=== PATIENT | male | born 1950 | race Caucasian/White ===

== ENCOUNTER 2018-07-19 14:04 | Inpatient (IN) | payer MEDICARE, BC, SELFPAY ==
[2018-07-19] VITALS (29 sets, daily range): BP systolic 119–202; BP diastolic 72–104; PULSE 67–120; RESP 10–24; TEMP 36.6–37.3; O2SAT 89–97
--- NOTE | 2018-07-19 14:31 | DI.CT_ITS ---
SYMPTOM/DIAGNOSIS: CHEST PAIN CT ANGIOGRAPHY CHEST: 07/19 CT angiography of the chest was performed with a bolus infusion of 100 cc Omnipaque 350. Images obtained through the upper abdomen is grossly unremarkable in appearance and the visualized portions of liver, spleen, pancreas and adrenals. Thoracic aorta is well opacified but there is suboptimal opacification in pulmonary arterial circulation, no major saddle embolus identified but the more peripheral vessels are not well seen. No adenopathy or mass identified in the mediastinum. No pleural fluid seen. The lungs are clear. CONCLUSION: Limited study. No central pulmonary embolus identified.
--- NOTE | 2018-07-19 14:35 | W.ED.GENAD ---
Discharge Plan Disposition Patient Disposition: [facility] INPATIENT Condition: Critical Discharge Details Chief Complaint: Chest Pain Clinical Impression: Unstable angina Reason For Visit: chest pain Admit Date/Time: 07/19/18 16:47 Admit Provider: Brett Marin Attending Provider: Brett Marin Primary Care Provider: Cosmo Mckeon ED Provider: Quincy Loza Discharge Data Discharge Date/Time-TO BE ENTERED AT DEPARTURE: 07/19/18 17:39 Medical Decision Making 14:35 --57-year-old male, former smoker, with history of hypertension, significant family history for cardiac disease, here with central chest pain with radiation to his left arm that started after shoveling snow this morning. Patient has had intermittent chest pain and dyspnea on exertion over the past 3-months. ECG concerning for ischemia. No STEMI. Plan to check troponin. Decision made to obtain outside hospital records. ECG was obtained from [facility]. Given tachycardia and some shortness of breath, consider PE. Patient is also hypertensive and raises concern for aortic dissection. I will obtain CTA imaging of his chest. Patient is anxious. I will give Ativan 0.5 mg IV. Plan to give nitroglycerin sublingual. 14:45 -- Patient received nitroglycerin sublingual x2 and had significant reduction in pain. 16:04 -- CT chest interpreted by radiology: Limited bolus. No central or first-order branch embolus. If there is significant clinical suspicion for pulmonary embolism, bilateral lower extremity duplex sonography is suggested to assess for DVT. Aorta noted to be normal with no aortic aneurysm and no aortic dissection. Pain has been resolved post nitro. Labs reviewed and initial trop neg. Repeat ECG reviewed and interpreted by me: Sinus rhythm 88 bpm, left axis deviation noted, ST depressions and T wave inversions have resolved. Call [facility] to consult with cardiology about transfer. ECG sent for review. Awaiting call back. 17:00 -- Spoke with [facility] cardiology Dr. Griffin -I discussed the patient's presentation, ED course including diagnostic results. Dr. Griffin recommends starting heparin infusion, plavix 300mg and aspirin, and recommends admission to [facility] with plan for transfer to [facility] tomorrow AM for further testing. I spoke with Dr. Marin and discussed ED presentation, course, diagnostics and treatment and recommendation from cardiology. He will admit the patient. He recommended crestor and requested that bridging orders be placed to the ICU. ECG Data Attestation: I personally reviewed and interpreted this ECG (s) as follows: (Sinus tachycardia 115 bpm, ST depressions are noted leads V4 to V6 with T wave inversions lead I and aVL) Prior ECG tracings: available for review (ECG from [facility] dated 06/11/2016 reveals no T wave inversions or ST depressions as noted in current EKG) HPI General Mode of arrival: ambulatory. Date/Time Provider Initiated Documentation: 07/19/18 14:13. Limitations to Documentation: no limitations. Information obtained by: patient. HPI Narrative: 67-year-old male with history of hypertension, COPD, former smoker, here with chief complaint of chest pain. Patient notes that he has been having constant chest pain over the past 1 hour. Pain seems to have improved slightly from its worst. Pain is currently 4/10 intensity. Pain is localized to his central chest and radiated into his left arm. Pain is described as an ache. Patient notes that he has had question 3 months of intermittent central chest discomfort with dyspnea on exertion. He does currently have some anxiety Patient did take his antihypertensive medications this morning. Related Data Home Medications Medication Instructions Recorded Confirmed aspirin 81 mg PO DAILY 07/19/18 07/19/18 lisinopril-hydrochlorothiazide 1 tab DAILY AM 07/19/18 07/19/18 metoprolol tartrate 50 mg PO Q6H #1 tab 07/19/18 nitroglycerin [Nitro-Bid] 1 g TOPICAL Q6H #1 g 07/19/18 nitroglycerin [Nitrostat] 0.4 mg SUBLINGUAL Q5 MIN PRN X3 07/19/18 PRN #1 tab omeprazole magnesium [Prilosec OTC] 20 mg PO PRN PRN 07/19/18 07/19/18 testosterone cypionate 200 mg IM QMONTH 07/19/18 07/19/18 tiotropium-olodaterol [Stiolto 2 puff INHALATION DAILY 07/19/18 07/19/18 Respimat] Previous Rx's Medication Instructions Recorded metoprolol tartrate 50 mg PO Q6H #1 tab 07/19/18 nitroglycerin [Nitro-Bid] 1 g TOPICAL Q6H #1 g 07/19/18 nitroglycerin [Nitrostat] 0.4 mg SUBLINGUAL Q5 MIN PRN X3 07/19/18 PRN #1 tab Allergies Allergy/AdvReac Type Severity Reaction Status Date / Time shellfish derived Allergy Unverified 07/19/18 14:14 General Stated Complaint: Chest Pain ELI: 2 Review of Systems Review of Systems All systems reviewed & are unremarkable except as noted in HPI and below Cardiovascular Reports chest pain and Reports dyspnea on exertion Respiratory Reports dyspnea on exertion PFSH Family History Father History of non-ST elevation myocardial infarction (NSTEMI) Prostate cancer metastatic to multiple sites Mother COPD (chronic obstructive pulmonary disease) Sister Breast cancer Sister Ovarian cancer Brother Lung cancer Medical History COPD (chronic obstructive pulmonary disease) (Chronic) Colon polyps (Chronic) HTN (hypertension) (Chronic) Melanoma (Chronic) Social History Smoking/Tobacco Use Status: Former Tobacco Use Surgical History H/O colonoscopy (Resolved) H/O melanoma excision (Resolved) H/O nasal septoplasty (Resolved) Exam Const General: cooperative and no acute distress HENMT Head: normocephalic and atraumatic Mouth: moist mucous membranes Eyes Conjunctivae: normal conjunctivae Sclera: normal sclerae EOM: EOM intact bilaterally Neck Neck: trachea midline and supple Resp Auscultation: clear to auscultation bilaterally, no rales, no rhonchi and no wheezes Cardio Jugular venous pressure: no JVD Rate: tachycardic Rhythm: regular rhythm Heart Sounds: S1 normal, S2 normal, no gallops, no murmurs and no rubs GI Palpation: soft, not firm, no guarding, no masses, not rigid and nontender Skin General skin exam: no rashes or lesions noted Other: no diaphoresis Neuro General: alert, awake, oriented x3 and tone normal Extrem General: no calf tenderness bilaterally and no edema Psych Appearance: grossly normal Mental Status: mental status grossly normal Speech and Movement: speech and movement normal Affect: anxious affect Course Vital Signs Temperature 36.6 C 07/19/18 14:10 Pulse 116 H 07/19/18 14:10 Respiratory Rate 20 07/19/18 14:10 Blood Pressure 202/92 H 07/19/18 14:10 Pulse Oximetry 95 07/19/18 14:10 Temperature 36.6 C 07/19/18 14:10 Temperature Source Temporal Artery Scan 07/19/18 14:10 Pulse 116 H 07/19/18 14:10 Respiratory Rate 20 07/19/18 14:10 Respiratory Effort 07/19/18 14:24 Blood Pressure 202/92 H 07/19/18 14:10 Pulse Oximetry 95 07/19/18 14:10 Oxygen Delivery Method Room Air 07/19/18 14:10 Oxygen Flow Rate 0 07/19/18 14:10 Pain Level 4 07/19/18 14:10 Critical Care Time Critical Care Time: Yes Total Critical Care Time: 45 Attestation: I spent greater than 45 minutes addressing this patient's immediate life threats.
[2018-07-19] MEDS: LORazepam 2 MG/ML VIAL (14:40)
--- NOTE | 2018-07-19 14:42 | ED.GENADUL_ITS ---
Discharge Plan Disposition Patient Disposition: [facility] INPATIENT Condition: Critical Discharge Details Chief Complaint: Chest Pain Clinical Impression: Unstable angina Reason For Visit: chest pain Admit Date/Time: 07/19/18 16:47 Admit Provider: Brett Marin Attending Provider: Brett Marin Primary Care Provider: Cosmo Mckeon ED Provider: Quincy Loza Discharge Data Discharge Date/Time-TO BE ENTERED AT DEPARTURE: 07/19/18 17:39 Medical Decision Making 14:35 --57-year-old male, former smoker, with history of hypertension, significant family history for cardiac disease, here with central chest pain with radiation to his left arm that started after shoveling snow this morning. Patient has had intermittent chest pain and dyspnea on exertion over the past 3- months. ECG concerning for ischemia. No STEMI. Plan to check troponin. Decision made to obtain outside hospital records. ECG was obtained from [facility]. Given tachycardia and some shortness of breath, consider PE. Patient is also hypertensive and raises concern for aortic dissection. I will obtain CTA imaging of his chest. Patient is anxious. I will give Ativan 0.5 mg IV. Plan to give nitroglycerin sublingual. 14:45 -- Patient received nitroglycerin sublingual x2 and had significant reduction in pain. 16:04 -- CT chest interpreted by radiology: Limited bolus. No central or first-order branch embolus. If there is significant clinical suspicion for pulmonary embolism, bilateral lower extremity duplex sonography is suggested to assess for DVT. Aorta noted to be normal with no aortic aneurysm and no aortic dissection. Pain has been resolved post nitro. Labs reviewed and initial trop neg. Repeat ECG reviewed and interpreted by me: Sinus rhythm 88 bpm, left axis deviation noted, ST depressions and T wave inversions have resolved. Call [facility] to consult with cardiology about transfer. ECG sent for review. Awaiting call back. 17:00 -- Spoke with [facility] cardiology Dr. Griffin -I discussed the patient's presentation, ED course including diagnostic results. Dr. Griffin recommends starting heparin infusion, plavix 300mg and aspirin, and recommends admission to [facility] with plan for transfer to [facility] tomorrow AM for further testing. I spoke with Dr. Marin and discussed ED presentation, course, diagnostics and treatment and recommendation from cardiology. He will admit the patient. He recommended crestor and requested that bridging orders be placed to the ICU. ECG Data Attestation: I personally reviewed and interpreted this ECG (s) as follows: ( Sinus tachycardia 115 bpm, ST depressions are noted leads V4 to V6 with T wave inversions lead I and aVL) Prior ECG tracings: available for review (ECG from [facility] dated 06/11/2016 reveals no T wave inversions or ST depressions as noted in current EKG) HPI General Mode of arrival: ambulatory . Date/Time Provider Initiated Documentation: 07/19/18 14:13 . Limitations to Documentation: no limitations . Information obtained by: patient . HPI Narrative: 67-year-old male with history of hypertension, COPD, former smoker, here with chief complaint of chest pain. Patient notes that he has been having constant chest pain over the past 1 hour. Pain seems to have improved slightly from its worst. Pain is currently 4/10 intensity. Pain is localized to his central chest and radiated into his left arm. Pain is described as an ache. Patient notes that he has had question 3 months of intermittent central chest discomfort with dyspnea on exertion. He does currently have some anxiety Patient did take his antihypertensive medications this morning. Related Data Home Medications Medication Instructions Recorded Confirmed aspirin 81 mg PO DAILY 07/19/18 07/19/18 lisinopril-hydrochlorothiazide 1 tab DAILY AM 07/19/18 07/19/18 metoprolol tartrate 50 mg PO Q6H #1 tab 07/19/18 nitroglycerin [Nitro-Bid] 1 g TOPICAL Q6H #1 g 07/19/18 nitroglycerin [Nitrostat] 0.4 mg SUBLINGUAL Q5 MIN PRN X3 07/19/18 PRN #1 tab omeprazole magnesium [Prilosec OTC] 20 mg PO PRN PRN 07/19/18 07/19/18 testosterone cypionate 200 mg IM QMONTH 07/19/18 07/19/18 tiotropium-olodaterol [Stiolto 2 puff INHALATION DAILY 07/19/18 07/19/18 Respimat] Previous Rx's Medication Instructions Recorded metoprolol tartrate 50 mg PO Q6H #1 tab 07/19/18 nitroglycerin [Nitro-Bid] 1 g TOPICAL Q6H #1 g 07/19/18 nitroglycerin [Nitrostat] 0.4 mg SUBLINGUAL Q5 MIN PRN X3 07/19/18 PRN #1 tab Allergies Allergy/AdvReac Type Severity Reaction Status Date / Time shellfish derived Allergy Unverified 07/19/18 14:14 General Stated Complaint: Chest Pain ELI: 2 Review of Systems Review of Systems All systems reviewed & are unremarkable except as noted in HPI and below Cardiovascular Reports chest pain and Reports dyspnea on exertion Respiratory Reports dyspnea on exertion PFSH Family History Father History of non-ST elevation myocardial infarction (NSTEMI) Prostate cancer metastatic to multiple sites Mother COPD (chronic obstructive pulmonary disease) Sister Breast cancer Sister Ovarian cancer Brother Lung cancer Medical History COPD (chronic obstructive pulmonary disease) (Chronic) Colon polyps (Chronic) HTN (hypertension) (Chronic) Melanoma (Chronic) Social History Smoking/Tobacco Use Status: Former Tobacco Use Surgical History H/O colonoscopy (Resolved) H/O melanoma excision (Resolved) H/O nasal septoplasty (Resolved) Exam Const General: cooperative and no acute distress HENMT Head: normocephalic and atraumatic Mouth: moist mucous membranes Eyes Conjunctivae: normal conjunctivae Sclera: normal sclerae EOM: EOM intact bilaterally Neck Neck: trachea midline and supple Resp Auscultation: clear to auscultation bilaterally, no rales, no rhonchi and no wheezes Cardio Jugular venous pressure: no JVD Rate: tachycardic Rhythm: regular rhythm Heart Sounds: S1 normal, S2 normal, no gallops, no murmurs and no rubs GI Palpation: soft, not firm, no guarding, no masses, not rigid and nontender Skin General skin exam: no rashes or lesions noted Other: no diaphoresis Neuro General: alert, awake, oriented x3 and tone normal Extrem General: no calf tenderness bilaterally and no edema Psych Appearance: grossly normal Mental Status: mental status grossly normal Speech and Movement: speech and movement normal Affect: anxious affect Course Vital Signs Temperature 36.6 C 07/19/18 14:10 Pulse 116 H 07/19/18 14:10 Respiratory Rate 20 07/19/18 14:10 Blood Pressure 202/92 H 07/19/18 14:10 Pulse Oximetry 95 07/19/18 14:10 Temperature 36.6 C 07/19/18 14:10 Temperature Source Temporal Artery Scan 07/19/18 14:10 Pulse 116 H 07/19/18 14:10 Respiratory Rate 20 07/19/18 14:10 Respiratory Effort 07/19/18 14:24 Blood Pressure 202/92 H 07/19/18 14:10 Pulse Oximetry 95 07/19/18 14:10 Oxygen Delivery Method Room Air 07/19/18 14:10 Oxygen Flow Rate 0 07/19/18 14:10 Pain Level 4 07/19/18 14:10 Critical Care Time Critical Care Time: Yes Total Critical Care Time: 45 Attestation: I spent greater than 45 minutes addressing this patient's immediate life threats.
[2018-07-19 14:45] LABS: Abs Immature Grans 0.05 k/cumm (0.0-0.09); Absolute Basophil Count 0.04 k/cumm (0.0-0.2); Absolute Eosinophil Count 0.63 k/cumm (0.0-0.7); Absolute Lymphocyte Count 3.73 k/cumm (1.2-3.4); Absolute Monocyte Count 1.02 k/cumm (0.11-0.7); Absolute Neutrophil Count 9.27 k/cumm (1.2-6.7); Basophils % 0.3; Eosinophils % 4.3; HCT 45.8 % (40.0-50.0); HGB 16.3 g/dL (13.5-17.5); Immature Grans % 0.3; Lymphocytes % 25.3; Mean Corp. HGB Concentration 35.6 g/dL (32.0-36.0); Mean Corpuscular Hemoglobin 33.9 pg (27.0-33.0); Mean Corpuscular Volume 95.2 fL (80-95); Mean Platelet Volume 10.7 fL (8.0-11.0); Monocytes % 6.9; Neutrophils % 62.9; Platelet Count 268 x1000/uL (130-400); RBC 4.81 m/cumm (4.50-6.00); RBC Distribution Width 13.2 % (11.8-14.1); White Blood Cell Count 14.73 k/cumm (4.4-10.8)
[2018-07-19 15:06] LABS: ALT 44 U/L (12-78); AST 37 U/L (15-37); Albumin 4.1 g/dL (3.4-5.0); Alkaline Phosphatase 56 U/L (46-116); Anion Gap 11.4 mmol/L (3-11); BUN 21 mg/dL (7-18); Bilirubin, Total 0.5 mg/dL (0.2-1.0); CO2 26.6 mmol/L (21.0-32.0); CREATININE 1.26 mg/dL (0.70-1.30); Calcium 8.6 mg/dL (8.5-10.1); Chloride 100 mmol/L (98-107); Estimated GFR 56.74 (mL/min/1.73m2); Glucose 144 mg/dL (70-100); NT-proBNP 199 pg/mL; Potassium 3.6 mmol/L (3.5-5.1); Sodium 138 mmol/L (136-145); Total Protein 8.4 g/dL (6.4-8.2); Troponin I 0.02 ng/mL (0.00-0.06)
[2018-07-19] MEDS: Omnipaque 350 MG/ML 100 ML BTL IJ (15:35)
--- NOTE | 2018-07-19 15:50 | DI.VRAD_ITS ---
EXAM: CT Angiography Chest With Intravenous Contrast EXAM DATE/TIME: 07/19/2018 3:34 PM CLINICAL HISTORY: 67 years old, male; Pain; Chest pain TECHNIQUE: Axial computed tomographic angiography images of the chest with intravenous contrast using CT angiography protocol. All CT scans at this facility use at least one of these dose optimization techniques: automated exposure control; mA and/or kV adjustment per patient size (includes targeted exams where dose is matched to clinical indication); or iterative reconstruction. Coronal and sagittal reformatted images were created and reviewed. MIP reconstructed images were created and reviewed. CONTRAST: 100 ml of omnipaque 350 administered intravenously. COMPARISON: No relevant prior studies available. FINDINGS: Pulmonary arteries: The pulmonary artery bolus is not ideal, below 200 Hounsfield units. No central or first-order branch embolus seen. Aorta: Normal. No aortic aneurysm. No aortic dissection. Lungs: Normal. No consolidation. No masses. Pleural space: Normal. No pneumothorax. No pleural effusion. Heart: Normal. No cardiomegaly. No pericardial effusion. Bones/joints: Moderate thoracic spondylosis. Soft tissues: Unremarkable. Lymph nodes: Unremarkable. No enlarged lymph nodes. Gallbladder and bile ducts: Status post cholecystectomy. IMPRESSION: Limited bolus. No central or first-order branch embolus. If there is significant clinical suspicion for pulmonary embolism, bilateral lower extremity duplex sonography is suggested to assess for DVT. COMMENT: Preliminary interpretation is based on receipt of 326 image(s). A final report will be issued subsequently. Dictated and Authenticated by: Cady Rose MD. Ordering:MILIND ODOM MD
[2018-07-19] MEDS: Aspirin 81 MG CHEW 324 MG CH (16:54)
[2018-07-19] MEDS: Clopidogrel 300 MG TAB PO (16:54)
[2018-07-19] MEDS: Rosuvastatin 10 MG TAB 40 MG PO (17:02)
[2018-07-19 17:17] LABS: PTT Activated 22.5 sec (21.0-31.4)
[2018-07-19 18:43] LABS: Magnesium 1.7 mg/dL (1.8-2.4)
[2018-07-19] MEDS: Metoprolol 5 MG/5 ML VIAL IVP (18:50)
[2018-07-19] MEDS: Normal Saline Flush 10 ML SYR (18:50)
[2018-07-19 18:51] LABS: Troponin I 0.18 ng/mL (0.00-0.06)
[2018-07-19] MEDS: Potassium Chloride 10 MEQ TABCR 20 MEQ PO (18:53)
[2018-07-19] MEDS: Metoprolol 50 MG TAB PO (18:53)
--- NOTE | 2018-07-19 19:15 | W.PM.HP.N ---
Date of service: 07/19/18 Time of Service: 19:16 Assessment and Plan (1) Acute coronary syndrome: Current visit: Yes Status: Acute Patient has symptoms consistent with acute coronary syndrome suggestive of either unstable angina or non-ST elevation myocardial infarction. He is currently pain-free and free of any dyspnea. His initial troponin was normal and his repeat level was in the indeterminate range at 0.18. The plan is to hold him overnight until [place] becomes [place] [facility] He will be treated w/ high dose rosuvastatin, ASA, Plavix, heparin drip and oral lopressor. I have also put him on topical NTG. If he developes worsening chest pain and new EKG changes then I will put him on iv NTG and call [facility] [place] urgently [place] him. (2) Essential hypertension: Current visit: Yes Status: Acute Continue his current home dose of lisinopril with hydrochlorothiazide along with the addition of beta-blockers. (3) Hyperglycemia: Current visit: Yes Status: Acute Check a hemoglobin A1c and monitor blood sugars before meals and at bedtime (4) Leukocytosis, unspecified: Current visit: Yes Status: Acute He has no clinical symptoms of an acute infection. This may be a leukocytosis related to his acute coronary ischemia (5) Hypomagnesemia: Current visit: Yes Status: Acute He has borderline hypokalemia and is my hypomagnesemia are secondary to his diuretic component of his lisinopril/HCTZ. He is not been on any oral potassium or magnesium replacements. Therefore I have ordered IV replacement and oral replacement. History of Present Illness Chief Complaint: chest pain Narrative: 67-year-old male with a past medical history of essential hypertension and recently diagnosed with COPD because of recent complaints of exertional dyspnea. Patient presents the emergency department with acute exertional chest pain and dyspnea. Patient states that earlier this summer he had been doing fine riding his bicycle 20 miles a day with no chest discomfort or dyspnea. However over the last couple months since the weather is gotten colder he has been noticing that he is been getting dyspneic with much less effort and beginning this fall he gave up riding his bicycle because of the dyspnea. He saw a shell molding roller blast operator, Dr. Barros, in [place] who diagnosed him with COPD. Patient is a former smoker who quit smoking 30 years ago. However associated with his exertional dyspnea he has been getting exertional chest discomfort. He states that his symptoms have progressed to the point where he cannot even walk 100 feet without getting out of breath and having burning sensation in his chest. Today he was shoveling snow off of his deck when he started having substernal chest discomfort that he described as a burning. This lasted for about 1/2-hour. In the emergency room he had dynamic ST depression that resolved after a couple of sublingual nitroglycerin which took his chest discomfort away. Initial troponin level was normal at 0.02 however his repeat level is come up to 0.18. He is currently pain-free and not short of breath. Dr. Quincy Loza, emergency room physician, spoke with [facility] cardiology who indicated that they would accept the patient but they currently have no beds and asked that we admit him to the intensive care unit on a heparin drip. Patient has been started on aspirin and Plavix. I have added metoprolol. On admission to the emergency room the patient was hypertensive and tachycardic with a blood pressure of 202/92 and a heart rate of 116 bpm. Since being given IV Lopressor 5 mg and Lopressor 50 mg p.o. his heart rates come down to 79 bpm and his blood pressures down to 154/88. He has been started on a high dose statin including rosuvastatin and has been started on a continuous heparin drip. Review of Systems Review of Systems All systems reviewed & are unremarkable except as noted in HPI and below Cardiovascular Reports as per HPI Respiratory Reports as per HPI PFSH Family History Father History of non-ST elevation myocardial infarction (NSTEMI) Prostate cancer metastatic to multiple sites Mother COPD (chronic obstructive pulmonary disease) Sister Breast cancer Sister Ovarian cancer Brother Lung cancer Medical History Colon polyps (Chronic) Melanoma (Chronic) COPD (chronic obstructive pulmonary disease) (Chronic) HTN (hypertension) (Chronic) Social History Smoking/Tobacco Use Status: Former Tobacco Use Surgical History H/O colonoscopy (Resolved) H/O melanoma excision (Resolved) H/O nasal septoplasty (Resolved) Meds Home Medications Medication Instructions Recorded Confirmed Type aspirin 81 mg PO DAILY 07/19/18 07/19/18 History lisinopril-hydrochlorothiazide 1 tab DAILY AM 07/19/18 07/19/18 History omeprazole magnesium [Prilosec OTC] 20 mg PO PRN PRN 07/19/18 07/19/18 History testosterone cypionate 200 mg IM QMONTH 07/19/18 07/19/18 History tiotropium-olodaterol [Stiolto 2 puff INHALATION DAILY 07/19/18 07/19/18 History Respimat] Allergies Allergy/AdvReac Type Severity Reaction Status Date / Time shellfish derived Allergy Unverified 07/19/18 14:14 Exam Const General: cooperative, healthy appearing, comfortable, no acute distress and well groomed Nutritional Appearance: overweight Orientation: alert, awake and oriented x3 HENMT Head: normal to inspection, normocephalic and atraumatic Ears: hearing grossly normal bilaterally General nose exam: external nose normal Face and sinus: normal facial exam Eyes General: appearance normal, both eyes and all related structures Visual Mcnally: normal visual mcnally by confrontation Alignment and Position: alignment normal Periorbital: periorbital findings normal Conjunctivae: conjunctivae normal Sclera: sclerae normal Cornea: corneas normal Pupils: PERRL EOM: EOM intact bilaterally Neck Neck: normal visual inspection, full ROM, no lymphadenopathy, no meningeal signs, trachea midline and supple Thyroid: thyroid normal Carotids: normal carotid upstroke Lymphatic: no lymphadenopathy noted Resp Effort & Inspection: normal respiratory effort and able to speak in complete sentences Auscultation: clear to auscultation bilaterally Cardio Jugular venous pressure: no JVD Palpation: normal PMI Rate: regular rate Rhythm: regular rhythm Heart Sounds: S1 normal, S2 normal, normal, physiologic split S2, no gallops, no murmurs and no rubs Bruits: no abdominal aortic bruits and no carotid bruits Pulses: normal peripheral pulses GI Inspection: normal to inspection Palpation: soft and no hepatosplenomegaly Percussion: normal to percussion Auscultation: normal bowel sounds Rectal Exam: deferred Back/Spine/Pelvis Back: no CVA tenderness Cervical Spine: normal cervical lordosis Thoracic/Lumbar Spine: thoracic and lumbar spine normal to inspection Skin General skin exam: no rashes or lesions noted Lesions: no lesions Rashes: no rashes Trauma: no lacerations or abrasions Wounds: no wounds Hair: normal Nails: normal Neuro General: alert, awake, oriented x3, moves all extremities, normal light touch, pain and propioception and no focal motor deficits Cranial Nerves: CN's II-XI intact bilaterally and EOM intact bilaterally Cognition: normal cognition Speech: speech normal Motor: muscle tone normal throughout, strength 5/5 throughout and no movement abnormalities noted Sensory Exam: no sensory deficits noted Extrem General: normal to inspection, full ROM, normal capillary refill, no joint enlargement, no clubbing, cyanosis or edema and no calf tenderness Psych Appearance: grossly normal and well kempt Mental Status: mental status grossly normal Speech and Movement: speech and movement normal Mood: congruent mood Affect: normal affect Attitude: cooperative Thought Process: normal Thought Content: normal Insight: insight good Judgment: judgment good Results Imaging CT scan - chest: report reviewed (IMPRESSION: Limited bolus. No central or first-order branch embolus. If there is significant clinical suspicion for pulmonary embolism, bilateral lower extremity duplex sonography is suggested to assess for DVT. COMMENT: Preliminary interpretation is based on receipt of 326 image(s). A final r) EKG: image reviewed (EKG taken at 1412 on July 19, 2018 demonstrates sinus tachycardia at a rate of [address] depression is present in limb lead I, aVL, V3 through V6 and to a lesser degree in limb leads II and aVF. Upon repeat ECG taken at 1604 on July 19, 2018 ST segments had regular return t) Labs : 07/19/18 14:36 07/19/18 14:36 Laboratory Results - last 24 hr 07/19/18 07/19/18 07/19/18 14:36 14:36 14:36 WBC 14.73 H RBC 4.81 Hgb 16.3 Hct 45.8 MCV 95.2 H MCH 33.9 H MCHC 35.6 RDW 13.2 Plt Count 268 MPV 10.7 Immature Gran % 0.3 Neutrophils % 62.9 Lymphocytes % 25.3 Monocytes % 6.9 Eosinophils % 4.3 Basophils % 0.3 Absolute Neutrophils 9.27 H Absolute Lymphocytes 3.73 H Absolute Monocytes 1.02 H Absolute Eosinophils 0.63 Absolute Basophils 0.04 APTT 22.5 Sodium 138 Potassium 3.6 Chloride 100 Carbon Dioxide 26.6 Anion Gap 11.4 H BUN 21 H Creatinine 1.26 Estimated GFR/1.73 m2 56.74 Glucose 144 H Calcium 8.6 Magnesium Total Bilirubin 0.5 AST 37 ALT 44 Alkaline Phosphatase 56 Troponin I 0.02 NT-Pro-B Natriuret Pep 199 Total Protein 8.4 H Albumin 4.1 07/19/18 18:20 WBC RBC Hgb Hct MCV MCH MCHC RDW Plt Count MPV Immature Gran % Neutrophils % Lymphocytes % Monocytes % Eosinophils % Basophils % Absolute Neutrophils Absolute Lymphocytes Absolute Monocytes Absolute Eosinophils Absolute Basophils APTT Sodium Potassium Chloride Carbon Dioxide Anion Gap BUN Creatinine Estimated GFR/1.73 m2 Glucose Calcium Magnesium 1.7 L Total Bilirubin AST ALT Alkaline Phosphatase Troponin I 0.18 H NT-Pro-B Natriuret Pep Total Protein Albumin Last Vital Signs Temp 37.3 C 07/19/18 17:48 Pulse 97 H 07/19/18 18:50 Resp 17 07/19/18 17:57 BP 163/90 H 07/19/18 17:57 Pulse Ox 97 07/19/18 17:57
[2018-07-19] MEDS: POTASSIUM CHLORIDE/0.45% NACL 1,000 ML 80 MEQ IV (21:15)
[2018-07-19] MEDS: MAGNESIUM SULFATE 2 GM/50 ML BAG IVPB (21:16)
--- NOTE | 2018-07-19 21:54 | W.PM.DS.N ---
Date of service: 07/19/18 Time of Service: 21:54 DS: Diagnosis Discharge Diagnosis (1) Acute coronary syndrome: Status: Acute Asessment and Plan: patient to remain on topical NTG, iv heparin en route to [facility]. patient transferred to [facility] to Dr. Darlyn Muñiz for further evaluation of ACS including cardiac catheterization. Patient will remain on oral lopressor and rosuvastatin, ASA, and Plavix. (2) Essential hypertension: Status: Acute Asessment and Plan: blood pressure markedly improved w/ NTG and lopressor. Further bp meds to be determined by [facility] cardiology (3) Hyperglycemia: Status: Acute Asessment and Plan: work up of his hyperglycemia is incomplete. needs A1C to assess recent senior care glycemic control. further monitoring of his blood sugars should be obtained while hospitalized and treated accordingly. He has no FMH of DM. (4) Leukocytosis, unspecified: Status: Acute Asessment and Plan: unclear etiology. he has no fever. This may be stress demargination of neutrophils secondary to his ACS. Repeat CBC w/ diff should be obtained in the a.m. (5) Hypomagnesemia: Status: Acute Asessment and Plan: His hypomagnesemia and borderline low potassium is probably secondary to his HCTZ component of his lisinopril/HCTZ antihypertensive treatment. I have given him supplementation and if he continues his diuretic component then he will need further supplementation Discharge Plan Disposition Patient Disposition: [facility] Condition: Critical Discharge Details Reason For Visit: chest pain Admit Date/Time: 07/19/18 16:47 Admit Provider: Brett Marin Attending Provider: Brett Marin Primary Care Provider: Cosmo Mckeon [facility] Course Hospital Course: male with a past medical history of essential hypertension and recent diagnosis of COPD after a workup of complaints of recent exertional dyspnea. He now presents to the emergency department with progressive exertional chest pain. Today's episode was prolonged lasting over 30 minutes while shoveling snow. Evaluation in the emergency room included diagnostic EKGs that showed dynamic ST-T wave depression inferolaterally that resolved with resolution of his chest pain after [address] Quincy Loza, emergency room physician, at [facility] spoke with [facility] and recommended transfer. No beds were initially available at [facility] and they advised patient to be admitted to our facility for medical treatment. Patient was given aspirin 3 and 24 mg and Plavix 300 mg orally and started on a heparin drip while in the emergency room. Patient was found to be significantly hypertensive with blood pressures of 200s/90s, and tachycardic with heart rates in the 110s. His initial troponin level was normal at 0.02. Repeat level 3-1/2 hours later came back elevated at 0.18. Upon admission to the intensive care unit patient was given IV Lopressor 5 mg as well as oral Lopressor 50 mg. He was started on nitroglycerin paste 1 inch topically. He has remained pain-free since admission. [facility] has called the intensive care unit at [facility] and indicated that they now have a bed available and are accepting the patient in transfer to the service of Dr. Darlyn Muñiz. Patient was found to be mildly hypomagnesemic at 1.8 and was given a 2 g bolus IV. His potassium level was borderline low at 3.6 and he was given oral potassium chloride 20 mEq and started on IV fluids of 0.45% saline with 20 mEq of potassium per liter at a rate of 80 mL an hour. He was also found to be hyperglycemic on admission with a nonfasting glucose level of 144. He has no known history of diabetes mellitus and no family history diabetes mellitus. CBC demonstrated a mild leukocytosis of 14,000. Patient has no symptoms of acute infection such as fever or chills or dysuria or cough. It is presumed that the leukocytosis is due to neutrophilic demargination due to the acute stress reaction of his acute coronary syndrome. Patient is currently hemodynamically stable and remains free of any chest pain or dyspnea and will be transported by ambulance to [facility]. Home Meds and New Rx's Prescriptions: New metoprolol tartrate 50 mg Tablet 50 mg PO Q6H Qty: 1 RF: 0 nitroglycerin [Nitrostat] 0.4 mg Tablet, Sublingual 0.4 mg Sublingual Q5 MIN PRN X3 PRNQty: 1 RF: 0 nitroglycerin [Nitro-Bid] 2 % Ointment 1 g Topical Q6H Qty: 1 RF: 0 Continue lisinopril-hydrochlorothiazide 20-25 mg Tablet 1 tab DAILY AM RF: 0 aspirin 81 mg Tablet,Chewable 81 mg PO DAILY RF: 0 omeprazole magnesium [Prilosec OTC] 20 mg Tablet,Delayed Release (Dr/Ec) 20 mg PO PRN PRNRF: 0 testosterone cypionate 200 mg/mL Kit 200 mg IM QMONTH RF: 0 tiotropium-olodaterol [Stiolto Respimat] 2.5-2.5 mcg/actuation Mist 2 puff Inhalation DAILY RF: 0 Discharge Instructions Instructions: Acute Coronary Syndrome (DC) Additional Instructions: Upon discharge from [facility] your medications will be reconciled and further instructions for follow-up with your switcher will be given to you at that time. Activity:: Bedrest Diet:: NPO Discharge Orders Discharge Orders: Discharge Order (Routine); Ordered 07/19/18 Ordered By: Larry Bolton DS: Summary Status at Discharge Cognitive/behavioral status at discharge: fully cognitively intact w/ normal behaviorial response to his current medical condition Overall status at discharge: patient is not back to baseline (patient has progressive exertional angina which has not been fully worked up or completely treated) Time Spent with Patient Greater than 30 minutes Specific discharge activities: bedrest until he has had his cardiac catheterization and definitive treatment of his acute coronary syndrome has been accomplished Exam Const General: cooperative Nutritional Appearance: overweight Orientation: alert, awake and oriented x3 HENMT Head: normal to inspection, normocephalic and atraumatic Ears: hearing grossly normal bilaterally General nose exam: external nose normal Face and sinus: normal facial exam Eyes General: appearance normal, both eyes and all related structures Visual Mcnally: normal visual mcnally by confrontation Alignment and Position: alignment normal Periorbital: periorbital findings normal Conjunctivae: conjunctivae normal Sclera: sclerae normal Cornea: corneas normal Pupils: PERRL EOM: EOM intact bilaterally Neck Neck: normal visual inspection, full ROM, no lymphadenopathy, no meningeal signs, trachea midline and supple Thyroid: thyroid normal Carotids: normal carotid upstroke Lymphatic: no lymphadenopathy noted Resp Effort & Inspection: normal respiratory effort and able to speak in complete sentences Auscultation: clear to auscultation bilaterally Cardio Jugular venous pressure: no JVD Palpation: normal PMI Rate: regular rate Rhythm: regular rhythm Heart Sounds: S1 normal, S2 normal, normal, physiologic split S2, no gallops, no murmurs and no rubs Bruits: no abdominal aortic bruits and no carotid bruits Pulses: normal peripheral pulses GI Inspection: normal to inspection Palpation: soft and no hepatosplenomegaly Percussion: normal to percussion Auscultation: normal bowel sounds Rectal Exam: deferred Back/Spine/Pelvis Back: no CVA tenderness Cervical Spine: normal cervical lordosis Thoracic/Lumbar Spine: thoracic and lumbar spine normal to inspection Skin General skin exam: no rashes or lesions noted Lesions: no lesions Rashes: no rashes Trauma: no lacerations or abrasions Wounds: no wounds Hair: normal Nails: normal Neuro General: alert, awake, oriented x3, moves all extremities, normal light touch, pain and propioception and no focal motor deficits Cranial Nerves: CN's II-XI intact bilaterally and EOM intact bilaterally Cognition: normal cognition Speech: speech normal Motor: muscle tone normal throughout, strength 5/5 throughout and no movement abnormalities noted Sensory Exam: no sensory deficits noted Extrem General: normal to inspection, full ROM, normal capillary refill, no joint enlargement, no clubbing, cyanosis or edema and no calf tenderness Psych Appearance: grossly normal and well kempt Mental Status: mental status grossly normal Speech and Movement: speech and movement normal Mood: congruent mood Affect: normal affect Attitude: cooperative Thought Process: normal Thought Content: normal Insight: insight good Judgment: judgment good DS: Data Vitals/I&O Vitals and I&O: Vital Signs Temperature 37.1 C 07/19/18 19:30 Temperature Source Temporal Artery Scan 07/19/18 19:30 Pulse 89 07/19/18 19:30 Pulse 75 07/19/18 19:01 Respiratory Rate 11 L 07/19/18 19:30 Respiratory Effort Non-Labored 07/19/18 19:30 Respiratory Depth Normal 07/19/18 19:30 Respiratory Pattern Normal 07/19/18 19:30 Blood Pressure 154/88 H 07/19/18 19:01 Blood Pressure Mean 105 07/19/18 19:01 Blood Pressure Position Supine 07/19/18 18:00 Pulse Oximetry 93 L 07/19/18 19:30 Oxygen Delivery Method Room Air 07/19/18 19:30 Oxygen Flow Rate 0 11/17/18 19:30 Pain Level 0 07/19/18 19:30 Intake & Output 07/18/18 07/19/18 07/19/18 23:59 11:59 23:59 Weight 103.8 kg Other: Comment History of enlarged prostate. Labs on day of discharge: Labs from last 24 hours 07/19/18 07/19/18 07/19/18 23:15 22:00 18:20 WBC RBC Hgb Hct MCV MCH MCHC RDW Plt Count MPV Immature Gran % Neutrophils % Lymphocytes % Monocytes % Eosinophils % Basophils % Absolute Neutrophils Absolute Lymphocytes Absolute Monocytes Absolute Eosinophils Absolute Basophils APTT Cancelled Sodium Potassium Chloride Carbon Dioxide Anion Gap BUN Creatinine Estimated GFR/1.73 m2 Glucose Calcium Magnesium 1.7 L Total Bilirubin AST ALT Alkaline Phosphatase Troponin I Cancelled 0.18 H NT-Pro-B Natriuret Pep Total Protein Albumin 07/19/18 07/19/18 07/19/18 14:36 14:36 14:36 WBC 14.73 H RBC 4.81 Hgb 16.3 Hct 45.8 MCV 95.2 H MCH 33.9 H MCHC 35.6 RDW 13.2 Plt Count 268 MPV 10.7 Immature Gran % 0.3 Neutrophils % 62.9 Lymphocytes % 25.3 Monocytes % 6.9 Eosinophils % 4.3 Basophils % 0.3 Absolute Neutrophils 9.27 H Absolute Lymphocytes 3.73 H Absolute Monocytes 1.02 H Absolute Eosinophils 0.63 Absolute Basophils 0.04 APTT 22.5 Sodium 138 Potassium 3.6 Chloride 100 Carbon Dioxide 26.6 Anion Gap 11.4 H BUN 21 H Creatinine 1.26 Estimated GFR/1.73 m2 56.74 Glucose 144 H Calcium 8.6 Magnesium Total Bilirubin 0.5 AST 37 ALT 44 Alkaline Phosphatase 56 Troponin I 0.02 NT-Pro-B Natriuret Pep 199 Total Protein 8.4 H Albumin 4.1 PFSH Family History Father History of non-ST elevation myocardial infarction (NSTEMI) Prostate cancer metastatic to multiple sites Mother COPD (chronic obstructive pulmonary disease) Sister Breast cancer Sister Ovarian cancer Brother Lung cancer Medical History Colon polyps (Chronic) Melanoma (Chronic) COPD (chronic obstructive pulmonary disease) (Chronic) HTN (hypertension) (Chronic) Social History Smoking/Tobacco Use Status: Former Tobacco Use Surgical History H/O colonoscopy (Resolved) H/O melanoma excision (Resolved) H/O nasal septoplasty (Resolved)
--- NOTE | 2018-07-19 22:01 | DSE_ITS ---
Date of service: 07/19/18 Time of Service: 21:54 DS: Diagnosis Discharge Diagnosis (1) Acute coronary syndrome: Status: Acute Asessment and Plan: patient to remain on topical NTG, iv heparin en route to [facility]. patient transferred to [facility] to Dr. Darlyn Muñiz for further evaluation of ACS including cardiac catheterization. Patient will remain on oral lopressor and rosuvastatin, ASA, and Plavix. (2) Essential hypertension: Status: Acute Asessment and Plan: blood pressure markedly improved w/ NTG and lopressor. Further bp meds to be determined by [facility] cardiology (3) Hyperglycemia: Status: Acute Asessment and Plan: work up of his hyperglycemia is incomplete. needs A1C to assess recent mcc glycemic control. further monitoring of his blood sugars should be obtained while hospitalized and treated accordingly. He has no FMH of DM. (4) Leukocytosis, unspecified: Status: Acute Asessment and Plan: unclear etiology. he has no fever. This may be stress demargination of neutrophils secondary to his ACS. Repeat CBC w/ diff should be obtained in the a.m. (5) Hypomagnesemia: Status: Acute Asessment and Plan: His hypomagnesemia and borderline low potassium is probably secondary to his HCTZ component of his lisinopril/HCTZ antihypertensive treatment. I have given him supplementation and if he continues his diuretic component then he will need further supplementation Discharge Plan Disposition Patient Disposition: [facility] Condition: Critical Discharge Details Reason For Visit: chest pain Admit Date/Time: 07/19/18 16:47 Admit Provider: Brett Marin Attending Provider: Brett Marin Primary Care Provider: Cosmo Mckeon [facility] Course Hospital Course: male with a past medical history of essential hypertension and recent diagnosis of COPD after a workup of complaints of recent exertional dyspnea. He now presents to the emergency department with progressive exertional chest pain. Today's episode was prolonged lasting over 30 minutes while shoveling snow. Evaluation in the emergency room included diagnostic EKGs that showed dynamic ST-T wave depression inferolaterally that resolved with resolution of his chest pain after [address] Quincy Loza, emergency room physician, at [facility] spoke with [facility] and recommended transfer. No beds were initially available at [facility] and they advised patient to be admitted to our facility for medical treatment. Patient was given aspirin 3 and 24 mg and Plavix 300 mg orally and started on a heparin drip while in the emergency room. Patient was found to be significantly hypertensive with blood pressures of 200s/90s, and tachycardic with heart rates in the 110s. His initial troponin level was normal at 0.02. Repeat level 3-1/2 hours later came back elevated at 0.18. Upon admission to the intensive care unit patient was given IV Lopressor 5 mg as well as oral Lopressor 50 mg. He was started on nitroglycerin paste 1 inch topically. He has remained pain-free since admission. [facility] has called the intensive care unit at [facility] and indicated that they now have a bed available and are accepting the patient in transfer to the service of Dr. Darlyn Muñiz. Patient was found to be mildly hypomagnesemic at 1.8 and was given a 2 g bolus IV. His potassium level was borderline low at 3.6 and he was given oral potassium chloride 20 mEq and started on IV fluids of 0.45% saline with 20 mEq of potassium per liter at a rate of 80 mL an hour. He was also found to be hyperglycemic on admission with a nonfasting glucose level of 144. He has no known history of diabetes mellitus and no family history diabetes mellitus. CBC demonstrated a mild leukocytosis of 14,000. Patient has no symptoms of acute infection such as fever or chills or dysuria or cough. It is presumed that the leukocytosis is due to neutrophilic demargination due to the acute stress reaction of his acute coronary syndrome. Patient is currently hemodynamically stable and remains free of any chest pain or dyspnea and will be transported by ambulance to [facility]. Home Meds and New Rx's Prescriptions: New metoprolol tartrate 50 mg Tablet 50 mg PO Q6H Qty: 1 RF: 0 nitroglycerin [Nitrostat] 0.4 mg Tablet, Sublingual 0.4 mg Sublingual Q5 MIN PRN X3 PRNQty: 1 RF: 0 nitroglycerin [Nitro-Bid] 2 % Ointment 1 g Topical Q6H Qty: 1 RF: 0 Continue lisinopril-hydrochlorothiazide 20-25 mg Tablet 1 tab DAILY AM RF: 0 aspirin 81 mg Tablet,Chewable 81 mg PO DAILY RF: 0 omeprazole magnesium [Prilosec OTC] 20 mg Tablet,Delayed Release (Dr/Ec) 20 mg PO PRN PRNRF: 0 testosterone cypionate 200 mg/mL Kit 200 mg IM QMONTH RF: 0 tiotropium-olodaterol [Stiolto Respimat] 2.5-2.5 mcg/actuation Mist 2 puff Inhalation DAILY RF: 0 Discharge Instructions Instructions: Acute Coronary Syndrome (DC) Additional Instructions: Upon discharge from [facility] your medications will be reconciled and further instructions for 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 Activity:: Bedrest Diet:: NPO Discharge Orders Discharge Orders: Discharge Order (Routine); Ordered 07/19/18 Ordered By: Larry Bolton DS: Summary Status at Discharge Cognitive/behavioral status at discharge: fully cognitively intact w/ normal behaviorial response to his current medical condition Overall status at discharge: patient is not back to baseline (patient has progressive exertional angina which has not been fully worked up or completely treated) Time Spent with Patient Greater than 30 minutes Specific discharge activities: bedrest until he has had his cardiac catheterization and definitive treatment of his acute coronary syndrome has been accomplished Exam Const General: cooperative Nutritional Appearance: overweight Orientation: alert, awake and oriented x3 HENMT Head: normal to inspection, normocephalic and atraumatic Ears: hearing grossly normal bilaterally General nose exam: external nose normal Face and sinus: normal facial exam Eyes General: appearance normal, both eyes and all related structures Visual Mcnally: normal visual mcnally by confrontation Alignment and Position: alignment normal Periorbital: periorbital findings normal Conjunctivae: conjunctivae normal Sclera: sclerae normal Cornea: corneas normal Pupils: PERRL EOM: EOM intact bilaterally Neck Neck: normal visual inspection, full ROM, no lymphadenopathy, no meningeal signs , trachea midline and supple Thyroid: thyroid normal Carotids: normal carotid upstroke Lymphatic: no lymphadenopathy noted Resp Effort & Inspection: normal respiratory effort and able to speak in complete sentences Auscultation: clear to auscultation bilaterally Cardio Jugular venous pressure: no JVD Palpation: normal PMI Rate: regular rate Rhythm: regular rhythm Heart Sounds: S1 normal, S2 normal, normal, physiologic split S2, no gallops, no murmurs and no rubs Bruits: no abdominal aortic bruits and no carotid bruits Pulses: normal peripheral pulses GI Inspection: normal to inspection Palpation: soft and no hepatosplenomegaly Percussion: normal to percussion Auscultation: normal bowel sounds Rectal Exam: deferred Back/Spine/Pelvis Back: no CVA tenderness Cervical Spine: normal cervical lordosis Thoracic/Lumbar Spine: thoracic and lumbar spine normal to inspection Skin General skin exam: no rashes or lesions noted Lesions: no lesions Rashes: no rashes Trauma: no lacerations or abrasions Wounds: no wounds Hair: normal Nails: normal Neuro General: alert, awake, oriented x3, moves all extremities, normal light touch, pain and propioception and no focal motor deficits Cranial Nerves: CN's II-XI intact bilaterally and EOM intact bilaterally Cognition: normal cognition Speech: speech normal Motor: muscle tone normal throughout, strength 5/5 throughout and no movement abnormalities noted Sensory Exam: no sensory deficits noted Extrem General: normal to inspection, full ROM, normal capillary refill, no joint enlargement, no clubbing, cyanosis or edema and no calf tenderness Psych Appearance: grossly normal and well kempt Mental Status: mental status grossly normal Speech and Movement: speech and movement normal Mood: congruent mood Affect: normal affect Attitude: cooperative Thought Process: normal Thought Content: normal Insight: insight good Judgment: judgment good DS: Data Vitals/I&O Vitals and I&O: Vital Signs Temperature 37.1 C 07/19/18 19:30 Temperature Source Temporal Artery Scan 07/19/18 19:30 Pulse 89 07/19/18 19:30 Pulse 75 07/19/18 19:01 Respiratory Rate 11 L 07/19/18 19:30 Respiratory Effort Non-Labored 07/19/18 19:30 Respiratory Depth Normal 07/19/18 19:30 Respiratory Pattern Normal 07/19/18 19:30 Blood Pressure 154/88 H 07/19/18 19:01 Blood Pressure Mean 105 07/19/18 19:01 Blood Pressure Position Supine 07/19/18 18:00 Pulse Oximetry 93 L 07/19/18 19:30 Oxygen Delivery Method Room Air 07/19/18 19:30 Oxygen Flow Rate 0 11/17/18 19:30 Pain Level 0 07/19/18 19:30 Intake & Output 07/18/18 07/19/18 07/19/18 23:59 11:59 23:59 Weight 103.8 kg Other: Comment History of enlarged prostate. Labs on day of discharge: Labs from last 24 hours 07/19/18 07/19/18 07/19/18 23:15 22:00 18:20 WBC RBC Hgb Hct MCV MCH MCHC RDW Plt Count MPV Immature Gran % Neutrophils % Lymphocytes % Monocytes % Eosinophils % Basophils % Absolute Neutrophils Absolute Lymphocytes Absolute Monocytes Absolute Eosinophils Absolute Basophils APTT Cancelled Sodium Potassium Chloride Carbon Dioxide Anion Gap BUN Creatinine Estimated GFR/1.73 m2 Glucose Calcium Magnesium 1.7 L Total Bilirubin AST ALT Alkaline Phosphatase Troponin I Cancelled 0.18 H NT-Pro-B Natriuret Pep Total Protein Albumin 07/19/18 07/19/18 07/19/18 14:36 14:36 14:36 WBC 14.73 H RBC 4.81 Hgb 16.3 Hct 45.8 MCV 95.2 H MCH 33.9 H MCHC 35.6 RDW 13.2 Plt Count 268 MPV 10.7 Immature Gran % 0.3 Neutrophils % 62.9 Lymphocytes % 25.3 Monocytes % 6.9 Eosinophils % 4.3 Basophils % 0.3 Absolute Neutrophils 9.27 H Absolute Lymphocytes 3.73 H Absolute Monocytes 1.02 H Absolute Eosinophils 0.63 Absolute Basophils 0.04 APTT 22.5 Sodium 138 Potassium 3.6 Chloride 100 Carbon Dioxide 26.6 Anion Gap 11.4 H BUN 21 H Creatinine 1.26 Estimated GFR/1.73 m2 56.74 Glucose 144 H Calcium 8.6 Magnesium Total Bilirubin 0.5 AST 37 ALT 44 Alkaline Phosphatase 56 Troponin I 0.02 NT-Pro-B Natriuret Pep 199 Total Protein 8.4 H Albumin 4.1 PFSH Family History Father History of non-ST elevation myocardial infarction (NSTEMI) Prostate cancer metastatic to multiple sites Mother COPD (chronic obstructive pulmonary disease) Sister Breast cancer Sister Ovarian cancer Brother Lung cancer Medical History Colon polyps (Chronic) Melanoma (Chronic) COPD (chronic obstructive pulmonary disease) (Chronic) HTN (hypertension) (Chronic) Social History Smoking/Tobacco Use Status: Former Tobacco Use Surgical History H/O colonoscopy (Resolved) H/O melanoma excision (Resolved) H/O nasal septoplasty (Resolved)
== END 2018-07-19 22:20 | disposition short-term general hospital (02) | DRG 311 ==
LOC: ER 16:45 → ICU 17:44
PROVIDERS: Admitting Provider Internal Medicine; Emergency Provider Student in an Organized Health Care Education/Training Program; PCP Family Medicine Adult Medicine; Visit Provider Internal Medicine
DX: I24.9 Acute ischemic heart disease, unspecified (principal); I10 Essential (primary) hypertension; R73.9 Hyperglycemia, unspecified; D72.829 Elevated white blood cell count, unspecified; E83.42 Hypomagnesemia; J44.9 Chronic obstructive pulmonary disease, unspecified; E87.6 Hypokalemia; Z87.891 Personal history of nicotine dependence
CPT/HCPCS: 36415; 71275; 80053; 93005; 96365; 96375; 96376; 99223; 99239; 99291; 83735; 83880; 84484; 85025; 85730; 93010; J2060; J3490

== ENCOUNTER 2018-08-02 02:29 | Outpatient (RCR) | payer MEDICARE, BC, SELFPAY | END 2018-09-01 23:59 | disposition home or self-care (01) | LOC: CR 02:29 | PROVIDERS: PCP Family Medicine Adult Medicine; Visit Provider Family Medicine | DX: I25.2 Old myocardial infarction (principal); Z95.5 Presence of coronary angioplasty implant and graft; Z51.89 Encounter for other specified aftercare | CPT/HCPCS: S9472 ==

== ENCOUNTER 2018-09-12 09:00 | Outpatient (RCR) | payer MEDICARE, BC, SELFPAY | END 2018-10-02 23:59 | disposition home or self-care (01) | LOC: CR 09:00 | PROVIDERS: PCP Family Medicine Adult Medicine; Visit Provider Family Medicine | DX: I25.2 Old myocardial infarction (principal); Z95.5 Presence of coronary angioplasty implant and graft; Z51.89 Encounter for other specified aftercare | CPT/HCPCS: S9472 ==

== ENCOUNTER 2018-10-29 09:00 | Outpatient (RCR) | payer MEDICARE, BC, SELFPAY | END 2018-10-30 23:59 | disposition home or self-care (01) | LOC: CR 09:00 | PROVIDERS: PCP Family Medicine Adult Medicine; Visit Provider Family Medicine | DX: I25.2 Old myocardial infarction (principal); Z95.5 Presence of coronary angioplasty implant and graft; Z51.89 Encounter for other specified aftercare | CPT/HCPCS: S9472 ==

== ENCOUNTER 2018-11-28 12:51 | Outpatient (RCR) | payer MEDICARE, BC, SELFPAY | END 2018-11-30 23:59 | disposition home or self-care (01) | LOC: CR 12:51 | PROVIDERS: PCP Family Medicine Adult Medicine; Visit Provider Family Medicine | DX: I25.2 Old myocardial infarction (principal); Z95.5 Presence of coronary angioplasty implant and graft; Z51.89 Encounter for other specified aftercare | CPT/HCPCS: S9472 ==

== ENCOUNTER 2018-12-29 08:00 | Outpatient (RCR) | payer MEDICARE, BC, SELFPAY | END 2018-12-30 23:59 | disposition home or self-care (01) | LOC: CR 08:00 | PROVIDERS: PCP Family Medicine Adult Medicine; Visit Provider Family Medicine | DX: I25.2 Old myocardial infarction (principal); Z95.5 Presence of coronary angioplasty implant and graft; Z51.89 Encounter for other specified aftercare | CPT/HCPCS: S9472 ==

== ENCOUNTER 2021-04-19 18:01 | Emergency (ER) | payer MEDICARE, BC, SELFPAY ==
--- NOTE | 2021-04-19 18:00 | RT.EKG_ITS ---
APPROVED REPORT Exam: Resting ECG Reason for Exam: DIZZY Patient Location: E HR:77 bpm ECG Measurements Heart Rate 77 AXIS AZ 157 P 81 QRSd 121 QRS -57 QT 399 T 81 QTc 451 Conclusion Sinus rhythm...normal P axis, V-rate 60- 99 Atrial premature complex...SV complex w/ short R-R interval Left bundle branch block...QRSd>120, broad/notched R. Sinus. LBBB. LAFB. No STEMI. I have reviewed and interpreted ECG and agree with software generated interpretation.
[2021-04-19 18:04] VITALS: BP 148/66; PULSE 86; RESP 22; TEMP 36.6; O2SAT 93
--- NOTE | 2021-04-19 18:15 | DI.CT_ITS ---
Exam(s) CT HEAD - STROKE PROTOCOL EXAM: CT HEAD - STROKE PROTOCOL CLINICAL HISTORY: ams. TECHNIQUE: Imaging Protocol: Axial computed tomography images with coronal and sagittal reformatted images were created and reviewed COMPARISON: No exams were available for comparison FINDINGS: There are no skull fractures nor fluid in the visualized paranasal sinuses. There is no evidence of intracranial hemorrhage, mass effect, or shift of midline structures. There are no extra-axial fluid collections. The ventricles are not enlarged or shifted and there is no blo od within the ventricular system nor within the basal cisterns. Calcification is noted in both vertebral arteries at the skull base as well as in the intra cavernous internal carotid arteries. IMPRESSION: No acute intracranial findings on this noninfused CT scan of the brain. RADIATION DOSE DELIVERED: 837.58mGy.cm Total DLP DATA REPOSITORY: All CT scans at this facility are submitted to the National Radiology Data Registry (NRDR) Dose Index Registry (DIR) with the [employer] (ACR). RADIATION OPTIMIZATION: All CT scans at this facility use at least one of these dose optimization te chniques: automated exposure control; mA and/or kV adjustment per patient size (includes targeted exa ms where dose is matched to clinical indication); or iterative reconstruction.
[2021-04-19 18:22] VITALS: RESP 16
--- NOTE | 2021-04-19 18:35 | ED.GENADUL_ITS ---
Discharge Plan Disposition Patient Disposition: HOME Condition: Stable Discharge Details Clinical Impression: Near syncope Primary Care Provider: Anya Jean Baptiste ED Provider: Larry Duke Home Meds and New Rx's Prescriptions: Continued tamsulosin 0.4 mg capsule 0.4 mg PO RF: 0 amlodipine 10 mg Tablet 10 mg RF: 0 allopurinol 300 mg tablet 300 mg RF: 0 albuterol 90 mcg/actuation Aerosol 90 mcg INHALATION RF: 0 rosuvastatin 20 mg Tablet 20 mg PO RF: 0 duloxetine 30 mg Capsule,Delayed Release(Dr/Ec) 30 mg PO RF: 0 gabapentin 300 mg Tablet 300 mg PO TID RF: 0 Stiolto Respimat 2.5-2.5 mcg/actuation mist INHALATION RF: 0 lisinopril-hydrochlorothiazide 20-25 mg Tablet 1 tab DAILY AM RF: 0 aspirin 81 mg Tablet,Chewable 81 mg PO DAILY RF: 0 omeprazole magnesium [Prilosec OTC] 20 mg Tablet,Delayed Release (Dr/Ec) 20 mg PO PRN PRNRF: 0 testosterone cypionate 200 mg/mL Kit 200 mg IM QMONTH RF: 0 tiotropium-olodaterol [Stiolto Respimat] 2.5-2.5 mcg/actuation Mist 2 puff Inhalation DAILY RF: 0 metoprolol tartrate 50 mg Tablet 50 mg PO Q6H Qty: 1 RF: 0 nitroglycerin [Nitrostat] 0.4 mg Tablet, Sublingual 0.4 mg Sublingual Q5 MIN PRN X3 PRNQty: 1 RF: 0 nitroglycerin [Nitro-Bid] 2 % Ointment 1 g Topical Q6H Qty: 1 RF: 0 Discharge Instructions Instructions: Near Syncope (ED) Additional Instructions: Your laboratory values and CT imaging today does not reveal any obvious emergent process. Your symptoms very well could have been secondary to a severe coughing fit?we discussed there are other explanations such as potential seizure. We did discuss observation admission, but you are feeling back to baseline with discharge home. I do believe this to be reasonable but please watch for new or worsening symptoms and return to the ER for any concerns. Otherwise I would like you to contact your primary care provider tomorrow to discuss your ER visit and need for outpatient reevaluation. Discharge Data Discharge Date/Time-TO BE ENTERED AT DEPARTURE: 04/19/21 22:13 Medical Decision Making This is a 70-year-old male past medical history that includes hypertension, CAD, coronary stent, COPD, presents to the ER for evaluation of a near syncopal episode after a severe coughing spell. Per patient this is fairly normal to him. Significant other who was present and witnessed this states that he seemed to be altered for 15 seconds or so, arms were elevated after coughing and his eyes were staring on the distance. Patient does not recall this. No biting of the tongue, no incontinence, no witnessed shaking. Significant other is specifically concerned of potential seizure versus stroke although there is no obvious neurologic deficit at this time, low suspicion for CVA or TIA, difficult to say that activity was secondary to seizure. Given his presentation, I do believe initiating a cardiac work-up is reasonable given his potential near syncope, left sided back pain intermittent for over a week, will also obtain CT imaging of brain, stroke protocol. Clinically he appears well, nontoxic, hemodynamically stable, O2 sats 93% on room air. He is neurologically intact. Initial laboratory values are unremarkable for any obvious emergent process. He has some mild leukocytosis at 13.13 but reviewing [facility] [place], he tends to always have a mild leukocytosis. He is afebrile and showing no overt signs of infection. No evidence of anemia, platelet count is 263, sodium 135, electrolytes otherwise unremarkable. Creatinine 0.9 with a GFR greater than 60, magnesium 1.9, troponin less than 0.05. Chest x-ray and head CT unremarkable for acute pathology. D-dimer pending. Upon reevaluation patient remains asymptomatic. He remains neurologically intact D-dimer is minimally elevated at 885 although this is a change when [facility], D-dimer was normal. Although he did have a negative CTA at that time, will repeat CTA of the chest now given his episode today and his intermittent left-sided back discomfort. Based upon his symptoms, extremely low suspicion for dissection, pneumonia, ACS, etc. Discussed work-up thus far with patient, he is agreeable to CTA of the chest CTA of the chest negative for acute pathology. Discussed CT findings with patient and family. Patient is agreeable to awaiting a repeat troponin. We did discuss his overall presentation today, multiple comorbidities, and option of observation admission. Patient reports that he feels baseline and declines this. I do believe this to be reasonable but he was given strict discharge and return precautions. Repeat troponin remains less than 0.05. Patient remains asymptomatic. We had a lengthy discussion that this may have been a near syncopal episode from severe coughing episode but thorough and prompt outpatient reevaluation through his primary care provider is necessary. He may also need outpatient referral to neurology if symptoms were to present again or evolve. Patient and family are comfortable with this plan and have no additional questions or concerns. This documentation was generated using [employer] system, please disregard any oddities of phrase or misspellings. Medical Records Medical records reviewed: Yes I reviewed the patient's medical records. Imaging Data Radiologic Study: Attestation: I personally reviewed and interpreted this imaging study as follows: Imaging: X-Ray Radiologist's impression: PROCEDURE INFORMATION: Exam: XR Chest Exam date and time: 04/19/2021 6:23 PM Age: 70 years old Clinical indication: Other: AMS TECHNIQUE: Imaging protocol: XR of the chest. Views: 2 views. COMPARISON: CT chest PE CTA 07/19/2018 3:21 PM FINDINGS: Lungs: No mass. No consolidation. Pleural spaces: Unremarkable. No pleural effusion. No pneumothorax. Heart/Mediastinum: Unremarkable cardiomediastinal silhouette. No cardiomegaly. Bones/joints: Unremarkable. IMPRESSION: No evidence for acute cardiopulmonary disease. Radiologic Study #2: Attestation: I personally reviewed and interpreted this imaging study as follows: Imaging: CT Scan Radiologist's impression: PROCEDURE INFORMATION: Exam: CT Head Without Contrast Exam date and time: 04/19/2021 6:23 PM Age: 70 years old Clinical indication: Altered mental status/memory loss TECHNIQUE: Imaging protocol: Computed tomography of the head without contrast. COMPARISON: No relevant prior studies available. FINDINGS: Brain: There is age related volume loss. Cornejo-white differention is maintained. No hemorrhage. No mass effect. Cerebral ventricles: No ventriculomegaly. Paranasal sinuses: Visualized sinuses are unremarkable. No fluid levels. Mastoid air cells: Visualized mastoid air cells are well aerated. Bones/joints: Unremarkable. No acute fracture. Soft tissues: Unremarkable. IMPRESSION: No evidence for acute intracranial abnormality. Radiologic Study #3: Attestation: I personally reviewed and interpreted this imaging study as follows: Imaging: CT Scan Radiologist's impression: PROCEDURE INFORMATION: Exam: CTA Chest With Contrast Exam date and time: 04/19/2021 7:55 PM Age: 70 years old Clinical indication: Cough TECHNIQUE: Imaging protocol: Computed tomographic angiography of the chest with contrast. 3D rendering (Not supervised by radiologist): MIP and/or 3D reconstructed images were created by the technologist. COMPARISON: CT chest PE CTA 07/19/2018 3:21 PM FINDINGS: Pulmonary arteries: Unremarkable. No pulmonary emboli. Aorta: Unremarkable. No aortic aneurysm. No aortic dissection. Lungs: There are emphysematous changes. No consolidation. No masses. Pleural spaces: Unremarkable. No pneumothorax. No pleural effusion. Heart: Unremarkable. No cardiomegaly. No pericardial effusion. Lymph nodes: Unremarkable. No enlarged lymph nodes. Bones/joints: Unremarkable. No acute fracture. Soft tissues: Unremarkable. IMPRESSION: 1. No evidence for pulmonary embolism. 2. Emphysematous changes. Lab Data Lab results reviewed: Yes I reviewed the patient's lab results. Labs: Laboratory Tests Range/Units 04/19/21 04/19/21 04/19/21 18:15 18:15 18:15 WBC (4.4-10.8) 10^3/uL 13.13 H RBC (4.36-5.78) 10^6/uL 4.25 L Hgb (13.5-17.5) g/dL 14.1 Hct (40.0-50.0) % 41.1 MCV (80-95) fL 96.7 H MCH (27.0-33.0) pg 33.2 H MCHC (32.0-36.0) % 34.3 RDW (11.8-14.1) % 12.9 Plt Count (130-400) 10^3/uL 263 MPV (8.0-11.0) fL 9.9 Immature Gran % 0.5 Neutrophils % 60.3 Lymphocytes % 21.4 Monocytes % 8.4 Eosinophils % 8.8 Basophils % 0.6 Nucleated RBC % % 0 Absolute Neutrophils (1.2-6.7) 10^3/uL 7.92 H Absolute Lymphocytes (1.2-3.4) 10^3/uL 2.81 Absolute Monocytes (0.1-0.8) 10^3/uL 1.10 H Absolute Eosinophils (0.0-0.7) 10^3/uL 1.16 H Absolute Basophils (0.0-0.2) 10^3/uL 0.08 PT (9.3-11.0) sec 11.0 INR (0.9-1.1) 1.1 D-Dimer (<500) ng/mlFEU 885 H Sodium (136-145) mmol/L 135 L Potassium (3.5-5.1) mmol/L 3.6 Chloride (98-107) mmol/L 99 Carbon Dioxide (21.0-32.0) mmol/L 28.9 Anion Gap (3-11) mmol/L 7.1 BUN (7-18) mg/dL 18 Creatinine (0.70-1.30) mg/dL 0.9 Estimated GFR/1.73 m2 (mL/min/1.73m2) >= 60.00 Glucose (74-106) mg/dL 118 H Calcium (8.5-10.1) mg/dL 8.8 Magnesium (1.8-2.4) mg/dL 1.9 Total Bilirubin (0.2-1.0) mg/dL 0.3 AST (15-37) U/L 27 ALT (16-63) U/L 43 Alkaline Phosphatase (46-116) U/L 50 Troponin I (<0.06) ng/mL < 0.05 Total Protein (6.4-8.2) g/dL 7.5 Albumin (3.4-5.0) g/dL 3.8 Urine Color Urine Clarity Urine pH Ur Specific Arma Urine Protein Urine Ketones Urine Blood Urine Nitrite Urine Bilirubin Urine Urobilinogen Ur Leukocyte Esterase Urine Glucose Range/Units 04/19/21 04/19/21 18:24 21:15 WBC (4.4-10.8) 10^3/uL RBC (4.36-5.78) 10^6/uL Hgb (13.5-17.5) g/dL Hct (40.0-50.0) % MCV (80-95) fL MCH (27.0-33.0) pg MCHC (32.0-36.0) % RDW (11.8-14.1) % Plt Count (130-400) 10^3/uL MPV (8.0-11.0) fL Immature Gran % Neutrophils % Lymphocytes % Monocytes % Eosinophils % Basophils % Nucleated RBC % % Absolute Neutrophils (1.2-6.7) 10^3/uL Absolute Lymphocytes (1.2-3.4) 10^3/uL Absolute Monocytes (0.1-0.8) 10^3/uL Absolute Eosinophils (0.0-0.7) 10^3/uL Absolute Basophils (0.0-0.2) 10^3/uL PT (9.3-11.0) sec INR (0.9-1.1) D-Dimer (<500) ng/mlFEU Sodium (136-145) mmol/L Potassium (3.5-5.1) mmol/L Chloride (98-107) mmol/L Carbon Dioxide (21.0-32.0) mmol/L Anion Gap (3-11) mmol/L BUN (7-18) mg/dL Creatinine (0.70-1.30) mg/dL Estimated GFR/1.73 m2 (mL/min/1.73m2) Glucose (74-106) mg/dL Calcium (8.5-10.1) mg/dL Magnesium (1.8-2.4) mg/dL Total Bilirubin (0.2-1.0) mg/dL AST (15-37) U/L ALT (16-63) U/L Alkaline Phosphatase (46-116) U/L Troponin I (<0.06) ng/mL < 0.05 Total Protein (6.4-8.2) g/dL Albumin (3.4-5.0) g/dL Urine Color Cancelled Urine Clarity Cancelled Urine pH Cancelled Ur Specific Arma Cancelled Urine Protein Cancelled Urine Ketones Cancelled Urine Blood Cancelled Urine Nitrite Cancelled Urine Bilirubin Cancelled Urine Urobilinogen Cancelled Ur Leukocyte Esterase Cancelled Urine Glucose Cancelled ECG Data Attestation: I personally reviewed and interpreted this ECG (s) as follows: Interpretation: Please see official report by Dr. Garcia. Sinus rhythm, ventricular rate of 77. No STEMI HPI General Mode of arrival: ambulatory . Date/Time Provider Initiated Documentation: 04/19/21 18:05 . Limitations to Documentation: no limitations . Information obtained by: patient and family . HPI Narrative: This is a 70-year-old male, past medical history of hypertension, COPD, former 3 pack-a-day smoker, single cardiac stent, presenting to the ER for severe coughing spell that resulted in approximately 15 seconds of altered mental status. Patient states that he often has severe coughing fits, some resulted in sensation of passing out, once he actually did pass out. Significant other reports that he had a severe coughing fit and at the end of this his arms are raised in the air and he was steroid out in the distance. Patient does not recall this. Patient states that he has had similar coughing episodes with near syncopal episodes in the past and really does not feel as though this is any different than his baseline. Significant other reports that she has never seen him act like this. Patient denies recent illness or trauma, headache, visual changes, neck pain, chest pain, change of his chronic dry cough or shortness of breath, abdominal pain, nausea, vomiting, pain or swelling in his legs. No history of seizure disorder. Denies any injury to his tongue or incontinence of urine or stool. She did not witness any obvious shaking. Patient states that he was evaluated at the [place] ER approximately 2 weeks ago for a right sided back discomfort, work-up included CTA of the chest and was unremarkable, diagnosed with a chest muscle strain. That has since resolved completely but does report that he has had some left-sided back discomfort since that time intermittently, not present currently, nothing really makes it worse or better. Related Data Home Medications Medication Instructions Recorded Confirmed aspirin 81 mg PO DAILY 07/19/18 07/19/18 lisinopril-hydrochlorothiazide 1 tab DAILY AM 07/19/18 04/19/21 metoprolol tartrate 50 mg PO Q6H #1 tab 07/19/18 04/19/21 nitroglycerin [Nitro-Bid] 1 g TOPICAL Q6H #1 g 07/19/18 nitroglycerin [Nitrostat] 0.4 mg SUBLINGUAL Q5 MIN PRN X3 07/19/18 04/19/21 PRN #1 tab omeprazole magnesium [Prilosec OTC] 20 mg PO PRN PRN 07/19/18 04/19/21 testosterone cypionate 200 mg IM QMONTH 07/19/18 07/19/18 tiotropium-olodaterol [Stiolto 2 puff INHALATION DAILY 07/19/18 07/19/18 Respimat] Stiolto Respimat puff INHALATION 04/19/21 albuterol 90 mcg INHALATION 04/19/21 allopurinol 300 mg 04/19/21 amlodipine 10 mg 04/19/21 duloxetine 30 mg PO 04/19/21 gabapentin 300 mg PO TID 04/19/21 04/19/21 rosuvastatin 20 mg PO 04/19/21 tamsulosin 0.4 mg PO 04/19/21 Previous Rx's Medication Instructions Recorded metoprolol tartrate 50 mg PO Q6H #1 tab 07/19/18 nitroglycerin [Nitro-Bid] 1 g TOPICAL Q6H #1 g 07/19/18 nitroglycerin [Nitrostat] 0.4 mg SUBLINGUAL Q5 MIN PRN X3 07/19/18 PRN #1 tab Allergies Allergy/AdvReac Type Severity Reaction Status Date / Time shellfish derived Allergy Unverified 04/19/21 18:10 General Stated Complaint: CVA/TIA ELI: 2 Review of Systems Constitutional Constitutional: Denies fever(s) and Denies headache(s) ENT Ears, Nose, Mouth, and Throat: Denies headache(s) and Denies neck pain Cardiovascular Cardiovascular: Denies chest pain and Reports dyspnea (Chronic) Respiratory Respiratory: Reports cough (Chronic) Gastrointestinal Gastrointestinal: Denies abdominal pain, Denies nausea and Denies vomiting Genitourinary Genitourinary: Denies dysuria Musculoskeletal Musculoskeletal: Denies back pain and Denies neck pain Integumentary/Breasts Skin/Breast: Denies rash Neurologic Neurologic: Denies headache(s) Endocrine Endocrine: Reports fatigue (Generalized) [facility] Medical History Colon polyps COPD (chronic obstructive pulmonary disease) patient follows w/ Dr. Barros, retrimmer, [place] HTN (hypertension) patient follows w/ Dr. Zheng Peñaloza, obstetrics teacher, [place] Melanoma Surgical History H/O colonoscopy H/O melanoma excision H/O nasal septoplasty Family History Father History of non-ST elevation myocardial infarction (NSTEMI) Prostate cancer metastatic to multiple sites Mother COPD (chronic obstructive pulmonary disease) Sister Breast cancer Sister Ovarian cancer Brother Lung cancer Social History Smoking/Tobacco Use Status: Former Tobacco Use Smoking risk assessment performed?: Yes Alcohol Intake: current Alcohol Intake frequency: 0-2 drinks per day Alcohol type: hard liquor Drug use: Never Substance use type: does not use Do you feel safe at home: Yes Do you feel safe in your relationship?: Yes Exam Const General: cooperative, healthy appearing, comfortable and no acute distress Orientation: alert and awake HENMT Head: normal to inspection, normocephalic and atraumatic Mouth: moist mucous membranes Eyes General: appearance normal, both eyes and all related structures Conjunctivae: conjunctivae normal Neck Neck: normal visual inspection, full ROM, trachea midline and supple Resp Effort & Inspection: normal respiratory effort and able to speak in complete sentences Auscultation: diminished lung sounds bilaterally in the lower lung davidson and wheezes (Scattered throughout, mostly clear with cough) Cardio Rate: regular rate Rhythm: regular rhythm GI Inspection: normal to inspection Palpation: soft, not firm, no guarding, no pulsatile masses and nontender Back/Spine/Pelvis Back: no CVA tenderness and No back tenderness Skin General skin exam: no rashes or lesions noted Neuro General: patient alert, patient awake, moves all extremities and no focal motor deficits Cognition: normal cognition Speech: speech normal Gait: normal gait Motor: muscle tone normal throughout Sensory Exam: no sensory deficits noted Extrem General: normal to inspection, full ROM, capillary refill normal, no pedal edema and no calf tenderness Psych Appearance: grossly normal Mental Status: mental status grossly normal Course Vital Signs Vital signs: Vital Signs Temperature 36.6 C 04/19/21 18:04 Pulse 86 04/19/21 18:04 Respiratory Rate 22 04/19/21 18:04 Blood Pressure 148/66 H 04/19/21 18:04 Pulse Oximetry 93 04/19/21 18:04 Temperature 36.6 C 04/19/21 18:04 Temperature Source Temporal Artery Scan 04/19/21 18:04 Pulse 86 04/19/21 18:04 Respiratory Rate 16 04/19/21 18:22 Respiratory Effort Non-Labored 04/19/21 18:22 Respiratory Depth Normal 04/19/21 18:22 Respiratory Pattern Normal 04/19/21 18:22 Blood Pressure 148/66 H 04/19/21 18:04 Blood Pressure Position Sitting 04/19/21 18:04 Pulse Oximetry 93 04/19/21 18:04 Oxygen Delivery Method Room Air 04/19/21 18:04 Oxygen Flow Rate 0 04/19/21 18:04 Pain Level 0 04/19/21 18:04
[2021-04-19 18:44] LABS: Abs Immature Grans 0.07 10^3/uL (0.0-0.06); Absolute Basophil Count 0.08 10^3/uL (0.0-0.2); Absolute Eosinophil Count 1.16 10^3/uL (0.0-0.7); Absolute Lymphocyte Count 2.81 10^3/uL (1.2-3.4); Basophils % 0.6; Eosinophils % 8.8; HCT 41.1 % (40.0-50.0); HGB 14.1 g/dL (13.5-17.5); Immature Grans % 0.5; Lymphocytes % 21.4; MCH 33.2 pg (27.0-33.0); MCHC 34.3 % (32.0-36.0); MCV 96.7 fL (80-95); MPV 9.9 fL (8.0-11.0); Monocytes % 8.4; Neutrophils % 60.3; Nucleated RBC 0 %; Platelet Count 263 10^3/uL (130-400); RBC 4.25 10^6/uL (4.36-5.78); RDW 12.9 % (11.8-14.1); RDW-SD 46.3 fL; WBC 13.13 10^3/uL (4.4-10.8)
[2021-04-19 18:53] LABS: Absolute Neutrophil Count 7.92 10^3/uL (1.2-6.7)
[2021-04-19 19:06] LABS: INR 1.1 (0.9-1.1)
[2021-04-19 19:07] LABS: ALT 43 U/L (16-63); AST 27 U/L (15-37); Albumin 3.8 g/dL (3.4-5.0); Alkaline Phosphatase 50 U/L (46-116); Anion Gap 7.1 mmol/L (3-11); BUN 18 mg/dL (7-18); Bilirubin, Total 0.3 mg/dL (0.2-1.0); CO2 28.9 mmol/L (21.0-32.0); CREATININE 0.9 mg/dL (0.70-1.30); Calcium 8.8 mg/dL (8.5-10.1); Chloride 99 mmol/L (98-107); Glucose 118 mg/dL (74-106); Magnesium 1.9 mg/dL (1.8-2.4); Potassium 3.6 mmol/L (3.5-5.1); Sodium 135 mmol/L (136-145); Total Protein 7.5 g/dL (6.4-8.2)
[2021-04-19 19:14] LABS: Troponin I < 0.05 ng/mL (<0.06)
--- NOTE | 2021-04-19 19:15 | DI.RAD_ITS ---
Exam(s) XR CHEST 2V PA LATERAL EXAM: XR CHEST 2V PA LATERAL CLINICAL HISTORY: ams. TECHNIQUE: 2D digital imaging was performed. FINDINGS: Heart size is normal. The mediastinum is not widened. Lungs are clear. No infiltrates nor pleural effusions. IMPRESSION: No acute pulmonary findings. DATA REPOSITORY: RADIATION DOSE DELIVERED:
--- NOTE | 2021-04-19 19:20 | DI.VRAD_ITS ---
PROCEDURE INFORMATION: Exam: CT Head Without Contrast Exam date and time: 04/19/2021 6:23 PM Age: 70 years old Clinical indication: Altered mental status/memory loss TECHNIQUE: Imaging protocol: Computed tomography of the head without contrast. COMPARISON: No relevant prior studies available. FINDINGS: Brain: There is age related volume loss. Cornejo-white differention is maintained. No hemorrhage. No mass effect. Cerebral ventricles: No ventriculomegaly. Paranasal sinuses: Visualized sinuses are unremarkable. No fluid levels. Mastoid air cells: Visualized mastoid air cells are well aerated. Bones/joints: Unremarkable. No acute fracture. Soft tissues: Unremarkable. IMPRESSION: No evidence for acute intracranial abnormality. Dictated and Authenticated by: Milan Marina MD. Ordering:MADELEINE Juarez MD
--- NOTE | 2021-04-19 19:21 | DI.VRAD_ITS ---
PROCEDURE INFORMATION: Exam: XR Chest Exam date and time: 04/19/2021 6:23 PM Age: 70 years old Clinical indication: Other: AMS TECHNIQUE: Imaging protocol: XR of the chest. Views: 2 views. COMPARISON: CT chest PE CTA 07/19/2018 3:21 PM FINDINGS: Lungs: No mass. No consolidation. Pleural spaces: Unremarkable. No pleural effusion. No pneumothorax. Heart/Mediastinum: Unremarkable cardiomediastinal silhouette. No cardiomegaly. Bones/joints: Unremarkable. IMPRESSION: No evidence for acute cardiopulmonary disease. Dictated and Authenticated by: Milan Marina MD. Ordering:MADELEINE Juarez MD
[2021-04-19 19:24] LABS: D-Dimer 885 ng/mlFEU (<500)
--- NOTE | 2021-04-19 19:45 | DI.CT_ITS ---
Exam(s) CT CHEST PE CTA EXAM: CT CHEST PE CTA CLINICAL HISTORY: cough, elevated dimer. TECHNIQUE: Imaging Protocol: CT angiography of the chest was performed using pulmonary embolus harrison col. Multi planar reconstructions were performed. CONTRAST MATERIAL: Intravenous: Omnipaque 350 Contrast volume: 100 cc CR,XR XR CHEST 2V PA LATERAL from 04/19/2021 CR,XR XR CHEST 2V PA LATERAL from 04/19/2021 FINDINGS: CHEST: PULMONARY ARTERIES: There are no intraluminal filling defects to suggest acute pulmonary emboli. LUNGS: There are mild subpleural increased markings in the lateral basal segment of the right lower l obe. Mild atelectatic changes in the medial basal segment of the right lower lobe adjacent to a righ t-sided vertebral osteophyte is again noted. In the opposite-left lung there is a spiculated left up per lobe subapical mass measuring 1.5 cm craniocaudal by 1 cm wide by 1.5 cm AP, not evident on the p rior CT scan of July 2018 and suspicious for malignancy.. No other focal left lung findings and no pleural effusions on either side. No focal findings in the trachea and mainstem bronchi. No bron chiectasis. MEDIASTINUM: There is no hilar nor mediastinal adenopathy. No supraclavicular adenopathy. No axillar y adenopathy. CARDIAC: Heart size is upper normal. There is no pericardial effusion.Caliber of the thoracic aorta is within normal limits. No evidence of aortic dissection. There is no significant shift of the inte rventricular septum. PARTIALLY VISUALIZED UPPERMOST ABDOMEN: No obvious findings OSSEOUS: No significant osseous lesions.. IMPRESSION: 1. No evidence of acute pulmonary emboli. No evidence of pulmonary infarction.No pleural effusions. 2. However, there is a suspicious 15 x 10 x 15 millimeters spiculated nodule in anterior segment of t he sub apical left upper lobe which is suspicious for neoplasm. This finding was not evident on a pr ior outside CT scan of July 2018. close follow-up recommended. 3. No obvious intrathoracic adenopathy. RADIATION DOSE DELIVERED: 573.55mGy.cm Total DLP DATA REPOSITORY: All CT scans at this facility are submitted to the National Radiology Data Registry (NRDR) Dose Index Registry (DIR) with the [employer] ([employer]). RADIATION OPTIMIZATION: All CT scans at this facility use at least one of these dose optimization te chniques: automated exposure control; mA and/or kV adjustment per patient size (includes targeted exa ms where dose is matched to clinical indication); or iterative reconstruction.
[2021-04-19] MEDS: Omnipaque 350 MG/ML 100 ML BTL IJ (20:22)
[2021-04-19] MEDS: Normal Saline - Diluent 50 ML VIAL IV (20:22)
[2021-04-19] MEDS: Normal Saline Flush 10 ML SYR IVP (20:23)
--- NOTE | 2021-04-19 20:44 | DI.VRAD_ITS ---
PROCEDURE INFORMATION: Exam: CTA Chest With Contrast Exam date and time: 04/19/2021 7:55 PM Age: 70 years old Clinical indication: Cough TECHNIQUE: Imaging protocol: Computed tomographic angiography of the chest with contrast. 3D rendering (Not supervised by radiologist): MIP and/or 3D reconstructed images were created by the technologist. COMPARISON: CT chest PE CTA 07/19/2018 3:21 PM FINDINGS: Pulmonary arteries: Unremarkable. No pulmonary emboli. Aorta: Unremarkable. No aortic aneurysm. No aortic dissection. Lungs: There are emphysematous changes. No consolidation. No masses. Pleural spaces: Unremarkable. No pneumothorax. No pleural effusion. Heart: Unremarkable. No cardiomegaly. No pericardial effusion. Lymph nodes: Unremarkable. No enlarged lymph nodes. Bones/joints: Unremarkable. No acute fracture. Soft tissues: Unremarkable. IMPRESSION: 1. No evidence for pulmonary embolism. 2. Emphysematous changes. Dictated and Authenticated by: Milan Marina MD. Ordering:MADELEINE Juarez MD
[2021-04-19 21:43] LABS: Troponin I < 0.05 ng/mL (<0.06)
[2021-04-19 22:11] VITALS: BP 125/78; PULSE 86; RESP 16; TEMP 36.6; O2SAT 93
== END 2021-04-19 22:13 | disposition home or self-care (01) ==
PROVIDERS: Emergency Provider Physician Assistant; PCP Internal Medicine
DX: R55 Syncope and collapse (principal); R41.82 Altered mental status, unspecified; R05 Cough; R42 Dizziness and giddiness
CPT/HCPCS: 71275; 80053; 93005; 99285; 70450; 71046; 81003; 83735; 84484; 85025; 85379; 85610; 93010; 99284; J3490

== ENCOUNTER 2021-06-18 09:24 | Emergency (ER) | payer MEDICARE, BC, SELFPAY ==
[2021-06-18] VITALS (56 sets, daily range): BP systolic 124–177; BP diastolic 63–97; PULSE 69–105; RESP 13–35; TEMP 36.7–36.9; O2SAT 91–95
--- NOTE | 2021-06-18 09:30 | DI.RAD_ITS ---
Exam(s) XR PORTABLE CHEST AP EXAM: XR PORTABLE CHEST AP CLINICAL HISTORY: s/p lung resection, drainage from site, drain pull TECHNIQUE: 2D digital imaging was performed of the chest. Two images were obtained. AP images were obtained. COMPARISON: CR,XR XR CHEST 2V PA LATERAL from 04/19/2021 CR,XR XR CHEST 2V PA LATERAL from 04/19/[address] CHEST PE CTA from 04/19/[address] CHEST PE CTA from 04/19/2021 FINDINGS: MEDIASTINUM: Normal. HEART: Normal. PULMONARY VASCULATURE: Normal. LUNGS: There is an opacity in the left perihilar region. There also linear opacities in the left luigi g base which may represent atelectasis or scarring. The right lung is clear. PLEURAL SPACE: No pleural effusion or pneumothorax. BONE:Within normal limits for the patient's age. OTHER FINDINGS:Normal. IMPRESSION: 1. Opacity in the left perihilar region. Differential considerations include postsurgical change, pn eumonia or atelectasis. Residual or recurrent mass cannot be excluded. Follow-up is recommended. 2. Linear atelectasis or scarring in the left lung base. DATA REPOSITORY: RADIATION DOSE DELIVERED:
--- NOTE | 2021-06-18 10:06 | W.ED.GENAD ---
Discharge Plan Disposition Patient Disposition: HOSPITAL, NON-SPECIFIC Condition: Stable Discharge Details Clinical Impression: Post-operative complication Primary Care Provider: Anya Jean Baptiste ED Provider: Corazon Wray Home Meds and New Rx's Prescriptions: Continued tamsulosin 0.4 mg capsule 0.4 mg PO DAILY RF: 0 amlodipine 10 mg Tablet 10 mg PO DAILY RF: 0 allopurinol 300 mg tablet 300 mg PO DAILY RF: 0 albuterol 90 mcg/actuation Aerosol 90 mcg INHALATION Q4H PRN PRNRF: 0 rosuvastatin 20 mg Tablet 20 mg PO DAILY RF: 0 duloxetine 30 mg Capsule,Delayed Release(Dr/Ec) 30 mg PO DAILY RF: 0 acetaminophen 325 mg Tablet 650 mg PO Q6H PRN PRNRF: 0 ipratropium-albuterol 0.5 mg-3 mg(2.5 mg base)/3 mL Solution For Nebulization 3 ml INHALATION QID PRNRF: 0 metoprolol succinate 200 mg tablet extended release 24 hr 200 mg PO DAILY RF: 0 niacinamide 500 mg Tablet 500 mg PO BID RF: 0 polyethylene glycol 3350 17 gram/dose Powder 17 g PO BID RF: 0 amoxicillin-pot clavulanate 500-125 mg tablet 1 tab PO BID RF: 0 diclofenac sodium 1 % Gel 2 - 4 g TOPICAL QID PRNRF: 0 Eliquis 5 mg tablet 5 mg PO BID RF: 0 lisinopril-hydrochlorothiazide 20-25 mg Tablet 1 tab DAILY AM RF: 0 aspirin 81 mg Tablet,Chewable 81 mg PO DAILY RF: 0 omeprazole magnesium [Prilosec OTC] 20 mg Tablet,Delayed Release (Dr/Ec) 20 mg PO DAILY RF: 0 Stiolto Respimat 2.5-2.5 mcg/actuation Mist 2 puff Inhalation DAILY RF: 0 nitroglycerin [Nitrostat] 0.4 mg Tablet, Sublingual 0.4 mg Sublingual Q5 MIN PRN X3 PRNQty: 1 RF: 0 Discharge Data Discharge Date/Time-TO BE ENTERED AT DEPARTURE: 06/18/21 14:39 Medical Decision Making Patient is alert and oriented, he is in no acute distress, he has no hypoxia, 94% His chest x-ray shows a moderate-sized left effusion per my interpretation and [facility] overread Given his recent lung resection at [place] he will likely benefit from transfer for 4 drain placement I have discussed the case with Dr. Wu at [facility] who is accepted patient to the emergency room in transfer Patient is stable for transfer at this time Is 94% on room air, He has a questionable infiltrate on his chest x-ray, however we do not have recent imaging and this may be postsurgical, I will leave further management to the discretion of the care team at [facility] He has a Covid swab pending at their request which is negative Diagnostic labs do not show acute abnormality aside from mild anemia, likely consistent with recent operation Unfortunately there was a delay in transfer secondary to lack of EMS availability, patient was in the emergency room for approximately 3 hours pending transfer Medical Records Medical records reviewed: Yes I reviewed the patient's medical records. HPI General Mode of arrival: ambulatory. Date/Time Provider Initiated Documentation: 06/18/21 09:28. Limitations to Documentation: no limitations. Information obtained by: patient. HPI Narrative: This 70-year-old gentleman with history of hypomagnesemia, leukocytosis, lung cancer, ACS presents with report of recent lung resection on left. This occurred 10 days ago when he had the drain removed several days ago. He was discharged from [facility] yesterday. He denies any pain but states that this morning he coughed and had significant drainage from his resection site. He states that it was a clear yellow drainage. He denies any blood in his drainage. He denies any fever or chills. He denies any chest pain or shortness of breath. He does have chronic disease which is not new for him. He is not currently undergoing chemotherapy or radiation. He states otherwise he feels at baseline. Denies any calf pain or swelling. Related Data Home Medications Medication Instructions Recorded Confirmed Stiolto Respimat 2 puff INHALATION DAILY 07/19/18 06/18/21 aspirin 81 mg PO DAILY 07/19/18 06/18/21 lisinopril-hydrochlorothiazide 1 tab DAILY AM 07/19/18 06/18/21 nitroglycerin [Nitrostat] 0.4 mg SUBLINGUAL Q5 MIN PRN X3 07/19/18 06/18/21 PRN #1 tab omeprazole magnesium [Prilosec OTC] 20 mg PO DAILY 07/19/18 06/18/21 albuterol 90 mcg INHALATION Q4H PRN PRN 04/19/21 06/18/21 allopurinol 300 mg PO DAILY 04/19/21 06/18/21 amlodipine 10 mg PO DAILY 04/19/21 06/18/21 duloxetine 30 mg PO DAILY 04/19/21 06/18/21 rosuvastatin 20 mg PO DAILY 04/19/21 06/18/21 tamsulosin 0.4 mg PO DAILY 04/19/21 06/18/21 Eliquis 5 mg PO BID 06/18/21 06/18/21 acetaminophen 650 mg PO Q6H PRN PRN 06/18/21 06/18/21 amoxicillin-pot clavulanate 1 tab PO BID 06/18/21 06/18/21 diclofenac sodium 2 - 4 g TOPICAL QID PRN 06/18/21 06/18/21 ipratropium-albuterol 3 ml INHALATION QID PRN 06/18/21 06/18/21 metoprolol succinate 200 mg PO DAILY 06/18/21 06/18/21 niacinamide 500 mg PO BID 06/18/21 06/18/21 polyethylene glycol 3350 17 g PO BID 06/18/21 06/18/21 Previous Rx's Medication Instructions Recorded nitroglycerin [Nitrostat] 0.4 mg SUBLINGUAL Q5 MIN PRN X3 07/19/18 PRN #1 tab Allergies Allergy/AdvReac Type Severity Reaction Status Date / Time shellfish derived Allergy Unverified 06/18/21 10:14 General Stated Complaint: GenMedical ELI: 2 Review of Systems All systems reviewed & are unremarkable except as noted in HPI and below PFSH Medical History Colon polyps COPD (chronic obstructive pulmonary disease) patient follows w/ Dr. 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 HTN (hypertension) patient follows w/ Dr. Zheng Peñaloza, senior oracle applications developer, [place] Melanoma Surgical History H/O colonoscopy H/O melanoma excision H/O nasal septoplasty Family History Father History of non-ST elevation myocardial infarction (NSTEMI) Prostate cancer metastatic to multiple sites Mother COPD (chronic obstructive pulmonary disease) Sister Breast cancer Sister Ovarian cancer Brother Lung cancer Social History Smoking/Tobacco Use Status: Former Tobacco Use Smoking risk assessment performed?: Yes Alcohol Intake: current Alcohol Intake frequency: 0-2 drinks per day Alcohol type: hard liquor Drug use: Never Substance use type: does not use Do you feel safe at home: Yes Do you feel safe in your relationship?: Yes Exam Const General: cooperative, comfortable and no acute distress Orientation: alert and oriented x3 Eyes Pupils: PERRL Chest Chest: normal inspection of the chest Other: Postoperative state, poor along mid axillary line draining transudate fluid, no erythema, no dehiscence, sutures in place Resp Effort & Inspection: normal respiratory effort Other: No respiratory distress, diminished lung sounds left lower lobe Cardio Rate: regular rate Rhythm: regular rhythm GI Other: Nontender Skin General skin exam: no rashes or lesions noted Neuro General: patient alert and patient oriented x3 Extrem Other: No peripheral edema, distal pulses intact Course Vital Signs Vital signs: Vital Signs Temperature 36.7 C 06/18/21 09:31 Pulse 76 06/18/21 09:31 Respiratory Rate 24 06/18/21 09:31 Blood Pressure 153/92 H 06/18/21 09:31 Pulse Oximetry 94 06/18/21 09:31 Temperature 36.7 C 06/18/21 09:31 Temperature Source Temporal Artery Scan 06/18/21 09:31 Pulse 76 06/18/21 09:31 Respiratory Rate 22 06/18/21 09:38 Respiratory Effort Non-Labored 06/18/21 09:38 Respiratory Depth Normal 06/18/21 09:38 Respiratory Pattern Normal 06/18/21 09:38 Blood Pressure 153/92 H 06/18/21 09:31 Blood Pressure Position Sitting 06/18/21 09:31 Pulse Oximetry 94 06/18/21 09:31 Oxygen Delivery Method Room Air 06/18/21 09:31 Oxygen Flow Rate 0 06/18/21 09:31 Pain Level 0 06/18/21 09:31 Lab/Test Results Lab/Test Results: 06/18/21 09:50 Pleural Body Fluid Culture - Pending 06/18/21 09:50 Pleural Gram Stain - Pending 06/18/21 09:50 Lung - Left Anaerobic Culture - Pending PAWSS Have you Been Recently Intoxicated or Drunk Within the Last 30 days?: No Have you Ever Experienced Previous Episodes of Alcohol Withdrawal?: No Have you ever Experienced Withdrawal Seizures?: No Have you ever Experienced Delirium Tremens(DT)s?: No Have you ever undergone Alcohol Rehabilitation Treatment (i.e, inpt ot outpatient treatment programs)?: No Have you ever Experienced Blackouts?: No Have you ever Combined Alcohol with other Downers within the last 90 days?: No Have you ever Combined Alcohol with any other Substance of Abuse during the last 90 days?: No Positive Blood Alcohol level on Presentation? [PCS.BAL]: No Evidence of Increased Autonomic Activity (i.e. HR>120, tremor, sweating, agitation, nausea)?: No Result: 0
[2021-06-18 10:14] LABS: Abs Immature Grans 0.06 10^3/uL (0.0-0.06); Absolute Basophil Count 0.04 10^3/uL (0.0-0.2); Absolute Eosinophil Count 0.59 10^3/uL (0.0-0.7); Absolute Lymphocyte Count 1.64 10^3/uL (1.2-3.4); Absolute Monocyte Count 0.73 10^3/uL (0.1-0.8); Absolute Neutrophil Count 6.13 10^3/uL (1.2-6.7); Basophils % 0.4; Eosinophils % 6.4; HCT 36.8 % (40.0-50.0); HGB 12.2 g/dL (13.5-17.5); Immature Grans % 0.7; Lymphocytes % 17.8; MCH 32.9 pg (27.0-33.0); MCHC 33.2 % (32.0-36.0); MCV 99.2 fL (80-95); MPV 9.9 fL (8.0-11.0); Monocytes % 7.9; Neutrophils % 66.8; Nucleated RBC 0 %; Platelet Count 362 10^3/uL (130-400); RBC 3.71 10^6/uL (4.36-5.78); RDW 12.6 % (11.8-14.1); RDW-SD 45.4 fL; WBC 9.19 10^3/uL (4.4-10.8)
[2021-06-18 10:29] LABS: ALT 52 U/L (16-63); AST 30 U/L (15-37); Albumin 3.3 g/dL (3.4-5.0); Alkaline Phosphatase 51 U/L (46-116); Anion Gap 8.2 mmol/L (3-11); BUN 14 mg/dL (7-18); Bilirubin, Total 0.5 mg/dL (0.2-1.0); CO2 30.8 mmol/L (21.0-32.0); Calcium 8.8 mg/dL (8.5-10.1); Chloride 104 mmol/L (98-107); Glucose 134 mg/dL (74-106); Sodium 143 mmol/L (136-145); Total Protein 7.4 g/dL (6.4-8.2)
[2021-06-18 10:37] LABS: INR 1.1 (0.9-1.1); Prothrombin Time 11.5 sec (9.3-11.0)
--- NOTE | 2021-06-18 10:55 | DI.VRAD_ITS ---
PROCEDURE INFORMATION: Exam: XR Chest Exam date and time: 06/18/2021 9:49 AM Age: 70 years old Clinical indication: Other: S/P lung resection, drainage from site, drain pull TECHNIQUE: Imaging protocol: XR of the chest. Views: 1 view. COMPARISON: CR XR CHEST 2V PA LATERAL 04/19/2021 7:14 PM FINDINGS: Lungs: There is an ill-defined opacity seen at the left mid to upper lung. Linear/bandlike opacities seen at the left lung base suspected to represent atelectasis versus scarring. Right lung clear. Pleural spaces: No pneumothorax. No sizable pleural effusion. Heart/Mediastinum: Cardiomediastinal silhouette is within normal limits. Bones/joints: No acute displaced fracture. IMPRESSION: There is an indeterminate ill-defined opacity seen at the left mid to upper lung which may represent postsurgical change however pneumonia/infection possible and should be excluded on clinical grounds. Dictated and Authenticated by: Reed Kerr MD. Ordering:LORY Chandra MD
[2021-06-18 11:05] LABS: Source Nasal/Nares
[2021-06-18 12:15] LABS: COVID-19 PCR Negative (Negative)
== END 2021-06-18 14:39 | disposition short-term general hospital (02) ==
PROVIDERS: Emergency Provider Physician Assistant; PCP Internal Medicine
DX: T81.89XA Other complications of procedures, not elsewhere classified, initial encounter (principal); J91.8 Pleural effusion in other conditions classified elsewhere; J95.89 Other postprocedural complications and disorders of respiratory system, not elsewhere classified; Z90.2 Acquired absence of lung [part of]; C34.92 Malignant neoplasm of unspecified part of left bronchus or lung; Z87.891 Personal history of nicotine dependence; Z20.822 Contact with and (suspected) exposure to COVID-19; Z03.818 Encounter for observation for suspected exposure to other biological agents ruled out; Z79.01 Long term (current) use of anticoagulants
CPT/HCPCS: 36415; 80053; 87635; 99285; 71045; 85025; 85610; 87070; 87075; 87205; 99284

== ENCOUNTER 2023-01-28 09:08 | Inpatient (IN) | payer OTHER, SELFPAY ==
[2023-01-28] VITALS (47 sets, daily range): BP systolic 115–165; BP diastolic 56–89; PULSE 51–119; RESP 1–30; TEMP 37.1–38; O2SAT 89–97
--- NOTE | 2023-01-28 09:30 | RT.EKG_ITS ---
APPROVED REPORT Exam: Resting ECG Reason for Exam: SOB Patient Location: E HR:96 bpm ECG Measurements Heart Rate 96 AXIS MT 150 P 88 QRSd 119 QRS -55 QT 374 T 96 QTc 472 Conclusion Sinus rhythm...normal P axis, V-rate 60- 99 Left anterior fascicular block...axis(240,-40), init forces inf Nonspecific T abnormalities, lateral leads...T <-0.10mV, I aVL V5 V6 Normal sinus rhythm at a rate of 96 with left anterior fascicular block. Incomplete left bundle bran ch block pattern. T wave inversion in aVL. Compared to prior dated 2 years ago T wave inversion in aVL is new.
--- NOTE | 2023-01-28 09:45 | DI.CT_ITS ---
Exam(s) CT CHEST PE CTA EXAM: CT CHEST PE CTA CLINICAL HISTORY: sob, hemoptysis, lumbar surg, fever. TECHNIQUE: Imaging Protocol: CT angiography of the chest was performed using pulmonary embolus harrison col. Multi planar reconstructions were performed. CONTRAST MATERIAL: Intravenous: Omnipaque 350 Contrast volume: 100 cc COMPARISON: CT CT CHEST PE CTA from 04/19/2021 FINDINGS: CHEST: PULMONARY ARTERIES: There are no obvious intraluminal filling defects to suggest acute pulmonary embo li. LUNGS: There is significant infiltrate in left lower lobe involving all segments including the superi or segment. There is also nodular infiltrate in the lingular segment of the left lung measuring 1.2 x 1.0 cm. Also infiltrate in the lingular segment below this level. No pleural effusion on the left side. There is no significant infiltrate in the right upper lobe. Some patchy infiltrate noted in the right middle lobe. No obvious pleural effusions.. MEDIASTINUM: There is no hilar adenopathy. However, there is slightly enlarged lymph nodes now evide nt in the right paratracheal region as well as adenopathy in the subcarinal region, more so than prev ious. No adenopathy in the anterior mediastinal fat. Partially visualized thyroid appears unremarka ble. No axillary nor supraclavicular adenopathy. CARDIAC: Heart size is upper normal. There is no pericardial effusion.Caliber of the thoracic aorta is within normal limits. No dissection evident. There is no significant shift of the interventricula r septum. PARTIALLY VISUALIZED UPPERMOST ABDOMEN: No adrenal masses. No splenomegaly. Prominent Paddock steat osis noted. Gallbladder surgically absent. OSSEOUS: No significant osseous lesions.. IMPRESSION: 1. No evidence of acute pulmonary emboli. No evidence of pulmonary infarction.However, there are sig nificant areas of bilateral infiltrate as described above. No pleural effusions. 2. There is subcarinal adenopathy. Also increasing adenopathy in the right paratracheal region. 3. Hepatic steatosis. Previous cholecystectomy. RADIATION DOSE DELIVERED: 790.55mGy.cm Total DLP DATA REPOSITORY: All CT scans at this facility are submitted to the National Radiology Data Registry (NRDR) Dose Index Registry (DIR) with the [employer] (A[employer]). RADIATION OPTIMIZATION: All CT scans at this facility use at least one of these dose optimization te chniques: automated exposure control; mA and/or kV adjustment per patient size (includes targeted exa ms where dose is matched to clinical indication); or iterative reconstruction.
[2023-01-28 10:02] LABS: Abs Immature Grans 0.09 10^3/uL (0.0-0.06); Absolute Basophil Count 0.06 10^3/uL (0.0-0.2); Absolute Monocyte Count 1.19 10^3/uL (0.1-0.8); Absolute Neutrophil Count 16.36 10^3/uL (1.2-6.7); Basophils % 0.3; Eosinophils % 0.6; HCT 37.7 % (40.0-50.0); Immature Grans % 0.5; Lymphocytes % 8.4; MCHC 34.5 % (32.0-36.0); MCV 96 fL (80-95); MPV 10.2 fL (8.0-11.0); Monocytes % 6.1; Neutrophils % 84.1; Platelet Count 242 10^3/uL (130-400); RBC 3.94 10^6/uL (4.36-5.78); RDW 12.5 % (11.8-14.1); RDW-SD 44.1 fL; WBC 19.45 10^3/uL (4.4-10.8)
[2023-01-28 10:05] LABS: Absolute Eosinophil Count 0.12 10^3/uL (0.0-0.7); Absolute Lymphocyte Count 1.63 10^3/uL (1.2-3.4)
[2023-01-28] MEDS: Albuterol/Ipratropium 3 ML UPD VIAL UPD ×3 (10:05→23:30)
[2023-01-28] MEDS: Acetaminophen 500 MG TAB 650 MG PO (10:05)
[2023-01-28 10:24] LABS: ALT 37 U/L (16-63); AST 19 U/L (15-37); Albumin 3.5 g/dL (3.4-5.0); Alkaline Phosphatase 60 U/L (46-116); Anion Gap 10.5 mmol/L (3-11); BUN 12 mg/dL (7-18); Bilirubin, Total 0.9 mg/dL (0.2-1.0); CO2 28.5 mmol/L (21.0-32.0); CREATININE 1.1 mg/dL (0.70-1.30); Calcium 8.5 mg/dL (8.5-10.1); Chloride 99 mmol/L (98-107); Estimated GFR 70.44 (mL/min/1.73m2); Glucose 173 mg/dL (74-106); Potassium 3.8 mmol/L (3.5-5.1); Sodium 138 mmol/L (136-145); Total Protein 7.6 g/dL (6.4-8.2); Troponin I < 50 ng/L (<or=60)
[2023-01-28] MEDS: Lactated Ringers 1,000 ML 500 ML IV (10:26)
[2023-01-28] MEDS: CEFEPIME 2 GM in Normal Saline 100 ML IVPB ×2 (10:26→17:37)
[2023-01-28] MEDS: Omnipaque 350 MG/ML 100 ML BTL IJ (10:50)
[2023-01-28] MEDS: Normal Saline - Diluent 50 ML VIAL IJ (10:50)
[2023-01-28] MEDS: Normal Saline Flush 10 ML SYR IVP (10:52)
--- NOTE | 2023-01-28 11:10 | DI.VRAD_ITS ---
PROCEDURE INFORMATION: Exam: CTA Chest With Contrast Exam date and time: 01/28/2023 10:38 AM Age: 72 years old Clinical indication: Other: SOB, hemoptysis, lumbar surg, fever; Prior surgery; Surgery date: <1 month TECHNIQUE: Imaging protocol: Computed tomographic angiography of the chest with contrast. Exam focused on the arteries. 3D rendering (Not supervised by radiologist): MIP and/or 3D reconstructed images were created by the technologist. Contrast material: OMNIPAQUE 350; Contrast volume: 100 ml; Contrast route: INTRAVENOUS (IV); COMPARISON: CT CHEST PE CTA 04/19/2021 8:21 PM FINDINGS: Pulmonary arteries: Normal. No pulmonary emboli. Aorta: Unremarkable. No aortic aneurysm. No aortic dissection. Lungs: Bilateral mild tree-in-bud nodular infiltrates consistent with acute bronchopneumonia. Pleural spaces: Trace left pleural effusion. Heart: Normal heart size. Coronary arteries: There is coronary artery calcification. Lymph nodes: Unremarkable. No enlarged lymph nodes. Liver: There is hepatomegaly and fatty infiltration of the liver. Gallbladder and bile ducts: There has been a cholecystectomy. Bones/joints: Hardware in the cervical spine. Several old left rib fractures. Soft tissues: Unremarkable. IMPRESSION: Bilateral mild bronchopneumonia with small left pleural effusion. No evidence pulmonary embolism. Dictated and Authenticated by: Penny Mcmillan MD. Ordering:LORY Chandra MD
[2023-01-28 11:47] LABS: Bilirubin Negative (Negative); Blood Negative (Negative); Clarity Clear (Clear); Glucose Negative (Negative); Ketones Negative (Negative); Leukocyte Esterase Negative (Negative); Nitrite Negative (Negative)
--- NOTE | 2023-01-28 12:23 | NUR.NOTE ---
Nursing Note: 1216 STEFFI-Jun Admin. [facility] due to [facility] having [facility]. Per Jun the patient has Medicare A&B, BC/BS so he can stay at [facility] without confirmation from the [place].
[2023-01-28 12:34] LABS: Lab Add On Test DONE
[2023-01-28 12:41] LABS: NT-proBNP 961 pg/mL (<300)
[2023-01-28 12:42] LABS: C-Reactive Protein 12.54 mg/dL (0.0-0.3)
[2023-01-28 13:12] LABS: Troponin I < 50 ng/L (<or=60)
[2023-01-28 13:27] LABS: Procalcitonin < 0.1 ng/mL
[2023-01-28 15:11] LABS: COVID-19 PCR Negative (Negative); Influenza A PCR Negative (Negative); Influenza B PCR Negative (Negative); RSV PCR Negative (Negative)
[2023-01-28 15:18] LABS: Source Nasopharynx
--- NOTE | 2023-01-28 15:50 | W.PM.HP.N ---
Date of service: 01/28/23 Time of Service: 15:50 Assessment and Plan Assessment and plan (1) Pneumonia: Status: Acute Assessment and plan: SPO2 95% RA Cefepime 2 gm q 8h IS Acapella Urine for legionella and strep pending Sputum not yet collected MRSA pending Fluvid negative WBC 19.45 - monitor CRP 12.54 - trend (2) Leukocytosis, unspecified: Status: Acute Assessment and plan: WBC 19.45 Cefepime 2 gm q8h BC pending (3) COPD (chronic obstructive pulmonary disease): Assessment and plan: No wheezes, lungs are clear - holding off on steroids at this time Albuterol nebs prn Duonebs q 6h scheduled (4) Essential hypertension: Status: Acute Assessment and plan: Stable, monitor continue Lisinopril, Amlodipine, (5) Hypercholesteremia: Status: Acute Assessment and plan: Continue Rosuvastatin (6) GERD (gastroesophageal reflux disease): Status: Chronic Assessment and plan: Stable continue Omeprazole (7) DVT prophylaxis: Status: Acute Assessment and plan: On Apixaban (8) Discharge planning issues: Status: Acute Assessment and plan: Home when stable History of Present Illness History of Present Illness Chief Complaint: Difficulty breathing Narrative: This 70-year-old male patient with a past medical history of lung cancer with left lower lobe partial lobectomy, COPD, hypertension, ACS, and GERD who presented to the [facility] ED with complaint of increased shortness of breath over the past 24 hours.? He usually uses oxygen at night with his CPAP but not needed during the day.? In the ED his SPO2 on RA is 88%.? He had a reported fever at home, 39c, He took Tylenol prior to coming to the ED and his temperature was normal. A CTA of his chest was negative for PE.? He has bilateral bronchopneumonia with small left pleural effusion.? He was started on Cefepime.? In the ED labs: WBC 19.45; CRP 12.54; ProBNP 961; Procalcitonin <0.1; Troponin negative x 2; Glucose 173.? He was admitted to the medical floor for oxygen and IV antibiotics. He is a full code. Review of Systems All systems reviewed & are unremarkable except as noted in HPI and below PFSH All Active Problems (Updated 01/28/23 @ 18:43 by NOLAN Murdock) Respiratory failure (Acute) Sepsis (Acute) Diabetes mellitus (Chronic) GERD (gastroesophageal reflux disease) (Chronic) Hypercholesteremia (Acute) Discharge planning issues (Acute) DVT prophylaxis (Acute) Pneumonia (Acute) Near syncope (Acute) Post-operative complication (Acute) Hypomagnesemia (Acute) Leukocytosis, unspecified (Acute) Hyperglycemia (Acute) Essential hypertension (Acute) Acute coronary syndrome (Acute) Medical History Colon polyps COPD (chronic obstructive pulmonary disease) patient follows w/ Dr. 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 HTN (hypertension) patient follows w/ Dr. 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 Melanoma Surgical History H/O colonoscopy H/O melanoma excision H/O nasal septoplasty Family History Father History of non-ST elevation myocardial infarction (NSTEMI) Prostate cancer metastatic to multiple sites Mother COPD (chronic obstructive pulmonary disease) Sister Breast cancer Sister Ovarian cancer Brother Lung cancer Social History Smoking/Tobacco Use Status: Former Tobacco Use Smoking risk assessment performed?: Yes Alcohol Intake: current Alcohol Intake frequency: 0-2 drinks per day Alcohol type: hard liquor Drug use: Never Substance use type: does not use Do you feel safe at home: Yes Do you feel safe in your relationship?: Yes Meds Allergies and Home Medications Allergies Allergy/AdvReac Type Severity Reaction Status Date / Time shellfish derived Allergy Unverified 01/28/23 09:27 Home Medications Medication Instructions Recorded Confirmed Type aspirin 81 mg chewable tablet 81 mg PO DAILY 07/19/18 06/18/21 History lisinopril 20 1 tab DAILY AM 07/19/18 01/28/23 History mg-hydrochlorothiazide 25 mg tablet nitroglycerin 0.4 mg sublingual 0.4 mg sublingual Q5 MIN PRN X3 07/19/18 01/28/23 Rx tablet (Nitrostat) PRN #1 tab omeprazole magnesium 20 mg 20 mg PO DAILY 07/19/18 01/28/23 History tablet,delayed release (Prilosec OTC) tiotropium 2.5 mcg-olodaterol 2.5 2 puff inhalation DAILY 07/19/18 01/28/23 History mcg/actuation mist for inhalation (Stiolto Respimat) albuterol 90 mcg/actuation aerosol 90 mcg inhalation Q4H PRN PRN 04/19/21 01/28/23 History inhaler allopurinol 300 mg tablet 300 mg PO DAILY 04/19/21 01/28/23 History amlodipine 10 mg tablet 10 mg PO DAILY 04/19/21 01/28/23 History duloxetine 30 mg capsule,delayed 30 mg PO DAILY 04/19/21 01/28/23 History release rosuvastatin 20 mg tablet 20 mg PO DAILY 04/19/21 01/28/23 History tamsulosin 0.4 mg capsule 0.4 mg PO DAILY 04/19/21 01/28/23 History acetaminophen 325 mg tablet 650 mg PO Q6H PRN PRN 06/18/21 01/28/23 History amoxicillin 500 mg-potassium 1 tab PO BID 06/18/21 01/28/23 History clavulanate 125 mg tablet apixaban 5 mg tablet (Eliquis) 5 mg PO BID 06/18/21 01/28/23 History diclofenac sodium 1 % topical gel 2 - 4 g topical QID PRN 06/18/21 01/28/23 History ipratropium 0.5 mg-albuterol 3 mg 3 ml inhalation QID PRN 06/18/21 01/28/23 History (2.5 mg base)/3 mL nebulization soln metoprolol succinate 200 mg 200 mg PO DAILY 06/18/21 01/28/23 History tablet,extended release 24 hr niacinamide 500 mg tablet 500 mg PO BID 06/18/21 01/28/23 History polyethylene glycol 3350 17 17 g PO BID 06/18/21 01/28/23 History gram/dose oral powder lisinopril 40 mg tablet 40 mg PO DAILY 01/28/23 01/28/23 History Exam Const General: cooperative, healthy appearing, comfortable and no acute distress Orientation: alert and awake [facility] Head: normal to inspection, normocephalic and atraumatic Mouth: moist mucous membranes Eyes General: appearance normal, both eyes and all related structures Conjunctivae: conjunctivae normal Neck Neck: normal visual inspection, full ROM, trachea midline and supple Resp Effort & Inspection: normal respiratory effort and able to speak in complete sentences Auscultation: diminished lung sounds bilaterally in the lower lung davidson and no wheezes Cardio Rate: regular rate Rhythm: regular rhythm GI Inspection: normal to inspection Palpation: soft, not firm, no guarding, no pulsatile masses and nontender Back/Spine/Pelvis Back: no CVA tenderness and No back tenderness Skin General skin exam: no rashes or lesions noted Neuro General: patient alert, patient awake, moves all extremities and no focal motor deficits Cognition: normal cognition Speech: speech normal Gait: normal gait Motor: muscle tone normal throughout Sensory Exam: no sensory deficits noted Extrem General: normal to inspection, full ROM, capillary refill normal, no pedal edema and no calf tenderness Psych Appearance: grossly normal Mental Status: mental status grossly normal Results Labs 01/28/23 09:55 01/28/23 09:55 Labs: Laboratory Results - last 24 hr 01/28/23 01/28/23 01/28/23 09:55 09:55 09:55 WBC 19.45 H RBC 3.94 L Hgb 13.0 L Hct 37.7 L MCV 96 H MCH 33.0 MCHC 34.5 RDW 12.5 Plt Count 242 MPV 10.2 Immature Gran % 0.5 Neutrophils % 84.1 Lymphocytes % 8.4 Monocytes % 6.1 Eosinophils % 0.6 Basophils % 0.3 Nucleated RBC % 0.0 Absolute Neutrophils 16.36 H Absolute Lymphocytes 1.63 Absolute Monocytes 1.19 H Absolute Eosinophils 0.12 Absolute Basophils 0.06 VBG Lactate 2.0 H Sodium 138 Potassium 3.8 Chloride 99 Carbon Dioxide 28.5 Anion Gap 10.5 BUN 12 Creatinine 1.1 Est GFR (CKD-EPI 2020) 70.44 Glucose 173 H Calcium 8.5 Total Bilirubin 0.9 AST 19 ALT 37 Alkaline Phosphatase 60 Troponin I < 50 C-Reactive Protein NT-Pro-B Natriuret Pep Total Protein 7.6 Albumin 3.5 Procalcitonin Urine Color Urine Clarity Urine pH Ur Specific [place] Urine Protein Urine Ketones Urine Blood Urine Nitrite Urine Bilirubin Urine Urobilinogen Ur Leukocyte Esterase Urine Glucose COVID-19 Source SARS-CoV-2 (PCR) Influenza Type A (PCR) Influenza Type B (PCR) RSV (PCR) Add-On Test Request 01/28/23 01/28/23 01/28/23 09:55 09:55 09:55 WBC RBC Hgb Hct MCV MCH MCHC RDW Plt Count MPV Immature Gran % Neutrophils % Lymphocytes % Monocytes % Eosinophils % Basophils % Nucleated RBC % Absolute Neutrophils Absolute Lymphocytes Absolute Monocytes Absolute Eosinophils Absolute Basophils VBG Lactate Sodium Potassium Chloride Carbon Dioxide Anion Gap BUN Creatinine Est GFR (CKD-EPI 2020) Glucose Calcium Total Bilirubin AST ALT Alkaline Phosphatase Troponin I C-Reactive Protein NT-Pro-B Natriuret Pep 961 H Total Protein Albumin Procalcitonin < 0.1 Urine Color Urine Clarity Urine pH Ur Specific [place] Urine Protein Urine Ketones Urine Blood Urine Nitrite Urine Bilirubin Urine Urobilinogen Ur Leukocyte Esterase Urine Glucose COVID-19 Source SARS-CoV-2 (PCR) Influenza Type A (PCR) Influenza Type B (PCR) RSV (PCR) Add-On Test Request DONE 01/28/23 01/28/23 01/28/23 09:55 11:41 12:49 WBC RBC Hgb Hct MCV MCH MCHC RDW Plt Count MPV Immature Gran % Neutrophils % Lymphocytes % Monocytes % Eosinophils % Basophils % Nucleated RBC % Absolute Neutrophils Absolute Lymphocytes Absolute Monocytes Absolute Eosinophils Absolute Basophils VBG Lactate Sodium Potassium Chloride Carbon Dioxide Anion Gap BUN Creatinine Est GFR (CKD-EPI 2020) Glucose Calcium Total Bilirubin AST ALT Alkaline Phosphatase Troponin I < 50 C-Reactive Protein 12.54 H NT-Pro-B Natriuret Pep Total Protein Albumin Procalcitonin Urine Color Yellow Urine Clarity Clear Urine pH 7.0 Ur Specific [place] 1.010 Urine Protein Negative Urine Ketones Negative Urine Blood Negative Urine Nitrite Negative Urine Bilirubin Negative Urine Urobilinogen 1.0 H Ur Leukocyte Esterase Negative Urine Glucose Negative COVID-19 Source SARS-CoV-2 (PCR) Influenza Type A (PCR) Influenza Type B (PCR) RSV (PCR) Add-On Test Request 01/28/23 14:17 WBC RBC Hgb Hct MCV MCH MCHC RDW Plt Count MPV Immature Gran % Neutrophils % Lymphocytes % Monocytes % Eosinophils % Basophils % Nucleated RBC % Absolute Neutrophils Absolute Lymphocytes Absolute Monocytes Absolute Eosinophils Absolute Basophils VBG Lactate Sodium Potassium Chloride Carbon Dioxide Anion Gap BUN Creatinine Est GFR (CKD-EPI 2020) Glucose Calcium Total Bilirubin AST ALT Alkaline Phosphatase Troponin I C-Reactive Protein NT-Pro-B Natriuret Pep Total Protein Albumin Procalcitonin Urine Color Urine Clarity Urine pH Ur Specific [place] Urine Protein Urine Ketones Urine Blood Urine Nitrite Urine Bilirubin Urine Urobilinogen Ur Leukocyte Esterase Urine Glucose COVID-19 Source Nasopharynx SARS-CoV-2 (PCR) Negative Influenza Type A (PCR) Negative Influenza Type B (PCR) Negative RSV (PCR) Negative Add-On Test Request Last Vital Signs Temp 37.1 C 01/28/23 15:06 Pulse 94 H 01/28/23 15:36 Resp 18 01/28/23 15:06 BP 137/74 01/28/23 15:06 Pulse Ox 92 01/28/23 15:06 Time Spent Time spent with Patient: 40-54 minutes Time was spent: preparing to see the patient(eg.review tests), obtaining and/or reviewing separately otained hiistory, ordering medications,tests, procedures, referring, communicating with other health home health care physician, indepentently interpreting results, counseling the patient and care coordination
--- NOTE | 2023-01-28 18:37 | ED.GENADUL_ITS ---
Discharge Plan Disposition Patient Disposition: Admit to [facility] Condition: Serious Discharge Details Clinical Impression: Pneumonia, Respiratory failure, Sepsis Admit Date/Time: 01/28/23 12:25 Admit Provider: Trinity Shelton Attending Provider: Trinity Shelton Primary Care Provider: Anya Jean Baptiste ED Provider: Corazon Wray Discharge Data Discharge Date/Time-TO BE ENTERED AT DEPARTURE: 01/28/23 14:36 Medical Decision Making 72-year-old gentleman presenting with shortness of breath and fever has evidence of pneumonia on CT chest, no evidence of pulmonary embolism Leukocytosis, 19,000, lactic acidosis at 2, remainder of labs are baseline for patient Cefepime initiated Troponin negative Patient will need admission to the hospital with pneumonia/ sepsis present patient IV fluid resuscitation, given his history of coronary artery disease and peripheral edema, 1 L bolus was initiated Patient does not meet septic shock criteria He received cefepime, I will hold on steroids at this time given recent lumbar surgery, he will also receive 2 DuoNebs He is requiring oxygen, he is on 1 L and saturating at 92% on room air, he was hypoxic initially at 88% He wishes to be full CODE STATUS Case discussed with Dr. Shelton after confirming the patient is agreeable to admission at this time COVID-negative in the emergency department HPI General Date/Time Provider Initiated Documentation: 01/28/23 09:10 . HPI Narrative: 72-year-old gentleman history of diabetes, hypertension, coronary artery disease presents with report of shortness of breath, cough, upper respiratory symptoms for the past 48 hours. Laminectomy at [facility] for which she was indicated for January 10. Denies any calf pain or swelling. Denies any back pain or strength or sensation changes to extremities. Related Data Home Medications Medication Instructions Recorded Confirmed aspirin 81 mg chewable tablet 81 mg PO DAILY 07/19/18 06/18/21 lisinopril 20 1 tab DAILY AM 07/19/18 01/28/23 mg-hydrochlorothiazide 25 mg tablet nitroglycerin 0.4 mg sublingual 0.4 mg sublingual Q5 MIN PRN X3 07/19/18 01/28/23 tablet (Nitrostat) PRN #1 tab omeprazole magnesium 20 mg 20 mg PO DAILY 07/19/18 01/28/23 tablet,delayed release (Prilosec OTC) tiotropium 2.5 mcg-olodaterol 2.5 2 puff inhalation DAILY 07/19/18 01/28/23 mcg/actuation mist for inhalation (Stiolto Respimat) albuterol 90 mcg/actuation aerosol 90 mcg inhalation Q4H PRN PRN 04/19/21 01/28/23 inhaler allopurinol 300 mg tablet 300 mg PO DAILY 04/19/21 01/28/23 amlodipine 10 mg tablet 10 mg PO DAILY 04/19/21 01/28/23 duloxetine 30 mg capsule,delayed 30 mg PO DAILY 04/19/21 01/28/23 release rosuvastatin 20 mg tablet 20 mg PO DAILY 04/19/21 01/28/23 tamsulosin 0.4 mg capsule 0.4 mg PO DAILY 04/19/21 01/28/23 acetaminophen 325 mg tablet 650 mg PO Q6H PRN PRN 06/18/21 01/28/23 amoxicillin 500 mg-potassium 1 tab PO BID 06/18/21 01/28/23 clavulanate 125 mg tablet apixaban 5 mg tablet (Eliquis) 5 mg PO BID 06/18/21 01/28/23 diclofenac sodium 1 % topical gel 2 - 4 g topical QID PRN 06/18/21 01/28/23 ipratropium 0.5 mg-albuterol 3 mg 3 ml inhalation QID PRN 06/18/21 01/28/23 (2.5 mg base)/3 mL nebulization soln metoprolol succinate 200 mg 200 mg PO DAILY 06/18/21 01/28/23 tablet,extended release 24 hr niacinamide 500 mg tablet 500 mg PO BID 06/18/21 01/28/23 polyethylene glycol 3350 17 17 g PO BID 06/18/21 01/28/23 gram/dose oral powder lisinopril 40 mg tablet 40 mg PO DAILY 01/28/23 01/28/23 Previous Rx's Medication Instructions Recorded nitroglycerin 0.4 mg sublingual 0.4 mg sublingual Q5 MIN PRN X3 07/19/18 tablet (Nitrostat) PRN #1 tab Allergies Allergy/AdvReac Type Severity Reaction Status Date / Time shellfish derived Allergy Unverified 01/28/23 09:27 General Stated Complaint: SOB ELI: 2 PFSH All Active Problems (Updated 01/28/23 @ 18:43 by NOLAN Murdock) Respiratory failure (Acute) Sepsis (Acute) Diabetes mellitus (Chronic) GERD (gastroesophageal reflux disease) (Chronic) Hypercholesteremia (Acute) Discharge planning issues (Acute) DVT prophylaxis (Acute) Pneumonia (Acute) Near syncope (Acute) Post-operative complication (Acute) Hypomagnesemia (Acute) Leukocytosis, unspecified (Acute) Hyperglycemia (Acute) Essential hypertension (Acute) Acute coronary syndrome (Acute) Medical History Colon polyps COPD (chronic obstructive pulmonary disease) patient follows w/ Dr. 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 HTN (hypertension) patient follows w/ Dr. 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 Melanoma Surgical History H/O colonoscopy H/O melanoma excision H/O nasal septoplasty Family History Father History of non-ST elevation myocardial infarction (NSTEMI) Prostate cancer metastatic to multiple sites Mother COPD (chronic obstructive pulmonary disease) Sister Breast cancer Sister Ovarian cancer Brother Lung cancer Social History Smoking/Tobacco Use Status: Former Tobacco Use Smoking risk assessment performed?: Yes Alcohol Intake: current Alcohol Intake frequency: 0-2 drinks per day Alcohol type: hard liquor Drug use: Never Substance use type: does not use Do you feel safe at home: Yes Do you feel safe in your relationship?: Yes Exam Narrative Exam Narrative: Patient is calm and cooperative, alert and oriented x4, pupils round reactive to light and accommodation lungs diminished with crackles at bases, cardiac rate rhythm sinus tachycardia no abdominal tenderness Back, incision noted over the lumbar spine, no dehiscence, well-appearing Neurovascularly intact Course Vital Signs Vital signs: Vital Signs Temperature 38.0 C H 01/28/23 09:23 Pulse 106 H 01/28/23 09:23 Respiratory Rate 18 01/28/23 09:23 Blood Pressure 145/66 H 05/29/23 09:23 Pulse Oximetry 90 L 05/29/23 09:23 Temperature 37.1 C 01/28/23 15:06 Temperature Source Tympanic 01/28/23 15:03 Pulse 90 01/28/23 18:04 Pulse Rhythm Regular 01/28/23 15:06 Pulse 85 01/28/23 14:20 Respiratory Rate 16 01/28/23 18:04 Respiratory Effort Normal 01/28/23 15:06 Respiratory Depth Normal 01/28/23 15:06 Respiratory Pattern Normal 01/28/23 15:06 Blood Pressure 137/74 01/28/23 15:06 Blood Pressure Mean 84 01/28/23 14:01 Blood Pressure Position Sitting 01/28/23 09:23 Pulse Oximetry 96 01/28/23 18:04 Oxygen Delivery Method Room Air 01/28/23 17:57 Oxygen Flow Rate 0 01/28/23 17:57 Pain Level 1 01/28/23 15:06 Comment no sob or resp distress. on room air 91-93% ; provided oxygen via nc at bedside if in distres. right upper and lower diminished, left upper clear, left lower crackles 01/28/23 15:06 Lab/Test Results Lab/Test Results: 01/28/23 10:20 Blood Blood Culture - Pending 01/28/23 10:28 Blood Blood Culture - Pending 01/28/23 10:20 Blood Blood Culture - Pending Laboratory Tests Range/Units 01/28/23 01/28/23 01/28/23 09:55 09:55 09:55 WBC (4.4-10.8) 10^3/uL 19.45 H RBC (4.36-5.78) 10^6/uL 3.94 L Hgb (13.5-17.5) g/dL 13.0 L Hct (40.0-50.0) % 37.7 L MCV (80-95) fL 96 H MCH (27.0-33.0) pg 33.0 MCHC (32.0-36.0) % 34.5 RDW (11.8-14.1) % 12.5 Plt Count (130-400) 10^3/uL 242 MPV (8.0-11.0) fL 10.2 Immature Gran % 0.5 Neutrophils % 84.1 Lymphocytes % 8.4 Monocytes % 6.1 Eosinophils % 0.6 Basophils % 0.3 Nucleated RBC % (0.0-0.3) % 0.0 Absolute Neutrophils (1.2-6.7) 10^3/uL 16.36 H Absolute Lymphocytes (1.2-3.4) 10^3/uL 1.63 Absolute Monocytes (0.1-0.8) 10^3/uL 1.19 H Absolute Eosinophils (0.0-0.7) 10^3/uL 0.12 Absolute Basophils (0.0-0.2) 10^3/uL 0.06 VBG Lactate (0.6-1.4) mmol/L 2.0 H Sodium (136-145) mmol/L 138 Potassium (3.5-5.1) mmol/L 3.8 Chloride (98-107) mmol/L 99 Carbon Dioxide (21.0-32.0) mmol/L 28.5 Anion Gap (3-11) mmol/L 10.5 BUN (7-18) mg/dL 12 Creatinine (0.70-1.30) mg/dL 1.1 Est GFR (CKD-EPI 2020) (mL/min/1.73m2) 70.44 Glucose (74-106) mg/dL 173 H Calcium (8.5-10.1) mg/dL 8.5 Total Bilirubin (0.2-1.0) mg/dL 0.9 AST (15-37) U/L 19 ALT (16-63) U/L 37 Alkaline Phosphatase (46-116) U/L 60 Troponin I (<or=60) ng/L < 50 C-Reactive Protein (0.0-0.3) mg/dL NT-Pro-B Natriuret Pep (<300) pg/mL Total Protein (6.4-8.2) g/dL 7.6 Albumin (3.4-5.0) g/dL 3.5 Procalcitonin ng/mL Urine Color (Yellow) Urine Clarity (Clear) Urine pH (5-8) Ur Specific [place] (1.005-1.025) Urine Protein (Negative) mg/dL Urine Ketones (Negative) mg/dL Urine Blood (Negative) Urine Nitrite (Negative) Urine Bilirubin (Negative) Urine Urobilinogen (Up to 0.2) mg/dL Ur Leukocyte Esterase (Negative) Urine Glucose (Negative) mg/dL Add-On Test Request Range/Units 01/28/23 01/28/23 01/28/23 09:55 09:55 09:55 WBC (4.4-10.8) 10^3/uL RBC (4.36-5.78) 10^6/uL Hgb (13.5-17.5) g/dL Hct (40.0-50.0) % MCV (80-95) fL MCH (27.0-33.0) pg MCHC (32.0-36.0) % RDW (11.8-14.1) % Plt Count (130-400) 10^3/uL MPV (8.0-11.0) fL Immature Gran % Neutrophils % Lymphocytes % Monocytes % Eosinophils % Basophils % Nucleated RBC % (0.0-0.3) % Absolute Neutrophils (1.2-6.7) 10^3/uL Absolute Lymphocytes (1.2-3.4) 10^3/uL Absolute Monocytes (0.1-0.8) 10^3/uL Absolute Eosinophils (0.0-0.7) 10^3/uL Absolute Basophils (0.0-0.2) 10^3/uL VBG Lactate (0.6-1.4) mmol/L Sodium (136-145) mmol/L Potassium (3.5-5.1) mmol/L Chloride (98-107) mmol/L Carbon Dioxide (21.0-32.0) mmol/L Anion Gap (3-11) mmol/L BUN (7-18) mg/dL Creatinine (0.70-1.30) mg/dL Est GFR (CKD-EPI 2020) (mL/min/1.73m2) Glucose (74-106) mg/dL Calcium (8.5-10.1) mg/dL Total Bilirubin (0.2-1.0) mg/dL AST (15-37) U/L ALT (16-63) U/L Alkaline Phosphatase (46-116) U/L Troponin I (<or=60) ng/L C-Reactive Protein (0.0-0.3) mg/dL NT-Pro-B Natriuret Pep (<300) pg/mL 961 H Total Protein (6.4-8.2) g/dL Albumin (3.4-5.0) g/dL Procalcitonin ng/mL < 0.1 Urine Color (Yellow) Urine Clarity (Clear) Urine pH (5-8) Ur Specific [place] (1.005-1.025) Urine Protein (Negative) mg/dL Urine Ketones (Negative) mg/dL Urine Blood (Negative) Urine Nitrite (Negative) Urine Bilirubin (Negative) Urine Urobilinogen (Up to 0.2) mg/dL Ur Leukocyte Esterase (Negative) Urine Glucose (Negative) mg/dL Add-On Test Request DONE Range/Units 01/28/23 01/28/23 09:55 11:41 WBC (4.4-10.8) 10^3/uL RBC (4.36-5.78) 10^6/uL Hgb (13.5-17.5) g/dL Hct (40.0-50.0) % MCV (80-95) fL MCH (27.0-33.0) pg MCHC (32.0-36.0) % RDW (11.8-14.1) % Plt Count (130-400) 10^3/uL MPV (8.0-11.0) fL Immature Gran % Neutrophils % Lymphocytes % Monocytes % Eosinophils % Basophils % Nucleated RBC % (0.0-0.3) % Absolute Neutrophils (1.2-6.7) 10^3/uL Absolute Lymphocytes (1.2-3.4) 10^3/uL Absolute Monocytes (0.1-0.8) 10^3/uL Absolute Eosinophils (0.0-0.7) 10^3/uL Absolute Basophils (0.0-0.2) 10^3/uL VBG Lactate (0.6-1.4) mmol/L Sodium (136-145) mmol/L Potassium (3.5-5.1) mmol/L Chloride (98-107) mmol/L Carbon Dioxide (21.0-32.0) mmol/L Anion Gap (3-11) mmol/L BUN (7-18) mg/dL Creatinine (0.70-1.30) mg/dL Est GFR (CKD-EPI 2020) (mL/min/1.73m2) Glucose (74-106) mg/dL Calcium (8.5-10.1) mg/dL Total Bilirubin (0.2-1.0) mg/dL AST (15-37) U/L ALT (16-63) U/L Alkaline Phosphatase (46-116) U/L Troponin I (<or=60) ng/L C-Reactive Protein (0.0-0.3) mg/dL 12.54 H NT-Pro-B Natriuret Pep (<300) pg/mL Total Protein (6.4-8.2) g/dL Albumin (3.4-5.0) g/dL Procalcitonin ng/mL Urine Color (Yellow) Yellow Urine Clarity (Clear) Clear Urine pH (5-8) 7.0 Ur Specific [place] (1.005-1.025) 1.010 Urine Protein (Negative) mg/dL Negative Urine Ketones (Negative) mg/dL Negative Urine Blood (Negative) Negative Urine Nitrite (Negative) Negative Urine Bilirubin (Negative) Negative Urine Urobilinogen (Up to 0.2) mg/dL 1.0 H Ur Leukocyte Esterase (Negative) Negative Urine Glucose (Negative) mg/dL Negative Add-On Test Request Critical Care Time Critical Care Time Attestation: Personally 45 minutes of critical care time secondary to pneumonia with sepsis, telemetry monitoring, IV antibiotic administration, acute respiratory failure requiring oxygen, and subsequent admission to the hospital for continued monitoring, review of labs, review of imaging
[2023-01-28] MEDS: Rosuvastatin 10 MG TAB 20 MG PO (19:36)
[2023-01-28] MEDS: guaiFENesin 600 MG TABCR PO (19:36)
[2023-01-28] MEDS: Benzonatate 200 MG CAP PO (19:36)
[2023-01-28] MEDS: Polyethylene Glycol 3350 17 GM PACKET PO (19:36)
[2023-01-28] MEDS: Apixaban 5 MG TAB PO (19:37)
[2023-01-29] VITALS (8 sets, daily range): BP systolic 136–178; BP diastolic 72–80; PULSE 73–95; RESP 1–19; TEMP 36.7–37.1; O2SAT 93–96
[2023-01-29] MEDS: Normal Saline Flush 10 ML SYR IVP ×3 (01:35→10:09)
[2023-01-29] MEDS: CEFEPIME 2 GM in Normal Saline 100 ML IVPB ×2 (01:36→10:08)
[2023-01-29] MEDS: Albuterol/Ipratropium 3 ML UPD VIAL UPD ×2 (05:28→13:03)
[2023-01-29 06:53] LABS: Abs Immature Grans 0.05 10^3/uL (0.0-0.06); Absolute Basophil Count 0.04 10^3/uL (0.0-0.2); Absolute Eosinophil Count 0.32 10^3/uL (0.0-0.7); Absolute Monocyte Count 1.09 10^3/uL (0.1-0.8); Basophils % 0.3; Eosinophils % 2.5; HCT 37.4 % (40.0-50.0); HGB 12.7 g/dL (13.5-17.5); Immature Grans % 0.4; Lymphocytes % 16.4; MCV 97 fL (80-95); MPV 10.3 fL (8.0-11.0); Monocytes % 8.6; Neutrophils % 71.8; Platelet Count 224 10^3/uL (130-400); RBC 3.85 10^6/uL (4.36-5.78); RDW-SD 45.8 fL; WBC 12.65 10^3/uL (4.4-10.8)
[2023-01-29 07:02] LABS: Absolute Lymphocyte Count 2.07 10^3/uL (1.2-3.4); Absolute Neutrophil Count 9.08 10^3/uL (1.2-6.7)
[2023-01-29 07:09] LABS: Anion Gap 8.3 mmol/L (3-11); BUN 10 mg/dL (7-18); CO2 29.7 mmol/L (21.0-32.0); CREATININE 0.9 mg/dL (0.70-1.30); Calcium 8.7 mg/dL (8.5-10.1); Chloride 102 mmol/L (98-107); Estimated GFR 89.62 (mL/min/1.73m2); Glucose 177 mg/dL (74-106); Magnesium 1.6 mg/dL (1.8-2.4); Potassium 3.7 mmol/L (3.5-5.1); Sodium 140 mmol/L (136-145)
[2023-01-29 07:24] LABS: C-Reactive Protein 16.45 mg/dL (0.0-0.3)
[2023-01-29] MEDS: Polyethylene Glycol 3350 17 GM PACKET PO (07:48)
[2023-01-29] MEDS: DULoxetine 30 MG CAP PO (07:48)
[2023-01-29] MEDS: Apixaban 5 MG TAB PO (07:48)
[2023-01-29] MEDS: Benzonatate 200 MG CAP PO ×2 (07:48→13:51)
[2023-01-29] MEDS: Tamsulosin 0.4 MG CAPCR PO (07:49)
[2023-01-29] MEDS: guaiFENesin 600 MG TABCR PO (07:49)
[2023-01-29] MEDS: Omeprazole 20 MG CAPCR PO (07:49)
[2023-01-29] MEDS: amLODIPine 10 MG TAB PO (07:51)
[2023-01-29] MEDS: Allopurinol 300 MG TAB PO (07:52)
[2023-01-29] MEDS: Metoprolol CR 100 MG TABCR 200 MG PO (07:52)
[2023-01-29] MEDS: Lisinopril 20 MG TAB 40 MG PO (07:52)
[2023-01-29] MEDS: Tiotropium/Olodaterol 10 PUFF INHALER 2 PUFF IH (08:01)
[2023-01-29] MEDS: Niacin 500 MG TAB PO (08:39)
--- NOTE | 2023-01-29 09:30 | RT.EKG_ITS ---
APPROVED REPORT Exam: Resting ECG Reason for Exam: chest pain Patient Location: I HR:77 bpm ECG Measurements Heart Rate 77 AXIS MI 151 P 73 QRSd 119 QRS -51 QT 404 T 90 QTc 458 Conclusion Sinus rhythm...normal P axis, V-rate 50- 99 Incomplete left bundle branch block...QRSd>110mS, terminal axis(-90,-1)
--- NOTE | 2023-01-29 09:48 | PT.INNT ---
PT Notes Visit Reasons: Sepsis due to pneumonia PT consult on hold this am per nursing. Will check back later today for evaluation if appropriate.
[2023-01-29 10:39] LABS: Troponin I < 50 ng/L (<or=60)
--- NOTE | 2023-01-29 13:16 | RESPIRATORY ---
RT Assessment Start: 01/29/23 13:08 Freq: Status: Active Protocol: Document 01/29/23 13:09 (Rec: 01/29/23 13:16 [email or web address] RT Assessment Pulmonary History Pulmonary History COPD,Other Smoking History Smoking/Tobacco Use Status Former Tobacco Use Tobacco: How many years used 30 Quit Date 01/30/92 Tobacco Type cigarettes Packs per Day 3 Cigarettes per Day 30 Years smoked 30 Smoking packs per day 3 OXYGEN HISTORY: Supplemental O2 At Rest 0 With Exertion 0 CPAP Can use home machine Yes: pt not sure if he uses BiPAP or CPAP. Uses 1L bleed in. BIPAP Can you home machine Yes: pt not sure if he uses BiPAP or CPAP. Uses 1L bleed in. DME/Compliance [facility]iance Yes Current Respiratory Symptoms Current Respiratory Symptoms Cough,Shortness of breath, Sputum production Activity Activity Level Pt states he is semi-active at home. Respiratory Breath Sounds Breath Sounds Any abnormal sounds, decreased breath sounds Response No change Pulse Rate <100 Respiratory Rate <18 Shortness of Breath On exertion Respiratory Therapy Score Total 2 Assessment and Plan RT Treatment Protocol Bronchial Hygiene Therapy Protocol Note RT assessment suggests pt to continue home regimen. RT has instructed patient on incenive spirometry and acapella device uses and purposes. Suggest to change scheduled Duonebs to PRN at this time.
--- NOTE | 2023-01-29 13:40 | W.PM.DS.N ---
Date of service: 01/29/23 Time of Service: 13:41 DS: Diagnosis Discharge Diagnosis (1) Pneumonia: Status: Acute (2) Leukocytosis, unspecified: Status: Acute (3) COPD (chronic obstructive pulmonary disease): (4) Essential hypertension: Status: Acute (5) Hypercholesteremia: Status: Acute (6) GERD (gastroesophageal reflux disease): Status: Chronic Discharge Plan Disposition Patient Disposition: Home Condition: Improving Discharge Details Reason For Visit: Sepsis due to pneumonia Admit Date/Time: 01/28/23 12:25 Admit Provider: Trinity Shelton Attending Provider: Trinity Shelton Primary Care Provider: [facility] Course Hospital Course: This 70-year-old male patient with a past medical history of lung cancer with left lower lobe partial lobectomy, COPD, hypertension, ACS, and GERD who presented to the [facility] ED with complaint of increased shortness of breath found hypoxic with SPO2 on RA at 88%.? A CTA of his chest was negative for PE but found to have bilateral bronchopneumonia with small left pleural effusion.? He was started on Cefepime and admitted to the medical floor for oxygen and IV antibiotics. Overnight his symptoms markedly improved. He was weaned off oxygen (wears only at night with his cpap) and was hemodynamically stable. He was reambulated and felt improved enough to be dishcarged to home. He will be discharged on cefpodoxime to complete a 10 day course. discharge discussed with Dr Bolton Conejos Meds and New Rx's Prescriptions: New guaifenesin [Mucus Relief ER] 600 mg Tablet Extended Release 12hr 600 mg PO BID Qty: 14 0RF cefpodoxime 200 mg tablet 200 mg PO BID Qty: 14 0RF Rx Instructions: must administer with a meal/food Continued tamsulosin 0.4 mg capsule 0.4 mg PO DAILY amlodipine 10 mg Tablet 10 mg PO DAILY allopurinol 300 mg tablet 300 mg PO DAILY albuterol 90 mcg/actuation Aerosol 90 mcg INHALATION Q4H PRN PRN rosuvastatin 20 mg Tablet 20 mg PO DAILY duloxetine 30 mg Capsule,Delayed Release(Dr/Ec) 30 mg PO DAILY acetaminophen 325 mg Tablet 650 mg PO Q6H PRN PRN ipratropium-albuterol 0.5 mg-3 mg(2.5 mg base)/3 mL Solution For Nebulization 3 ml INHALATION QID PRN metoprolol succinate 200 mg tablet extended release 24 hr 200 mg PO DAILY niacinamide 500 mg Tablet 500 mg PO BID polyethylene glycol 3350 17 gram/dose Powder 17 g PO BID diclofenac sodium 1 % Gel 2 - 4 g TOPICAL QID PRN Eliquis 5 mg tablet 5 mg PO BID Patient Comments: currently on hold aspirin 81 mg Tablet,Chewable 81 mg PO DAILY Patient Comments: on hold for surgery omeprazole magnesium [Prilosec OTC] 20 mg Tablet,Delayed Release (Dr/Ec) 20 mg PO DAILY Stiolto Respimat 2.5-2.5 mcg/actuation Mist 2 puff Inhalation DAILY nitroglycerin [Nitrostat] 0.4 mg Tablet, Sublingual 0.4 mg Sublingual Q5 MIN PRN X3 PRNQty: 1 0RF lisinopril 40 mg Tablet 40 mg PO DAILY Discontinued amoxicillin-pot clavulanate 500-125 mg tablet 1 tab PO BID No Action lisinopril-hydrochlorothiazide 20-25 mg Tablet 1 tab DAILY AM Patient Comments: not taking anymore Discharge Instructions Instructions: Community Acquired Pneumonia (DC) Stand Alone Forms: Nursing Discharge Form Referrals: Anya Jean Baptiste [Primary Care Provider] - (A Nurse from the [facility] will call you with an Appointment ) Activity:: Activity as Tolerated Equipment/Supplies:: No Equipment Needed Diet:: As Tolerated Discharge Orders Discharge Orders: Discharge Order (Routine); Ordered 01/29/23 Ordered By: Daina Bagley Discharge Data Discharge Date/Time-TO BE ENTERED AT DEPARTURE: 01/29/23 14:18 DS: Summary Time Spent with Patient providing and/or coordinating discharge services: Less than 30 minutes Status at Discharge Functional status at discharge: independent ambulation Overall status at discharge: patient is progressing back to baseline Mental Status: mental status grossly normal Speech and Movement: speech and movement normal Mood: congruent mood Affect: anxious affect Exam Const General: cooperative and no acute distress HENMT Head: normocephalic and atraumatic Mouth: moist mucous membranes Eyes Conjunctivae: normal conjunctivae Sclera: normal sclerae EOM: EOM intact bilaterally Neck Neck: trachea midline and supple Resp Auscultation: lung sounds not diminished, no rhonchi and wheezes expiratory wheezes (faint, bilaterally) Cardio Jugular venous pressure: no JVD Rhythm: regular rhythm Heart Sounds: no murmurs GI Palpation: soft, not firm, no guarding, no masses, not rigid and nontender Skin General skin exam: no rashes or lesions noted Neuro General: patient alert, patient awake, patient oriented x3 and tone normal Extrem General: no edema Psych Appearance: grossly normal Mental Status: mental status grossly normal Speech and Movement: speech and movement normal Mood: congruent mood Affect: anxious affect DS: Data Vitals/I&O Vitals and I&O: Vital Signs Temperature 37.1 C 01/29/23 11:20 Temperature Source Tympanic 01/29/23 11:20 Pulse 80 01/29/23 13:06 Pulse Rhythm Regular 01/29/23 07:50 Pulse 85 01/28/23 14:20 Respiratory Rate 15 01/29/23 13:06 Respiratory Effort Normal, Non-Labored 01/29/23 07:50 Respiratory Depth Normal 01/29/23 07:50 Respiratory Pattern Normal 01/29/23 07:50 Blood Pressure 136/76 01/29/23 11:20 Blood Pressure Mean 84 01/28/23 14:01 Blood Pressure Position Sitting 01/28/23 09:23 Pulse Oximetry 96 01/29/23 13:06 Oxygen Delivery Method Room Air 01/29/23 13:03 Oxygen Flow Rate 0 01/29/23 13:03 Pain Level 0 01/29/23 11:20 Comment no sob or resp distress. on room air 91-93% ; provided oxygen via nc at bedside if in distres. right upper and lower diminished, left upper clear, left lower crackles 01/28/23 15:06 Intake & Output 01/28/23 01/29/23 01/29/23 23:59 11:59 23:59 Intake Total 1100 / 1200 300 / 300 Output Total 600 / 600 1200 / 1200 Balance 500 / 600 -900 / -900 Weight 116.7 kg 116.4 kg Intake: IV 1100 / 1200 300 / 300 Output: Urine 600 / 600 1200 / 1200 Other: Urine Color Yellow Yellow Urine Appearance Clear Clear Urine Odor Normal Voiding Methods Toilet Toilet Data Completed and Pending Labs on day of discharge: Labs from last 24 hours 01/29/23 01/29/23 01/29/23 10:05 06:20 06:20 WBC 12.65 H RBC 3.85 L Hgb 12.7 L Hct 37.4 L MCV 97 H MCH 33.0 MCHC 34.0 RDW 13.0 Plt Count 224 MPV 10.3 Immature Gran % 0.4 Neutrophils % 71.8 Lymphocytes % 16.4 Monocytes % 8.6 Eosinophils % 2.5 Basophils % 0.3 Nucleated RBC % 0.0 Absolute Neutrophils 9.08 H Absolute Lymphocytes 2.07 Absolute Monocytes 1.09 H Absolute Eosinophils 0.32 Absolute Basophils 0.04 Sodium 140 Potassium 3.7 Chloride 102 Carbon Dioxide 29.7 Anion Gap 8.3 BUN 10 Creatinine 0.9 Est GFR (CKD-EPI 2020) 89.62 Glucose 177 H Calcium 8.7 Magnesium 1.6 L Troponin I < 50 C-Reactive Protein 16.45 H COVID-19 Source SARS-CoV-2 (PCR) Influenza Type A (PCR) Influenza Type B (PCR) Urine Legionella Ag RSV (PCR) Ur Strep pneumoniae Ag 01/28/23 01/28/23 16:20 14:17 WBC RBC Hgb Hct MCV MCH MCHC RDW Plt Count MPV Immature Gran % Neutrophils % Lymphocytes % Monocytes % Eosinophils % Basophils % Nucleated RBC % Absolute Neutrophils Absolute Lymphocytes Absolute Monocytes Absolute Eosinophils Absolute Basophils Sodium Potassium Chloride Carbon Dioxide Anion Gap BUN Creatinine Est GFR (CKD-EPI 2020) Glucose Calcium Magnesium Troponin I C-Reactive Protein COVID-19 Source Nasopharynx SARS-CoV-2 (PCR) Negative Influenza Type A (PCR) Negative Influenza Type B (PCR) Negative Urine Legionella Ag Pending RSV (PCR) Negative Ur Strep pneumoniae Ag Pending 01/28/23 14:22 Nose MRSA Screen - Pending Preliminary micro results at discharge 01/28/23 10:20 Blood Culture - Preliminary Blood NO GROWTH 24 HOURS 01/28/23 10:28 Blood Culture - Preliminary Blood NO GROWTH 24 HOURS 01/28/23 10:20 Blood Culture - Preliminary Blood NO GROWTH 24 HOURS 01/28/23 15:40 Sputum Culture - Preliminary Sputum Normal Ro 01/28/23 14:22 MRSA Screen - Pending Nose [facility] All Active Problems (Updated 01/30/23 @ 00:03 by JACOB STAPLETON) Respiratory failure (Acute) Sepsis (Acute) Diabetes mellitus (Chronic) GERD (gastroesophageal reflux disease) (Chronic) Hypercholesteremia (Acute) Pneumonia (Acute) Near syncope (Acute) Post-operative complication (Acute) Hypomagnesemia (Acute) Leukocytosis, unspecified (Acute) Hyperglycemia (Acute) Essential hypertension (Acute) Acute coronary syndrome (Acute) Medical History Colon polyps COPD (chronic obstructive pulmonary disease) patient follows w/ 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 HTN (hypertension) patient follows w/ Dr. 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 Melanoma Surgical History H/O colonoscopy H/O melanoma excision H/O nasal septoplasty Family History Father History of non-ST elevation myocardial infarction (NSTEMI) Prostate cancer metastatic to multiple sites Mother COPD (chronic obstructive pulmonary disease) Sister Breast cancer Sister Ovarian cancer Brother Lung cancer Social History Smoking/Tobacco Use Status: Former Tobacco Use Quit Date: 01/30/92 Tobacco: How many years used: 30 Smoking risk assessment performed?: Yes Alcohol Intake: current Alcohol Intake frequency: 0-2 drinks per day Alcohol type: hard liquor Drug use: Never Substance use type: does not use Do you feel safe at home: Yes Do you feel safe in your relationship?: Yes Time Spent with Patient Time Spent with Patient: <45 minutes Time was spent: preparing to see the patient(eg.review tests), obtaining and/or reviewing separately otained hiistory, ordering medications,tests, procedures, indepentently interpreting results and counseling the patient
[2023-01-29 19:50] LABS: Legionella Ag Detection Urine Negative (Negative)
--- NOTE | 2023-01-30 15:40 | PT.INNT ---
Date of service: 01/30/23 Time of Service: 15:42 PT Notes Visit Reasons: Sepsis due to pneumonia Patient discharged on 01/29/2023. No skilled PT services were provided for this episode of care.
[2023-01-30 23:42] LABS: Streptococcus Pneumoniae Ag, U Negative (Negative)
== END 2023-01-29 14:18 | disposition home or self-care (01) | DRG 190 ==
LOC: ER 12:31 → MS 14:35
PROVIDERS: Nurse Practitioner Acute Care; Nurse Practitioner Family; Admitting Provider Internal Medicine; Emergency Provider Physician Assistant; PCP Internal Medicine; Visit Provider Internal Medicine
DX: J44.0 Chronic obstructive pulmonary disease with (acute) lower respiratory infection (principal); J18.0 Bronchopneumonia, unspecified organism; I10 Essential (primary) hypertension; K21.9 Gastro-esophageal reflux disease without esophagitis; E78.00 Pure hypercholesterolemia, unspecified; Z90.2 Acquired absence of lung [part of]; Z85.118 Personal history of other malignant neoplasm of bronchus and lung; E11.9 Type 2 diabetes mellitus without complications; Z79.01 Long term (current) use of anticoagulants; I25.10 Atherosclerotic heart disease of native coronary artery without angina pectoris; R60.0 Localized edema; Z87.891 Personal history of nicotine dependence
CPT/HCPCS: 36415; 71275; 80048; 80053; 84145; 87040; 87081; 87449; 87637; 93005; 94640; 81003; 83605; 83735; 83880; 84484; 85025; 86140; 87070; 87205; 87899; 93010; 94664; 94667; 94760; 99222; 99238; J3490; J7620

== ENCOUNTER 2023-10-28 14:00 | Outpatient (RCR) | payer OTHER, SELFPAY | END 2023-10-31 23:59 | disposition home or self-care (01) | LOC: PRC 14:00 | PROVIDERS: PCP Internal Medicine Geriatric Medicine; Referring Provider Student in an Organized Health Care Education/Training Program; Visit Provider Student in an Organized Health Care Education/Training Program | DX: J44.9 Chronic obstructive pulmonary disease, unspecified (principal) | CPT/HCPCS: 94626 ==

== ENCOUNTER 2023-11-25 14:00 | Outpatient (RCR) | payer OTHER, SELFPAY | END 2023-12-01 23:59 | disposition home or self-care (01) | LOC: PRC 14:00 | PROVIDERS: PCP Internal Medicine Geriatric Medicine; Referring Provider Student in an Organized Health Care Education/Training Program; Visit Provider Student in an Organized Health Care Education/Training Program | DX: J44.9 Chronic obstructive pulmonary disease, unspecified (principal) | CPT/HCPCS: 94626 ==

== ENCOUNTER 2023-11-27 14:00 | Emergency (ER) | payer OTHER, SELFPAY ==
--- NOTE | 2023-11-27 14:00 | RT.EKG_ITS ---
APPROVED REPORT Exam: Resting ECG Reason for Exam: SOB/Cardiac history Patient Location: E HR:88 bpm ECG Measurements Heart Rate 88 AXIS VA 153 P 88 QRSd 126 QRS -55 QT 379 T 107 QTc 458 Conclusion Sinus rhythm...normal P axis, V-rate 60- 99 Left bundle branch block...QRSd>120, broad/notched R I have reviewed and interpreted ECG and agree with software generated interpretation. There are no significant changes compared to prior EKG performed on 01/29/2023 at 09:46.
[2023-11-27 14:06] VITALS: BP 120/60; PULSE 94; RESP 20; TEMP 37.2; O2SAT 92
[2023-11-27 14:12] VITALS: BP 120/60; PULSE 94; RESP 20; TEMP 37.2; O2SAT 92
--- NOTE | 2023-11-27 14:29 | W.ED.GENAD ---
Discharge Plan Disposition Patient Disposition: Home Condition: Good Discharge Details Clinical Impression: CAP (community acquired pneumonia) Primary Care Provider: Regla Cordoba ED Provider: Camron Pruitt and New Rx's Prescriptions: New amoxicillin-pot clavulanate 875-125 mg tablet 1 tab PO BID Qty: 20 0RF Rx Instructions: first dose morning of 11/27 azithromycin 250 mg tablet 250 mg PO DAILY 4 Days Qty: 4 0RF Rx Instructions: start on day 2 of therapy (evening 11/27) Continued multivitamin [Daily Multi-Vitamin] Tablet 1 tab PO DAILY metformin 500 mg tablet 1,000 mg PO DAILY Ozempic 0.25 mg or 0.5 mg (2 mg/3 mL) pen injector 0.5 mg subcut QWEEK amlodipine 5 mg tablet 5 mg PO DAILY tamsulosin 0.4 mg capsule 0.4 mg PO DAILY allopurinol 300 mg tablet 300 mg PO DAILY albuterol 90 mcg/actuation Aerosol 90 mcg INHALATION Q4H PRN PRN duloxetine 30 mg Capsule,Delayed Release(Dr/Ec) 30 mg PO DAILY rosuvastatin 20 mg tablet 10 mg PO DAILY acetaminophen 325 mg Tablet 650 mg PO Q6H PRN PRN Hold Instructions: Pt Stopped/Never Started ipratropium-albuterol 0.5 mg-3 mg(2.5 mg base)/3 mL Solution For Nebulization 3 ml INHALATION QID PRN metoprolol succinate 200 mg tablet extended release 24 hr 200 mg PO DAILY niacinamide 500 mg Tablet 500 mg PO BID aspirin 81 mg Tablet,Chewable 81 mg PO DAILY Patient Comments: on hold for surgery omeprazole magnesium [Prilosec OTC] 20 mg Tablet,Delayed Release (Dr/Ec) 20 mg PO DAILY nitroglycerin [Nitrostat] 0.4 mg Tablet, Sublingual 0.4 mg Sublingual Q5 MIN PRN X3 PRNQty: 1 0RF lisinopril 40 mg Tablet 40 mg PO DAILY Discontinued Breztri Aerosphere 160-9-4.8 mcg/actuation HFA aerosol inhaler 2 inh inhalation BID Hold Instructions: Pt Stopped/Never Started Discharge Instructions Instructions: Community Acquired Pneumonia (ED) Additional Instructions: You were seen in the ED for increased shortness of breath and sputum production with sweats and chills. Your exam and vital signs overall reassuring. Chest x-ray did show evidence of pneumonia on the left. You should continue all of your previous medications that you are on especially your inhalers and nebulizers. We have started you on antibiotics which you should take as directed. You may use acetaminophen as needed for fever. Please follow-up with your primary care physician early next week. Return to ED for any increased difficulty breathing, chest pain, altered mental status, persistent vomiting, other concerns. Referrals: Regla Cordoba [Primary Care Provider] - [facility] General Mode of arrival: ambulatory. Date/Time Provider Initiated Documentation: 11/27/23 14:11. Limitations to Documentation: no limitations. Information obtained by: patient. HPI Narrative: Patient presenting to the ED with 3-day history of increasing cough, dyspnea on exertion, increased sputum production which is brown in color. He has had sweats and chills but no actual fever that he is aware of. He denies having any chest pain, shortness of breath at rest, abdominal pain, vomiting. He does have a history of COPD and is followed by pulmonary here. He does have nebs and inhalers which she has been using as directed. Related Data Home Medications Medication Instructions Recorded Confirmed aspirin 81 mg chewable tablet 81 mg PO DAILY 07/19/18 11/27/23 nitroglycerin 0.4 mg sublingual 0.4 mg sublingual Q5 MIN PRN X3 07/19/18 11/27/23 tablet (Nitrostat) PRN #1 tab omeprazole magnesium 20 mg 20 mg PO DAILY 07/19/18 11/27/23 tablet,delayed release (Prilosec OTC) albuterol 90 mcg/actuation aerosol 90 mcg inhalation Q4H PRN PRN 04/19/21 11/27/23 inhaler allopurinol 300 mg tablet 300 mg PO DAILY 04/19/21 11/27/23 duloxetine 30 mg capsule,delayed 30 mg PO DAILY 04/19/21 11/27/23 release tamsulosin 0.4 mg capsule 0.4 mg PO DAILY 04/19/21 11/27/23 acetaminophen 325 mg tablet 650 mg PO Q6H PRN PRN 06/18/21 11/27/23 ipratropium 0.5 mg-albuterol 3 mg 3 ml inhalation QID PRN 06/18/21 11/27/23 (2.5 mg base)/3 mL nebulization soln metoprolol succinate 200 mg 200 mg PO DAILY 06/18/21 11/27/23 tablet,extended release 24 hr niacinamide 500 mg tablet 500 mg PO BID 06/18/21 11/27/23 lisinopril 40 mg tablet 40 mg PO DAILY 01/28/23 11/27/23 amlodipine 5 mg tablet 5 mg PO DAILY 04/24/23 11/27/23 metformin 500 mg tablet 1,000 mg PO DAILY 09/27/23 11/27/23 multivitamin (Daily Multi-Vitamin 1 tab PO DAILY 09/27/23 11/27/23 tablet) rosuvastatin 20 mg tablet 10 mg PO DAILY 09/27/23 11/27/23 semaglutide 0.25 mg or 0.5 mg (2 0.5 mg subcut QWEEK 09/27/23 11/27/23 mg/3 mL) subcutaneous pen injector (Ozempic) amoxicillin 875 mg-potassium 1 tab PO BID #20 tabs 11/27/23 clavulanate 125 mg tablet azithromycin 250 mg tablet 250 mg PO DAILY 4 days #4 tabs 11/27/23 Previous Rx's Medication Instructions Recorded nitroglycerin 0.4 mg sublingual 0.4 mg sublingual Q5 MIN PRN X3 07/19/18 tablet (Nitrostat) PRN #1 tab amoxicillin 875 mg-potassium 1 tab PO BID #20 tabs 11/27/23 clavulanate 125 mg tablet azithromycin 250 mg tablet 250 mg PO DAILY 4 days #4 tabs 11/27/23 Allergies Allergy/AdvReac Type Severity Reaction Status Date / Time shellfish derived Allergy Severe Anaphylaxis Unverified 11/27/23 16:53 meperidine Allergy Unknown Other (See Verified 11/27/23 16:53 Comment) morphine Allergy Unknown Nausea Verified 11/27/23 16:53 demerol hydrochloride Allergy Unknown Nausea Uncoded 11/27/23 16:53 General Stated Complaint: RespSymp ELI: 3 Review of Systems Narrative: Per HPI Exam Narrative Exam Narrative: Const: WDWN male in NAD. HEENT: NC/AT. Normal facial exam. Eyes: Normal conjunctiva and sclera. Neck: Supple. Trachea midline. Lungs: Normal respiratory effort. Lungs without wheezing, few rhonchi in bases. Cor: RRR without murmur/gallop. Good radial pulses. GI: Soft. NT/ND. No guarding or rebound. Neuro: A+O x 3. Normal speech, mentation, gait. Cranial nerves II - XII grossly intact. No gross motor or sensory deficit. Ext: No C/C/E. Skin: Warm and dry without rash. Course Vital Signs Vital signs: Vital Signs Temperature 98.9 F 11/27/23 14:06 Pulse 94 H 11/27/23 14:06 Respiratory Rate 20 11/27/23 14:06 Blood Pressure 120/60 11/27/23 14:06 Pulse Oximetry 92 11/27/23 14:06 Temperature 98.9 F 11/27/23 14:12 Temperature Source Temporal Artery Scan 11/27/23 14:12 Pulse 94 H 11/27/23 14:12 Respiratory Rate 20 11/27/23 14:12 Respiratory Effort Normal 11/27/23 14:12 Respiratory Depth Normal 11/27/23 14:12 Blood Pressure 120/60 11/27/23 14:12 Blood Pressure Position Sitting 11/27/23 14:12 Pulse Oximetry 92 11/27/23 14:12 Oxygen Delivery Method Room Air 11/27/23 14:12 Oxygen Flow Rate 0 11/27/23 14:06 Medical Decision Making Patient presenting to ED with cough productive of brown sputum and dyspnea on exertion. He is in no respiratory distress and his room air saturation is 92%. His lungs did not have any wheezing, few rhonchi at the bases. Does have history of COPD and has been placed in pulmonary rehab since his last pulmonary clinic visit in September. EKG was obtained from triage and is sinus rhythm with no significant change from previous. Left bundle branch block is old. Will obtain Fluvid and chest x-ray. Fluvid is negative. Patient's chest x-ray per my review as well as radiology read with left lingular infiltrate. Patient looks well with good saturations, normal mental status, mild dyspnea on exertion. I think he is good for outpatient treatment. He is not wheezing so we will hold off on prednisone at this point. Will start him on Augmentin and azithromycin. Follow-up with primary care next week. Return to ED for any change in mental status, chest pain, increased shortness of breath, other concerns. Medical Records Medical records reviewed: Yes I reviewed the patient's medical records. Medical records narrative: last pulmonary visit in September ECG Data Attestation: I personally reviewed and interpreted this ECG (s) as follows: Prior ECG tracings: available for review Interpretation: unchanges [facility] All Active Problems (Updated 11/27/23 @ 16:41 by Camron Pruitt MD) CAP (community acquired pneumonia) (Acute) Enlarged prostate (Acute) benign Respiratory failure (Acute) Sepsis (Acute) GERD (gastroesophageal reflux disease) (Chronic) Pneumonia (Acute) Near syncope (Acute) Post-operative complication (Acute) Hypomagnesemia (Acute) Leukocytosis, unspecified (Acute) Hyperglycemia (Acute) Essential hypertension (Acute) Acute coronary syndrome (Acute) Medical History Hypercholesteremia Diabetes mellitus COPD (chronic obstructive pulmonary disease) patient follows w/ Dr. 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 History of posttraumatic stress disorder (PTSD) Former smoker quit in 1994,90 pack year Basal cell carcinoma of skin right cheek [place] [facility] [place]ic heart disease s/p stent x1 Jul 2018 [facility] [place]. Sudhir Ceballos. -after progressive SEPULVEDA, then chest pain. 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 Zheng Peñaloza, final inspection supervisor, [place] Surgical History H/O melanoma excision H/O colonoscopy H/O nasal septoplasty Family History Father History of non-ST elevation myocardial infarction (NSTEMI) Prostate cancer metastatic to multiple sites Mother COPD (chronic obstructive pulmonary disease) Sister Breast cancer Sister Ovarian cancer Brother Lung cancer Social History Smoking/Tobacco Use Status: Former Tobacco Use Quit Date: 09/02/89 Tobacco: How many years used: 37 Smoking risk assessment performed?: Yes Alcohol Intake: current Alcohol Intake frequency: 0-2 drinks per day Alcohol type: hard liquor Drug use: Never Substance use type: does not use 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 Pets and animals: Yes (4 cats) Pets and animals: cat(s) What is your relationship status?: Panel score (0-1 are the most socially isolated patients): 1 Do you feel safe at home: Yes Do you feel safe in your relationship?: Yes Additional Social history: Former smoker , quit in 1994,90 pack yrs. PAWSS Have you Been Recently Intoxicated or Drunk Within the Last 30 days?: No Have you Ever Experienced Previous Episodes of Alcohol Withdrawal?: No Have you ever Experienced Withdrawal Seizures?: No Have you ever Experienced Delirium Tremens(DT)s?: No Have you ever undergone Alcohol Rehabilitation Treatment (i.e, inpt ot outpatient treatment programs)?: No Have you ever Experienced Blackouts?: No Have you ever Combined Alcohol with other Downers within the last 90 days?: No Have you ever Combined Alcohol with any other Substance of Abuse during the last 90 days?: No Positive Blood Alcohol level on Presentation? [PCS.BAL]: No Evidence of Increased Autonomic Activity (i.e. HR>120, tremor, sweating, agitation, nausea)?: No Result: 0
--- NOTE | 2023-11-27 14:45 | DI.RAD_ITS ---
Exam(s) XR CHEST 2V PA LATERAL EXAM: XR CHEST 2V PA LATERAL CLINICAL HISTORY: cough, SEPULVEDA TECHNIQUE: 2D digital imaging was performed of the chest. Two images were obtained. PA and lateral views were obtained. COMPARISON: CR,XR XR PORTABLE CHEST AP from 06/18/2021 FINDINGS: MEDIASTINUM: Normal. HEART: Normal. PULMONARY VASCULATURE: Normal. LUNGS: There is a left lingular infiltrate. The right lung is clear. PLEURAL SPACE: No pleural effusion or pneumothorax. BONE:Within normal limits for the patient's age. OTHER FINDINGS:Normal. IMPRESSION: Left lingular pneumonia. DATA REPOSITORY: RADIATION DOSE DELIVERED:
[2023-11-27 15:55] LABS: COVID-19 PCR Negative (Negative); Influenza A PCR Negative (Negative); Influenza B PCR Negative (Negative); RSV PCR Negative (Negative)
[2023-11-27 15:57] LABS: Source Nasopharynx
[2023-11-27] MEDS: Azithromycin 250 MG TAB 500 MG PO (16:56)
[2023-11-27] MEDS: Amoxicillin 875/Clav. 125 TAB PO (16:56)
== END 2023-11-27 17:09 | disposition home or self-care (01) ==
PROVIDERS: Emergency Provider Emergency Medicine; PCP Internal Medicine Geriatric Medicine
DX: J18.9 Pneumonia, unspecified organism (principal); E78.00 Pure hypercholesterolemia, unspecified; E11.9 Type 2 diabetes mellitus without complications; I10 Essential (primary) hypertension; J44.9 Chronic obstructive pulmonary disease, unspecified; Z11.52 Encounter for screening for COVID-19; Z79.84 Long term (current) use of oral hypoglycemic drugs; Z79.85 Long-term (current) use of injectable non-insulin antidiabetic drugs; Z79.82 Long term (current) use of aspirin; Z95.5 Presence of coronary angioplasty implant and graft; Z87.891 Personal history of nicotine dependence
CPT/HCPCS: 87637; 93005; 99284; 71046; 93010

== ENCOUNTER 2023-12-30 14:52 | Outpatient (RCR) | payer BC, MEDICARE, SELFPAY ==
--- NOTE | 2023-12-31 11:07 | W.PFT ---
Date of service: 12/30/23 Time of Service: 14:49 Pulmonary Function Test Result Indications: Post pulm rehab Interpretation Spirometry: Moderate airflow limitation. Impression Moderate airflow obstruction Clinical Correlation therefore is recommended.
== END 2023-12-31 23:59 | disposition home or self-care (01) ==
LOC: PRC 14:52
PROVIDERS: PCP Internal Medicine Geriatric Medicine; Referring Provider Student in an Organized Health Care Education/Training Program; Visit Provider Student in an Organized Health Care Education/Training Program
DX: J44.9 Chronic obstructive pulmonary disease, unspecified (principal)
CPT/HCPCS: 94626

== ENCOUNTER 2024-09-15 14:21 | Emergency (ER) | payer OTHER, SELFPAY ==
[2024-09-15 14:26] VITALS: BP 135/75; PULSE 90; TEMP 37.3; O2SAT 91
--- NOTE | 2024-09-15 14:45 | DI.RAD_ITS ---
Exam(s) XR CHEST 2V PA LATERAL EXAM: XR CHEST 2V PA LATERAL CLINICAL HISTORY: cough TECHNIQUE: 2D digital imaging was performed. Two views. COMPARISON: CR,XR XR PORTABLE CHEST AP from 06/18/[address] CHEST PE CTA from 01/28/2023 CR XR CHEST 2V PA LATERAL from 11/27/2023 FINDINGS: HEART: Normal size. Aorta: Not dilated. PULMONARY VASCULATURE: Normal. MEDIASTINUM: Unremarkable. LUNGS: Infiltrate in the lingula. PLEURAL SPACE: No pleural effusion or pneumothorax. BONE:Unremarkable for age. SOFT TISSUES: Unremarkable. IMPRESSION: Lingular pneumonia, similar to the most recent exam. DATA REPOSITORY: RADIATION DOSE DELIVERED:
[2024-09-15] MEDS: Albuterol/Ipratropium 3 ML UPD VIAL UPD (15:01)
[2024-09-15] MEDS: predniSONE 20 MG TAB 60 MG PO (15:01)
[2024-09-15 15:20] VITALS: BP 140/62; PULSE 84; RESP 16; O2SAT 94
[2024-09-15 16:10] VITALS: O2SAT 93
--- NOTE | 2024-09-15 16:33 | W.ED.GENAD ---
Discharge Plan Disposition Patient Disposition: Home Condition: Stable Discharge Details Clinical Impression: URI (upper respiratory infection), Acute exacerbation of chronic obstructive pulmonary disease, Atypical pneumonia Primary Care Provider: Regla Cordoba ED Provider: Rachel Landa Home Meds and New Rx's Prescriptions: New doxycycline hyclate 100 mg capsule 100 mg PO BID 7 Days Qty: 14 0RF promethazine 6.25 mg/5 mL syrup 12.5 mg PO Q6H PRN (Reason: cough) Qty: 120 0RF prednisone 20 mg tablet 40 mg PO DAILY 4 Days Qty: 8 0RF No Action multivitamin [Daily Multi-Vitamin] Tablet 1 tab PO DAILY metformin 500 mg tablet 1,000 mg PO DAILY Ozempic 0.25 mg or 0.5 mg (2 mg/3 mL) pen injector 0.5 mg subcut QWEEK amlodipine 5 mg tablet 5 mg PO DAILY tamsulosin 0.4 mg capsule 0.4 mg PO DAILY allopurinol 300 mg tablet 300 mg PO DAILY albuterol 90 mcg/actuation Aerosol 90 mcg INHALATION Q4H PRN PRN duloxetine 30 mg Capsule,Delayed Release(Dr/Ec) 30 mg PO DAILY rosuvastatin 20 mg tablet 10 mg PO DAILY acetaminophen 325 mg Tablet 650 mg PO Q6H PRN PRN ipratropium-albuterol 0.5 mg-3 mg(2.5 mg base)/3 mL Solution For Nebulization 3 ml INHALATION QID PRN metoprolol succinate 200 mg tablet extended release 24 hr 200 mg PO DAILY niacinamide 500 mg Tablet 500 mg PO BID aspirin 81 mg Tablet,Chewable 81 mg PO DAILY Patient Comments: on hold for surgery omeprazole magnesium [Prilosec OTC] 20 mg Tablet,Delayed Release (Dr/Ec) 20 mg PO DAILY nitroglycerin [Nitrostat] 0.4 mg Tablet, Sublingual 0.4 mg Sublingual Q5 MIN PRN X3 PRNQty: 1 0RF lisinopril 40 mg Tablet 40 mg PO DAILY Discharge Instructions Instructions: Atypical Pneumonia (Mycoplasma and Viral) (DC) Additional Instructions: Start the antibiotic that was prescribed to you Continue steroids for the next 4 days, your first dose was given in the emergency department Continue your at home breathing treatments of albuterol, use them every 4 to 6 hours for the next several days If your oxygen level is getting below 90 during the day, you feel like your symptoms are worsening or shortness of breath is worsening please return to the emergency department HPI General Date/Time Provider Initiated Documentation: 09/15/24 14:50. Limitations to Documentation: no limitations. Information obtained by: patient. HPI Narrative: 74-year-old gentleman with past medical history of COPD, oxygen use at nighttime, hypertension, CAD presents for evaluation of URI symptoms. He reports the presence of symptoms for the last week. He reports that he initially had a fever, but that has not persisted. He reports that he has nasal congestion drainage and cough. Reports cough is productive of thick mucus. He states that his oxygen saturation is usually around 93. He only wears oxygen at nighttime. He has been using his breathing treatments at home with some relief. Related Data Home Medications ?Medication ?Instructions ?Recorded ?Confirmed aspirin 81 mg chewable tablet 81 mg PO DAILY 07/19/18 09/15/24 nitroglycerin 0.4 mg sublingual 0.4 mg sublingual Q5 MIN PRN X3 07/19/18 09/15/24 tablet (Nitrostat) PRN #1 tab omeprazole magnesium 20 mg 20 mg PO DAILY 07/19/18 09/15/24 tablet,delayed release (Prilosec OTC) albuterol 90 mcg/actuation aerosol 90 mcg inhalation Q4H PRN PRN 04/19/21 09/15/24 inhaler allopurinol 300 mg tablet 300 mg PO DAILY 04/19/21 09/15/24 duloxetine 30 mg capsule,delayed 30 mg PO DAILY 04/19/21 09/15/24 release tamsulosin 0.4 mg capsule 0.4 mg PO DAILY 04/19/21 09/15/24 acetaminophen 325 mg tablet 650 mg PO Q6H PRN PRN 06/18/21 09/15/24 ipratropium 0.5 mg-albuterol 3 mg 3 ml inhalation QID PRN 06/18/21 09/15/24 (2.5 mg base)/3 mL nebulization soln metoprolol succinate 200 mg 200 mg PO DAILY 06/18/21 09/15/24 tablet,extended release 24 hr niacinamide 500 mg tablet 500 mg PO BID 06/18/21 09/15/24 lisinopril 40 mg tablet 40 mg PO DAILY 01/28/23 09/15/24 amlodipine 5 mg tablet 5 mg PO DAILY 04/24/23 09/15/24 metformin 500 mg tablet 1,000 mg PO DAILY 09/27/23 09/15/24 multivitamin (Daily Multi-Vitamin 1 tab PO DAILY 09/27/23 09/15/24 tablet) rosuvastatin 20 mg tablet 10 mg PO DAILY 09/27/23 09/15/24 semaglutide 0.25 mg or 0.5 mg (2 0.5 mg subcut QWEEK 09/27/23 09/15/24 mg/3 mL) subcutaneous pen injector (OzeGifter) doxycycline hyclate 100 mg capsule 100 mg PO BID 7 days #14 caps 09/15/24 prednisone 20 mg tablet 40 mg (2 x 20 mg) PO DAILY 4 days 09/15/24 #8 tabs promethazine 6.25 mg/5 mL oral 12.5 mg (10 mL) PO Q6H PRN cough 09/15/24 syrup #120 mL Previous Rx's ?Medication ?Instructions ?Recorded nitroglycerin 0.4 mg sublingual 0.4 mg sublingual Q5 MIN PRN X3 07/19/18 tablet (Nitrostat) PRN #1 tab doxycycline hyclate 100 mg capsule 100 mg PO BID 7 days #14 caps 09/15/24 prednisone 20 mg tablet 40 mg (2 x 20 mg) PO DAILY 4 days 09/15/24 #8 tabs promethazine 6.25 mg/5 mL oral 12.5 mg (10 mL) PO Q6H PRN cough 09/15/24 syrup #120 mL Allergies Allergy/AdvReac Type Severity Reaction Status Date / Time shellfish derived Allergy Severe Anaphylaxis Unverified 09/15/24 14:32 meperidine Allergy Unknown Other (See Verified 09/15/24 14:32 Comment) morphine Allergy Unknown Nausea Verified 09/15/24 14:32 demerol hydrochloride Allergy Unknown Nausea Uncoded 09/15/24 14:32 General Stated Complaint: RespSymp ELI: 3 Exam Narrative Exam Narrative: Review of Systems: All systems reviewed & are unremarkable except as noted in HPI and below Well-developed, no acute distress NCAT PERRL, normal conjunctiva Bilateral TMs without effusion erythema or bulging Mild nasal mucosa edema posterior oropharynx with some erythema, no tonsillar enlargement or exudate Shotty cervical adenopathy RRR Unlabored respiratory effort, no tachypnea, bilateral expiratory wheezing Extremities w/o edema Course Vital Signs Vital signs: Vital Signs Temperature 37.3 C 09/15/24 14: Pulse 90 09/15/24 14:26 Blood Pressure 135/75 09/15/24 14:26 Pulse Oximetry 91 L 09/15/24 14: Temperature 37.3 C 09/15/24 14: Pulse 84 09/15/24 15:20 Respiratory Rate 16 09/15/24 15:20 Respiratory Effort Normal 09/15/24 15:20 Respiratory Depth Normal 09/15/24 15:20 Blood Pressure 140/62 09/15/24 15:20 Pulse Oximetry 93 09/15/24 16:10 Oxygen Delivery Method Room Air 09/15/24 14: Oxygen Flow Rate 0 09/15/24 14: Pain Level 2 09/15/24 14:26 Medical Decision Making Emergent evaluation of URI symptoms. Initial differential includes viral illness, pneumonia, COPD exacerbation. Patient is afebrile and maintaining appropriate oxygen saturation. He does have wheezing on examination. Given his history of COPD steroids and DuoNeb were given. He is outside the window for therapeutic management based on flu and COVID testing so these were not obtained. A chest x-ray was obtained there does appear to be some consolidation, over this appears unchanged from prior. However given his history of COPD, fever, change in mucus production and persistent symptoms, I will treat for atypical pneumonia with antibiotics. Have selected doxycycline. I have provided cough medication and a short steroid burst. Return precautions advised. Recommend close follow-up with PCP. Quality:SDOH Health Related Social Needs: No Data to Display PFSH All Active Problems Atypical pneumonia (Acute) Acute exacerbation of chronic obstructive pulmonary disease (Acute) URI (upper respiratory infection) (Acute) Enlarged prostate (Acute) benign Respiratory failure (Acute) Sepsis (Acute) GERD (gastroesophageal reflux disease) (Chronic) Pneumonia (Acute) Near syncope (Acute) Post-operative complication (Acute) Hypomagnesemia (Acute) Leukocytosis, unspecified (Acute) Hyperglycemia (Acute) Essential hypertension (Acute) Acute coronary syndrome (Acute) Medical History Hypercholesteremia Diabetes mellitus COPD (chronic obstructive pulmonary disease) patient follows w/ Dr. 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 Sudhir Ceballos. -after progressive SEPULVEDA, then chest pain. 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 Surgical History H/O melanoma excision H/O colonoscopy H/O nasal septoplasty Family History Father History of non-ST elevation myocardial infarction (NSTEMI) Prostate cancer metastatic to multiple sites Mother COPD (chronic obstructive pulmonary disease) Sister Breast cancer Sister Ovarian cancer Brother Lung cancer Social History Smoking/Tobacco Use Status: Former Tobacco Use Quit Date: 09/02/89 Tobacco: How many years used: 37 Smoking risk assessment performed?: Yes Alcohol Intake: current Alcohol Intake frequency: 0-2 drinks per day Alcohol type: hard liquor Drug use: Never Substance use type: does not use 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 Pets and animals: Yes (4 cats) Pets and animals: cat(s) What is your relationship status?: Panel score (0-1 are the most socially isolated patients): 1 Do you feel safe at home: Yes Do you feel safe in your relationship?: Yes Additional Social history: Former smoker , quit in 1994,90 pack yrs. PAWSS Have you Been Recently Intoxicated or Drunk Within the Last 30 days?: No Have you Ever Experienced Previous Episodes of Alcohol Withdrawal?: No Have you ever Experienced Withdrawal Seizures?: No Have you ever Experienced Delirium Tremens(DT)s?: No Have you ever undergone Alcohol Rehabilitation Treatment (i.e, inpt ot outpatient treatment programs)?: No Have you ever Experienced Blackouts?: No Have you ever Combined Alcohol with other Downers within the last 90 days?: No Have you ever Combined Alcohol with any other Substance of Abuse during the last 90 days?: No Positive Blood Alcohol level on Presentation? [PCS.BAL]: No Evidence of Increased Autonomic Activity (i.e. HR>120, tremor, sweating, agitation, nausea)?: No Result: 0
== END 2024-09-15 16:11 | disposition home or self-care (01) ==
PROVIDERS: Emergency Provider Emergency Medicine; PCP Internal Medicine Geriatric Medicine
DX: J18.9 Pneumonia, unspecified organism (principal); J06.9 Acute upper respiratory infection, unspecified; J44.1 Chronic obstructive pulmonary disease with (acute) exacerbation; E78.00 Pure hypercholesterolemia, unspecified; E11.9 Type 2 diabetes mellitus without complications; I10 Essential (primary) hypertension; Z95.5 Presence of coronary angioplasty implant and graft; Z79.84 Long term (current) use of oral hypoglycemic drugs; Z79.85 Long-term (current) use of injectable non-insulin antidiabetic drugs; Z79.82 Long term (current) use of aspirin; Z99.81 Dependence on supplemental oxygen; Z87.891 Personal history of nicotine dependence
CPT/HCPCS: 94640; 99284; 71046; J7512; J7620

== ENCOUNTER 2024-10-12 14:27 | Inpatient (IN) | payer OTHER, SELFPAY ==
[2024-10-12] VITALS (21 sets, daily range): BP systolic 117–177; BP diastolic 62–85; PULSE 84–123; RESP 15–27; TEMP 36.4–37.9; O2SAT 86–96
--- NOTE | 2024-10-12 15:20 | W.EDPROG ---
Date of service: 10/12/24 Time of Service: 15:20 Medical Decision Making I saw this patient on arrival. He is speaking in complete sentences. He was borderline febrile tachycardic and his oxygen saturation was 90% on room air. I ordered labs blood cultures this patient was meeting sepsis criteria. I ordered empiric antibiotics and broad-spectrum antibiotics. I ordered a two-view chest x-ray. Quality:[facility] Health Related Social Needs: No Data to Display Discharge Plan Discharge Details Chief Complaint: Nk/Back Pain Primary Care Provider: Regla Cordoba ED Provider: Corazon Wray Home Meds and New Rx's Prescriptions: No Action multivitamin [Daily Multi-Vitamin] Tablet 1 tab PO DAILY metformin 500 mg tablet 1,000 mg PO DAILY Ozempic 0.25 mg or 0.5 mg (2 mg/3 mL) pen injector 0.5 mg subcut QWEEK amlodipine 5 mg tablet 5 mg PO DAILY tamsulosin 0.4 mg capsule 0.4 mg PO DAILY allopurinol 300 mg tablet 300 mg PO DAILY albuterol 90 mcg/actuation Aerosol 90 mcg INHALATION Q4H PRN PRN duloxetine 30 mg Capsule,Delayed Release(Dr/Ec) 30 mg PO DAILY rosuvastatin 20 mg tablet 10 mg PO DAILY acetaminophen 325 mg Tablet 650 mg PO Q6H PRN PRN ipratropium-albuterol 0.5 mg-3 mg(2.5 mg base)/3 mL Solution For Nebulization 3 ml INHALATION QID PRN metoprolol succinate 200 mg tablet extended release 24 hr 200 mg PO DAILY niacinamide 500 mg Tablet 500 mg PO BID aspirin 81 mg Tablet,Chewable 81 mg PO DAILY Patient Comments: on hold for surgery omeprazole magnesium [Prilosec OTC] 20 mg Tablet,Delayed Release (Dr/Ec) 20 mg PO DAILY nitroglycerin [Nitrostat] 0.4 mg Tablet, Sublingual 0.4 mg Sublingual Q5 MIN PRN X3 PRNQty: 1 0RF lisinopril 40 mg Tablet 40 mg PO DAILY promethazine 6.25 mg/5 mL syrup 12.5 mg PO Q6H PRN (Reason: cough) Qty: 120 0RF
--- NOTE | 2024-10-12 15:30 | RT.EKG_ITS ---
APPROVED REPORT Exam: Resting ECG Reason for Exam: chest pain Patient Location: E HR:110 bpm ECG Measurements Heart Rate 110 AXIS AL 154 P 87 QRSd 116 QRS -60 QT 342 T 89 QTc 464 Conclusion Sinus tachycardia...rate> 99 Ventricular trigeminy...trigeminy string>6 w/ V complexes Incomplete left bundle branch block...QRSd>110mS, terminal axis(-90,-1) ST elevation, consider inferior injury...ST >0.08mV, II III aVF No STEMI. Sub mm inferior ST segment elevation in [address] segment depression.
--- NOTE | 2024-10-12 15:30 | DI.CT_ITS ---
Exam(s) CT CHEST WO EXAM: CT CHEST WO CLINICAL HISTORY: hx of lingular pna, recurrent TECHNIQUE: Imaging Protocol: Axial computed tomography images with coronal and sagittal reformatted images were created and reviewed. Computer aided detection (CAD) was utilized. CONTRAST MATERIAL: Intravenous: Omnipaque 350 Contrast volume:structured data ml. COMPARISON: CT CT CHEST PE CTA from 04/19/2021 CR,XR XR PORTABLE CHEST AP from 06/18/[address] CHEST PE CTA from 01/28/2023 CR XR CHEST 2V PA LATERAL from 09/15/2024 FINDINGS: Pulmonary parenchyma: underlying mild to moderate emphysematous changes in the upper lobes. No domin ant measurable mass. Suture material noted medial left upper lobe. There is a dense infiltrate noted posteriorly in the left lower lobe. Mild patchy infiltrates are noted at the right lower lobe. Tracheobronchial tree: No bronchiectasis. Left lower lobe mucous plugging. Mediastinum and Sharon: Mildly enlarged mediastinal lymph nodes, consistent with reactive lymph nodes. Pleura: No effusion. No pneumothorax. Heart: The heart is mildly dilated. Severe coronary artery calcifications are seen. Aorta: Thoracic aorta non-dilated. Mild atherosclerotic changes. Pulmonary arteries: No gross evidence of emboli. Upper abdomen: No acute findings. Bones: Degenerative changes in the spine. Soft tissues: Unremarkable. IMPRESSION: Consolidation in the left lower lobe. Patchy infiltrates in the right lower lobe. RADIATION DOSE DELIVERED: Total DLP DATA REPOSITORY: All CT scans at this facility are submitted to the National Radiology Data Registry (NRDR) Dose Index Registry (DIR) with the [employer] (A[employer]). RADIATION OPTIMIZATION: All CT scans at this facility use at least one of these dose optimization te chniques: automated exposure control; mA and/or kV adjustment per patient size (includes targeted exa ms where dose is matched to clinical indication); or iterative reconstruction.
[2024-10-12 16:02] LABS: BE (Venous) 3 mmol/L (-2-3); HCO3 (Venous) 28 mmol/L (23-28); Lactate 1.6 mmol/L (<or=2.0); O2 Sat (Venous) 55 %; TCO2 (Venous) 24 mmol/L (24-29); pCO2 (Venous) 42 mmHg (41-51); pH (Venous) 7.43 (7.31-7.41); pO2 (Venous) 30 mmHg
[2024-10-12 16:08] LABS: Abs Immature Grans 0.09 10^3/uL (0.0-0.06); Absolute Basophil Count 0.04 10^3/uL (0.0-0.2); Absolute Eosinophil Count 0.09 10^3/uL (0.0-0.7); Absolute Lymphocyte Count 1.11 10^3/uL (1.2-3.4); Absolute Monocyte Count 0.83 10^3/uL (0.1-0.8); Absolute Neutrophil Count 16.67 10^3/uL (1.2-6.7); Basophils % 0.2 %; Eosinophils % 0.5 %; HCT 46.2 % (40.0-50.0); HGB 15.7 g/dL (13.5-17.5); Immature Grans % 0.5 %; Lymphocytes % 5.9 %; MCH 32.6 pg (27.0-33.0); MCV 96 fL (80-95); MPV 9.6 fL (8.0-11.0); Monocytes % 4.4 %; Neutrophils % 88.5 %; Platelet Count 226 10^3/uL (130-400); RBC 4.81 10^6/uL (4.36-5.78); RDW 13.3 % (11.8-14.1); RDW-SD 47.2 fL; WBC 18.84 10^3/uL (4.4-10.8)
[2024-10-12] MEDS: Doxycycline Hyclate 100 MG CAP PO (16:13)
[2024-10-12] MEDS: ACETAMINOPHEN 1,000 MG/100 ML BAG 400 MG IVPB (16:13)
[2024-10-12] MEDS: Albuterol/Ipratropium 3 ML UPD VIAL UPD (16:13)
[2024-10-12] MEDS: methylPREDNISolone SUCC 125 MG VIAL 80 MG IVP ×2 (16:13→22:28)
[2024-10-12] MEDS: cefTRIAXone 2 GM/50 ML BAG IVPB (16:14)
[2024-10-12 16:28] LABS: Anion Gap 8.3 mmol/L (3-11); BUN 26 mg/dL (7-18); CO2 28.7 mmol/L (21.0-32.0); Calcium 9.2 mg/dL (8.5-10.1); Chloride 102 mmol/L (98-107); Glucose 143 mg/dL (74-106); Magnesium 1.5 mg/dL (1.8-2.4); Potassium 3.8 mmol/L (3.5-5.1); Sodium 139 mmol/L (136-145)
[2024-10-12 16:35] LABS: Bilirubin Negative (Negative); Blood Trace-intact (Negative); Clarity Clear (Clear); Glucose Negative (Negative); Ketones Negative (Negative); Leukocyte Esterase Negative (Negative); Nitrite Negative (Negative); Urobilinogen 0.2 mg/dL (Up to 0.2)
[2024-10-12 16:40] LABS: NT-proBNP 1226 pg/mL (<300)
[2024-10-12 16:51] LABS: COVID-19 PCR Negative (Negative); Influenza A PCR Negative (Negative); Influenza B PCR Negative (Negative); RSV PCR Negative (Negative)
[2024-10-12 17:03] LABS: Bacteria Negative HPF (Negative); C & S Indicated? No; Casts Negative LPF (Negative); Crystals Negative HPF (Negative); Epithelial Cells Rare HPF (Negative); Mucus Negative (Negative); RBC 0-2 HPF (0-2); WBC Negative HPF (0-5)
[2024-10-12 17:12] LABS: Source Nasopharynx
[2024-10-12 17:49] LABS: Troponin I 11 ng/L (<or=76)
[2024-10-12 18:02] LABS: Troponin I 15 ng/L (<or=76)
--- NOTE | 2024-10-12 18:24 | HPE_ITS ---
Date of service: 10/12/24 Time of Service: 18:25 Assessment and Plan Assessment and plan (1) Sepsis: Start date: 10/12/24 Status: Acute Assessment and plan: This is a 74-year-old gentleman with acute presentation of back pain which is most likely pleuritic with his significant pneumonia with left and right infiltrates. He was initiated on IV antibiotic therapy will be continued. He is on IV Rocephin and doxycycline. He is requiring some oxygen and will use his home BiPAP machine with home settings. He is using on home O2. Aggressive respiratory treatment and monitor for complications. He is not hypotensive and will be admitted to [facility]. He is a full code. (2) Pneumonia: Start date: 10/12/24 Status: Acute Assessment and plan: Bilateral patient to be treated with IV Rocephin and doxycycline. Respiratory care. O2 supplementation. (3) Hypomagnesemia: Start date: 10/12/24 Status: Acute Assessment and plan: Replete and follow-up lab. (4) COPD (chronic obstructive pulmonary disease): Assessment and plan: Aggressive nebulizer treatments, IV Solu-Medrol and O2 supplementation as needed. l BiPAP at night with patient's home machine and home settings. (5) Ischemic heart disease: Assessment and plan: No evidence of acute ischemia though patient did have several presentation of shortness of breath and pain with cardiac hesitation in 2018. Troponins are negative and BNP is elevated which may be more secondary to lung disease. Telemetry for monitoring while hospitalized. (6) HESHAM (obstructive sleep apnea): Status: Chronic Assessment and plan: BiPAP at night using patient's home machine. (7) Diabetes mellitus: Assessment and plan: Comfort measures before meals and at bedtime with short acting insulin coverage. (8) HTN (hypertension): Assessment and plan: Continue home medications. Adjust as needed. History of Present Illness History of Present Illness Chief Complaint: Left-sided back pain for 24 hours. Narrative: This is a 74-year-old male patient who has a history of COPD and sleep apnea, diabetes, hypertension and cardiac disease presenting with back pain for last 24 hours with a was of some concern that the patient was worried about angina. He has had acute coronary syndrome in the past with cardiac catheterization and stenting in 2018. This was not like his previous angina and after being evaluated in the ED he did have evidence of acute pneumonia bilaterally. He is not usually on oxygen at home and was requiring some oxygen supplementation in the ED. He did have fever and chills prior to presentation and has had a history of pneumonia about 1 month ago treated as an outpatient. Patient was tachycardic with fever and slightly tachypneic upon presentation with a source of fever being pneumonia. He was being sepsis criteria but without hypotension. He is also not having significant endorgan effect. He will be admitted for IV antibiotics and close monitoring with aggressive respiratory treatment. His back pain was improved after being admitted. He does wear BiPAP at home for HESHAM which was not a problem list. His home BiPAP machine should be used while hospitalized. He is a full code. Review of Systems Narrative: 13 point review of systems otherwise unrevealing or stable. [facility] All Active Problems (Updated 10/13/24 @ 02:18 by Milan Cowan) HESHAM (obstructive sleep apnea) (Chronic) Atypical pneumonia (Acute) Acute exacerbation of chronic obstructive pulmonary disease (Acute) URI (upper respiratory infection) (Acute) Enlarged prostate (Acute) benign Respiratory failure (Acute) Sepsis (Acute) GERD (gastroesophageal reflux disease) (Chronic) Pneumonia (Acute) Near syncope (Acute) Post-operative complication (Acute) Hypomagnesemia (Acute) Leukocytosis, unspecified (Acute) Hyperglycemia (Acute) Essential hypertension (Acute) Acute coronary syndrome (Acute) Medical History Hypercholesteremia Diabetes mellitus COPD (chronic obstructive pulmonary disease) patient follows w/ Dr. 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 History of posttraumatic stress disorder (PTSD) Former smoker quit in 1994,90 pack year Basal cell carcinoma of skin right cheek 2011 [facility] [place] Ischemic heart disease s/p stent x1 Jul 2018 [facility] [place] - Dr. Sudhir Ceballos. -after progressive SEPULVEDA, then chest pain. 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 Surgical History H/O melanoma excision H/O colonoscopy H/O nasal septoplasty Family History Father History of non-ST elevation myocardial infarction (NSTEMI) Prostate cancer metastatic to multiple sites Mother COPD (chronic obstructive pulmonary disease) Sister Breast cancer Sister Ovarian cancer Brother Lung cancer Social History Smoking/Tobacco Use Status: Former Tobacco Use Quit Date: 09/02/89 Tobacco: How many years used: 37 Smoking risk assessment performed?: Yes Alcohol Intake: current Alcohol Intake frequency: 0-2 drinks per day Alcohol type: hard liquor Drug use: Never Substance use type: does not use Housing: house current occupation: formerly worked as a [employer] in [place] before that. Pets and animals: Yes (4 cats) Pets and animals: cat(s) What is your relationship status?: Panel score (0-1 are the most socially isolated patients): 1 Do you feel safe at home: Yes Do you feel safe in your relationship?: Yes Additional Social history: Former smoker , quit in 1994,90 pack yrs. Meds Allergies and Home Medications Allergies Allergy/AdvReac Type Severity Reaction Status Date / Time shellfish derived Allergy Severe Anaphylaxis Unverified 10/12/24 14:38 meperidine Allergy Unknown Other (See Verified 10/12/24 14:38 Comment) morphine Allergy Unknown Nausea Verified 10/12/24 14:38 demerol hydrochloride Allergy Unknown Nausea Uncoded 10/12/24 14:38 Home Medications ?Medication ?Instructions ?Recorded ?Confirmed ?Type aspirin 81 mg chewable tablet 81 mg PO DAILY 07/19/18 10/12/24 History nitroglycerin 0.4 mg sublingual 0.4 mg sublingual Q5 MIN PRN X3 07/19/18 10/12/24 Rx tablet (Nitrostat) PRN #1 tab omeprazole magnesium 20 mg 20 mg PO DAILY 07/19/18 10/12/24 History tablet,delayed release (Prilosec OTC) albuterol 90 mcg/actuation aerosol 90 mcg inhalation Q4H PRN PRN 04/19/21 10/12/24 History inhaler allopurinol 300 mg tablet 300 mg PO DAILY 04/19/21 10/12/24 History duloxetine 30 mg capsule,delayed 30 mg PO DAILY 04/19/21 10/12/24 History release tamsulosin 0.4 mg capsule 0.4 mg PO DAILY 04/19/21 10/12/24 History acetaminophen 325 mg tablet 650 mg PO Q6H PRN PRN 06/18/21 10/12/24 History ipratropium 0.5 mg-albuterol 3 mg 3 ml inhalation QID PRN 06/18/21 10/12/24 History (2.5 mg base)/3 mL nebulization soln metoprolol succinate 200 mg 200 mg PO DAILY 06/18/21 10/12/24 History tablet,extended release 24 hr niacinamide 500 mg tablet 500 mg PO BID 06/18/21 10/12/24 History lisinopril 40 mg tablet 40 mg PO DAILY 01/28/23 10/12/24 History amlodipine 5 mg tablet 5 mg PO DAILY 04/24/23 10/12/24 History metformin 500 mg tablet 1,000 mg PO DAILY 09/27/23 10/12/24 History multivitamin (Daily Multi-Vitamin 1 tab PO DAILY 09/27/23 10/12/24 History tablet) rosuvastatin 20 mg tablet 10 mg PO DAILY 09/27/23 10/12/24 History semaglutide 0.25 mg or 0.5 mg (2 0.5 mg subcut QWEEK 09/27/23 10/12/24 History mg/3 mL) subcutaneous pen injector (Ozempic) promethazine 6.25 mg/5 mL oral 12.5 mg (10 mL) PO Q6H PRN cough 09/15/24 10/12/24 Rx syrup #120 mL Exam Narrative Exam Narrative: General: Patient appears appropriate for age, alert and oriented x 3 and in no acute distress. HEENT: Normocephalic, eyes with pupils equal and reactive to light symmetrically, extraocular movement intact and sclera anicteric. Oropharynx with moist Ko[place] and fair dentition. Neck: Supple without JVD. Back: Normal posture without CVA tenderness. Lungs: Decreased aeration of the left hand intact with right with bronchovesicular breath sounds diffusely and coarse crackles on the left more than right. No focalizing rales or rhonchi. Increased expiratory phase with expiratory wheeze especially with cough. Overall fair aeration. Heart: Tachycardic rate with no murmur or gallop appreciated. Abdomen: Normal contour, soft and nontender to palpation with no palpable hepatosplenomegaly. Bowel sounds positive all quadrants. No focalizing guarding or rebound. Genitalia/rectal: Exam deferred. Extremities: Without clubbing, cyanosis or pitting edema. Good capillary refill. Skin: Actinic changes diffusely with normal color, warm and moist. Neuro: Cranial nerves II through XII gross intact, no focalized motor deficits. No tremor. Psych: Normal affect and mood. No abnormal thought processes. Remote and recent memory intact. Results Imaging Imaging Studies: EXAM: CT CHEST WO CLINICAL HISTORY: hx of lingular pna, recurrent TECHNIQUE: Imaging Protocol: Axial computed tomography images with coronal and sagittal reformatted images were created and reviewed. Computer aided detection (CAD) was utilized. CONTRAST MATERIAL: Intravenous: Omnipaque 350 Contrast volume:structured data ml. COMPARISON: CT CT CHEST PE CTA from 04/19/2021 CR,XR XR PORTABLE CHEST AP from 06/18/[address] CHEST PE CTA from 01/28/2023 CR XR CHEST 2V PA LATERAL from 09/15/2024 FINDINGS: Pulmonary parenchyma: underlying mild to moderate emphysematous changes in the upper lobes. No dominant measurable mass. Suture material noted medial left upper lobe. There is a dense infiltrate noted posteriorly in the left lower lobe. Mild patchy infiltrates are noted at the right lower lobe. Tracheobronchial tree: No bronchiectasis. Left lower lobe mucous plugging. Mediastinum and Sharon: Mildly enlarged mediastinal lymph nodes, consistent with reactive lymph nodes. Pleura: No effusion. No pneumothorax. Heart: The heart is mildly dilated. Severe coronary artery calcifications are seen. Aorta: Thoracic aorta non-dilated. Mild atherosclerotic changes. Pulmonary arteries: No gross evidence of emboli. Upper abdomen: No acute findings. Bones: Degenerative changes in the spine. Soft tissues: Unremarkable. IMPRESSION: Consolidation in the left lower lobe. Patchy infiltrates in the right lower lobe. Labs 10/12/24 15:53 10/12/24 15:53 Labs: Laboratory Results - last 24 hr 10/12/24 10/12/24 10/12/24 15:21 15:41 15:49 WBC RBC Hgb Hct MCV MCH MCHC RDW Plt Count MPV Immature Gran % Neutrophils % Lymphocytes % Monocytes % Eosinophils % Basophils % Nucleated RBC % Absolute Neutrophils Absolute Lymphocytes Absolute Monocytes Absolute Eosinophils Absolute Basophils VBG pH VBG pCO2 VBG pO2 VBG HCO3 VBG Total CO2 VBG O2 Saturation VBG Base Excess VBG Lactate Sodium Potassium Chloride Carbon Dioxide Anion Gap BUN Creatinine Est GFR (CKD-EPI 2020) Glucose Calcium Magnesium Troponin I Cancelled Cancelled NT-Pro-B Natriuret Pep Urine Color Yellow Urine Clarity Clear Urine pH 7.0 Ur Specific [place] 1.020 Urine Protein Negative Urine Ketones Negative Urine Blood Trace-intact H Urine Nitrite Negative Urine Bilirubin Negative Urine Urobilinogen 0.2 Ur Leukocyte Esterase Negative Urine RBC 0-2 Urine WBC Negative Ur Epithelial Cells Rare Urine Crystals Negative Urine Bacteria Negative Urine Casts Negative Urine Mucus Negative Ur Culture Indicated? No Urine Glucose Negative COVID-19 Source SARS-CoV-2 (PCR) Influenza Type A (PCR) Influenza Type B (PCR) RSV (PCR) 10/12/24 10/12/24 10/12/24 15:52 15:53 16:01 WBC 18.84 H RBC 4.81 Hgb 15.7 Hct 46.2 MCV 96 H MCH 32.6 MCHC 34.0 RDW 13.3 Plt Count 226 MPV 9.6 Immature Gran % 0.5 Neutrophils % 88.5 Lymphocytes % 5.9 Monocytes % 4.4 Eosinophils % 0.5 Basophils % 0.2 Nucleated RBC % 0.0 Absolute Neutrophils 16.67 H Absolute Lymphocytes 1.11 L Absolute Monocytes 0.83 H Absolute Eosinophils 0.09 Absolute Basophils 0.04 VBG pH 7.43 H VBG pCO2 42 VBG pO2 30 VBG HCO3 28 VBG Total CO2 24 VBG O2 Saturation 55 VBG Base Excess 3 VBG Lactate 1.6 Sodium 139 Potassium 3.8 Chloride 102 Carbon Dioxide 28.7 Anion Gap 8.3 BUN 26 H Creatinine 1.0 Est GFR (CKD-EPI 2020) 78.00 Glucose 143 H Calcium 9.2 Magnesium 1.5 L Troponin I 11 NT-Pro-B Natriuret Pep 1226 H Urine Color Urine Clarity Urine pH Ur Specific [place] Urine Protein Urine Ketones Urine Blood Urine Nitrite Urine Bilirubin Urine Urobilinogen Ur Leukocyte Esterase Urine RBC Urine WBC Ur Epithelial Cells Urine Crystals Urine Bacteria Urine Casts Urine Mucus Ur Culture Indicated? Urine Glucose COVID-19 Source Nasopharynx SARS-CoV-2 (PCR) Negative Influenza Type A (PCR) Negative Influenza Type B (PCR) Negative RSV (PCR) Negative 02/10/25 02/10/25 02/10/25 16:21 16:42 17:31 WBC RBC Hgb Hct MCV MCH MCHC RDW Plt Count MPV Immature Gran % Neutrophils % Lymphocytes % Monocytes % Eosinophils % Basophils % Nucleated RBC % Absolute Neutrophils Absolute Lymphocytes Absolute Monocytes Absolute Eosinophils Absolute Basophils VBG pH VBG pCO2 VBG pO2 VBG HCO3 VBG Total CO2 VBG O2 Saturation VBG Base Excess VBG Lactate Sodium Potassium Chloride Carbon Dioxide Anion Gap BUN Creatinine Est GFR (CKD-EPI 2020) Glucose Calcium Magnesium Troponin I Cancelled Cancelled 15 NT-Pro-B Natriuret Pep Urine Color Urine Clarity Urine pH Ur Specific [place] Urine Protein Urine Ketones Urine Blood Urine Nitrite Urine Bilirubin Urine Urobilinogen Ur Leukocyte Esterase Urine RBC Urine WBC Ur Epithelial Cells Urine Crystals Urine Bacteria Urine Casts Urine Mucus Ur Culture Indicated? Urine Glucose COVID-19 Source SARS-CoV-2 (PCR) Influenza Type A (PCR) Influenza Type B (PCR) RSV (PCR) 10/12/24 10/12/24 18:21 18:42 WBC RBC Hgb Hct MCV MCH MCHC RDW Plt Count MPV Immature Gran % Neutrophils % Lymphocytes % Monocytes % Eosinophils % Basophils % Nucleated RBC % Absolute Neutrophils Absolute Lymphocytes Absolute Monocytes Absolute Eosinophils Absolute Basophils VBG pH VBG pCO2 VBG pO2 VBG HCO3 VBG Total CO2 VBG O2 Saturation VBG Base Excess VBG Lactate Sodium Potassium Chloride Carbon Dioxide Anion Gap BUN Creatinine Est GFR (CKD-EPI 2020) Glucose Calcium Magnesium Troponin I Cancelled Cancelled NT-Pro-B Natriuret Pep Urine Color Urine Clarity Urine pH Ur Specific [place] Urine Protein Urine Ketones Urine Blood Urine Nitrite Urine Bilirubin Urine Urobilinogen Ur Leukocyte Esterase Urine RBC Urine WBC Ur Epithelial Cells Urine Crystals Urine Bacteria Urine Casts Urine Mucus Ur Culture Indicated? Urine Glucose COVID-19 Source SARS-CoV-2 (PCR) Influenza Type A (PCR) Influenza Type B (PCR) RSV (PCR) Last Vital Signs Temp 37.9 C H 10/12/24 14:33 Pulse 112 H 10/12/24 18:00 Resp 20 10/12/24 18:00 BP 177/81 H 10/12/24 16:52 Pulse Ox 94 10/12/24 18:00 PAWSS Have you Been Recently Intoxicated or Drunk Within the Last 30 days?: No Have you Ever Experienced Previous Episodes of Alcohol Withdrawal?: No Have you ever Experienced Withdrawal Seizures?: No Have you ever Experienced Delirium Tremens(DT)s?: No Have you ever undergone Alcohol Rehabilitation Treatment (i.e, inpt ot outpatient treatment programs)?: No Have you ever Experienced Blackouts?: No Have you ever Combined Alcohol with other Downers within the last 90 days?: No Have you ever Combined Alcohol with any other Substance of Abuse during the last 90 days?: No Positive Blood Alcohol level on Presentation? [PCS.BAL]: No Evidence of Increased Autonomic Activity (i.e. HR>120, tremor, sweating, agitation, nausea)?: No Result: 0 Time Spent Time spent with Patient: >75 minutes Time was spent: preparing to see the patient(eg.review tests), obtaining and/or reviewing separately otained hiistory, ordering medications,tests, procedures, indepentently interpreting results and counseling the patient
--- NOTE | 2024-10-12 18:26 | W.ED.GENAD ---
Discharge Plan Disposition Patient Disposition: Admit to [facility] Condition: Serious Discharge Details Clinical Impression: Respiratory failure, Pneumonia, Sepsis, Hypomagnesemia Primary Care Provider: Regla Cordoba ED Provider: Corazon Wray Home Meds and New Rx's Prescriptions: No Action multivitamin [Daily Multi-Vitamin] Tablet 1 tab PO DAILY metformin 500 mg tablet 1,000 mg PO DAILY Ozempic 0.25 mg or 0.5 mg (2 mg/3 mL) pen injector 0.5 mg subcut QWEEK amlodipine 5 mg tablet 5 mg PO DAILY tamsulosin 0.4 mg capsule 0.4 mg PO DAILY allopurinol 300 mg tablet 300 mg PO DAILY albuterol 90 mcg/actuation Aerosol 90 mcg INHALATION Q4H PRN PRN duloxetine 30 mg Capsule,Delayed Release(Dr/Ec) 30 mg PO DAILY rosuvastatin 20 mg tablet 10 mg PO DAILY acetaminophen 325 mg Tablet 650 mg PO Q6H PRN PRN ipratropium-albuterol 0.5 mg-3 mg(2.5 mg base)/3 mL Solution For Nebulization 3 ml INHALATION QID PRN metoprolol succinate 200 mg tablet extended release 24 hr 200 mg PO DAILY niacinamide 500 mg Tablet 500 mg PO BID aspirin 81 mg Tablet,Chewable 81 mg PO DAILY Patient Comments: on hold for surgery omeprazole magnesium [Prilosec OTC] 20 mg Tablet,Delayed Release (Dr/Ec) 20 mg PO DAILY nitroglycerin [Nitrostat] 0.4 mg Tablet, Sublingual 0.4 mg Sublingual Q5 MIN PRN X3 PRNQty: 1 0RF lisinopril 40 mg Tablet 40 mg PO DAILY promethazine 6.25 mg/5 mL syrup 12.5 mg PO Q6H PRN (Reason: cough) Qty: 120 0RF HPI General Date/Time Provider Initiated Documentation: 10/12/24 14:34. HPI Narrative: The patient is a 74-year-old male with a history of COPD, hypercholesterolemia, diabetes, hypertension, and ACS. He presents with left-sided thoracic pain and intermittent shortness of breath for the past month. He was previously treated in the emergency department with doxycycline for atypical pneumonia and reports similar symptoms today. He describes significant back pain that radiates to his front. He has been using his inhalers for COPD as directed. He feels as though he has had a fever but has not taken his temperature at home. Related Data Home Medications ?Medication ?Instructions ?Recorded ?Confirmed aspirin 81 mg chewable tablet 81 mg PO DAILY 07/19/18 10/12/24 nitroglycerin 0.4 mg sublingual 0.4 mg sublingual Q5 MIN PRN X3 07/19/18 10/12/24 tablet (Nitrostat) PRN #1 tab omeprazole magnesium 20 mg 20 mg PO DAILY 07/19/18 10/12/24 tablet,delayed release (Prilosec OTC) albuterol 90 mcg/actuation aerosol 90 mcg inhalation Q4H PRN PRN 04/19/21 10/12/24 inhaler allopurinol 300 mg tablet 300 mg PO DAILY 04/19/21 10/12/24 duloxetine 30 mg capsule,delayed 30 mg PO DAILY 04/19/21 10/12/24 release tamsulosin 0.4 mg capsule 0.4 mg PO DAILY 04/19/21 10/12/24 acetaminophen 325 mg tablet 650 mg PO Q6H PRN PRN 06/18/21 10/12/24 ipratropium 0.5 mg-albuterol 3 mg 3 ml inhalation QID PRN 06/18/21 10/12/24 (2.5 mg base)/3 mL nebulization soln metoprolol succinate 200 mg 200 mg PO DAILY 06/18/21 10/12/24 tablet,extended release 24 hr niacinamide 500 mg tablet 500 mg PO BID 06/18/21 10/12/24 lisinopril 40 mg tablet 40 mg PO DAILY 01/28/23 10/12/24 amlodipine 5 mg tablet 5 mg PO DAILY 04/24/23 10/12/24 metformin 500 mg tablet 1,000 mg PO DAILY 09/27/23 10/12/24 multivitamin (Daily Multi-Vitamin 1 tab PO DAILY 09/27/23 10/12/24 tablet) rosuvastatin 20 mg tablet 10 mg PO DAILY 09/27/23 10/12/24 semaglutide 0.25 mg or 0.5 mg (2 0.5 mg subcut QWEEK 09/27/23 10/12/24 mg/3 mL) subcutaneous pen injector (Ozempic) promethazine 6.25 mg/5 mL oral 12.5 mg (10 mL) PO Q6H PRN cough 09/15/24 10/12/24 syrup #120 mL Previous Rx's ?Medication ?Instructions ?Recorded nitroglycerin 0.4 mg sublingual 0.4 mg sublingual Q5 MIN PRN X3 07/19/18 tablet (Nitrostat) PRN #1 tab promethazine 6.25 mg/5 mL oral 12.5 mg (10 mL) PO Q6H PRN cough 09/15/24 syrup #120 mL Allergies Allergy/AdvReac Type Severity Reaction Status Date / Time shellfish derived Allergy Severe Anaphylaxis Unverified 10/12/24 14:38 meperidine Allergy Unknown Other (See Verified 10/12/24 14:38 Comment) morphine Allergy Unknown Nausea Verified 10/12/24 14:38 demerol hydrochloride Allergy Unknown Nausea Uncoded 10/12/24 14:38 General Stated Complaint: Nk/Back Pain ELI: 3 Exam Narrative Exam Narrative: General Appearance: The patient is alert and oriented, in mild respiratory distress, holding his upper left abdomen. Vital signs: Blood pressure is stable. Oxygen saturation is 92% on 2 L of oxygen, 86% to 87% at rest without oxygen supplementation. HEENT: Within normal limits. Respiratory: Within normal limits. Respiratory distress, wheezes throughout, sinus tachycardia alert and oriented no peripheral edema Skin: Warm and dry, no rash. Neurological: Normal. Course Vital Signs Vital signs: Vital Signs Temperature 37.9 C H 10/12/24 14:33 Pulse 107 H 10/12/24 14:33 Respiratory Rate 18 10/12/24 14:33 Blood Pressure 174/85 H 10/12/24 14:33 Pulse Oximetry 90 L 10/12/24 14:33 Temperature 37.9 C H 10/12/24 14:33 Temperature Source Oral 10/12/24 14:33 Pulse 112 H 10/12/24 18:00 Pulse 113 H 10/12/24 18:00 Respiratory Rate 20 10/12/24 18:00 Blood Pressure 177/81 H 10/12/24 16:52 Blood Pressure Mean 113 10/12/24 16:52 Pulse Oximetry 94 10/12/24 18:00 Oxygen Delivery Method Nasal Cannula 10/12/24 17:10 Oxygen Flow Rate 3 10/12/24 17:10 End Tidal Co2 5 10/12/24 14:33 Lab/Test Results Lab/Test Results: 10/12/24 16:01 Blood Blood Culture - Pending 10/12/24 15:53 Blood Blood Culture - Pending Laboratory Tests Range/Units 10/12/24 10/12/24 10/12/24 15:21 15:41 15:49 WBC (4.4-10.8) 10^3/uL RBC (4.36-5.78) 10^6/uL Hgb (13.5-17.5) g/dL Hct (40.0-50.0) % MCV (80-95) fL MCH (27.0-33.0) pg MCHC (32.0-36.0) % RDW (11.8-14.1) % Plt Count (130-400) 10^3/uL MPV (8.0-11.0) fL Immature Gran % % Neutrophils % % Lymphocytes % % Monocytes % % Eosinophils % % Basophils % % Nucleated RBC % (0.0-0.3) % Absolute Neutrophils (1.2-6.7) 10^3/uL Absolute Lymphocytes (1.2-3.4) 10^3/uL Absolute Monocytes (0.1-0.8) 10^3/uL Absolute Eosinophils (0.0-0.7) 10^3/uL Absolute Basophils (0.0-0.2) 10^3/uL VBG pH (7.31-7.41) VBG pCO2 (41-51) mmHg VBG pO2 mmHg VBG HCO3 (23-28) mmol/L VBG Total CO2 (24-29) mmol/L VBG O2 Saturation % VBG Base Excess (-2-3) mmol/L VBG Lactate (<or=2.0) mmol/L Sodium (136-145) mmol/L Potassium (3.5-5.1) mmol/L Chloride (98-107) mmol/L Carbon Dioxide (21.0-32.0) mmol/L Anion Gap (3-11) mmol/L BUN (7-18) mg/dL Creatinine (0.70-1.30) mg/dL Est GFR (CKD-EPI 2020) (mL/min/1.73m2) Glucose (74-106) mg/dL Calcium (8.5-10.1) mg/dL Magnesium (1.8-2.4) mg/dL Troponin I Cancelled Cancelled NT-Pro-B Natriuret Pep (<300) pg/mL Urine Color (Yellow) Yellow Urine Clarity (Clear) Clear Urine pH (5-8) 7.0 Ur Specific [place] (1.005-1.025) 1.020 Urine Protein (Neg-Trace) mg/dL Negative Urine Ketones (Negative) mg/dL Negative Urine Blood (Negative) Trace-intact H Urine Nitrite (Negative) Negative Urine Bilirubin (Negative) Negative Urine Urobilinogen (Up to 0.2) mg/dL 0.2 Ur Leukocyte Esterase (Negative) Negative Urine RBC (0-2) HPF 0-2 Urine WBC (0-5) HPF Negative Ur Epithelial Cells (Negative) HPF Rare Urine Crystals (Negative) HPF Negative Urine Bacteria (Negative) HPF Negative Urine Casts (Negative) LPF Negative Urine Mucus (Negative) Negative Ur Culture Indicated? No Urine Glucose (Negative) mg/dL Negative COVID-19 Source SARS-CoV-2 (PCR) (Negative) Influenza Type A (PCR) (Negative) Influenza Type B (PCR) (Negative) RSV (PCR) (Negative) Range/Units 10/12/24 10/12/24 10/12/24 15:52 15:53 16:01 WBC (4.4-10.8) 10^3/uL 18.84 H RBC (4.36-5.78) 10^6/uL 4.81 Hgb (13.5-17.5) g/dL 15.7 Hct (40.0-50.0) % 46.2 MCV (80-95) fL 96 H MCH (27.0-33.0) pg 32.6 MCHC (32.0-36.0) % 34.0 RDW (11.8-14.1) % 13.3 Plt Count (130-400) 10^3/uL 226 MPV (8.0-11.0) fL 9.6 Immature Gran % % 0.5 Neutrophils % % 88.5 Lymphocytes % % 5.9 Monocytes % % 4.4 Eosinophils % % 0.5 Basophils % % 0.2 Nucleated RBC % (0.0-0.3) % 0.0 Absolute Neutrophils (1.2-6.7) 10^3/uL 16.67 H Absolute Lymphocytes (1.2-3.4) 10^3/uL 1.11 L Absolute Monocytes (0.1-0.8) 10^3/uL 0.83 H Absolute Eosinophils (0.0-0.7) 10^3/uL 0.09 Absolute Basophils (0.0-0.2) 10^3/uL 0.04 VBG pH (7.31-7.41) 7.43 H VBG pCO2 (41-51) mmHg 42 VBG pO2 mmHg 30 VBG HCO3 (23-28) mmol/L 28 VBG Total CO2 (24-29) mmol/L 24 VBG O2 Saturation % 55 VBG Base Excess (-2-3) mmol/L 3 VBG Lactate (<or=2.0) mmol/L 1.6 Sodium (136-145) mmol/L 139 Potassium (3.5-5.1) mmol/L 3.8 Chloride (98-107) mmol/L 102 Carbon Dioxide (21.0-32.0) mmol/L 28.7 Anion Gap (3-11) mmol/L 8.3 BUN (7-18) mg/dL 26 H Creatinine (0.70-1.30) mg/dL 1.0 Est GFR (CKD-EPI 2020) (mL/min/1.73m2) 78.00 Glucose (74-106) mg/dL 143 H Calcium (8.5-10.1) mg/dL 9.2 Magnesium (1.8-2.4) mg/dL 1.5 L Troponin I 11 NT-Pro-B Natriuret Pep (<300) pg/mL 1226 H Urine Color (Yellow) Urine Clarity (Clear) Urine pH (5-8) Ur Specific [place] (1.005-1.025) Urine Protein (Neg-Trace) mg/dL Urine Ketones (Negative) mg/dL Urine Blood (Negative) Urine Nitrite (Negative) Urine Bilirubin (Negative) Urine Urobilinogen (Up to 0.2) mg/dL Ur Leukocyte Esterase (Negative) Urine RBC (0-2) HPF Urine WBC (0-5) HPF Ur Epithelial Cells (Negative) HPF Urine Crystals (Negative) HPF Urine Bacteria (Negative) HPF Urine Casts (Negative) LPF Urine Mucus (Negative) Ur Culture Indicated? Urine Glucose (Negative) mg/dL COVID-19 Source Nasopharynx SARS-CoV-2 (PCR) (Negative) Negative Influenza Type A (PCR) (Negative) Negative Influenza Type B (PCR) (Negative) Negative RSV (PCR) (Negative) Negative Range/Units 10/12/24 10/12/24 10/12/24 16:21 16:42 17:31 WBC (4.4-10.8) 10^3/uL RBC (4.36-5.78) 10^6/uL Hgb (13.5-17.5) g/dL Hct (40.0-50.0) % MCV (80-95) fL MCH (27.0-33.0) pg MCHC (32.0-36.0) % RDW (11.8-14.1) % Plt Count (130-400) 10^3/uL MPV (8.0-11.0) fL Immature Gran % % Neutrophils % % Lymphocytes % % Monocytes % % Eosinophils % % Basophils % % Nucleated RBC % (0.0-0.3) % Absolute Neutrophils (1.2-6.7) 10^3/uL Absolute Lymphocytes (1.2-3.4) 10^3/uL Absolute Monocytes (0.1-0.8) 10^3/uL Absolute Eosinophils (0.0-0.7) 10^3/uL Absolute Basophils (0.0-0.2) 10^3/uL VBG pH (7.31-7.41) VBG pCO2 (41-51) mmHg VBG pO2 mmHg VBG HCO3 (23-28) mmol/L VBG Total CO2 (24-29) mmol/L VBG O2 Saturation % VBG Base Excess (-2-3) mmol/L VBG Lactate (<or=2.0) mmol/L Sodium (136-145) mmol/L Potassium (3.5-5.1) mmol/L Chloride (98-107) mmol/L Carbon Dioxide (21.0-32.0) mmol/L Anion Gap (3-11) mmol/L BUN (7-18) mg/dL Creatinine (0.70-1.30) mg/dL Est GFR (CKD-EPI 2020) (mL/min/1.73m2) Glucose (74-106) mg/dL Calcium (8.5-10.1) mg/dL Magnesium (1.8-2.4) mg/dL Troponin I Cancelled Cancelled 15 NT-Pro-B Natriuret Pep (<300) pg/mL Urine Color (Yellow) Urine Clarity (Clear) Urine pH (5-8) Ur Specific [place] (1.005-1.025) Urine Protein (Neg-Trace) mg/dL Urine Ketones (Negative) mg/dL Urine Blood (Negative) Urine Nitrite (Negative) Urine Bilirubin (Negative) Urine Urobilinogen (Up to 0.2) mg/dL Ur Leukocyte Esterase (Negative) Urine RBC (0-2) HPF Urine WBC (0-5) HPF Ur Epithelial Cells (Negative) HPF Urine Crystals (Negative) HPF Urine Bacteria (Negative) HPF Urine Casts (Negative) LPF Urine Mucus (Negative) Ur Culture Indicated? Urine Glucose (Negative) mg/dL COVID-19 Source SARS-CoV-2 (PCR) (Negative) Influenza Type A (PCR) (Negative) Influenza Type B (PCR) (Negative) RSV (PCR) (Negative) Range/Units 10/12/24 10/12/24 18:21 18:42 WBC (4.4-10.8) 10^3/uL RBC (4.36-5.78) 10^6/uL Hgb (13.5-17.5) g/dL Hct (40.0-50.0) % MCV (80-95) fL MCH (27.0-33.0) pg MCHC (32.0-36.0) % RDW (11.8-14.1) % Plt Count (130-400) 10^3/uL MPV (8.0-11.0) fL Immature Gran % % Neutrophils % % Lymphocytes % % Monocytes % % Eosinophils % % Basophils % % Nucleated RBC % (0.0-0.3) % Absolute Neutrophils (1.2-6.7) 10^3/uL Absolute Lymphocytes (1.2-3.4) 10^3/uL Absolute Monocytes (0.1-0.8) 10^3/uL Absolute Eosinophils (0.0-0.7) 10^3/uL Absolute Basophils (0.0-0.2) 10^3/uL VBG pH (7.31-7.41) VBG pCO2 (41-51) mmHg VBG pO2 mmHg VBG HCO3 (23-28) mmol/L VBG Total CO2 (24-29) mmol/L VBG O2 Saturation % VBG Base Excess (-2-3) mmol/L VBG Lactate (<or=2.0) mmol/L Sodium (136-145) mmol/L Potassium (3.5-5.1) mmol/L Chloride (98-107) mmol/L Carbon Dioxide (21.0-32.0) mmol/L Anion Gap (3-11) mmol/L BUN (7-18) mg/dL Creatinine (0.70-1.30) mg/dL Est GFR (CKD-EPI 2020) (mL/min/1.73m2) Glucose (74-106) mg/dL Calcium (8.5-10.1) mg/dL Magnesium (1.8-2.4) mg/dL Troponin I Cancelled Cancelled NT-Pro-B Natriuret Pep (<300) pg/mL Urine Color (Yellow) Urine Clarity (Clear) Urine pH (5-8) Ur Specific [place] (1.005-1.025) Urine Protein (Neg-Trace) mg/dL Urine Ketones (Negative) mg/dL Urine Blood (Negative) Urine Nitrite (Negative) Urine Bilirubin (Negative) Urine Urobilinogen (Up to 0.2) mg/dL Ur Leukocyte Esterase (Negative) Urine RBC (0-2) HPF Urine WBC (0-5) HPF Ur Epithelial Cells (Negative) HPF Urine Crystals (Negative) HPF Urine Bacteria (Negative) HPF Urine Casts (Negative) LPF Urine Mucus (Negative) Ur Culture Indicated? Urine Glucose (Negative) mg/dL COVID-19 Source SARS-CoV-2 (PCR) (Negative) Influenza Type A (PCR) (Negative) Influenza Type B (PCR) (Negative) RSV (PCR) (Negative) Medical Decision Making Laboratory Studies Leukocytosis at 18,000. BUN of 26. Glucose 143. Magnesium of 1.5. BNP elevated at 1226. VBG does not show evidence of acute abnormality. Urinalysis does not show evidence of acute abnormality. COVID-19, influenza, and RSV are negative. Imaging CT chest shows pneumonia in bilateral lobes, left upper and left lower lobe and right lower lobe infiltrate. Initial Assessment: 74-year-old male with history of COPD, hypercholesterolemia, diabetes, hypertension, ACS presents with left-sided thoracic pain and shortness of breath intermittently for the past month. Previously treated with doxycycline for atypical pneumonia. Differential Diagnosis: - Pneumonia: CT chest revealed pneumonia in bilateral lobes. Treated with ceftriaxone 2 g and doxycycline. - Acute respiratory failure: Meets sepsis criteria without shock, hypoxia present. Requires 2 L of oxygen to maintain saturation of 92%. ED Course: - Chest x-ray, CBC, CMP, blood cultures, lactate, and VBG ordered. - VBG: No acute abnormality. - Leukocytosis at 18,000 noted. - BUN of 26, glucose 143, mag of 1.5 (supplemented with 2 g of i.v. mag). - BNP elevated at 1226, low suspicion for volume overload. - Urinalysis: No acute abnormality. - Covid, flu, and RSV negative. - CT chest: Pneumonia in bilateral lobes (left upper, left lower, right lower) per radiology and my review. - Ceftriaxone 2 g and doxycycline administered. - Solu-Medrol and Tylenol given for discomfort upon arrival. - Requiring 2 L of oxygen, saturation at 92%, 86-87% at rest without oxygen. - Nebulizer treatment given. Port score 76 meets criteria for admission Case discussed with hospitalist who will admit patient to his service Final Assessment: Patient with bilateral pneumonia and acute respiratory failure. Treated with antibiotics, steroids, and supportive care. Requires oxygen supplementation. Clinical Impression: - Bilateral pneumonia - Acute respiratory failure Disposition: - Admission: Patient is agreeable to admission. MDM Components Evaluation: - Number of Differential Diagnoses or Management Options: Pneumonia, Acute respiratory failure - Amount and Complexity of Data Reviewed: Chest x-ray, CBC, CMP, blood cultures, lactate, VBG, CT chest, urinalysis, Covid, flu, and RSV tests - Risk of Complication and Morbidity or Mortality: High due to acute respiratory failure and pneumonia in a patient with multiple comorbidities. Quality:[facility] Health Related Social Needs: No Data to Display Critical Care Time Critical Care Time Attestation: 35 minutes of critical care time secondary to pneumonia, sepsis, hypomagnesemia, acute respiratory failure requiring oxygen supplementation, nebs, telemetry morning and admission to the hospital [facility] All Active Problems (Updated 10/12/24 @ 18:31 by NOLAN Murdock) Atypical pneumonia (Acute) Acute exacerbation of chronic obstructive pulmonary disease (Acute) URI (upper respiratory infection) (Acute) Enlarged prostate (Acute) benign Respiratory failure (Acute) Sepsis (Acute) GERD (gastroesophageal reflux disease) (Chronic) Pneumonia (Acute) Near syncope (Acute) Post-operative complication (Acute) Hypomagnesemia (Acute) Leukocytosis, unspecified (Acute) Hyperglycemia (Acute) Essential hypertension (Acute) Acute coronary syndrome (Acute) Medical History Hypercholesteremia Diabetes mellitus COPD (chronic obstructive pulmonary disease) patient follows w/ Dr. 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 History of posttraumatic stress disorder (PTSD) Former smoker quit in 1994,90 pack year Basal cell [place] right [place] [facility] [place] disease [place]/p [place] x1 [place] [facility] Sudhir Ceballos. -after progressive SEPULVEDA, then chest pain. 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 Surgical History H/O melanoma excision H/O colonoscopy H/O nasal septoplasty Family History Father History of non-ST elevation myocardial infarction (NSTEMI) Prostate cancer metastatic to multiple sites Mother COPD (chronic obstructive pulmonary disease) Sister Breast cancer Sister Ovarian cancer Brother Lung cancer Social History Smoking/Tobacco Use Status: Former Tobacco Use Quit Date: 09/02/89 Tobacco: How many years used: 37 Smoking risk assessment performed?: Yes Alcohol Intake: current Alcohol Intake frequency: 0-2 drinks per day Alcohol type: hard liquor Drug use: Never Substance use type: does not use 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 Pets and animals: Yes (4 cats) Pets and animals: cat(s) What is your relationship status?: Panel score (0-1 are the most socially isolated patients): 1 Do you feel safe at home: Yes Do you feel safe in your relationship?: Yes Additional Social history: Former smoker , quit in 1994,90 pack yrs. PAWSS Have you Been Recently Intoxicated or Drunk Within the Last 30 days?: No Have you Ever Experienced Previous Episodes of Alcohol Withdrawal?: No Have you ever Experienced Withdrawal Seizures?: No Have you ever Experienced Delirium Tremens(DT)s?: No Have you ever undergone Alcohol Rehabilitation Treatment (i.e, inpt ot outpatient treatment programs)?: No Have you ever Experienced Blackouts?: No Have you ever Combined Alcohol with other Downers within the last 90 days?: No Have you ever Combined Alcohol with any other Substance of Abuse during the last 90 days?: No Positive Blood Alcohol level on Presentation? [PCS.BAL]: No Evidence of Increased Autonomic Activity (i.e. HR>120, tremor, sweating, agitation, nausea)?: No Result: 0
[2024-10-12 18:43] LABS: Troponin I 20 ng/L (<or=76)
[2024-10-12] MEDS: Enoxaparin 40 MG/0.4 ML SYR SC (19:55)
[2024-10-12] MEDS: MAGNESIUM SULFATE 2 GM/50 ML BAG IV_INF (19:55)
[2024-10-12] MEDS: DOXYCYCLINE 100 MG in Normal Saline 100 ML IVPB ×2 (20:12→20:13)
[2024-10-12] MEDS: Normal Saline Flush 10 ML SYR IVP ×2 (20:13→22:29)
--- NOTE | 2024-10-12 20:39 | W.PCEDHO ---
Registration Status: Primary Language: Preferred Language: ED Information & Data Chief Complaint Nk/Back Pain 10/12/24 18:30 Triage Note patient presented to the ER 10/12/24 14:33 state he had a eyelash in his left eye yesterday and this morning he started getting the chills and pain in his back. state he has not taken anything for the pain. But reported that he was here a month ago for walking pneumonia. Medical / Surgical History (Last Reviewed 10/12/24 @ 18:25 by Milan Cowan) Hypercholesteremia Diabetes mellitus COPD (chronic obstructive pulmonary disease) History of posttraumatic stress disorder (PTSD) Former smoker Basal cell carcinoma of skin Ischemic heart disease Adenocarcinoma Melanoma Colon polyps HTN (hypertension) (Last Reviewed 10/12/24 @ 18:25 by Milan Cowan) H/O melanoma excision H/O colonoscopy H/O nasal septoplasty Most Recent Vital Signs Temperature 36.9 C 10/12/24 19:25 Temperature Source Temporal Artery Scan 10/12/24 19:25 Pulse 104 H 10/12/24 19:25 Pulse Rhythm Regular 10/12/24 19:20 Pulse 106 H 10/12/24 19:00 Respiratory Rate 22 10/12/24 19:25 Respiratory Effort Normal 10/12/24 19:20 Respiratory Depth Normal 10/12/24 19:20 Respiratory Pattern Normal 10/12/24 19:20 Blood Pressure 144/77 H 10/12/24 19:25 Blood Pressure Mean 113 10/12/24 16:52 Pulse Oximetry 95 10/12/24 19:25 Oxygen Delivery Method Nasal Cannula 10/12/24 19:25 Oxygen Flow Rate 3 10/12/24 19:25 End Tidal Co2 5 10/12/24 14:33 Allergies shellfish derived Allergy (Severe, Unverified 10/12/24 14:38) Anaphylaxis meperidine Allergy (Unknown, Verified 10/12/24 14:38) Other (See Comment) Pt states I dont even know what this is morphine Allergy (Unknown, Verified 10/12/24 14:38) Nausea demerol hydrochloride Allergy (Unknown, Uncoded 10/12/24 14:38) Nausea Active Medications Generic Name Dose Route Start Last Admin Trade Name Freq PRN Reason Stop Dose Admin Enoxaparin Sodium 40 mg 10/12/24 19:24 10/12/24 19:55 Enoxaparin 40 Mg/0.4 Ml Syr SC 40 mg Q24H YESY Administration Doxycycline Hyclate 100 mg/ 100 mls @ 100 mls/hr 10/12/24 20:00 10/12/24 20:13 Sodium Chloride IVPB 100 mls/hr Q12H YESY Administration Sodium Chloride 0 ml 10/12/24 20:00 10/12/24 20:13 Normal Saline Flush 10 Ml Syr IVP 10 ml BID YESY Administration IV IV Catheter Type [Right Saline Lock Forearm] IV Catheter Gauge [Right 18 Forearm] IV Catheter Gauge [Right 18 Antecubital] Diet Orders Category Date Time Status Diabetes Consistent CHO/Heart Healthy [DIET] Nutrition 10/13/24 Breakfast Ordered Diagnostics 10/12/24 10/12/24 10/12/24 Range/Units 18:42 18:21 18:15 WBC (4.4-10.8) 10^3/uL RBC (4.36-5.78) 10^6/uL Hgb (13.5-17.5) g/dL Hct (40.0-50.0) % MCV (80-95) fL MCH (27.0-33.0) pg MCHC (32.0-36.0) % RDW (11.8-14.1) % Plt Count (130-400) 10^3/uL MPV (8.0-11.0) fL Immature Gran % % Neutrophils % % Lymphocytes % % Monocytes % % Eosinophils % % Basophils % % Nucleated RBC % (0.0-0.3) % Absolute Neutrophils (1.2-6.7) 10^3/uL Absolute Lymphocytes (1.2-3.4) 10^3/uL Absolute Monocytes (0.1-0.8) 10^3/uL Absolute Eosinophils (0.0-0.7) 10^3/uL Absolute Basophils (0.0-0.2) 10^3/uL VBG pH (7.31-7.41) VBG pCO2 (41-51) mmHg VBG pO2 mmHg VBG HCO3 (23-28) mmol/L VBG Total CO2 (24-29) mmol/L VBG O2 Saturation % VBG Base Excess (-2-3) mmol/L VBG Lactate (<or=2.0) mmol/L Sodium (136-145) mmol/L Potassium (3.5-5.1) mmol/L Chloride (98-107) mmol/L Carbon Dioxide (21.0-32.0) mmol/L Anion Gap (3-11) mmol/L BUN (7-18) mg/dL Creatinine (0.70-1.30) mg/dL Est GFR (CKD-EPI 2020) (mL/min/1.73m2) Glucose (74-106) mg/dL Calcium (8.5-10.1) mg/dL Magnesium (1.8-2.4) mg/dL Troponin I Cancelled Cancelled 20 NT-Pro-B Natriuret Pep (<300) pg/mL Urine Color (Yellow) Urine Clarity (Clear) Urine pH (5-8) Ur Specific Comfort (1.005-1.025) Urine Protein (Neg-Trace) mg/dL Urine Ketones (Negative) mg/dL Urine Blood (Negative) Urine Nitrite (Negative) Urine Bilirubin (Negative) Urine Urobilinogen (Up to 0.2) mg/dL Ur Leukocyte Esterase (Negative) Urine RBC (0-2) HPF Urine WBC (0-5) HPF Ur Epithelial Cells (Negative) HPF Urine Crystals (Negative) HPF Urine Bacteria (Negative) HPF Urine Casts (Negative) LPF Urine Mucus (Negative) Ur Culture Indicated? Urine Glucose (Negative) mg/dL COVID-19 Source SARS-CoV-2 (PCR) (Negative) Influenza Type A (PCR) (Negative) Influenza Type B (PCR) (Negative) RSV (PCR) (Negative) 10/12/24 10/12/24 10/12/24 Range/Units 17:31 16:42 16:21 WBC (4.4-10.8) 10^3/uL RBC (4.36-5.78) 10^6/uL Hgb (13.5-17.5) g/dL Hct (40.0-50.0) % MCV (80-95) fL MCH (27.0-33.0) pg MCHC (32.0-36.0) % RDW (11.8-14.1) % Plt Count (130-400) 10^3/uL MPV (8.0-11.0) fL Immature Gran % % Neutrophils % % Lymphocytes % % Monocytes % % Eosinophils % % Basophils % % Nucleated RBC % (0.0-0.3) % Absolute Neutrophils (1.2-6.7) 10^3/uL Absolute Lymphocytes (1.2-3.4) 10^3/uL Absolute Monocytes (0.1-0.8) 10^3/uL Absolute Eosinophils (0.0-0.7) 10^3/uL Absolute Basophils (0.0-0.2) 10^3/uL VBG pH (7.31-7.41) VBG pCO2 (41-51) mmHg VBG pO2 mmHg VBG HCO3 (23-28) mmol/L VBG Total CO2 (24-29) mmol/L VBG O2 Saturation % VBG Base Excess (-2-3) mmol/L VBG Lactate (<or=2.0) mmol/L Sodium (136-145) mmol/L Potassium (3.5-5.1) mmol/L Chloride (98-107) mmol/L Carbon Dioxide (21.0-32.0) mmol/L Anion Gap (3-11) mmol/L BUN (7-18) mg/dL Creatinine (0.70-1.30) mg/dL Est GFR (CKD-EPI 2020) (mL/min/1.73m2) Glucose (74-106) mg/dL Calcium (8.5-10.1) mg/dL Magnesium (1.8-2.4) mg/dL Troponin I 15 Cancelled Cancelled NT-Pro-B Natriuret Pep (<300) pg/mL Urine Color (Yellow) Urine Clarity (Clear) Urine pH (5-8) Ur Specific Comfort (1.005-1.025) Urine Protein (Neg-Trace) mg/dL Urine Ketones (Negative) mg/dL Urine Blood (Negative) Urine Nitrite (Negative) Urine Bilirubin (Negative) Urine Urobilinogen (Up to 0.2) mg/dL Ur Leukocyte Esterase (Negative) Urine RBC (0-2) HPF Urine WBC (0-5) HPF Ur Epithelial Cells (Negative) HPF Urine Crystals (Negative) HPF Urine Bacteria (Negative) HPF Urine Casts (Negative) LPF Urine Mucus (Negative) Ur Culture Indicated? Urine Glucose (Negative) mg/dL COVID-19 Source SARS-CoV-2 (PCR) (Negative) Influenza Type A (PCR) (Negative) Influenza Type B (PCR) (Negative) RSV (PCR) (Negative) 10/12/24 10/12/24 10/12/24 Range/Units 16:01 15:53 15:52 WBC 18.84 H (4.4-10.8) 10^3/uL RBC 4.81 (4.36-5.78) 10^6/uL Hgb 15.7 (13.5-17.5) g/dL Hct 46.2 (40.0-50.0) % MCV 96 H (80-95) fL MCH 32.6 (27.0-33.0) pg MCHC 34.0 (32.0-36.0) % RDW 13.3 (11.8-14.1) % Plt Count 226 (130-400) 10^3/uL MPV 9.6 (8.0-11.0) fL Immature Gran % 0.5 % Neutrophils % 88.5 % Lymphocytes % 5.9 % Monocytes % 4.4 % Eosinophils % 0.5 % Basophils % 0.2 % Nucleated RBC % 0.0 (0.0-0.3) % Absolute Neutrophils 16.67 H (1.2-6.7) 10^3/uL Absolute Lymphocytes 1.11 L (1.2-3.4) 10^3/uL Absolute Monocytes 0.83 H (0.1-0.8) 10^3/uL Absolute Eosinophils 0.09 (0.0-0.7) 10^3/uL Absolute Basophils 0.04 (0.0-0.2) 10^3/uL VBG pH 7.43 H (7.31-7.41) VBG pCO2 42 (41-51) mmHg VBG pO2 30 mmHg VBG HCO3 28 (23-28) mmol/L VBG Total CO2 24 (24-29) mmol/L VBG O2 Saturation 55 % VBG Base Excess 3 (-2-3) mmol/L VBG Lactate 1.6 (<or=2.0) mmol/L Sodium 139 (136-145) mmol/L Potassium 3.8 (3.5-5.1) mmol/L Chloride 102 (98-107) mmol/L Carbon Dioxide 28.7 (21.0-32.0) mmol/L Anion Gap 8.3 (3-11) mmol/L BUN 26 H (7-18) mg/dL Creatinine 1.0 (0.70-1.30) mg/dL Est GFR (CKD-EPI 2020) 78.00 (mL/min/1.73m2) Glucose 143 H (74-106) mg/dL Calcium 9.2 (8.5-10.1) mg/dL Magnesium 1.5 L (1.8-2.4) mg/dL Troponin I 11 NT-Pro-B Natriuret Pep 1226 H (<300) pg/mL Urine Color (Yellow) Urine Clarity (Clear) Urine pH (5-8) Ur Specific Comfort (1.005-1.025) Urine Protein (Neg-Trace) mg/dL Urine Ketones (Negative) mg/dL Urine Blood (Negative) Urine Nitrite (Negative) Urine Bilirubin (Negative) Urine Urobilinogen (Up to 0.2) mg/dL Ur Leukocyte Esterase (Negative) Urine RBC (0-2) HPF Urine WBC (0-5) HPF Ur Epithelial Cells (Negative) HPF Urine Crystals (Negative) HPF Urine Bacteria (Negative) HPF Urine Casts (Negative) LPF Urine Mucus (Negative) Ur Culture Indicated? Urine Glucose (Negative) mg/dL COVID-19 Source Nasopharynx SARS-CoV-2 (PCR) Negative (Negative) Influenza Type A (PCR) Negative (Negative) Influenza Type B (PCR) Negative (Negative) RSV (PCR) Negative (Negative) 10/12/24 10/12/24 10/12/24 Range/Units 15:49 15:41 15:21 WBC (4.4-10.8) 10^3/uL RBC (4.36-5.78) 10^6/uL Hgb (13.5-17.5) g/dL Hct (40.0-50.0) % MCV (80-95) fL MCH (27.0-33.0) pg MCHC (32.0-36.0) % RDW (11.8-14.1) % Plt Count (130-400) 10^3/uL MPV (8.0-11.0) fL Immature Gran % % Neutrophils % % Lymphocytes % % Monocytes % % Eosinophils % % Basophils % % Nucleated RBC % (0.0-0.3) % Absolute Neutrophils (1.2-6.7) 10^3/uL Absolute Lymphocytes (1.2-3.4) 10^3/uL Absolute Monocytes (0.1-0.8) 10^3/uL Absolute Eosinophils (0.0-0.7) 10^3/uL Absolute Basophils (0.0-0.2) 10^3/uL VBG pH (7.31-7.41) VBG pCO2 (41-51) mmHg VBG pO2 mmHg VBG HCO3 (23-28) mmol/L VBG Total CO2 (24-29) mmol/L VBG O2 Saturation % VBG Base Excess (-2-3) mmol/L VBG Lactate (<or=2.0) mmol/L Sodium (136-145) mmol/L Potassium (3.5-5.1) mmol/L Chloride (98-107) mmol/L Carbon Dioxide (21.0-32.0) mmol/L Anion Gap (3-11) mmol/L BUN (7-18) mg/dL Creatinine (0.70-1.30) mg/dL Est GFR (CKD-EPI 2020) (mL/min/1.73m2) Glucose (74-106) mg/dL Calcium (8.5-10.1) mg/dL Magnesium (1.8-2.4) mg/dL Troponin I Cancelled Cancelled NT-Pro-B Natriuret Pep (<300) pg/mL Urine Color Yellow (Yellow) Urine Clarity Clear (Clear) Urine pH 7.0 (5-8) Ur Specific Comfort 1.020 (1.005-1.025) Urine Protein Negative (Neg-Trace) mg/dL Urine Ketones Negative (Negative) mg/dL Urine Blood Trace-intact H (Negative) Urine Nitrite Negative (Negative) Urine Bilirubin Negative (Negative) Urine Urobilinogen 0.2 (Up to 0.2) mg/dL Ur Leukocyte Esterase Negative (Negative) Urine RBC 0-2 (0-2) HPF Urine WBC Negative (0-5) HPF Ur Epithelial Cells Rare (Negative) HPF Urine Crystals Negative (Negative) HPF Urine Bacteria Negative (Negative) HPF Urine Casts Negative (Negative) LPF Urine Mucus Negative (Negative) Ur Culture Indicated? No Urine Glucose Negative (Negative) mg/dL COVID-19 Source SARS-CoV-2 (PCR) (Negative) Influenza Type A (PCR) (Negative) Influenza Type B (PCR) (Negative) RSV (PCR) (Negative) 10/12/24 16:01 Blood Culture - Pending Blood 10/12/24 15:53 Blood Culture - Pending Blood Intake and Output - 24 Hour Total 10/12/24 14:27 thru 10/12/24 19:20 Intake Total 150 Balance 150 Weight 102.6 kg Intake: IV 150 Other: Urine Appearance Clear Falls Risk Assessment History of Falls No History 10/12/24 19:20 Contributing Factors No Factors 10/12/24 19:20 Ambulatory Aids Independent 10/12/24 19:20 Tubes/Lines None 10/12/24 19:20 Gait Evaluation No gait disturbance 10/12/24 19:20 Cognition Cognitive impairment 10/12/24 19:20 Fall Total Score 15 10/12/24 19:20 Level of Risk Standard/Low Risk 10/12/24 19:20 Problems (Last Reviewed 10/12/24 @ 18:25 by Milan Cowan) Respiratory failure (Acute) Sepsis (Acute) Pneumonia (Acute) Hypomagnesemia (Acute) v v v v v v v v v Sending and/or Receiving Nurses: Please use comment section below to note any information pertinent to the patient hand-off not included above. Information / Comments: Report received from: Denise CUNHA
[2024-10-12] MEDS: Insulin Aspart 300 UNITS/3 ML PEN SC (22:21)
[2024-10-13] VITALS (13 sets, daily range): BP systolic 112–129; BP diastolic 57–75; PULSE 73–84; RESP 2–20; TEMP 36.3–37; O2SAT 93–99
[2024-10-13] MEDS: Albuterol/Ipratropium 3 ML UPD VIAL UPD ×4 (04:30→22:05)
[2024-10-13] MEDS: methylPREDNISolone SUCC 125 MG VIAL 80 MG IVP ×3 (06:36→21:39)
[2024-10-13] MEDS: Normal Saline Flush 10 ML SYR IVP ×3 (06:36→21:37)
[2024-10-13 06:44] LABS: HCT 43.1 % (40.0-50.0); HGB 14.9 g/dL (13.5-17.5); MCH 33.4 pg (27.0-33.0); MCHC 34.6 % (32.0-36.0); MCV 97 fL (80-95); MPV 9.7 fL (8.0-11.0); Platelet Count 189 10^3/uL (130-400); RBC 4.46 10^6/uL (4.36-5.78); RDW 13.2 % (11.8-14.1); RDW-SD 47.2 fL
[2024-10-13 06:50] LABS: WBC 27.63 10^3/uL (4.4-10.8)
[2024-10-13 07:04] LABS: ALT 28 U/L (16-63); AST 16 U/L (15-37); Albumin 3.3 g/dL (3.4-5.0); Alkaline Phosphatase 52 U/L (46-116); Anion Gap 6.8 mmol/L (3-11); BUN 20 mg/dL (7-18); Bilirubin, Total 0.66 mg/dL (0.2-1.0); CO2 28.2 mmol/L (21.0-32.0); CREATININE 0.8 mg/dL (0.70-1.30); Calcium 8.9 mg/dL (8.5-10.1); Chloride 104 mmol/L (98-107); Estimated GFR 91.72 (mL/min/1.73m2); Glucose 185 mg/dL (74-106); Magnesium 1.9 mg/dL (1.8-2.4); Potassium 3.7 mmol/L (3.5-5.1); Sodium 139 mmol/L (136-145); Total Protein 7.3 g/dL (6.4-8.2)
[2024-10-13] MEDS: Insulin Aspart 300 UNITS/3 ML PEN SC ×4 (09:02→21:38)
[2024-10-13] MEDS: Multivitamin TAB 1 TAB PO (09:04)
[2024-10-13] MEDS: Lisinopril 20 MG TAB 40 MG PO (09:04)
[2024-10-13] MEDS: Rosuvastatin 20 MG TAB 10 MG PO (09:04)
[2024-10-13] MEDS: Aspirin 81 MG CHEW PO (09:05)
[2024-10-13] MEDS: amLODIPine 5 MG TAB PO (09:05)
[2024-10-13] MEDS: Allopurinol 300 MG TAB PO (09:05)
[2024-10-13] MEDS: Pantoprazole 40 MG TABCR PO (09:05)
[2024-10-13] MEDS: DULoxetine 30 MG CAP PO (09:05)
[2024-10-13] MEDS: Metoprolol CR 50 MG TABCR 200 MG PO (09:05)
[2024-10-13] MEDS: Tamsulosin 0.4 MG CAPCR PO (09:05)
[2024-10-13] MEDS: DOXYCYCLINE 100 MG in Normal Saline 100 ML IVPB ×2 (09:07→21:37)
--- NOTE | 2024-10-13 11:59 | PDOC.CMIN ---
Date of service: 10/13/24 Time of Service: 11:59 Care Management Initial Assmt Initial Assessment Reason for Hospitalization: sepsis COPD exacerbation Functional Status/Living Situation Patient Presentation: Cosmo was sitting up in bed when CM met with him. He was pleasant and easily engaged with CM. Cosmo was admitted with Pneumonia and a COPD exacerbation. He has been breathing on room air with his oxygen saturation in the mid to upper 90s. Cosmo did state that he has Cpap at home and also oxygen 3L/min that he uses with his Cpap. Cosmo lives in [place] in a single family home with his Nat Gonsales. She has 2 daughters who also live in [place]. Cosmo is retired. 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 He is independent at baseline and does not receive any community services. 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) Instrumental Activities of Daily Living (ADLs): Independent Medications Medication Management: No Issues/Barriers identified Physical Functioning/Mobility Assistive Device: none Advance Directives Advance Directives: Do you have an Advance Directive: Y 06/18/21 09:34 AD On File at [facility]: N 07/19/18 14:04 Date Asked 10/12/24 10/12/24 14:41 AD Date Reviewed COLST On File at [facility] COLST Date Scanned Code Status Resuscitation Status Full Code Portal Pt does not currently have a portal and education provided: Yes Insurance Coverage/Financial Issues Insurance: [facility] Care Team Visit Care Team Role Provider Type Regla Cordoba Primary Care Provider OSTEOPATHIC DOCTOR NOLAN Murdock Emergency Provider PHYSICIANS RECEP Fabiola Lovell NP Admit Provider [facility] STAFF PHYSICIAN Attending Provider Discharge Potential Discharge Needs: PCP F/U Appt Anticipated Barriers to Discharge: None Identified Patient/Family Education Needs: Review discharge instructions, discuss Ask Me Three Transportation: Private vehicle Plan: Anticipate Cosmo will be discharged home with no new services when medically cleared. He will follow up with his PCP and plan of care and transport with family. CM will follow and continue to assess for discharge needs. Social Determinants of Health Screening Will the Patient Participate in the Screening?: Declined to provide PFSH All Active Problems (Updated 10/13/24 @ 02:18 by Milan Cowan) HESHAM (obstructive sleep apnea) (Chronic) Atypical pneumonia (Acute) Acute exacerbation of chronic obstructive pulmonary disease (Acute) URI (upper respiratory infection) (Acute) Enlarged prostate (Acute) benign Respiratory failure (Acute) Sepsis (Acute) GERD (gastroesophageal reflux disease) (Chronic) Pneumonia (Acute) Near syncope (Acute) Post-operative complication (Acute) Hypomagnesemia (Acute) Leukocytosis, unspecified (Acute) Hyperglycemia (Acute) Essential hypertension (Acute) Acute coronary syndrome (Acute) Medical History Hypercholesteremia Diabetes mellitus COPD (chronic obstructive pulmonary disease) patient follows w/ Dr. 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 History of posttraumatic stress disorder (PTSD) Former smoker quit in 1994,90 pack year Basal cell carcinoma of skin right cheek 2011 [facility] Ischemic heart disease s/p stent x1 Jul 2018 [facility] - Dr. Sudhir Ceballos. -after progressive SEPULVEDA, then chest pain. 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 Zheng Peñaloza, speech language specialist, [place] Surgical History H/O melanoma excision H/O colonoscopy H/O nasal septoplasty Family History Father History of non-ST elevation myocardial infarction (NSTEMI) Prostate cancer metastatic to multiple sites Mother COPD (chronic obstructive pulmonary disease) Sister Breast cancer Sister Ovarian cancer Brother Lung cancer Social History Smoking/Tobacco Use Status: Former Tobacco Use Quit Date: 09/02/89 Tobacco: How many years used: 37 Smoking risk assessment performed?: Yes Alcohol Intake: current Alcohol Intake frequency: 0-2 drinks per day Alcohol type: hard liquor Drug use: Never Substance use type: does not use Housing: house current occupation: 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 Pets and animals: Yes (4 cats) Pets and animals: cat(s) What is your relationship status?: Panel score (0-1 are the most socially isolated patients): 1 Do you feel safe at home: Yes Do you feel safe in your relationship?: Yes Additional Social history: Former smoker , quit in 1994,90 pack yrs.
--- NOTE | 2024-10-13 12:44 | PGE_ITS ---
Date of Service Date of service: 10/13/24 Time of Service: 12:44 Assessment and Plan Assessment and plan (1) Sepsis: Status: Acute Assessment and plan: Pleuritic pain improved pneumonia with left and right infiltrates. Continue IV antibiotics Rocephin and doxycycline. Continue home Bipap with home settings. He is using on home O2. Continue aggressive respiratory treatment and monitor for complications. Improved today (2) Pneumonia: Start date: 10/12/24 Status: Acute Assessment and plan: Bilateral patient to be treated with IV Rocephin and doxycycline. Respiratory care. O2 supplementation. (3) Hypomagnesemia: Start date: 10/12/24 Status: Acute Assessment and plan: Replete and follow-up lab. (4) COPD (chronic obstructive pulmonary disease): Assessment and plan: Aggressive nebulizer treatments, IV Solu-Medrol and O2 supplementation as needed. l BiPAP at night with patient's home machine and home settings. (5) Ischemic heart disease: Assessment and plan: No evidence of acute ischemia though patient did have several presentation of shortness of breath and pain with cardiac hesitation in 2018. Troponins are negative and BNP is elevated which may be more secondary to lung disease. Telemetry for monitoring while hospitalized. (6) HESHAM (obstructive sleep apnea): Status: Chronic Assessment and plan: BiPAP at night using patient's home machine. (7) Diabetes mellitus: Assessment and plan: Comfort measures before meals and at bedtime with short acting insulin coverage. (8) HTN (hypertension): Assessment and plan: Continue home medications. Adjust as needed. Subjective Subjective Patient reports: no new complaints, tolerating a regular diet, voiding w/o difficulty, bowel movement and afebrile; denies diarrhea, nausea or vomiting Interval history since last seen: Awake, alert, no complaints, states he is feeling better today, less confused. States he knows he was confused but today is c/aox4. Exam Const General: cooperative and no acute distress HENMT Head: normocephalic and atraumatic Mouth: moist mucous membranes Eyes Conjunctivae: normal conjunctivae Sclera: normal sclerae EOM: EOM intact bilaterally Neck Neck: trachea midline and supple Resp Auscultation: lung sounds not diminished, no rhonchi and wheezes expiratory wheezes (faint, bilaterally) Cardio Jugular venous pressure: no JVD Rhythm: regular rhythm Heart Sounds: no murmurs GI Palpation: soft, not firm, no guarding, no masses, not rigid and nontender Skin General skin exam: no rashes or lesions noted Neuro General: patient alert, patient awake, patient oriented x3 and tone normal Extrem General: no edema Psych Appearance: grossly normal Mental Status: mental status grossly normal Speech and Movement: speech and movement normal Mood: congruent mood Affect: anxious affect Objective Last Vital Signs Temp 36.6 C 10/13/24 11:23 Pulse 80 10/13/24 11:23 Resp 18 10/13/24 11:23 BP 117/58 L 10/13/24 11:23 Pulse Ox 93 10/13/24 11:23 Laboratory Results - last 24 hr 10/12/24 10/12/24 10/12/24 15:21 15:41 15:49 WBC RBC Hgb Hct MCV MCH MCHC RDW Plt Count MPV Immature Gran % Neutrophils % Lymphocytes % Monocytes % Eosinophils % Basophils % Nucleated RBC % Absolute Neutrophils Absolute Lymphocytes Absolute Monocytes Absolute Eosinophils Absolute Basophils VBG pH VBG pCO2 VBG pO2 VBG HCO3 VBG Total CO2 VBG O2 Saturation VBG Base Excess VBG Lactate Sodium Potassium Chloride Carbon Dioxide Anion Gap BUN Creatinine Est GFR (CKD-EPI 2020) Glucose Calcium Magnesium Total Bilirubin AST ALT Alkaline Phosphatase Troponin I Cancelled Cancelled NT-Pro-B Natriuret Pep Total Protein Albumin Urine Color Yellow Urine Clarity Clear Urine pH 7.0 Ur Specific [place] 1.020 Urine Protein Negative Urine Ketones Negative Urine Blood Trace-intact H Urine Nitrite Negative Urine Bilirubin Negative Urine Urobilinogen 0.2 Ur Leukocyte Esterase Negative Urine RBC 0-2 Urine WBC Negative Ur Epithelial Cells Rare Urine Crystals Negative Urine Bacteria Negative Urine Casts Negative Urine Mucus Negative Ur Culture Indicated? No Urine Glucose Negative COVID-19 Source SARS-CoV-2 (PCR) Influenza Type A (PCR) Influenza Type B (PCR) RSV (PCR) 10/12/24 10/12/24 10/12/24 15:52 15:53 16:01 WBC 18.84 H RBC 4.81 Hgb 15.7 Hct 46.2 MCV 96 H MCH 32.6 MCHC 34.0 RDW 13.3 Plt Count 226 MPV 9.6 Immature Gran % 0.5 Neutrophils % 88.5 Lymphocytes % 5.9 Monocytes % 4.4 Eosinophils % 0.5 Basophils % 0.2 Nucleated RBC % 0.0 Absolute Neutrophils 16.67 H Absolute Lymphocytes 1.11 L Absolute Monocytes 0.83 H Absolute Eosinophils 0.09 Absolute Basophils 0.04 VBG pH 7.43 H VBG pCO2 42 VBG pO2 30 VBG HCO3 28 VBG Total CO2 24 VBG O2 Saturation 55 VBG Base Excess 3 VBG Lactate 1.6 Sodium 139 Potassium 3.8 Chloride 102 Carbon Dioxide 28.7 Anion Gap 8.3 BUN 26 H Creatinine 1.0 Est GFR (CKD-EPI 2020) 78.00 Glucose 143 H Calcium 9.2 Magnesium 1.5 L Total Bilirubin AST ALT Alkaline Phosphatase Troponin I 11 NT-Pro-B Natriuret Pep 1226 H Total Protein Albumin Urine Color Urine Clarity Urine pH Ur Specific [place] Urine Protein Urine Ketones Urine Blood Urine Nitrite Urine Bilirubin Urine Urobilinogen Ur Leukocyte Esterase Urine RBC Urine WBC Ur Epithelial Cells Urine Crystals Urine Bacteria Urine Casts Urine Mucus Ur Culture Indicated? Urine Glucose COVID-19 Source Nasopharynx SARS-CoV-2 (PCR) Negative Influenza Type A (PCR) Negative Influenza Type B (PCR) Negative RSV (PCR) Negative 10/12/24 10/12/24 10/12/24 16:21 16:42 17:31 WBC RBC Hgb Hct MCV MCH MCHC RDW Plt Count MPV Immature Gran % Neutrophils % Lymphocytes % Monocytes % Eosinophils % Basophils % Nucleated RBC % Absolute Neutrophils Absolute Lymphocytes Absolute Monocytes Absolute Eosinophils Absolute Basophils VBG pH VBG pCO2 VBG pO2 VBG HCO3 VBG Total CO2 VBG O2 Saturation VBG Base Excess VBG Lactate Sodium Potassium Chloride Carbon Dioxide Anion Gap BUN Creatinine Est GFR (CKD-EPI 2020) Glucose Calcium Magnesium Total Bilirubin AST ALT Alkaline Phosphatase Troponin I Cancelled Cancelled 15 NT-Pro-B Natriuret Pep Total Protein Albumin Urine Color Urine Clarity Urine pH Ur Specific [place] Urine Protein Urine Ketones Urine Blood Urine Nitrite Urine Bilirubin Urine Urobilinogen Ur Leukocyte Esterase Urine RBC Urine WBC Ur Epithelial Cells Urine Crystals Urine Bacteria Urine Casts Urine Mucus Ur Culture Indicated? Urine Glucose COVID-19 Source SARS-CoV-2 (PCR) Influenza Type A (PCR) Influenza Type B (PCR) RSV (PCR) 10/12/24 10/12/24 10/12/24 18:15 18:21 18:42 WBC RBC Hgb Hct MCV MCH MCHC RDW Plt Count MPV Immature Gran % Neutrophils % Lymphocytes % Monocytes % Eosinophils % Basophils % Nucleated RBC % Absolute Neutrophils Absolute Lymphocytes Absolute Monocytes Absolute Eosinophils Absolute Basophils VBG pH VBG pCO2 VBG pO2 VBG HCO3 VBG Total CO2 VBG O2 Saturation VBG Base Excess VBG Lactate Sodium Potassium Chloride Carbon Dioxide Anion Gap BUN Creatinine Est GFR (CKD-EPI 2020) Glucose Calcium Magnesium Total Bilirubin AST ALT Alkaline Phosphatase Troponin I 20 Cancelled Cancelled NT-Pro-B Natriuret Pep Total Protein Albumin Urine Color Urine Clarity Urine pH Ur Specific [place] Urine Protein Urine Ketones Urine Blood Urine Nitrite Urine Bilirubin Urine Urobilinogen Ur Leukocyte Esterase Urine RBC Urine WBC Ur Epithelial Cells Urine Crystals Urine Bacteria Urine Casts Urine Mucus Ur Culture Indicated? Urine Glucose COVID-19 Source SARS-CoV-2 (PCR) Influenza Type A (PCR) Influenza Type B (PCR) RSV (PCR) 10/13/24 06:14 WBC 27.63 H* RBC 4.46 Hgb 14.9 Hct 43.1 MCV 97 H MCH 33.4 H MCHC 34.6 RDW 13.2 Plt Count 189 MPV 9.7 Immature Gran % Neutrophils % Lymphocytes % Monocytes % Eosinophils % Basophils % Nucleated RBC % Absolute Neutrophils Absolute Lymphocytes Absolute Monocytes Absolute Eosinophils Absolute Basophils VBG pH VBG pCO2 VBG pO2 VBG HCO3 VBG Total CO2 VBG O2 Saturation VBG Base Excess VBG Lactate Sodium 139 Potassium 3.7 Chloride 104 Carbon Dioxide 28.2 Anion Gap 6.8 BUN 20 H Creatinine 0.8 Est GFR (CKD-EPI 2020) 91.72 Glucose 185 H Calcium 8.9 Magnesium 1.9 Total Bilirubin 0.66 AST 16 ALT 28 Alkaline Phosphatase 52 Troponin I NT-Pro-B Natriuret Pep Total Protein 7.3 Albumin 3.3 L Urine Color Urine Clarity Urine pH Ur Specific [place] Urine Protein Urine Ketones Urine Blood Urine Nitrite Urine Bilirubin Urine Urobilinogen Ur Leukocyte Esterase Urine RBC Urine WBC Ur Epithelial Cells Urine Crystals Urine Bacteria Urine Casts Urine Mucus Ur Culture Indicated? Urine Glucose COVID-19 Source SARS-CoV-2 (PCR) Influenza Type A (PCR) Influenza Type B (PCR) RSV (PCR) PAWSS Have you Been Recently Intoxicated or Drunk Within the Last 30 days?: No Have you Ever Experienced Previous Episodes of Alcohol Withdrawal?: No Have you ever Experienced Withdrawal Seizures?: No Have you ever Experienced Delirium Tremens(DT)s?: No Have you ever undergone Alcohol Rehabilitation Treatment (i.e, inpt ot outpatient treatment programs)?: No Have you ever Experienced Blackouts?: No Have you ever Combined Alcohol with other Downers within the last 90 days?: No Have you ever Combined Alcohol with any other Substance of Abuse during the last 90 days?: No Positive Blood Alcohol level on Presentation? [PCS.BAL]: No Evidence of Increased Autonomic Activity (i.e. HR>120, tremor, sweating, agitation, nausea)?: No Result: 0 Time Spent with Patient Time Spent with Patient: 25-34 minutes Time was spent: preparing to see the patient(eg.review tests), ordering medications,tests, procedures, referring, communicating with other health healthcare corporate account director, indepentently interpreting results, counseling the patient and care coordination
--- NOTE | 2024-10-13 15:22 | RESPIRATORY ---
Pt's own Resmed AirCurve 10 VAuto Max IPAP 25, Min EPAP 6, PS 5 with 3L O2 bleed-in, D[facility]: [facility]
[2024-10-13] MEDS: cefTRIAXone 1 GM/50 ML BAG IVPB (15:59)
--- NOTE | 2024-10-13 16:47 | CHAPLAIN ---
Cosmo was pleasant and easily engaged in conversation. I explained my role and offered support. Cosmo's has been visiting him and he expected her back later today. He seems to be comfortable being here.
[2024-10-13] MEDS: Enoxaparin 40 MG/0.4 ML SYR SC (21:37)
[2024-10-14] VITALS (16 sets, daily range): BP systolic 109–129; BP diastolic 55–70; PULSE 73–92; RESP 2–25; TEMP 36.3–36.8; O2SAT 91–97
[2024-10-14] MEDS: Normal Saline Flush 10 ML SYR IVP ×5 (00:42→20:36)
[2024-10-14] MEDS: Albuterol/Ipratropium 3 ML UPD VIAL UPD ×4 (04:03→21:33)
[2024-10-14 06:40] LABS: HGB 13.7 g/dL (13.5-17.5); MPV 9.8 fL (8.0-11.0)
[2024-10-14 06:41] LABS: HCT 40.7 % (40.0-50.0); MCH 32.9 pg (27.0-33.0); MCHC 33.7 % (32.0-36.0); MCV 98 fL (80-95); Platelet Count 177 10^3/uL (130-400); RBC 4.16 10^6/uL (4.36-5.78); RDW 13.4 % (11.8-14.1); RDW-SD 47.8 fL
[2024-10-14] MEDS: methylPREDNISolone SUCC 125 MG VIAL 80 MG IVP (06:44)
[2024-10-14] MEDS: Pantoprazole 40 MG TABCR PO (06:44)
[2024-10-14 06:57] LABS: ALT 22 U/L (16-63); AST 20 U/L (15-37); Albumin 3.1 g/dL (3.4-5.0); Alkaline Phosphatase 51 U/L (46-116); Anion Gap 8.9 mmol/L (3-11); BUN 25 mg/dL (7-18); Bilirubin, Total 0.41 mg/dL (0.2-1.0); CO2 26.1 mmol/L (21.0-32.0); CREATININE 1.1 mg/dL (0.70-1.30); Calcium 8.9 mg/dL (8.5-10.1); Chloride 102 mmol/L (98-107); Estimated GFR 69.57 (mL/min/1.73m2); Glucose 213 mg/dL (74-106); Potassium 3.9 mmol/L (3.5-5.1); Sodium 137 mmol/L (136-145); Total Protein 7.1 g/dL (6.4-8.2)
[2024-10-14 07:01] LABS: WBC 26.01 10^3/uL (4.4-10.8)
[2024-10-14] MEDS: Rosuvastatin 20 MG TAB 10 MG PO (07:29)
[2024-10-14] MEDS: Tamsulosin 0.4 MG CAPCR PO (07:30)
[2024-10-14] MEDS: Multivitamin TAB 1 TAB PO (07:30)
[2024-10-14] MEDS: DULoxetine 30 MG CAP PO (07:30)
[2024-10-14] MEDS: Lisinopril 20 MG TAB 40 MG PO (07:30)
[2024-10-14] MEDS: Allopurinol 300 MG TAB PO (07:30)
[2024-10-14] MEDS: amLODIPine 5 MG TAB PO (07:30)
[2024-10-14] MEDS: Metoprolol CR 50 MG TABCR 200 MG PO (07:30)
[2024-10-14] MEDS: Aspirin 81 MG CHEW PO (07:31)
[2024-10-14] MEDS: DOXYCYCLINE 100 MG in Normal Saline 100 ML IVPB ×2 (07:33→20:35)
[2024-10-14] MEDS: Insulin Aspart 300 UNITS/3 ML PEN SC ×4 (08:05→21:46)
--- NOTE | 2024-10-14 08:56 | PDOC.CMPRO ---
Date of service: 10/14/24 Time of Service: 08:56 Care Management Progress Note Progress Note Text Progress Note Text: Cosmo was sitting up in bed when CM met with him. He appeared to be in good spirits and stated he feels much better. His oxygen saturation has been in the mid to upper 90s on room air; he continues to use Cpap at night. Cosmo shared that he hoped to be able to discharge home today. He stated the provider indicated a preference for him to remain one more day. She stated that as he was treated for pneumonia a month ago, she wanted to be sure he was adequately treated this time. Cosmo expressed understanding and agreed with the plan. Discharge Potential Discharge Needs: PCP F/U Appt Anticipated Barriers to Discharge: None Identified Patient/Family Education Needs: Review discharge instructions, discuss Ask Me Three Transportation: Private vehicle Plan: Anticipate Cosmo will be discharged home with no new services when medically cleared. He will follow up with his PCP and plan of care and transport with family. CM will follow and continue to assess for discharge needs. Social Determinants of Health Screening Will the Patient Participate in the Screening?: Declined to provide
[2024-10-14] MEDS: cefTRIAXone 1 GM/50 ML BAG IVPB (15:41)
--- NOTE | 2024-10-14 15:44 | W.PM.PROGNOT ---
Date of Service Date of service: 10/14/24 Time of Service: 15:44 Assessment and Plan Assessment and plan (1) Sepsis: Status: Acute Assessment and plan: Pleuritic pain improved pneumonia with left and right infiltrates. Continue IV antibiotics Rocephin and doxycycline. Continue home Bipap with home settings. Continue aggressive respiratory treatment and monitor for complications. Improved today, WBC continues to be 26.01 (2) Pneumonia: Start date: 10/12/24 Status: Acute Assessment and plan: Bilateral patient Continue IV Rocephin and doxycycline. Respiratory care. O2 supplementation. (3) Hypomagnesemia: Start date: 10/12/24 Status: Resolved Assessment and plan: Replete and follow-up lab. Mag 2.0 today (4) COPD (chronic obstructive pulmonary disease): Assessment and plan: Aggressive nebulizer treatments, IV Solu-Medrol changed to oral prednisone and O2 supplementation as needed. BiPAP at night with patient's home machine and home settings. (5) Ischemic heart disease: Assessment and plan: No evidence of acute ischemia though patient did have severel presentation of shortness of breath and pain with cardiac hesitation in 2018. Troponins are negative and BNP is elevated which may be more secondary to lung disease. Telemetry for monitoring while hospitalized. (6) HESHAM (obstructive sleep apnea): Status: Chronic Assessment and plan: BiPAP at night using patient's home machine. (7) Diabetes mellitus: Assessment and plan: short acting insulin coverage. (8) HTN (hypertension): Assessment and plan: Continue home medications. Adjust as needed. Exam Const General: cooperative and no acute distress HENMT Head: normocephalic and atraumatic Mouth: moist mucous membranes Eyes Conjunctivae: normal conjunctivae Sclera: normal sclerae EOM: EOM intact bilaterally Neck Neck: trachea midline and supple Resp Auscultation: lung sounds not diminished, no rhonchi and wheezes expiratory wheezes (faint, bilaterally) Cardio Jugular venous pressure: no JVD Rhythm: regular rhythm Heart Sounds: no murmurs GI Palpation: soft, not firm, no guarding, no masses, not rigid and nontender Skin General skin exam: no rashes or lesions noted Neuro General: patient alert, patient awake, patient oriented x3 and tone normal Extrem General: no edema Psych Appearance: grossly normal Mental Status: mental status grossly normal Speech and Movement: speech and movement normal Mood: congruent mood Affect: anxious affect Objective Last Vital Signs Temp 36.6 C 10/14/24 15:25 Pulse 74 10/14/24 15:25 Resp 18 10/14/24 15:25 BP 119/67 10/14/24 15:25 Pulse Ox 96 10/14/24 15:25 Laboratory Results - last 24 hr 10/14/24 06:15 WBC 26.01 H* RBC 4.16 L Hgb 13.7 Hct 40.7 MCV 98 H MCH 32.9 MCHC 33.7 RDW 13.4 Plt Count 177 MPV 9.8 Sodium 137 Potassium 3.9 Chloride 102 Carbon Dioxide 26.1 Anion Gap 8.9 BUN 25 H Creatinine 1.1 Est GFR (CKD-EPI 2020) 69.57 Glucose 213 H Calcium 8.9 Magnesium 2.0 Total Bilirubin 0.41 AST 20 ALT 22 Alkaline Phosphatase 51 Total Protein 7.1 Albumin 3.1 L PAWSS Have you Been Recently Intoxicated or Drunk Within the Last 30 days?: No Have you Ever Experienced Previous Episodes of Alcohol Withdrawal?: No Have you ever Experienced Withdrawal Seizures?: No Have you ever Experienced Delirium Tremens(DT)s?: No Have you ever undergone Alcohol Rehabilitation Treatment (i.e, inpt ot outpatient treatment programs)?: No Have you ever Experienced Blackouts?: No Have you ever Combined Alcohol with other Downers within the last 90 days?: No Have you ever Combined Alcohol with any other Substance of Abuse during the last 90 days?: No Positive Blood Alcohol level on Presentation? [PCS.BAL]: No Evidence of Increased Autonomic Activity (i.e. HR>120, tremor, sweating, agitation, nausea)?: No Result: 0 Time Spent with Patient Time Spent with Patient: 25-34 minutes Time was spent: preparing to see the patient(eg.review tests), ordering medications,tests, procedures, referring, communicating with other health primary care coordinator, indepentently interpreting results, counseling the patient and care coordination
[2024-10-14] MEDS: Enoxaparin 40 MG/0.4 ML SYR SC (20:37)
[2024-10-14] MEDS: Budesonide/Formoterol 160/4.5 6 GM 60 PUFF INH IH (21:33)
[2024-10-15] VITALS (9 sets, daily range): BP systolic 122–130; BP diastolic 62–70; PULSE 65–80; RESP 3–18; TEMP 36.4–37.1; O2SAT 92–98
--- NOTE | 2024-10-15 | DI.CT_ITS ---
Exam(s) CT CHEST/ABD/PEL WO EXAM: CT CHEST/ABD/PEL WO CLINICAL HISTORY: RUQ abd pain. TECHNIQUE: Imaging Protocol: Axial computed tomography images with coronal and sagittal reformatted images were created and reviewed CONTRAST MATERIAL: Intravenous: none Oral: None COMPARISON: CT CT CHEST WO from 10/12/2024 FINDINGS: CHEST: LUNGS: Again noted is evidence of previous surgery in the left lung upper lobe region.. The size of the prominent left lower lobe pleural based infiltrate has decreased but not resolved when compared t o 3 days ago. There is no pleural effusion. In the opposite-right lung there is an unchanged small 1 cm ground-glass infiltrate again noted, unch anged in size. A nodular infiltrate in the right lower lobe has slightly decreased in size (series 3 /image 47) from 3 days ago. Mild increased markings in the medial basal segment of the right lower l obe have decreased. No pleural effusions on either side. No new findings in the trachea and mainstem bronchi. MEDIASTINUM: No obvious hilar nor mediastinal adenopathy. Partially visualized thyroid unremarkable. CARDIAC: Heart size is normal. There is no pericardial effusion.Caliber of the thoracic aorta is wit hin normal limits. OSSEOUS: No significant osseous lesions.No fractures.. ABDOMEN: There is no ascites. Subcutaneous air is seen over the right-side of the abdomen is most probably fr om anti coagulant injections. LIVER: There are no obvious focal hepatic lesions evident of this noninfused study. GALLBLADDER/BILIARY: Gallbladder is surgically absent. CBD is not dilated. PANCREAS: No evidence of obvious pancreatic mass nor dilatation of the pancreatic duct. SPLEEN: Spleen is not enlarged. No obvious intrasplenic lesions. ADRENALS: There are no significant adrenal masses. KIDNEYS: There is a 3 millimeter nonobstructive calculus in the superior pole calyx of the right kidn ey, unchanged in size and position. There are3 similar size calculi in the opposite-left kidney. No hydronephrosis nor hydroureter. No solid renal masses. No cysts. ABDOMINAL AORTA: The abdominal aorta is calcified but not enlarged. Common iliac arteries are also c alcified but not enlarged. LYMPH NODES: There is no retroperitoneal nor para-aortic adenopathy. ABDOMINAL WALL/GI: No evidence of significant anterior abdominal wall nor inguinal hernia. No evidence of bowel obstruction. PELVIS: LYMPH NODES: There is no intrapelvic nor inguinal adenopathy. GI: No evidence of appendicitis.Sigmoid diverticulosis without evidence of acute diverticulitis. URINARY BLADDER: There are no calculi within the bladder lumen but there is a small calcification-pro bable calculus at what appears to be the right ureterovesical junction. REPRODUCTIVE: Prostate gland is significantly enlarged and significantly indents the bladder base. B ladder is not overly distended. OSSEOUS: No significant osseous lesions. No fractures nor listhesis. Chronic advanced disc space na rrowing L3-4 level. IMPRESSION: 1. When compared to the prior CT scan of 10/12/2024 the large pleural based infiltrate in the superio r segment of the left lower lobe has somewhat decreased in size but not yet resolved. There is no as sociated pleural effusion. Other lung findings as above. No pleural effusions on either side. No i ntrathoracic adenopathy. 2. Gallbladder surgically absent. The biliary tree is not dilated. 3. No evidence of acute appendicitis. There is extensive sigmoid diverticulosis but no obvious acute diverticulitis. 4. Bilateral nephrolithiasis, nonobstructive. There is a single 2-3 millimeter calculus in the righ t kidney and there are 3 calculi of similar small size in the opposite-left kidney. RADIATION DOSE DELIVERED: 684.71mGy.cm Total DLP DATA REPOSITORY: All CT scans at this facility are submitted to the National Radiology Data Registry (NRDR) Dose Index Registry (DIR) with the [employer] (A[employer]). RADIATION OPTIMIZATION: All CT scans at this facility use at least one of these dose optimization te chniques: automated exposure control; mA and/or kV adjustment per patient size (includes targeted exa ms where dose is matched to clinical indication); or iterative reconstruction.
[2024-10-15] MEDS: Mylanta Suspension 30 ML CUP PO (03:11)
[2024-10-15] MEDS: Albuterol/Ipratropium 3 ML UPD VIAL UPD ×3 (03:51→16:55)
[2024-10-15 06:46] LABS: HCT 39.7 % (40.0-50.0); HGB 13.5 g/dL (13.5-17.5); MCH 32.8 pg (27.0-33.0); MCV 96 fL (80-95); Platelet Count 192 10^3/uL (130-400); RBC 4.12 10^6/uL (4.36-5.78); RDW 13.4 % (11.8-14.1); RDW-SD 48.1 fL; WBC 20.52 10^3/uL (4.4-10.8)
[2024-10-15 07:00] LABS: ALT 24 U/L (16-63); AST 18 U/L (15-37); Albumin 2.9 g/dL (3.4-5.0); Alkaline Phosphatase 49 U/L (46-116); Anion Gap 7.5 mmol/L (3-11); BUN 25 mg/dL (7-18); Bilirubin, Total 0.34 mg/dL (0.2-1.0); CO2 27.5 mmol/L (21.0-32.0); Calcium 8.9 mg/dL (8.5-10.1); Chloride 104 mmol/L (98-107); Glucose 175 mg/dL (74-106); Magnesium 2.1 mg/dL (1.8-2.4); Sodium 139 mmol/L (136-145); Total Protein 6.7 g/dL (6.4-8.2)
[2024-10-15] MEDS: Insulin Aspart 300 UNITS/3 ML PEN SC ×2 (08:27→12:06)
[2024-10-15] MEDS: Aspirin 81 MG CHEW PO (08:28)
[2024-10-15] MEDS: Multivitamin TAB 1 TAB PO (08:28)
[2024-10-15] MEDS: Allopurinol 300 MG TAB PO (08:28)
[2024-10-15] MEDS: Rosuvastatin 20 MG TAB 10 MG PO (08:28)
[2024-10-15] MEDS: DULoxetine 30 MG CAP PO (08:28)
[2024-10-15] MEDS: Tamsulosin 0.4 MG CAPCR PO (08:28)
[2024-10-15] MEDS: Metoprolol CR 50 MG TABCR 200 MG PO (08:28)
[2024-10-15] MEDS: predniSONE 20 MG TAB 40 MG PO (08:29)
[2024-10-15] MEDS: Pantoprazole 40 MG TABCR PO (08:31)
[2024-10-15] MEDS: amLODIPine 5 MG TAB PO (08:32)
[2024-10-15] MEDS: Normal Saline Flush 10 ML SYR IVP (08:32)
[2024-10-15] MEDS: DOXYCYCLINE 100 MG in Normal Saline 100 ML IVPB (08:37)
[2024-10-15] MEDS: Umeclidinium 7 CAP INHALER 1 CAP IH (09:05)
[2024-10-15] MEDS: Budesonide/Formoterol 160/4.5 6 GM 60 PUFF INH IH (09:05)
--- NOTE | 2024-10-15 09:50 | CMDISCH_ITS ---
Date of service: 10/15/24 Time of Service: 09:50 LACE Index Scoring Tool Questions: Length of Stay (in days): 3 Was the patient admitted via the E.D.?: Yes Comorbidities: Diabetes w/o Complication, Chronic Pulmonary Disease and Any Tumor E.D. Visits: 2 Answers: Total Score: 13 Risk of Readmission: High Risk Care Management Discharge Plan Reason for Hospitalization: COPD Discharge Plan: Cosmo will be discharged home with no new services.. He will follow up with his PCP and plan of care and transport with family. Patient/Family Education Needs: Review discharge instructions, discuss Ask Me Three [facility] Health Related Social Needs: No Data to Display
--- NOTE | 2024-10-15 11:10 | NUR.NOTE ---
patient AxOx4 this AM, denies pain, denies SOB, encouraged to ambulate and test his WOB while ambulating, tolerating diet, assessment WNL, POC is to d/c to home today on oral meds (steroids, abx), patient notified and aware, denies needs, resting in room with call light in reach, bed low/locked. Nursing Note:
[2024-10-15] MEDS: cefTRIAXone 1 GM/50 ML BAG IVPB (15:25)
--- NOTE | 2024-10-15 15:59 | DSE_ITS ---
Date of service: 10/15/24 Time of Service: 15:59 DS: Diagnosis Discharge Diagnosis (1) Sepsis: Status: Acute (2) Pneumonia: Status: Acute (3) Hypomagnesemia: Status: Resolved (4) COPD (chronic obstructive pulmonary disease): (5) Ischemic heart disease: (6) HESHAM (obstructive sleep apnea): Status: Chronic (7) Diabetes mellitus: (8) HTN (hypertension): Discharge Plan Disposition Patient Disposition: Home Condition: Improving Discharge Details Reason For Visit: Pneumonia, COPD exacerbation,Hypomagnesemia Admit Date/Time: 10/12/24 18:38 Admit Provider: Fabiola Lovell Attending Provider: Fabiola Lovell Primary Care Provider: Regla Cordoba Hospital Course Hospital Course: The patient presented with back pain for 24 hours, expressing concern about possible angina. He has a history of acute coronary syndrome with cardiac catheterization and stenting in 2018. The current episode was different from his typical angina. Upon evaluation in the ED, he was found to have bilateral pneumo myke. The patient reported fever and chills prior to admission, with a history of pneumonia treated one month ago. Clinical Findings: * Tachycardic and febrile upon presentation * Slightly tachypneic * No hypotension; met sepsis criteria * No significant end-organ effects noted Treatment Provided: * Initiated IV antibiotics * Aggressive respiratory treatment * Oxygen supplementation in ED * Continued use of home BiPAP for HESHAM Response to Treatment: The patient's back pain improved during hospitalization. He was monitored closely, and his respiratory status stabilized with appropriate interventions. Discharge Plan: * Continue antibiotics as prescribed * Continue use of home BiPAP * Follow up with primary care physician within ten days * Educated patient on signs of respiratory distress and when to seek medical help Code Status: Full code. 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 Home Meds and New Rx's Prescriptions: New prednisone 20 mg Tablet 40 mg PO DAILY Qty: 5 0RF doxycycline hyclate 100 mg capsule 100 mg PO BID Qty: 10 0RF Continued multivitamin [Daily Multi-Vitamin] Tablet 1 tab PO DAILY metformin 500 mg tablet 1,000 mg PO DAILY Ozempic 0.25 mg or 0.5 mg (2 mg/3 mL) pen injector 0.5 mg subcut QWEEK amlodipine 5 mg tablet 5 mg PO DAILY tamsulosin 0.4 mg capsule 0.4 mg PO DAILY allopurinol 300 mg tablet 300 mg PO DAILY albuterol 90 mcg/actuation Aerosol 90 mcg INHALATION Q4H PRN PRN duloxetine 30 mg Capsule,Delayed Release(Dr/Ec) 30 mg PO DAILY rosuvastatin 20 mg tablet 10 mg PO DAILY acetaminophen 325 mg Tablet 650 mg PO Q6H PRN PRN ipratropium-albuterol 0.5 mg-3 mg(2.5 mg base)/3 mL Solution For Nebulization 3 ml INHALATION QID PRN metoprolol succinate 200 mg tablet extended release 24 hr 200 mg PO DAILY niacinamide 500 mg Tablet 500 mg PO BID aspirin 81 mg Tablet,Chewable 81 mg PO DAILY Patient Comments: on hold for surgery omeprazole magnesium [Prilosec OTC] 20 mg Tablet,Delayed Release (Dr/Ec) 20 mg PO DAILY nitroglycerin [Nitrostat] 0.4 mg Tablet, Sublingual 0.4 mg Sublingual Q5 MIN PRN X3 PRNQty: 1 0RF lisinopril 40 mg Tablet 40 mg PO DAILY promethazine 6.25 mg/5 mL syrup 12.5 mg PO Q6H PRN (Reason: cough) Qty: 120 0RF Discharge Instructions Instructions: Community-acquired pneumonia in adults, Doxycycline Additional Instructions: Continue doxycycline twice a day for 5 more days Take predsnisone 40 mg daily for 5 days Follow up with PCP at [facility] Forms: Nursing Discharge Form Referrals: Regla Cordoba [Primary Care Provider] - (hospitalization follow up within 10 days, drs office will call to schedule an appointment ) Activity:: Activity as Tolerated Equipment/Supplies:: No Equipment Needed Diet:: As Tolerated Discharge Orders Discharge Orders: Discharge Order (Routine); Ordered 10/15/24 Ordered By: Fabiola Lovell Discharge Data Discharge Date/Time-TO BE ENTERED AT DEPARTURE: 10/15/24 17:08 DS: Summary Time Spent with Patient providing and/or coordinating discharge services: Greater than 30 minutes Status at Discharge Functional status at discharge: independent ambulation Overall status at discharge: patient is back to baseline Mental Status: mental status grossly normal Speech and Movement: speech and movement normal Mood: congruent mood Affect: anxious affect Quality:SDOH Health Related Social Needs: No Data to Display Exam Const General: cooperative and no acute distress [facility] Head: normocephalic and atraumatic Mouth: moist mucous membranes Eyes Conjunctivae: normal conjunctivae Sclera: normal sclerae EOM: EOM intact bilaterally Neck Neck: trachea midline and supple Resp Auscultation: lung sounds not diminished, no rhonchi and wheezes expiratory wheezes (faint, bilaterally) Cardio Jugular venous pressure: no JVD Rhythm: regular rhythm Heart Sounds: no murmurs GI Palpation: soft, not firm, no guarding, no masses, not rigid and nontender Skin General skin exam: no rashes or lesions noted Neuro General: patient alert, patient awake, patient oriented x3 and tone normal Extrem General: no edema Psych Appearance: grossly normal Mental Status: mental status grossly normal Speech and Movement: speech and movement normal Mood: congruent mood Affect: anxious affect DS: Data Vitals/I&O Vitals and I&O: Vital Signs Temperature 36.9 C 10/15/24 15:35 Temperature Source Temporal Artery Scan 10/15/24 15:35 Pulse 75 10/15/24 15:35 Pulse Rhythm Regular 10/12/24 19:20 Pulse 106 H 10/12/24 19:00 Respiratory Rate 16 10/15/24 15:35 Respiratory Effort Normal 10/12/24 19:20 Respiratory Depth Normal 10/12/24 19:20 Respiratory Pattern Normal 10/12/24 19:20 Blood Pressure 126/70 10/15/24 15:35 Blood Pressure Mean 113 10/12/24 16:52 Pulse Oximetry 92 10/15/24 15:35 Oxygen Delivery Method Room Air 10/15/24 15:35 Oxygen Flow Rate 0 10/15/24 15:35 End Tidal Co2 5 10/12/24 14:33 Pain Level 0 10/15/24 15:35 Intake & Output 10/14/24 10/15/24 10/15/24 23:59 11:59 23:59 Intake Total 590 / 1540 100 / 100 Output Total 1325 / 1750 500 / 500 Balance -735 / -210 -400 / -400 Weight 96.6 kg Intake: IV 250 / 440 100 / 100 Oral 340 / 1100 Output: Urine 1325 / 1750 500 / 500 Other: Urine Color Yellow Yellow Yellow Urine Appearance Clear Clear Clear Urine Odor Normal Normal None Stool Size Moderate Stool Characteristics Soft Data Completed and Pending Labs on day of discharge: Labs from last 24 hours 10/15/24 06:10 WBC 20.52 H RBC 4.12 L Hgb 13.5 Hct 39.7 L MCV 96 H MCH 32.8 MCHC 34.0 RDW 13.4 Plt Count 192 MPV 10.0 Sodium 139 Potassium 4.0 Chloride 104 Carbon Dioxide 27.5 Anion Gap 7.5 BUN 25 H Creatinine 1.0 Est GFR (CKD-EPI 2020) 78.00 Glucose 175 H Calcium 8.9 Magnesium 2.1 Total Bilirubin 0.34 AST 18 ALT 24 Alkaline Phosphatase 49 Total Protein 6.7 Albumin 2.9 L Preliminary micro results at discharge 10/12/24 16:01 Blood Culture - Preliminary Blood NO GROWTH 48 HOURS 10/12/24 15:53 Blood Culture - Preliminary Blood NO GROWTH 48 HOURS PFSH All Active Problems (Updated 10/14/24 @ 15:46 by Fabiola Lovell NP) HESHAM (obstructive sleep apnea) (Chronic) Atypical pneumonia (Acute) Acute exacerbation of chronic obstructive pulmonary disease (Acute) URI (upper respiratory infection) (Acute) Enlarged prostate (Acute) benign Respiratory failure (Acute) Sepsis (Acute) GERD (gastroesophageal reflux disease) (Chronic) Pneumonia (Acute) Near syncope (Acute) Post-operative complication (Acute) Leukocytosis, unspecified (Acute) Hyperglycemia (Acute) Essential hypertension (Acute) Acute coronary syndrome (Acute) Medical History Hypercholesteremia Diabetes mellitus COPD (chronic obstructive pulmonary disease) patient follows w/ Dr. 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 History of posttraumatic stress disorder (PTSD) Former smoker quit in 1994,90 pack year Basal cell carcinoma of skin right cheek 2011 [facility] Ischemic heart disease s/p stent x1 Jul 2018 [facility] - Dr. Sudhir Ceballos. -after progressive SEPULVEDA, then chest pain. 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 Zheng Peñaloza, operations vice president, [place] Surgical History H/O melanoma excision H/O colonoscopy H/O nasal septoplasty Family History Father History of non-ST elevation myocardial infarction (NSTEMI) Prostate cancer metastatic to multiple sites Mother COPD (chronic obstructive pulmonary disease) Sister Breast cancer Sister Ovarian cancer Brother Lung cancer Social History Smoking/Tobacco Use Status: Former Tobacco Use Quit Date: 09/02/89 Tobacco: How many years used: 37 Smoking risk assessment performed?: Yes Alcohol Intake: current Alcohol Intake frequency: 0-2 drinks per day Alcohol type: hard liquor Drug use: Never Substance use type: does not use Housing: house current occupation: formerly worked as a [employer] in [employer] before that. Pets and animals: Yes (4 cats) Pets and animals: cat(s) What is your relationship status?: Panel score (0-1 are the most socially isolated patients): 1 Do you feel safe at home: Yes Do you feel safe in your relationship?: Yes Additional Social history: Former smoker , quit in 1994,90 pack yrs. Time Spent with Patient Time Spent with Patient: 45-69 minutes Time was spent: preparing to see the patient(eg.review tests), ordering medications,tests, procedures, referring, communicating with other health inspector health care facilities, indepentently interpreting results, counseling the patient and care coordination
--- NOTE | 2024-10-15 16:43 | NUR.NOTE ---
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 Pt denies further questions or concerns, all belongings with pt, ambulatory to car. Nursing Note:
== END 2024-10-15 17:08 | disposition home or self-care (01) | DRG 871 ==
LOC: ER 18:31 → MS 19:28
PROVIDERS: Emergency Medicine; Family Medicine; Admitting Provider Nurse Practitioner Family; Emergency Provider Physician Assistant; PCP Internal Medicine Geriatric Medicine; Responsible Provider Nurse Practitioner Family; Visit Provider Nurse Practitioner Family
DX: A41.9 Sepsis, unspecified organism (principal); J18.9 Pneumonia, unspecified organism; J44.0 Chronic obstructive pulmonary disease with (acute) lower respiratory infection; J44.1 Chronic obstructive pulmonary disease with (acute) exacerbation; E83.42 Hypomagnesemia; G47.33 Obstructive sleep apnea (adult) (pediatric); I10 Essential (primary) hypertension; E11.9 Type 2 diabetes mellitus without complications; I25.9 Chronic ischemic heart disease, unspecified; N40.0 Benign prostatic hyperplasia without lower urinary tract symptoms; K21.9 Gastro-esophageal reflux disease without esophagitis; E78.00 Pure hypercholesterolemia, unspecified; Z87.891 Personal history of nicotine dependence; Z95.5 Presence of coronary angioplasty implant and graft; Z79.84 Long term (current) use of oral hypoglycemic drugs
CPT/HCPCS: 00123; 36415; 71250; 80048; 80053; 82805; 85027; 87040; 87637; 93005; 94640; 94761; 96365; 96367; 96375; 99291; J1650; 74176; 81003; 81015; 83605; 83735; 83880; 84484; 85025; 93010; 94664; 94760; 99223; 99232; 99239; J0131; J0696; J1815; J2919; J3475; J7512; J7620

== ENCOUNTER 2024-10-25 16:57 | Observation (INO) | payer OTHER, SELFPAY ==
[2024-10-25] VITALS (31 sets, daily range): BP systolic 117–144; BP diastolic 53–106; PULSE 80–113; RESP 5–32; TEMP 36.8–37.9; O2SAT 89–96
--- NOTE | 2024-10-25 17:15 | DI.RAD_ITS ---
Exam(s) XR CHEST 2V PA LATERAL EXAM: XR CHEST 2V PA LATERAL CLINICAL HISTORY: shortness of breath TECHNIQUE: 2D digital imaging was performed. Two views. COMPARISON: CR XR CHEST 2V PA LATERAL from 09/15/[address] CHEST/ABD/PEL WO from 10/15/2024 FINDINGS: HEART: Normal size. Aorta: Not dilated. PULMONARY VASCULATURE: Normal. MEDIASTINUM: Unremarkable. LUNGS: Mild left upper lobe scarring. Minimal lingular scarring. No infiltrate or pulmonary edema. PLEURAL SPACE: No pleural effusion or pneumothorax. BONE:Unremarkable for age. SOFT TISSUES: Unremarkable. IMPRESSION: No acute abnormality. DATA REPOSITORY: RADIATION DOSE DELIVERED:
[2024-10-25 17:44] LABS: BE (Venous) 3 mmol/L (-2-3); HCO3 (Venous) 27 mmol/L (23-28); Lactate 0.9 mmol/L (<or=2.0); O2 Sat (Venous) 66 %; TCO2 (Venous) 24 mmol/L (24-29); pCO2 (Venous) 42 mmHg (41-51); pH (Venous) 7.42 (7.31-7.41); pO2 (Venous) 35 mmHg
[2024-10-25 17:45] LABS: Abs Immature Grans 0.03 10^3/uL (0.0-0.06); Absolute Basophil Count 0.03 10^3/uL (0.0-0.2); Absolute Eosinophil Count 0.03 10^3/uL (0.0-0.7); Absolute Lymphocyte Count 0.47 10^3/uL (1.2-3.4); Absolute Monocyte Count 1.02 10^3/uL (0.1-0.8); Absolute Neutrophil Count 5.84 10^3/uL (1.2-6.7); Basophils % 0.4 %; Eosinophils % 0.4 %; HCT 43.7 % (40.0-50.0); HGB 14.9 g/dL (13.5-17.5); Immature Grans % 0.4 %; Lymphocytes % 6.3 %; MCH 33.1 pg (27.0-33.0); MCHC 34.1 % (32.0-36.0); MCV 97 fL (80-95); MPV 9.6 fL (8.0-11.0); Monocytes % 13.7 %; Neutrophils % 78.8 %; Platelet Count 198 10^3/uL (130-400); RDW 13.4 % (11.8-14.1); WBC 7.42 10^3/uL (4.4-10.8)
[2024-10-25] MEDS: Normal Saline 500 ML IV ×2 (17:45→19:47)
[2024-10-25] MEDS: ACETAMINOPHEN 500 MG/50 ML BAG 200 MG IVPB (17:46)
[2024-10-25] MEDS: Albuterol/Ipratropium 3 ML UPD VIAL 6 ML UPD (17:46)
[2024-10-25] MEDS: methylPREDNISolone SUCC 125 MG VIAL 80 MG IVP (17:47)
[2024-10-25 17:57] LABS: Lipase 31 U/L (<78)
[2024-10-25 18:11] LABS: ALT 36 U/L (16-63); AST 20 U/L (15-37); Albumin 3.7 g/dL (3.4-5.0); Alkaline Phosphatase 46 U/L (46-116); Anion Gap 11.7 mmol/L (3-11); BUN 14 mg/dL (7-18); Bilirubin, Total 0.56 mg/dL (0.2-1.0); CO2 26.3 mmol/L (21.0-32.0); Calcium 8.8 mg/dL (8.5-10.1); Chloride 100 mmol/L (98-107); Glucose 138 mg/dL (74-106); Magnesium 1.6 mg/dL (1.8-2.4); NT-proBNP 1021 pg/mL (<300); Sodium 138 mmol/L (136-145); Total Protein 7.5 g/dL (6.4-8.2); Troponin I 11 ng/L (<or=76)
[2024-10-25 18:25] LABS: COVID-19 PCR Negative (Negative); Influenza A PCR Positive (Negative); Influenza B PCR Negative (Negative); RSV PCR Negative (Negative)
[2024-10-25 18:26] LABS: Source NASOPHARYNX
[2024-10-25 18:31] LABS: Procalcitonin < 0.10 ng/mL
[2024-10-25 19:16] LABS: Troponin I 12 ng/L (<or=76)
--- NOTE | 2024-10-25 19:40 | DI.VRAD_ITS ---
PROCEDURE INFORMATION: Exam: XR Chest Exam date and time: 10/25/2024 6:04 PM Age: 74 years old Clinical indication: Other: SOB TECHNIQUE: Imaging protocol: Radiologic exam of the chest. Views: 2 views. COMPARISON: CT CHEST/ABD/PEL WO 10/15/2024 1:40 PM FINDINGS: Lungs: The lungs are hyperaerated and hyperlucent. Suspect underlying COPD. There is mild lingular atelectasis. Pleural spaces: Unremarkable. No pleural effusion. No pneumothorax. Heart/Mediastinum: Unremarkable. No cardiomegaly. Bones/joints: Unremarkable. IMPRESSION: COPD. Lingular atelectasis. Early consolidation not strongly suspected but not excludable. Dictated and Authenticated by: Cady Rose MD. Orderin Nils Chandra MD
[2024-10-25] MEDS: MAGNESIUM SULFATE 1 GM/100 ML BAG IV_INF (19:46)
--- NOTE | 2024-10-25 20:02 | W.PC.ACHO ---
Registration Status: Primary Language: Preferred Language: ED Information & Data Chief Complaint RespSymp 10/25/24 17:07 Chief Complaint RespSymp 10/25/24 17:03 Triage Note PT reporting increased 10/25/24 17:03 fatigue, productive cough, fever at home, moments of confusion. Recent Dx of pneumonia, family reports that the PT has been declining since stopping use of antibiotics prescribed earlier this month. PT reporting shortness of breath with activity. Medical / Surgical History (Last Reviewed 10/12/24 @ 18:25 by Milan Cowan) HESHAM (obstructive sleep apnea) Hypercholesteremia Diabetes mellitus COPD (chronic obstructive pulmonary disease) History of posttraumatic stress disorder (PTSD) Former smoker Basal cell carcinoma of skin Ischemic heart disease Adenocarcinoma Melanoma Colon polyps HTN (hypertension) (Last Reviewed 10/12/24 @ 18:25 by Milan Cowan) H/O melanoma excision H/O colonoscopy H/O nasal septoplasty Most Recent Vital Signs Temperature 37.9 C H 10/25/24 17:07 Pulse 92 H 10/25/24 19:50 Pulse 93 H 10/25/24 19:50 Respiratory Rate 21 10/25/24 19:50 Respiratory Effort Labored 10/25/24 17:28 Respiratory Depth Deep 10/25/24 17:28 Blood Pressure 129/60 10/25/24 19:30 Blood Pressure Mean 79 10/25/24 19:30 Blood Pressure Position Sitting 10/25/24 17:07 Pulse Oximetry 94 10/25/24 19:50 Oxygen Delivery Method Room Air 10/25/24 17:07 Oxygen Flow Rate 0 10/25/24 17:07 Comment 1L NC 10/25/24 19:01 Allergies shellfish derived Allergy (Severe, Verified 10/25/24 19:46) Anaphylaxis meperidine Allergy (Unknown, Verified 10/25/24 19:46) Other (See Comment) Pt states I dont even know what this is morphine Allergy (Unknown, Verified 10/25/24 19:46) Nausea demerol hydrochloride Allergy (Unknown, Uncoded 10/25/24 19:46) Nausea Precautions Isolation Airborne precaution 10/25/24 17:07 Active Medications Generic Name Dose Route Start Last Admin Trade Name Freq PRN Reason Stop Dose Admin Sodium Chloride 500 mls @ 500 mls/hr 10/25/24 19:36 10/25/24 19:47 Saline 1000ml Bag IV 10/25/24 20:35 500 mls/hr BOLUS ONE Administration Magnesium Sulfate/Dextrose 1 gm in 100 mls @ 100 mls/hr 10/25/24 19:36 10/25/24 19:46 IV_INF 10/25/24 20:35 100 mls/hr NOW ONE Administration IV IV Catheter Type [Right Peripheral IV Antecubital] IV Catheter Gauge [Right 18 Antecubital] Diagnostics 10/25/24 10/25/24 10/25/24 Range/Units 18:55 17:46 17:31 WBC 7.42 (4.4-10.8) 10^3/uL RBC 4.50 (4.36-5.78) 10^6/uL Hgb 14.9 (13.5-17.5) g/dL Hct 43.7 (40.0-50.0) % MCV 97 H (80-95) fL MCH 33.1 H (27.0-33.0) pg MCHC 34.1 (32.0-36.0) % RDW 13.4 (11.8-14.1) % Plt Count 198 (130-400) 10^3/uL MPV 9.6 (8.0-11.0) fL Immature Gran % 0.4 % Neutrophils % 78.8 % Lymphocytes % 6.3 % Monocytes % 13.7 % Eosinophils % 0.4 % Basophils % 0.4 % Nucleated RBC % 0.0 (0.0-0.3) % Absolute Neutrophils 5.84 (1.2-6.7) 10^3/uL Absolute Lymphocytes 0.47 L (1.2-3.4) 10^3/uL Absolute Monocytes 1.02 H (0.1-0.8) 10^3/uL Absolute Eosinophils 0.03 (0.0-0.7) 10^3/uL Absolute Basophils 0.03 (0.0-0.2) 10^3/uL VBG pH 7.42 H (7.31-7.41) VBG pCO2 42 (41-51) mmHg VBG pO2 35 mmHg VBG HCO3 27 (23-28) mmol/L VBG Total CO2 24 (24-29) mmol/L VBG O2 Saturation 66 % VBG Base Excess 3 (-2-3) mmol/L VBG Lactate 0.9 (<or=2.0) mmol/L Sodium 138 (136-145) mmol/L Potassium 4.0 (3.5-5.1) mmol/L Chloride 100 (98-107) mmol/L Carbon Dioxide 26.3 (21.0-32.0) mmol/L Anion Gap 11.7 H (3-11) mmol/L BUN 14 (7-18) mg/dL Creatinine 1.0 (0.70-1.30) mg/dL Est GFR (CKD-EPI 2020) 78.00 (mL/min/1.73m2) Glucose 138 H (74-106) mg/dL Calcium 8.8 (8.5-10.1) mg/dL Magnesium 1.6 L (1.8-2.4) mg/dL Total Bilirubin 0.56 (0.2-1.0) mg/dL AST 20 (15-37) U/L ALT 36 (16-63) U/L Alkaline Phosphatase 46 (46-116) U/L Troponin I 12 11 (<or=76) ng/L NT-Pro-B Natriuret Pep 1021 H (<300) pg/mL Total Protein 7.5 (6.4-8.2) g/dL Albumin 3.7 (3.4-5.0) g/dL Lipase 31 (<78) U/L Procalcitonin < 0.10 ng/mL COVID-19 Source NASOPHARYNX SARS-CoV-2 (PCR) Negative (Negative) Influenza Type A (PCR) Positive A (Negative) Influenza Type B (PCR) Negative (Negative) RSV (PCR) Negative (Negative) Intake and Output - 24 Hour Total 10/25/24 16:57 thru 10/25/24 18:40 Intake Total 550 Balance 550 Weight 99.79 kg Intake: IV 550 Falls Risk Assessment History of Falls No History 10/25/24 17:07 Contributing Factors No Factors 10/25/24 17:07 Ambulatory Aids Independent 10/25/24 17:07 Tubes/Lines None 10/25/24 17:07 Gait Evaluation No gait disturbance 10/25/24 17:07 Cognition No cognitive impairment 10/25/24 17:07 Fall Total Score 0 10/25/24 17:07 Level of Risk Standard/Low Risk 10/25/24 17:07 v v v v v v v v v Sending and/or Receiving Nurses: Please use comment section below to note any information pertinent to the patient hand-off not included above. Information / Comments: Came into ED for PNA recheck, positive for Flu A. No PNA detected ATT. Slightly dehydrated, received 500mls x2 in ED as well as 1G of Mg. Currently wearing 1L via NC, wears 2L @ HS. Ind, A&Ox4. Needs a UA. Report received from: Nesha Galicia RN
--- NOTE | 2024-10-25 21:00 | ED.GENADUL_ITS ---
Discharge Plan Disposition Patient Disposition: Admit to [facility] Condition: Serious Discharge Details Clinical Impression: Respiratory failure, Influenza A Admit Date/Time: 10/25/24 19:31 Admit Provider: Robin Gonzalez Attending Provider: Robin Gonzalez Primary Care Provider: Regla Cordoba ED Provider: Corazon Wray Discharge Data Discharge Date/Time-TO BE ENTERED AT DEPARTURE: 10/25/24 20:24 HPI General Date/Time Provider Initiated Documentation: 10/25/24 17:01 . HPI Narrative: The patient is a 74-year-old male with a history of lung cancer with resection, diabetes, hypertension, COPD, and ACS. He presents with confusion, a productive cough, and shortness of breath that has been ongoing for the past 3 days. He is accompanied by his . He reports worsening shortness of breath over the past 3 days. He does not typically require oxygen during the day, but his notes that he has been weak and less mobile at home. He was discharged from the hospital on 10/15/2024 after being treated for pneumonia with antibiotics, which he completed on 10/22/2024. He does not report any known sick contacts. Related Data Home Medications ?Medication ?Instructions ?Recorded ?Confirmed aspirin 81 mg chewable tablet 81 mg PO DAILY 07/19/18 10/25/24 nitroglycerin 0.4 mg sublingual 0.4 mg sublingual Q5 MIN PRN X3 07/19/18 10/25/24 tablet (Nitrostat) PRN #1 tab omeprazole magnesium 20 mg 20 mg PO DAILY 07/19/18 10/25/24 tablet,delayed release (Prilosec OTC) albuterol 90 mcg/actuation aerosol 90 mcg inhalation Q4H PRN PRN 04/19/21 10/25/24 inhaler allopurinol 300 mg tablet 300 mg PO DAILY 04/19/21 10/25/24 duloxetine 30 mg capsule,delayed 30 mg PO DAILY 04/19/21 10/25/24 release tamsulosin 0.4 mg capsule 0.4 mg PO DAILY 04/19/21 10/25/24 acetaminophen 325 mg tablet 650 mg PO Q6H PRN PRN 06/18/21 10/25/24 ipratropium 0.5 mg-albuterol 3 mg 3 ml inhalation QID PRN 06/18/21 10/25/24 (2.5 mg base)/3 mL nebulization soln metoprolol succinate 200 mg 200 mg PO DAILY 06/18/21 10/25/24 tablet,extended release 24 hr niacinamide 500 mg tablet 500 mg PO BID 06/18/21 10/25/24 amlodipine 5 mg tablet 5 mg PO DAILY 04/24/23 10/25/24 multivitamin (Daily Multi-Vitamin 1 tab PO DAILY 09/27/23 10/25/24 tablet) rosuvastatin 20 mg tablet 10 mg PO DAILY 09/27/23 10/25/24 semaglutide 0.25 mg or 0.5 mg (2 0.5 mg subcut QWEEK 09/27/23 10/25/24 mg/3 mL) subcutaneous pen injector (Ozempic) Previous Rx's ?Medication ?Instructions ?Recorded nitroglycerin 0.4 mg sublingual 0.4 mg sublingual Q5 MIN PRN X3 07/19/18 tablet (Nitrostat) PRN #1 tab Allergies Allergy/AdvReac Type Severity Reaction Status Date / Time shellfish derived Allergy Severe Anaphylaxis Verified 10/25/24 19:46 meperidine Allergy Unknown Other (See Verified 10/25/24 19:46 Comment) morphine Allergy Unknown Nausea Verified 10/25/24 19:46 demerol hydrochloride Allergy Unknown Nausea Uncoded 10/25/24 19:46 General Stated Complaint: RespSymp ELI: 3 Exam Narrative Exam Narrative: General Appearance: The patient is alert but appears quite unwell. Vital signs: The patient has sinus tachycardia. He is in mild respiratory distress. HEENT: Within normal limits. Respiratory: Lung sounds are diminished. Cardiovascular: No murmur detected in the heart. Back, Musculoskeletal: No swelling or tenderness in the calf. Distal pulses in the musculoskeletal system are intact. Neurological: The patient is alert and oriented. Other observations: No meningismus in the neck. Course Vital Signs Vital signs: Vital Signs Temperature 37.9 C H 10/25/24 17:03 Pulse 109 H 10/25/24 17:03 Respiratory Rate 30 H 10/25/24 17:03 Blood Pressure 141/106 H 10/25/24 17:03 Pulse Oximetry 92 10/25/24 17:03 Temperature 37.3 C 10/25/24 20:19 Pulse 89 10/25/24 20:19 Pulse Rhythm Regular 10/25/24 20:19 Pulse 93 H 10/25/24 19:50 Respiratory Rate 18 10/25/24 20:19 Respiratory Effort Normal, Non-Labored 10/25/24 20:19 Respiratory Depth Normal 10/25/24 20:19 Respiratory Pattern Normal 10/25/24 20:19 Blood Pressure 125/60 10/25/24 20:19 Blood Pressure Mean 79 10/25/24 19:30 Blood Pressure Position Sitting 10/25/24 17:07 Pulse Oximetry 93 10/25/24 20:19 Oxygen Delivery Method Nasal Cannula 10/25/24 20:19 Oxygen Flow Rate 1 10/25/24 20:19 Comment 1L NC 10/25/24 19:01 Lab/Test Results Lab/Test Results: Laboratory Tests Range/Units 10/25/24 10/25/24 10/25/24 17:31 17:46 18:55 WBC (4.4-10.8) 10^3/uL 7.42 RBC (4.36-5.78) 10^6/uL 4.50 Hgb (13.5-17.5) g/dL 14.9 Hct (40.0-50.0) % 43.7 MCV (80-95) fL 97 H MCH (27.0-33.0) pg 33.1 H MCHC (32.0-36.0) % 34.1 RDW (11.8-14.1) % 13.4 Plt Count (130-400) 10^3/uL 198 MPV (8.0-11.0) fL 9.6 Immature Gran % % 0.4 Neutrophils % % 78.8 Lymphocytes % % 6.3 Monocytes % % 13.7 Eosinophils % % 0.4 Basophils % % 0.4 Nucleated RBC % (0.0-0.3) % 0.0 Absolute Neutrophils (1.2-6.7) 10^3/uL 5.84 Absolute Lymphocytes (1.2-3.4) 10^3/uL 0.47 L Absolute Monocytes (0.1-0.8) 10^3/uL 1.02 H Absolute Eosinophils (0.0-0.7) 10^3/uL 0.03 Absolute Basophils (0.0-0.2) 10^3/uL 0.03 VBG pH (7.31-7.41) 7.42 H VBG pCO2 (41-51) mmHg 42 VBG pO2 mmHg 35 VBG HCO3 (23-28) mmol/L 27 VBG Total CO2 (24-29) mmol/L 24 VBG O2 Saturation % 66 VBG Base Excess (-2-3) mmol/L 3 VBG Lactate (<or=2.0) mmol/L 0.9 Sodium (136-145) mmol/L 138 Potassium (3.5-5.1) mmol/L 4.0 Chloride (98-107) mmol/L 100 Carbon Dioxide (21.0-32.0) mmol/L 26.3 Anion Gap (3-11) mmol/L 11.7 H BUN (7-18) mg/dL 14 Creatinine (0.70-1.30) mg/dL 1.0 Est GFR (CKD-EPI 2020) (mL/min/1.73m2) 78.00 Glucose (74-106) mg/dL 138 H Calcium (8.5-10.1) mg/dL 8.8 Magnesium (1.8-2.4) mg/dL 1.6 L Total Bilirubin (0.2-1.0) mg/dL 0.56 AST (15-37) U/L 20 ALT (16-63) U/L 36 Alkaline Phosphatase (46-116) U/L 46 Troponin I (<or=76) ng/L 11 12 NT-Pro-B Natriuret Pep (<300) pg/mL 1021 H Total Protein (6.4-8.2) g/dL 7.5 Albumin (3.4-5.0) g/dL 3.7 Lipase (<78) U/L 31 Procalcitonin ng/mL < 0.10 COVID-19 Source NASOPHARYNX SARS-CoV-2 (PCR) (Negative) Negative Influenza Type A (PCR) (Negative) Positive A Influenza Type B (PCR) (Negative) Negative RSV (PCR) (Negative) Negative Medical Decision Making Laboratory Studies Influenza A test positive. Troponin is negative. BNP is elevated. Magnesium is low at 1.6. VBG is normal without any hypercarbia. Glucose is 138. Imaging Chest x-ray does not show evidence of acute infiltrate. Initial Assessment: 74-year-old male with history of lung cancer with resection, diabetes, hypertension, COPD, ACS presenting with confusion, productive cough, and shortness of breath for the past 3 days. Recently discharged from the hospital on 10/15/2024 for pneumonia and completed antibiotics on 10/22/2024. No known sick contacts. Appears quite unwell with sinus tachycardia and diminished lung sounds. Mild respiratory distress, no calf swelling or tenderness, intact distal pulses, no murmur, no meningismus, alert and oriented. Differential Diagnosis: - Influenza A: Positive test. Plan: Treat with Tamiflu. - Bacterial infection: No clear evidence. Plan: Treat from a viral standpoint without antibiotics. - Pulmonary embolism: Low suspicion. Plan: No specific treatment. ED Course: - Chest x-ray: No evidence of acute infiltrate (read by me). - Troponin: Negative. - BNP: Elevated, no clinical volume overload. - Magnesium: Low at 1.6. Plan: Administer 1 g of magnesium intravenously. - QTc: Mildly prolonged. - VBG: Normal without hypercarbia. - Glucose: 138. - Oxygen saturation: 86% with sleep, 87-88% with ambulation, baseline 93% per patient. Plan: Oxygen supplementation provided, patient reports improvement. - Medications: Solu-Medrol, two DuoNebs, 500 cc of fluid, additional 500 cc of fluid. - Discussion: Case discussed with Dr. Gonzalez. Final Assessment: Patient with acute respiratory failure secondary to influenza A, hypoxic with ambulation and sleep, treated with oxygen supplementation and medications. No evidence of bacterial infection, treated from a viral standpoint. Clinical Impression: - Acute respiratory failure - Influenza A Disposition: - Admission: Patient agreeable to admission. - Follow-Up: Full code status. MDM Components Evaluation: - Number of Differential Diagnoses or Management Options: Influenza A, Bacterial infection, Pulmonary embolism. - Amount and Complexity of Data Reviewed: Chest x-ray, troponin, BNP, magnesium, QTc, VBG, glucose. - Risk of Complication and Morbidity or Mortality: High due to acute respiratory failure and underlying comorbidities. Quality:SDOH Health Related Social Needs: No Data to Display PFSH All Active Problems (Updated 10/25/24 @ 21:06 by NOLAN Murdock) Influenza A (Acute) Respiratory failure (Acute) Enlarged prostate (Acute) benign GERD (gastroesophageal reflux disease) (Chronic) Pneumonia (Acute) Near syncope (Acute) Post-operative complication (Acute) Leukocytosis, unspecified (Acute) Hyperglycemia (Acute) Essential hypertension (Acute) Acute coronary syndrome (Acute) Medical History Hypercholesteremia Diabetes mellitus COPD (chronic obstructive pulmonary disease) patient follows w/ Dr. Barros, transition coach, [place] History of posttraumatic stress disorder (PTSD) Former smoker quit in 1994,90 pack year Basal cell carcinoma of skin right cheek 2011 [facility] [place]schemic heart disease s/p stent x1 Jul 2018 [facility] [place] - Dr. Sudhir Ceballos. -after progressive SEPULVEDA, then chest pain. 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 Zheng Peñaloza, post graduate intern, [place] Surgical History H/O melanoma excision H/O colonoscopy H/O nasal septoplasty Family History Father History of non-ST elevation myocardial infarction (NSTEMI) Prostate cancer metastatic to multiple sites Mother COPD (chronic obstructive pulmonary disease) Sister Breast cancer Sister Ovarian cancer Brother Lung cancer Social History Smoking/Tobacco Use Status: Former Tobacco Use Quit Date: 09/02/89 Tobacco: How many years used: 37 Smoking risk assessment performed?: Yes Alcohol Intake: current Alcohol Intake frequency: 0-2 drinks per day Alcohol type: hard liquor Drug use: Never Substance use type: does not use Housing: house 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 Pets and animals: Yes (4 cats) Pets and animals: cat(s) What is your relationship status?: Panel score (0-1 are the most socially isolated patients): 1 Do you feel safe at home: Yes Do you feel safe in your relationship?: Yes Additional Social history: Former smoker , quit in 1994,90 pack yrs. PAWSS Have you Been Recently Intoxicated or Drunk Within the Last 30 days?: No Have you Ever Experienced Previous Episodes of Alcohol Withdrawal?: No Have you ever Experienced Withdrawal Seizures?: No Have you ever Experienced Delirium Tremens(DT)s?: No Have you ever undergone Alcohol Rehabilitation Treatment (i.e, inpt ot outpatient treatment programs)?: No Have you ever Experienced Blackouts?: No Have you ever Combined Alcohol with other Downers within the last 90 days?: No Have you ever Combined Alcohol with any other Substance of Abuse during the last 90 days?: No Positive Blood Alcohol level on Presentation? [PCS.BAL]: No Evidence of Increased Autonomic Activity (i.e. HR>120, tremor, sweating, agitation, nausea)?: No Result: 0
[2024-10-25 21:22] LABS: Bilirubin Negative (Negative); Blood Negative (Negative); Clarity Clear (Clear); Glucose Negative (Negative); Ketones 15 mg/dL (Negative); Leukocyte Esterase Negative (Negative); Nitrite Negative (Negative); pH 6.5 (5-8)
--- NOTE | 2024-10-25 22:20 | HPE_ITS ---
Date of service: 10/25/24 Time of Service: 22:30 Assessment and Plan Assessment and plan (1) Influenza A: Status: Acute Assessment and plan: Positive (acute) viral Influenza A PCR with Hypoxic respiratory failure complicated by COPD. Recent hospitlization here for PNA, finished oral abx course 3 days ago. Procalcitonin < 0.10. No antibiotics started this visit. Treat with steroids (for COPD exacerbation component, without abx because of normal procalcitonin). Started on Tamiflu. Supplemental oxygen. (2) Respiratory failure: Status: Acute Assessment and plan: See influenza A above. (3) Ischemic heart disease: Assessment and plan: Complicates clinical picture. BNP = 1,000. Give fluids with caution- encourage po rather than IVF. Monitor. (h/o afib reported, but not see in EMR documentation record.) (4) Diabetes mellitus: Assessment and plan: Complicates clinical care and course, especially the use of steroids. Monitor closely. Continue current home regimen and add SSI. (5) COPD (chronic obstructive pulmonary disease): Assessment and plan: See Influenza A above. History of Present Illness Narrative: 74 yo wm with PMH that includes DM, Lung CA with resection, COPD, IHD, HTN, HLD, HESHAM, h/p PTSD, former smoker, presents with SOB. Patient was recently hospitalized here 10 days ago, and discharged with 7 days of oral antibiotics to complete treatment for pneumonia which he took. Patient's now reports 3 days of progressive flulike illness (directly following stopping his antibiotics) with worsening shortness of breath, productive cough, generalized weakness, decreased mobility, and associated confusion. Patient has underlying COPD and is on 3 L of oxygen at home while sleeping, but does not wear supplemental oxygen during the day. Denies known contacts with similar illness. In our emergency room, patient tested positive for influenza A. BNP is elevated without clinical signs and symptoms of overload. Negative troponin. Low magnesium at 1.6. No hypercarbia on VBG. CXR NAD. Found to have tachycardia with diminished lung sounds and mild respiratory distress. Elected to treat with Tamiflu because of severity and comorbidities. No significant evidence to support bacterial infection currently. QTc mildly prolonged. Oxygen saturation: 86% with sleep, 87-88% with ambulation, baseline 93% per patient. Given IV Solu-Medrol, 2 DuoNebs, 1 L of fluid total, supplemental oxygen. Patient recommended for admission for acute hypoxic respiratory failure secondary to influenza A. No antibiotics given with patient's acute viral illness, and just finishing CAP course of antibiotics 3 days ago. Patient expressed full code wishes. Review of Systems Narrative: Review of Systems See also HPI above. Const: Positive for fever, chills. HENT: Negative for acute hearing changes. Eyes: Negative for acute visual disturbance. Resp: Positive for shortness of breath. CV: Negative for chest pain. Abd: Positive for chronic, unchanged left abdominal pain. GI: Negative for bowel changes. : Negative for changes in urination. MSK: Negative for focal weakness. Skin: Negative for rash. Neuro: Negative for numbness. Heme: Negative for leg edema. PFSH All Active Problems Influenza A (Acute) Respiratory failure (Acute) Enlarged prostate (Acute) benign GERD (gastroesophageal reflux disease) (Chronic) Pneumonia (Acute) Near syncope (Acute) Post-operative complication (Acute) Leukocytosis, unspecified (Acute) Hyperglycemia (Acute) Essential hypertension (Acute) Acute coronary syndrome (Acute) Medical History HESHAM (obstructive sleep apnea) Hypercholesteremia Diabetes mellitus COPD (chronic obstructive pulmonary disease) patient follows w/ Dr. Barros, industrial chemicals supervisor, [place] History of posttraumatic stress disorder (PTSD) Former smoker quit in 1994,90 pack year Basal cell carcinoma of skin right cheek 2011 [facility] [place] Ischemic heart disease s/p stent x1 Jul 2018 [facility] [place] - Dr. Sudhir Ceballos. -after progressive SEPULVEDA, then chest pain. 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 Zheng Peñaloza, telephone operator, [place]. Surgical History H/O melanoma excision H/O colonoscopy H/O nasal septoplasty Family History Father History of non-ST elevation myocardial infarction (NSTEMI) Prostate cancer metastatic to multiple sites Mother COPD (chronic obstructive pulmonary disease) Sister Breast cancer Sister Ovarian cancer Brother Lung cancer Social History Smoking/Tobacco Use Status: Former Tobacco Use Quit Date: 09/02/89 Tobacco: How many years used: 37 Smoking risk assessment performed?: Yes Alcohol Intake: current Alcohol Intake frequency: 0-2 drinks per day Alcohol type: hard liquor Drug use: Never Substance use type: does not use Housing: house 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 Pets and animals: Yes (4 cats) Pets and animals: cat(s) What is your relationship status?: Panel score (0-1 are the most socially isolated patients): 1 Do you feel safe at home: Yes Do you feel safe in your relationship?: Yes Additional Social history: Former smoker , quit in 1994,90 pack yrs. Meds Allergies and Home Medications Allergies Allergy/AdvReac Type Severity Reaction Status Date / Time shellfish derived Allergy Severe Anaphylaxis Verified 10/25/24 19:46 meperidine Allergy Unknown Other (See Verified 10/25/24 19:46 Comment) morphine Allergy Unknown Nausea Verified 10/25/24 19:46 demerol hydrochloride Allergy Unknown Nausea Uncoded 10/25/24 19:46 Home Medications ?Medication ?Instructions ?Recorded ?Confirmed ?Type aspirin 81 mg chewable tablet 81 mg PO DAILY 07/19/18 10/25/24 History nitroglycerin 0.4 mg sublingual 0.4 mg sublingual Q5 MIN PRN X3 07/19/18 10/25/24 Rx tablet (Nitrostat) PRN #1 tab omeprazole magnesium 20 mg 20 mg PO DAILY 07/19/18 10/25/24 History tablet,delayed release (Prilosec OTC) albuterol 90 mcg/actuation aerosol 90 mcg inhalation Q4H PRN PRN 04/19/21 10/25/24 History inhaler allopurinol 300 mg tablet 300 mg PO DAILY 04/19/21 10/25/24 History duloxetine 30 mg capsule,delayed 30 mg PO DAILY 04/19/21 10/25/24 History release tamsulosin 0.4 mg capsule 0.4 mg PO DAILY 04/19/21 10/25/24 History acetaminophen 325 mg tablet 650 mg PO Q6H PRN PRN 06/18/21 10/25/24 History ipratropium 0.5 mg-albuterol 3 mg 3 ml inhalation QID PRN 06/18/21 10/25/24 History (2.5 mg base)/3 mL nebulization soln metoprolol succinate 200 mg 200 mg PO DAILY 06/18/21 10/25/24 History tablet,extended release 24 hr niacinamide 500 mg tablet 500 mg PO BID 06/18/21 10/25/24 History amlodipine 5 mg tablet 5 mg PO DAILY 04/24/23 10/25/24 History multivitamin (Daily Multi-Vitamin 1 tab PO DAILY 09/27/23 10/25/24 History tablet) rosuvastatin 20 mg tablet 10 mg PO DAILY 09/27/23 10/25/24 History semaglutide 0.25 mg or 0.5 mg (2 0.5 mg subcut QWEEK 09/27/23 10/25/24 History mg/3 mL) subcutaneous pen injector (Ozempic) Exam Narrative Exam Narrative: Constitutional: NAD. Head/Face: NCAT. Eyes: PERRL. Nl appearing eyes. ENT: Nl appearing external ears, nose, and oropharynx. No exudates. Uvula mid- line. Neck: Supple, non-tender to palpation. No obvious mass. Chest: Chest wall non-tender to palpation. Resp: Occ wheeze, decreased air movement, slight barrel chest. Equal BS. No rhonchi, crackles, rales. CV: RRR. No rubs, or gallops. Abd/GI: Soft, NTTP. No rebound, guarding, rigidity. No organomegaly or masses palpated. Back/: No spinal tenderness. No CVA tenderness. Skin: Warm & dry. No clinically significant rash noted on exposed skin. MSK/Ext: ULLOA. Non-tender. 5/5 motor in all ext bilaterally. Heme/Lymph: No leg edema. Neuro: A&O. Nl speech. Sensory & Motor grossly intact. Capacity intact. Appropriate judgment. Psych: Appropriate mood, manner, and affect. SIRS Screen: Positive SIRS Criteria (at least 2 of the following): Temp (+ mode) (>101 (38.3), <96.8 (36))- Negative Pulse (>90/min)- Positive (or) Resp (>20/min)- Positive (or) WBC (>12K, <4K) or Bandemia (>10%)- Negative Source of Infection?: Yes- lungs, Influenza A. Antibiotics Indicated?: No- viral, normal procalcitonin, will treat with tamiflu with need for hospitalization and pt comorbidities. Results Imaging Chest x-ray: report reviewed and image reviewed Imaging Studies: NAD Labs 10/26/24 06:05 10/25/24 17:31 Labs: Laboratory Results - last 24 hr 10/25/24 10/25/24 10/25/24 17:31 17:46 18:55 WBC 7.42 RBC 4.50 Hgb 14.9 Hct 43.7 MCV 97 H MCH 33.1 H MCHC 34.1 RDW 13.4 Plt Count 198 MPV 9.6 Immature Gran % 0.4 Neutrophils % 78.8 Lymphocytes % 6.3 Monocytes % 13.7 Eosinophils % 0.4 Basophils % 0.4 Nucleated RBC % 0.0 Absolute Neutrophils 5.84 Absolute Lymphocytes 0.47 L Absolute Monocytes 1.02 H Absolute Eosinophils 0.03 Absolute Basophils 0.03 VBG pH 7.42 H VBG pCO2 42 VBG pO2 35 VBG HCO3 27 VBG Total CO2 24 VBG O2 Saturation 66 VBG Base Excess 3 VBG Lactate 0.9 Sodium 138 Potassium 4.0 Chloride 100 Carbon Dioxide 26.3 Anion Gap 11.7 H BUN 14 Creatinine 1.0 Est GFR (CKD-EPI 2020) 78.00 Glucose 138 H Calcium 8.8 Magnesium 1.6 L Total Bilirubin 0.56 AST 20 ALT 36 Alkaline Phosphatase 46 Troponin I 11 12 NT-Pro-B Natriuret Pep 1021 H Total Protein 7.5 Albumin 3.7 Lipase 31 Procalcitonin < 0.10 Urine Color Urine Clarity Urine pH Ur Specific [place] Urine Protein Urine Ketones Urine Blood Urine Nitrite Urine Bilirubin Urine Urobilinogen Ur Leukocyte Esterase Urine Glucose COVID-19 Source NASOPHARYNX SARS-CoV-2 (PCR) Negative Influenza Type A (PCR) Positive A Influenza Type B (PCR) Negative RSV (PCR) Negative 10/25/24 21:15 WBC RBC Hgb Hct MCV MCH MCHC RDW Plt Count MPV Immature Gran % Neutrophils % Lymphocytes % Monocytes % Eosinophils % Basophils % Nucleated RBC % Absolute Neutrophils Absolute Lymphocytes Absolute Monocytes Absolute Eosinophils Absolute Basophils VBG pH VBG pCO2 VBG pO2 VBG HCO3 VBG Total CO2 VBG O2 Saturation VBG Base Excess VBG Lactate Sodium Potassium Chloride Carbon Dioxide Anion Gap BUN Creatinine Est GFR (CKD-EPI 2020) Glucose Calcium Magnesium Total Bilirubin AST ALT Alkaline Phosphatase Troponin I NT-Pro-B Natriuret Pep Total Protein Albumin Lipase Procalcitonin Urine Color Yellow Urine Clarity Clear Urine pH 6.5 Ur Specific [place] 1.020 Urine Protein Trace Urine Ketones 15 H Urine Blood Negative Urine Nitrite Negative Urine Bilirubin Negative Urine Urobilinogen 1.0 H Ur Leukocyte Esterase Negative Urine Glucose Negative COVID-19 Source SARS-CoV-2 (PCR) Influenza Type A (PCR) Influenza Type B (PCR) RSV (PCR) Last Vital Signs Temp 37.3 C 10/25/24 20:19 Pulse 89 10/25/24 20:19 Resp 18 10/25/24 20:19 BP 125/60 10/25/24 20:19 Pulse Ox 93 10/25/24 20:19 PAWSS Have you Been Recently Intoxicated or Drunk Within the Last 30 days?: No Have you Ever Experienced Previous Episodes of Alcohol Withdrawal?: No Have you ever Experienced Withdrawal Seizures?: No Have you ever Experienced Delirium Tremens(DT)s?: No Have you ever undergone Alcohol Rehabilitation Treatment (i.e, inpt ot outpatient treatment programs)?: No Have you ever Experienced Blackouts?: No Have you ever Combined Alcohol with other Downers within the last 90 days?: No Have you ever Combined Alcohol with any other Substance of Abuse during the last 90 days?: No Positive Blood Alcohol level on Presentation? [PCS.BAL]: No Evidence of Increased Autonomic Activity (i.e. HR>120, tremor, sweating, agitation, nausea)?: No Result: 0 Time Spent Time spent with Patient: >75 minutes Time was spent: preparing to see the patient(eg.review tests), obtaining and/or reviewing separately otained hiistory, ordering medications,tests, procedures, referring, communicating with other health career and technology education teacher, indepentently interpreting results, counseling the patient, care coordination and other
[2024-10-25] MEDS: Lactated Ringers 1,000 ML 50 ML IV (23:40)
[2024-10-25] MEDS: Enoxaparin 40 MG/0.4 ML SYR SC (23:40)
[2024-10-25] MEDS: Normal Saline Flush 10 ML SYR (23:41)
[2024-10-26] VITALS (9 sets, daily range): BP systolic 109–124; BP diastolic 55–78; PULSE 70–76; RESP 5–24; TEMP 36.4–36.7; O2SAT 91–98
[2024-10-26] MEDS: Omeprazole 20 MG CAPCR PO ×2 (00:17→20:19)
[2024-10-26] MEDS: Tamsulosin 0.4 MG CAPCR PO ×2 (00:17→20:20)
[2024-10-26 06:39] LABS: HCT 44.6 % (40.0-50.0); HGB 14.9 g/dL (13.5-17.5); MCH 32.8 pg (27.0-33.0); MCHC 33.4 % (32.0-36.0); MCV 98 fL (80-95); MPV 9.7 fL (8.0-11.0); Platelet Count 175 10^3/uL (130-400); RBC 4.54 10^6/uL (4.36-5.78); RDW 13.2 % (11.8-14.1); RDW-SD 47.5 fL; WBC 4.23 10^3/uL (4.4-10.8)
[2024-10-26 06:58] LABS: Anion Gap 7.2 mmol/L (3-11); BUN 14 mg/dL (7-18); CO2 28.8 mmol/L (21.0-32.0); CREATININE 0.9 mg/dL (0.70-1.30); Calcium 8.9 mg/dL (8.5-10.1); Chloride 103 mmol/L (98-107); Estimated GFR 88.51 (mL/min/1.73m2); Glucose 170 mg/dL (74-106); Potassium 4.3 mmol/L (3.5-5.1); Sodium 139 mmol/L (136-145)
[2024-10-26] MEDS: Albuterol 2.5 MG/3 ML INH SOLN VIAL UPD (09:22)
[2024-10-26] MEDS: Insulin Aspart 300 UNITS/3 ML PEN SC ×2 (09:48→17:14)
[2024-10-26] MEDS: predniSONE 20 MG TAB 40 MG PO (09:49)
[2024-10-26] MEDS: Multivitamin TAB 1 TAB PO (09:50)
[2024-10-26] MEDS: Oseltamivir 75 MG CAP PO ×2 (09:50→20:20)
[2024-10-26] MEDS: DULoxetine 30 MG CAP PO (09:50)
[2024-10-26] MEDS: amLODIPine 5 MG TAB PO (09:50)
[2024-10-26] MEDS: Allopurinol 300 MG TAB PO (09:50)
[2024-10-26] MEDS: Aspirin 81 MG CHEW PO (09:50)
--- NOTE | 2024-10-26 10:15 | INITIAL_ITS ---
Date of service: 10/26/24 Time of Service: 10:15 Care Management Initial Assmt Initial Assessment Reason for Hospitalization: Respiratory failure, Influenza A Functional Status/Living Situation Patient Presentation: Cosmo was lying in bed when CM met with him; he was pleasant and engaged well in conversation. He stated that he is feeling a lot better today than when he arrived. Per report, he is on room air, but remains wheezy with a cough. He stated that he felt ready for discharge on his last admission, but returned to the ED when he started to not feel well again. He reported that usually he waits until he is very sick to seek care, so he was trying to get ahead of it. Cosmo lives in [place] in a single family home with his Nat Gonsales. She has 2 daughters who also live in [place]. Cosmo is retired. 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 He is independent at baseline and does not receive any community services. CM will continue to follow. Town of Residence: [place] Resides with: Spouse (, Nat) Significant Other/Family: Local Employment Status: Retired Instrumental Activities of Daily Living (ADLs): Independent Medications Medication Management: No Issues/Barriers identified Physical Functioning/Mobility Assistive Device: None Advance Directives Advance Directives: Do you have an Advance Directive: Y 06/18/21 09:34 AD On File at [facility]: N 07/19/18 14:04 Date Asked 10/25/24 10/25/24 17:00 AD Date Reviewed COLST On File at [facility] COLST Date Scanned Code Status Resuscitation Status Full Code Insurance Coverage/Financial Issues Insurance: [facility] Care Team Visit Care Team Role Provider Type Robin Guardado DO MD [facility] STAFF PHYSICIAN Regla Cordoba Primary Care Provider OSTEOPATHIC DOCTOR NOLAN Murdock Emergency Provider PHYSICIANS PRODUCTION CONTROL SUPERVISOR Robin Gonzalez MD Admit Provider [facility] STAFF PHYSICIAN Attending Provider Discharge Potential Discharge Needs: PCP F/U Appt (Appt scheduled on 10/29/24) Anticipated Barriers to Discharge: None Identified Patient/Family Education Needs: Review discharge instructions, discuss Ask Me Three Transportation: Private vehicle Plan: Anticipate Cosmo will be discharged home with no new services when medically c leared. He will follow up with his PCP and plan of care and transport with family. CM will follow and continue to assess for discharge needs. Social Determinants of Health Screening Will the Patient Participate in the Screening?: Declined to provide PFSH All Active Problems Influenza A (Acute) Respiratory failure (Acute) Enlarged prostate (Acute) benign GERD (gastroesophageal reflux disease) (Chronic) Pneumonia (Acute) Near syncope (Acute) Post-operative complication (Acute) Leukocytosis, unspecified (Acute) Hyperglycemia (Acute) Essential hypertension (Acute) Acute coronary syndrome (Acute) Medical History HESHAM (obstructive sleep apnea) Hypercholesteremia Diabetes mellitus COPD (chronic obstructive pulmonary disease) patient follows w/ Dr. Barros, medical management trainer, [place] History of posttraumatic stress disorder (PTSD) Former smoker quit in 1994,90 pack year Basal cell carcinoma of skin right cheek [place] [facility] [place]schemic heart disease s/p stent x1 Jul 2018 [facility] [place]. Sudhir Ceballos. -after progressive SEPULVEDA, then chest pain. 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 Zheng Peñaloza, teachers assistant, [place] Surgical History H/O melanoma excision H/O colonoscopy H/O nasal septoplasty Family History Father History of non-ST elevation myocardial infarction (NSTEMI) Prostate cancer metastatic to multiple sites Mother COPD (chronic obstructive pulmonary disease) Sister Breast cancer Sister Ovarian cancer Brother Lung cancer Social History Smoking/Tobacco Use Status: Former Tobacco Use Quit Date: 09/02/89 Tobacco: How many years used: 37 Smoking risk assessment performed?: Yes Alcohol Intake: current Alcohol Intake frequency: 0-2 drinks per day Alcohol ty pe: hard liquor Drug use: Never Substance use type: does not use Housing: house current occupation: 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 Pets and animals: Yes (4 cats) Pets and animals: cat(s) What is your relationship status?: Panel score (0-1 are the most socially isolated patients): 1 Do you feel safe at home: Yes Do you feel safe in your relationship?: Yes Additional Social history: Former smoker , quit in 1994,90 pack yrs. Readmission Within the Past 30 Days Yes or No: Yes Date of First Admission Date of 1st Admission: 10/12/24 Date of this Admission Date of Admission: 10/25/24 This admission was: Through ED Office Visit Since 1st Admission Have you seen your PCP in the office since discharge?: No Had an appointment Been Scheduled?: Yes Date of Scheduled Appointment: 10/29/24 I. Interview patient and/or Family Difficulty reaching your doctor or getting an office appt?: No Have you had trouble purchasing/ or taking medication?: No How do you take your medications and set up your pills?: Independently Have you had trouble with getting meals at home?: No Did you feel ready for discharge when you left the last time: Yes Reason there were no orders at discharge: Not indicated Did you call your physician beore you came to the ED?: No How do you think you became sick enough to come back?: Cosmo reported that he has been sick three times in the last month; he is unsure why. ED visits How many ED visits in the past 12 months: 3 Assessment for Readmission Summary of readmission circumstances, based upon interviews: Cosmo reported that he felt ready for discharge when he went home on his previous admission. He started to feel sick again, and rather than waiting to potentially get worse, he came into the ED. He reported that he has a PCP appt scheduled for 10/29, and hopes to be discharged prior to the appointment. Per report, he is on room air, and if he continues to improve, he may be ready for discharge tomorrow. CM will continue to follow.
--- NOTE | 2024-10-26 13:09 | W.PM.PROGNOT ---
Date of Service Date of service: 10/26/24 Time of Service: 13:10 Assessment and Plan Assessment and plan (1) COPD (chronic obstructive pulmonary disease): Assessment and plan: - exacerbation, likely prompted by influenza infection - continue prednisone PO at 40mg daily for now - continue duonebs prn - off supplemental O2, can restart prn and qhs as noted (2) Influenza A: Status: Acute Assessment and plan: - respiratory support as noted above - continue Tamiflu 75mg PO BID to finish full course (3) Essential hypertension: Status: Acute Assessment and plan: -= continue outpatient meds (metoprolol, amlodipine) (4) HESHAM (obstructive sleep apnea): Assessment and plan: - 3LNS qhs as per outpatient (5) Hypercholesteremia: Assessment and plan: - continue Crestor as ordered Subjective Subjective Interval history since last seen: Seen and examined. Tells me he is feeling much better, no longer on supplemental O2 with good vitals. (Of note, patient is on 3L chronically at night because he has HESHAM and cannot tolerate CPAP). Does have a loose cough. Vitals stable, patient remains afebrile. Exam Const General: cooperative, comfortable and no acute distress Neck Lymphatic: no lymphadenopathy noted Chest Chest: normal inspection of the chest Resp Effort & Inspection: normal respiratory effort and no respiratory distress Auscultation: rales and wheezes (pronounced scattered b/l) Cardio Jugular venous pressure: no JVD Rate: regular rate Rhythm: regular rhythm GI Inspection: normal to inspection Palpation: soft Auscultation: normal bowel sounds Skin General skin exam: no rashes or lesions noted Neuro General: patient alert, patient awake and patient oriented x3 Objective Last Vital Signs Temp 36.4 C L 10/26/24 13:00 Pulse 74 10/26/24 13:00 Resp 24 10/26/24 13:00 BP 119/58 L 10/26/24 13:00 Pulse Ox 93 10/26/24 13:00 Laboratory Results - last 24 hr 10/25/24 10/25/24 10/25/24 17:31 17:46 18:55 WBC 7.42 RBC 4.50 Hgb 14.9 Hct 43.7 MCV 97 H MCH 33.1 H MCHC 34.1 RDW 13.4 Plt Count 198 MPV 9.6 Immature Gran % 0.4 Neutrophils % 78.8 Lymphocytes % 6.3 Monocytes % 13.7 Eosinophils % 0.4 Basophils % 0.4 Nucleated RBC % 0.0 Absolute Neutrophils 5.84 Absolute Lymphocytes 0.47 L Absolute Monocytes 1.02 H Absolute Eosinophils 0.03 Absolute Basophils 0.03 VBG pH 7.42 H VBG pCO2 42 VBG pO2 35 VBG HCO3 27 VBG Total CO2 24 VBG O2 Saturation 66 VBG Base Excess 3 VBG Lactate 0.9 Sodium 138 Potassium 4.0 Chloride 100 Carbon Dioxide 26.3 Anion Gap 11.7 H BUN 14 Creatinine 1.0 Est GFR (CKD-EPI 2020) 78.00 Glucose 138 H Calcium 8.8 Magnesium 1.6 L Total Bilirubin 0.56 AST 20 ALT 36 Alkaline Phosphatase 46 Troponin I 11 12 NT-Pro-B Natriuret Pep 1021 H Total Protein 7.5 Albumin 3.7 Lipase 31 Procalcitonin < 0.10 Urine Color Urine Clarity Urine pH Ur Specific [place] Urine Protein Urine Ketones Urine Blood Urine Nitrite Urine Bilirubin Urine Urobilinogen Ur Leukocyte Esterase Urine Glucose COVID-19 Source NASOPHARYNX SARS-CoV-2 (PCR) Negative Influenza Type A (PCR) Positive A Influenza Type B (PCR) Negative RSV (PCR) Negative 10/25/24 10/26/24 21:15 06:05 WBC 4.23 L RBC 4.54 Hgb 14.9 Hct 44.6 MCV 98 H MCH 32.8 MCHC 33.4 RDW 13.2 Plt Count 175 MPV 9.7 Immature Gran % Neutrophils % Lymphocytes % Monocytes % Eosinophils % Basophils % Nucleated RBC % Absolute Neutrophils Absolute Lymphocytes Absolute Monocytes Absolute Eosinophils Absolute Basophils VBG pH VBG pCO2 VBG pO2 VBG HCO3 VBG Total CO2 VBG O2 Saturation VBG Base Excess VBG Lactate Sodium 139 Potassium 4.3 Chloride 103 Carbon Dioxide 28.8 Anion Gap 7.2 BUN 14 Creatinine 0.9 Est GFR (CKD-EPI 2020) 88.51 Glucose 170 H Calcium 8.9 Magnesium Total Bilirubin AST ALT Alkaline Phosphatase Troponin I NT-Pro-B Natriuret Pep Total Protein Albumin Lipase Procalcitonin Urine Color Yellow Urine Clarity Clear Urine pH 6.5 Ur Specific [place] 1.020 Urine Protein Trace Urine Ketones 15 H Urine Blood Negative Urine Nitrite Negative Urine Bilirubin Negative Urine Urobilinogen 1.0 H Ur Leukocyte Esterase Negative Urine Glucose Negative COVID-19 Source SARS-CoV-2 (PCR) Influenza Type A (PCR) Influenza Type B (PCR) RSV (PCR) PAWSS Have you Been Recently Intoxicated or Drunk Within the Last 30 days?: No Have you Ever Experienced Previous Episodes of Alcohol Withdrawal?: No Have you ever Experienced Withdrawal Seizures?: No Have you ever Experienced Delirium Tremens(DT)s?: No Have you ever undergone Alcohol Rehabilitation Treatment (i.e, inpt ot outpatient treatment programs)?: No Have you ever Experienced Blackouts?: No Have you ever Combined Alcohol with other Downers within the last 90 days?: No Have you ever Combined Alcohol with any other Substance of Abuse during the last 90 days?: No Positive Blood Alcohol level on Presentation? [PCS.BAL]: No Evidence of Increased Autonomic Activity (i.e. HR>120, tremor, sweating, agitation, nausea)?: No Result: 0 Time Spent with Patient Time Spent with Patient: <25 minutes Time was spent: preparing to see the patient(eg.review tests), ordering medications,tests, procedures, indepentently interpreting results, counseling the patient and care coordination
--- NOTE | 2024-10-26 15:03 | NUR.NOTE ---
patient AxOx4 throughout shift, VSS, denies pain, insp/exp wheezing noted this AM on assessment, RT asked for neb treatment. Pt to stay one more night for pulm recovery and poss d/c to home 10/27. IVF d/c'd, ambulating in room, 3L HS in lieu of CPAP, tolerating meals, BM 10/25, voids independenly, PIV intact, no needs, bed low/locked, call coleman in reach. Nursing Note:
[2024-10-26] MEDS: Rosuvastatin 20 MG TAB 10 MG PO (20:19)
[2024-10-26] MEDS: Enoxaparin 40 MG/0.4 ML SYR SC (20:20)
[2024-10-27 02:32] VITALS: BP 132/72; PULSE 64; RESP 22; TEMP 36.4; O2SAT 97
[2024-10-27 07:02] LABS: Abs Immature Grans 0.05 10^3/uL (0.0-0.06); Absolute Basophil Count 0.01 10^3/uL (0.0-0.2); Absolute Lymphocyte Count 1.41 10^3/uL (1.2-3.4); Absolute Monocyte Count 1.06 10^3/uL (0.1-0.8); Absolute Neutrophil Count 7.03 10^3/uL (1.2-6.7); Basophils % 0.1 %; HCT 45.2 % (40.0-50.0); HGB 14.8 g/dL (13.5-17.5); Immature Grans % 0.5 %; Lymphocytes % 14.7 %; MCH 32.3 pg (27.0-33.0); MCHC 32.7 % (32.0-36.0); MCV 99 fL (80-95); Monocytes % 11.1 %; Neutrophils % 73.6 %; Platelet Count 197 10^3/uL (130-400); RBC 4.58 10^6/uL (4.36-5.78); RDW 13.4 % (11.8-14.1); RDW-SD 49.1 fL; WBC 9.56 10^3/uL (4.4-10.8)
[2024-10-27 07:09] LABS: Anion Gap 4.5 mmol/L (3-11); BUN 20 mg/dL (7-18); CO2 31.5 mmol/L (21.0-32.0); Chloride 105 mmol/L (98-107); Glucose 123 mg/dL (74-106); Sodium 141 mmol/L (136-145)
[2024-10-27 08:54] VITALS: BP 114/62; PULSE 69; RESP 20; TEMP 36.6; O2SAT 93
[2024-10-27] MEDS: Aspirin 81 MG CHEW PO (09:03)
[2024-10-27] MEDS: amLODIPine 5 MG TAB PO (09:03)
[2024-10-27] MEDS: Multivitamin TAB 1 TAB PO (09:03)
[2024-10-27] MEDS: predniSONE 20 MG TAB 40 MG PO (09:03)
[2024-10-27] MEDS: Allopurinol 300 MG TAB PO (09:03)
[2024-10-27] MEDS: DULoxetine 30 MG CAP PO (09:03)
[2024-10-27] MEDS: Oseltamivir 75 MG CAP PO (09:04)
[2024-10-27] MEDS: Metoprolol CR 50 MG TABCR 200 MG PO (09:05)
[2024-10-27 11:21] VITALS: BP 112/78; PULSE 76; RESP 20; TEMP 36.8; O2SAT 93
--- NOTE | 2024-10-27 12:53 | NUR.NOTE ---
pt has been AxOx4 throughout shift, VSS, sats stable on room air, continues to have exp wheezes, encouraged to use acapella and I.S., no nebs indicated at this time, pt denies dypsnea. INdpendent in room, PIV intact, denies pain or needs. Pending d/c order. Nursing Note:
--- NOTE | 2024-10-27 13:07 | W.PM.DS.N ---
Date of service: 10/27/24 Time of Service: 13:07 DS: Diagnosis Discharge Diagnosis (1) COPD (chronic obstructive pulmonary disease): (2) Influenza A: Status: Acute (3) Essential hypertension: Status: Acute (4) HESHAM (obstructive sleep apnea): (5) Hypercholesteremia: Discharge Plan Disposition Patient Disposition: Home Condition: Good Discharge Details Reason For Visit: Respiratory failure, Influenza A Admit Date/Time: 10/25/24 19:31 Admit Provider: Robin Gonzalez Attending Provider: Robin Gonzalez Primary Care Provider: Regla Cordoba Hospital Course Hospital Course: Per H+P: 74 yo wm with PMH that includes DM, Lung CA with resection, COPD, IHD, HTN, HLD, HESHAM, h/p PTSD, former smoker, presents with SOB. Patient was recently hospitalized here 10 days ago, and discharged with 7 days of oral antibiotics to complete treatment for pneumonia which he took. Patient's now reports 3 days of progressive flulike illness (directly following stopping his antibiotics) with worsening shortness of breath, productive cough, generalized weakness, decreased mobility, and associated confusion. Patient has underlying COPD and is on 3 L of oxygen at home while sleeping, but does not wear supplemental oxygen during the day. Denies known contacts with similar illness. In our emergency room, patient tested positive for influenza A. BNP is elevated without clinical signs and symptoms of overload. Negative troponin. Low magnesium at 1.6. No hypercarbia on VBG. CXR NAD. Found to have tachycardia with diminished lung sounds and mild respiratory distress. Elected to treat with Tamiflu because of severity and comorbidities. No significant evidence to support bacterial infection currently. QTc mildly prolonged. Oxygen saturation: 86% with sleep, 87-88% with ambulation, baseline 93% per patient. Given IV Solu-Medrol, 2 DuoNebs, 1 L of fluid total, supplemental oxygen. Patient recommended for admission for acute hypoxic respiratory failure secondary to influenza A. No antibiotics given with patient's acute viral illness, and just finishing CAP course of antibiotics 3 days ago. Patient expressed full code wishes. Patient was started on Tamiflu on presentation, also continued on prednisone 40mg PO daily x 2 days. Did well with this, did not require supplemental O2 outside of the 3L he uses qhs for HESHAM. On 10/27, patient was feeling much better although he did have a mildly persistent wheeze. Plan will be to discharge home today. Will continue Tamiflu for full 5 day couirse and give rapid prednisone taper. To follow with his PCP as needed, can return to ER if he has worsening SOB. Home Meds and New Rx's Prescriptions: New Oseltamivir [Tamiflu] 75 mg PO BID 3 Days Qty: 6 0RF prednisone 10 mg tablet 10 mg PO DIRECTED Qty: 10 0RF Rx Instructions: 4 tabs po qd x 1 day then 3 tabs po qd x 1 day then 2 tabs po qd x 1 day then 1 tab po qd x 1 day then d/c prednisone 10 mg tablet 10 mg PO DIRECTED Qty: 10 0RF Rx Instructions: 4 tabs po qd x 1 day then 3 tabs po qd x1 day then 2 tabs po qd x 1 day then 1 tab po qd x 1 day then d/c oseltamivir [Tamiflu] 75 mg capsule 75 mg PO BID 3 Days Qty: 6 0RF Continued multivitamin [Daily Multi-Vitamin] Tablet 1 tab PO DAILY Ozempic 0.25 mg or 0.5 mg (2 mg/3 mL) pen injector 0.5 mg subcut QWEEK amlodipine 5 mg tablet 5 mg PO DAILY tamsulosin 0.4 mg capsule 0.4 mg PO DAILY allopurinol 300 mg tablet 300 mg PO DAILY albuterol 90 mcg/actuation Aerosol 90 mcg INHALATION Q4H PRN PRN duloxetine 30 mg Capsule,Delayed Release(Dr/Ec) 30 mg PO DAILY rosuvastatin 20 mg tablet 10 mg PO DAILY acetaminophen 325 mg Tablet 650 mg PO Q6H PRN PRN ipratropium-albuterol 0.5 mg-3 mg(2.5 mg base)/3 mL Solution For Nebulization 3 ml INHALATION QID PRN metoprolol succinate 200 mg tablet extended release 24 hr 200 mg PO DAILY niacinamide 500 mg Tablet 500 mg PO BID aspirin 81 mg Tablet,Chewable 81 mg PO DAILY Patient Comments: on hold for surgery omeprazole magnesium [Prilosec OTC] 20 mg Tablet,Delayed Release (Dr/Ec) 20 mg PO DAILY nitroglycerin [Nitrostat] 0.4 mg Tablet, Sublingual 0.4 mg Sublingual Q5 MIN PRN X3 PRNQty: 1 0RF Discharge Instructions Referrals: Regla Cordoba [Primary Care Provider] - Activity:: Activity as Tolerated Equipment/Supplies:: No Equipment Needed Diet:: As Tolerated DS: Summary Time Spent with Patient providing and/or coordinating discharge services: Greater than 30 minutes Status at Discharge Functional status at discharge: independent ambulation Overall status at discharge: patient is back to baseline Mental Status: mental status grossly normal Speech and Movement: speech and movement normal Mood: congruent mood Affect: normal affect Quality:SDOH Health Related Social Needs: No Data to Display Exam Const General: cooperative, comfortable and no acute distress Chest Chest: normal inspection of the chest Resp Effort & Inspection: normal respiratory effort Auscultation: no rales, no rhonchi and wheezes (mild scatteed, improved from yesterday) Cardio Jugular venous pressure: no JVD Rate: regular rate Rhythm: regular rhythm Heart Sounds: S1 normal and S2 normal GI Inspection: normal to inspection Palpation: soft and nontender Auscultation: normal bowel sounds Skin General skin exam: no rashes or lesions noted Neuro General: patient alert, patient awake and patient oriented x3 Extrem General: normal to inspection Psych Mental Status: mental status grossly normal Speech and Movement: speech and movement normal Mood: congruent mood Affect: normal affect DS: Data Vitals/I&O Vitals and I&O: Vital Signs Temperature 36.8 C 10/27/24 11:21 Temperature Source Temporal Artery Scan 10/27/24 11:21 Pulse 76 10/27/24 11:21 Pulse Rhythm Regular 10/25/24 20:19 Pulse 93 H 10/25/24 19:50 Respiratory Rate 20 10/27/24 11:21 Respiratory Effort Normal, Non-Labored 10/25/24 20:19 Respiratory Depth Normal 10/25/24 20:19 Respiratory Pattern Normal 10/25/24 20:19 Blood Pressure 112/78 10/27/24 11:21 Blood Pressure Mean 79 10/25/24 19:30 Blood Pressure Position Sitting 10/25/24 17:07 Pulse Oximetry 93 10/27/24 11:21 Oxygen Delivery Method Room Air 10/27/24 11:21 Oxygen Flow Rate 0 10/27/24 11:21 Pain Level 0 10/27/24 11:21 Comment 1L NC 10/25/24 19:01 Intake & Output 10/26/24 10/27/24 10/27/24 23:59 11:59 23:59 Intake Total 1779 240 / 980 740 / 980 Balance 1779 240 / 980 740 / 980 Intake: IV 700 / 700 Oral 1080 / 1320 240 / 980 740 / 980 Other: Urine Color Yellow Urine Appearance Clear Urine Odor None Comment Independent to the bathroom. Data Completed and Pending Labs on day of discharge: Labs from last 24 hours 10/27/24 06:27 WBC 9.56 RBC 4.58 Hgb 14.8 Hct 45.2 MCV 99 H MCH 32.3 MCHC 32.7 RDW 13.4 Plt Count 197 MPV 10.0 Immature Gran % 0.5 Neutrophils % 73.6 Lymphocytes % 14.7 Monocytes % 11.1 Eosinophils % 0.0 Basophils % 0.1 Nucleated RBC % 0.0 Absolute Neutrophils 7.03 H Absolute Lymphocytes 1.41 Absolute Monocytes 1.06 H Absolute Eosinophils 0.00 Absolute Basophils 0.01 Sodium 141 Potassium 4.0 Chloride 105 Carbon Dioxide 31.5 Anion Gap 4.5 BUN 20 H Creatinine 1.0 Est GFR (CKD-EPI 2020) 78.00 Glucose 123 H Calcium 9.0 Imaging Chest x-ray: Lab and Radiology Reports: Laboratory Results WBC 9.56 10^3/uL (4.4-10.8) 10/27/24 06:27 RBC 4.58 10^6/uL (4.36-5.78) 10/27/24 06:27 Hgb 14.8 g/dL (13.5-17.5) 10/27/24 06:27 Hct 45.2 % (40.0-50.0) 10/27/24 06:27 MCV 99 fL (80-95) H 10/27/24 06:27 MCH 32.3 pg (27.0-33.0) 10/27/24 06:27 MCHC 32.7 % (32.0-36.0) 10/27/24 06:27 RDW 13.4 % (11.8-14.1) 10/27/24 06:27 Plt Count 197 10^3/uL (130-400) 10/27/24 06:27 MPV 10.0 fL (8.0-11.0) 10/27/24 06:27 Immature Gran % 0.5 % 10/27/24 06:27 Neutrophils % 73.6 % 02/25/25 06: Lymphocytes % 14.7 % 10/27/24 06: Monocytes % 11.1 % 10/27/24 06: Eosinophils % 0.0 % 10/27/24 06: Basophils % 0.1 % 10/27/24 06: Nucleated RBC % 0.0 % (0.0-0.3) 10/27/24 06:27 Absolute Neutrophils 7.03 10^3/uL (1.2-6.7) H 10/27/24 06:27 Absolute Lymphocytes 1.41 10^3/uL (1.2-3.4) 10/27/24 06: Absolute Monocytes 1.06 10^3/uL (0.1-0.8) H 10/27/24 06: Absolute Eosinophils 0.00 10^3/uL (0.0-0.7) 10/27/24 06: Absolute Basophils 0.01 10^3/uL (0.0-0.2) 10/27/24 06:27 VBG pH 7.42 (7.31-7.41) H 10/25/24 17:31 VBG pCO2 42 mmHg (41-51) 10/25/24 17:31 VBG pO2 35 mmHg 10/25/24 17:31 VBG HCO3 27 mmol/L (23-28) 10/25/24 17:31 VBG Total CO2 24 mmol/L (24-29) 10/25/24 17:31 VBG O2 Saturation 66 % 10/25/24 17:31 VBG Base Excess 3 mmol/L (-2-3) 10/25/24 17: VBG Lactate 0.9 mmol/L (<or=2.0) 10/25/24 17: Sodium 141 mmol/L (136-145) 10/27/24 06: Potassium 4.0 mmol/L (3.5-5.1) 10/27/24 06: Chloride 105 mmol/L (98-107) 10/27/24 06:27 Carbon Dioxide 31.5 mmol/L (21.0-32.0) 10/27/24 06:27 Anion Gap 4.5 mmol/L (3-11) 10/27/24 06:27 BUN 20 mg/dL (7-18) H 10/27/24 06:27 Creatinine 1.0 mg/dL (0.70-1.30) 10/27/24 06:27 Est GFR (CKD-EPI 2020) 78.00 (mL/min/1.73m2) 10/27/24 06:27 Glucose 123 mg/dL (74-106) H 10/27/24 06:27 Calcium 9.0 mg/dL (8.5-10.1) 10/27/24 06:27 Magnesium 1.6 mg/dL (1.8-2.4) L 10/25/24 17:31 Total Bilirubin 0.56 mg/dL (0.2-1.0) 10/25/24 17:31 AST 20 U/L (15-37) 10/25/24 17:31 ALT 36 U/L (16-63) 10/25/24 17:31 Alkaline Phosphatase 46 U/L (46-116) 10/25/24 17:31 Troponin I 12 ng/L (<or=76) 10/25/24 18:55 NT-Pro-B Natriuret Pep 1021 pg/mL (<300) H 10/25/24 17:31 Total Protein 7.5 g/dL (6.4-8.2) 10/25/24 17:31 Albumin 3.7 g/dL (3.4-5.0) 10/25/24 17:31 Lipase 31 U/L (<78) 10/25/24 17:31 Procalcitonin < 0.10 ng/mL 10/25/24 17:31 Urine Color Yellow (Yellow) 10/25/24 21:15 Urine Clarity Clear (Clear) 10/25/24 21:15 Urine pH 6.5 (5-8) 10/25/24 21:15 Ur Specific Jenkins 1.020 (1.005-1.025) 10/25/24 21:15 Urine Protein Trace mg/dL (Neg-Trace) 10/25/24 21:15 Urine Ketones 15 mg/dL (Negative) H 10/25/24 21:15 Urine Blood Negative (Negative) 10/25/24 21:15 Urine Nitrite Negative (Negative) 10/25/24 21:15 Urine Bilirubin Negative (Negative) 10/25/24 21:15 Urine Urobilinogen 1.0 mg/dL (Up to 0.2) H 10/25/24 21:15 Ur Leukocyte Esterase Negative (Negative) 10/25/24 21:15 Urine Glucose Negative mg/dL (Negative) 10/25/24 21:15 COVID-19 Source NASOPHARYNX 10/25/24 17:46 SARS-CoV-2 (PCR) Negative (Negative) 10/25/24 17:46 Influenza Type A (PCR) Positive (Negative) A 10/25/24 17:46 Influenza Type B (PCR) Negative (Negative) 10/25/24 17:46 RSV (PCR) Negative (Negative) 10/25/24 17:46 PFSH All Active Problems Influenza A (Acute) Respiratory failure (Acute) Enlarged prostate (Acute) benign GERD (gastroesophageal reflux disease) (Chronic) Pneumonia (Acute) Near syncope (Acute) Post-operative complication (Acute) Leukocytosis, unspecified (Acute) Hyperglycemia (Acute) Essential hypertension (Acute) Acute coronary syndrome (Acute) Medical History HESHAM (obstructive sleep apnea) Hypercholesteremia Diabetes mellitus COPD (chronic obstructive pulmonary disease) patient follows w/ Dr. Barros, director of guidance, [place] History of posttraumatic stress disorder (PTSD) Former smoker quit in 1994,90 pack year Basal cell carcinoma of skin right cheek 2011 [facility] [place]schemic heart disease s/p stent x1 Jul 2018 [facility] [place] Dr. Sudhir Ceballos. -after progressive SEPULVEDA, then chest pain. 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 Zheng Peñaloza, sole trimmer, [place] Surgical History H/O melanoma excision H/O colonoscopy H/O nasal septoplasty Family History Father History of non-ST elevation myocardial infarction (NSTEMI) Prostate cancer metastatic to multiple sites Mother COPD (chronic obstructive pulmonary disease) Sister Breast cancer Sister Ovarian cancer Brother Lung cancer Social History Smoking/Tobacco Use Status: Former Tobacco Use Quit Date: 09/02/89 Tobacco: How many years used: 37 Smoking risk assessment performed?: Yes Alcohol Intake: current Alcohol Intake frequency: 0-2 drinks per day Alcohol type: hard liquor Drug use: Never Substance use type: does not use Housing: house current 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 Pets and animals: Yes (4 cats) Pets and animals: cat(s) What is your relationship status?: Panel score (0-1 are the most socially isolated patients): 1 Do you feel safe at home: Yes Do you feel safe in your relationship?: Yes Additional Social history: Former smoker , quit in 1994,90 pack yrs. Time Spent with Patient Time Spent with Patient: <45 minutes Time was spent: preparing to see the patient(eg.review tests), obtaining and/or reviewing separately otained hiistory, ordering medications,tests, procedures, indepentently interpreting results and counseling the patient
--- NOTE | 2024-10-27 13:42 | NUR.NOTE ---
patient with d/c order, given d/c instructions including f/u appointment at with internalist, prescriptions and medication list and s/s to report back to ED for. PIV removed, pt waiting for ride from , denies questions or concerns, denies pain, all belongings packed up by patient. Nursing Note:
--- NOTE | 2024-10-27 14:27 | PDOC.CMDIS ---
Date of service: 10/27/24 Time of Service: 14:27 LACE Index Scoring Tool Questions: Length of Stay (in days): 2 Was the patient admitted via the E.D.?: Yes E.D. Visits: 2 Answers: Total Score: 7 Risk of Readmission: Low Risk Care Management Discharge Plan Reason for Hospitalization: respiratory failure, Influenza A Discharge Plan: Cosmo returned home today with no new services. His drove him home via private vehicle. He will follow up with his PCP on 10/29/24, and discharge plan of care. Patient/Family Education Needs: Review discharge instructions and limitations, discussion of self care needs including ask me three. SDKS Health Related Social Needs: No Data to Display
== END 2024-10-27 14:22 | disposition home or self-care (01) ==
LOC: ER 17:18 → MS 20:18
PROVIDERS: Admitting Provider Emergency Medicine; Emergency Provider Physician Assistant; PCP Internal Medicine Geriatric Medicine; Responsible Provider Hospitalist; Visit Provider Emergency Medicine
DX: J10.1 Influenza due to other identified influenza virus with other respiratory manifestations (principal); J96.01 Acute respiratory failure with hypoxia; I25.9 Chronic ischemic heart disease, unspecified; E11.9 Type 2 diabetes mellitus without complications; R53.1 Weakness; Z99.81 Dependence on supplemental oxygen; E83.42 Hypomagnesemia; R94.31 Abnormal electrocardiogram [ECG] [EKG]; K21.9 Gastro-esophageal reflux disease without esophagitis; G47.33 Obstructive sleep apnea (adult) (pediatric); E78.00 Pure hypercholesterolemia, unspecified; F43.10 Post-traumatic stress disorder, unspecified; Z87.891 Personal history of nicotine dependence; Z95.5 Presence of coronary angioplasty implant and graft; Z85.118 Personal history of other malignant neoplasm of bronchus and lung; Z90.2 Acquired absence of lung [part of]; Z79.82 Long term (current) use of aspirin; Z79.899 Other long term (current) drug therapy; Z79.85 Long-term (current) use of injectable non-insulin antidiabetic drugs; J44.1 Chronic obstructive pulmonary disease with (acute) exacerbation
CPT/HCPCS: 00123; 36415; 80048; 80053; 82805; 83690; 84145; 85027; 87637; 94640; 94761; 96361; 96365; 96366; 96367; 96372; 96375; 99285; J1650; 71046; 81003; 83605; 83735; 83880; 84484; 85025; 94667; 94760; 99223; 99231; 99239; G0378; J0131; J1815; J2919; J3475; J7512; J7613; J7620

== ENCOUNTER 2025-01-02 11:38 | Inpatient (IN) | payer OTHER, SELFPAY ==
[2025-01-02] VITALS (42 sets, daily range): BP systolic 95–212; BP diastolic 48–178; PULSE 84–128; RESP 5–44; TEMP 36.2–38.3; O2SAT 79–96
--- NOTE | 2025-01-02 11:30 | RT.EKG_ITS ---
APPROVED REPORT Exam: Resting ECG Reason for Exam: SOB chest pain Patient Location: E HR:128 bpm ECG Measurements Heart Rate 128 AXIS CO [id number] P [id number] QRSd 124 QRS -67 QT 318 T 91 QTc 465 Conclusion Atrial fibrillation...? atrial activity Ventricular tachycardia, unsustained...sequence of 3 or more V complexes Nonspecific T abnormalities, lateral leads...T <-0.10mV, I aVL V5 V6 ST elevation, consider inferior injury...ST >0.08mV, II III aVF No Occlusion CT
[2025-01-02 12:14] LABS: Abs Immature Grans 0.14 10^3/uL (0.0-0.06); Absolute Lymphocyte Count 0.79 10^3/uL (1.2-3.4); Basophils % 0.4 %; Eosinophils % 0.4 %; HCT 45.9 % (40.0-50.0); HGB 15.5 g/dL (13.5-17.5); Immature Grans % 0.8 %; Lactate 2.2 mmol/L (<or=2.0); Lymphocytes % 4.8 %; MCH 33.1 pg (27.0-33.0); MCHC 33.8 % (32.0-36.0); MCV 98 fL (80-95); MPV 9.7 fL (8.0-11.0); Monocytes % 4.7 %; Neutrophils % 88.9 %; Platelet Count 256 10^3/uL (130-400); RBC 4.68 10^6/uL (4.36-5.78); RDW 13.8 % (11.8-14.1); RDW-SD 49.9 fL; WBC 16.52 10^3/uL (4.4-10.8)
--- NOTE | 2025-01-02 12:17 | ED.GENADUL_ITS ---
Discharge Plan Disposition Patient Disposition: Admit to [facility] Condition: Stable Discharge Details Clinical Impression: Sepsis, Pneumonia, D-dimer, elevated Primary Care Provider: Regla Cordoba ED Provider: Alva Hart Home Meds and New Rx's Prescriptions: No Action multivitamin [Daily Multi-Vitamin] Tablet 1 tab PO DAILY Ozempic 0.25 mg or 0.5 mg (2 mg/3 mL) pen injector 0.5 mg subcut QWEEK amlodipine 5 mg tablet 5 mg PO DAILY tamsulosin 0.4 mg capsule 0.4 mg PO DAILY allopurinol 300 mg tablet 300 mg PO DAILY albuterol 90 mcg/actuation Aerosol 90 mcg INHALATION Q4H PRN PRN duloxetine 30 mg Capsule,Delayed Release(Dr/Ec) 30 mg PO DAILY rosuvastatin 20 mg tablet 10 mg PO DAILY acetaminophen 325 mg Tablet 650 mg PO Q6H PRN PRN ipratropium-albuterol 0.5 mg-3 mg(2.5 mg base)/3 mL Solution For Nebulization 3 ml INHALATION QID PRN metoprolol succinate 200 mg tablet extended release 24 hr 200 mg PO DAILY niacinamide 500 mg Tablet 500 mg PO BID aspirin 81 mg Tablet,Chewable 81 mg PO DAILY Patient Comments: on hold for surgery omeprazole magnesium [Prilosec OTC] 20 mg Tablet,Delayed Release (Dr/Ec) 20 mg PO DAILY nitroglycerin [Nitrostat] 0.4 mg Tablet, Sublingual 0.4 mg Sublingual Q5 MIN PRN X3 PRNQty: 1 0RF HPI General Mode of arrival: wheelchair . Date/Time Provider Initiated Documentation: 01/02/25 11:58 . Limitations to Documentation: no limitations . Information obtained by: patient, family, RN notes reviewed and old records reviewed . HPI Narrative: 74-year-old male with past medical history of atrial fibrillation COPD, type 2 diabetes, hypertension hyperlipidemia obstructive sleep apnea presents to the ER with a chief complaint of shortness of breath, confusion, fever which began yesterday. reports nausea. He is febrile, tachypneic tachycardic upon arrival. Satting 79% on room air. Related Data Home Medications ?Medication ?Instructions ?Recorded ?Confirmed aspirin 81 mg chewable tablet 81 mg PO DAILY 07/19/18 01/02/25 nitroglycerin 0.4 mg sublingual 0.4 mg sublingual Q5 MIN PRN X3 07/19/18 01/02/25 tablet (Nitrostat) PRN #1 tab omeprazole magnesium 20 mg 20 mg PO DAILY 07/19/18 01/02/25 tablet,delayed release (Prilosec OTC) albuterol 90 mcg/actuation aerosol 90 mcg inhalation Q4H PRN PRN 04/19/21 01/02/25 inhaler allopurinol 300 mg tablet 300 mg PO DAILY 04/19/21 01/02/25 duloxetine 30 mg capsule,delayed 30 mg PO DAILY 04/19/21 01/02/25 release tamsulosin 0.4 mg capsule 0.4 mg PO DAILY 04/19/21 01/02/25 acetaminophen 325 mg tablet 650 mg PO Q6H PRN PRN 06/18/21 01/02/25 ipratropium 0.5 mg-albuterol 3 mg 3 ml inhalation QID PRN 06/18/21 01/02/25 (2.5 mg base)/3 mL nebulization soln metoprolol succinate 200 mg 200 mg PO DAILY 06/18/21 01/02/25 tablet,extended release 24 hr niacinamide 500 mg tablet 500 mg PO BID 06/18/21 01/02/25 amlodipine 5 mg tablet 5 mg PO DAILY 04/24/23 01/02/25 multivitamin (Daily Multi-Vitamin 1 tab PO DAILY 09/27/23 01/02/25 tablet) rosuvastatin 20 mg tablet 10 mg PO DAILY 09/27/23 01/02/25 semaglutide 0.25 mg or 0.5 mg (2 0.5 mg subcut QWEEK 09/27/23 01/02/25 mg/3 mL) subcutaneous pen injector (Ozempic) Previous Rx's ?Medication ?Instructions ?Recorded nitroglycerin 0.4 mg sublingual 0.4 mg sublingual Q5 MIN PRN X3 07/19/18 tablet (Nitrostat) PRN #1 tab Allergies Allergy/AdvReac Type Severity Reaction Status Date / Time shellfish derived Allergy Severe Anaphylaxis Verified 01/02/25 15:24 meperidine Allergy Unknown Other (See Verified 01/02/25 15:24 Comment) morphine Allergy Unknown Nausea Verified 01/02/25 15:24 demerol hydrochloride Allergy Unknown Nausea Uncoded 01/02/25 15:24 General Stated Complaint: SOB ELI: 2 Review of Systems All systems reviewed & are unremarkable except as noted in HPI and below Constitutional Constitutional: Reports as per HPI, Reports fatigue and Reports fever(s) Cardiovascular Cardiovascular: Reports chest pain and Reports dyspnea Respiratory Respiratory: Reports dyspnea Gastrointestinal Gastrointestinal: Reports nausea Endocrine Endocrine: Reports fatigue Exam Narrative Exam Narrative: Constitutional: Slightly confused, Appears stated age. Normal body habitus. Head: Normocephalic, no trauma. Eyes: Pupils PERRL, Red reflex noted, EOM's intact. Eyelids symmetrical without lesions, discharge, or swelling. ENT: Bilateral TM's WNL, External ear normal to inspection, no mastoid TTP, swelling, or erythema, Nasal turbinates WNL, no nasal discharge. Normal dentition, Posterior pharynx WNL, no exudate. Chest: Tachycardia, wide QRS, irregular rhythm, normal S1, S2, distal pulses intact. Resp: Bilateral rhonchi, increased shortness of breath congested sounding cough. Abdomen: Soft, non-distended, Normoactive bowel sounds all 4 quads. Musculoskeletal: Normal gait, Moves all 4 extremities without difficulty. Skin: No suspicious rashes or lesions. Capillary refill less than 2 sec. Neurologic: Cranial nerves II-XII intact. Alert and oriented x 3. Motor: No defi cits noted. Sensory: Intact bilaterally all 4 extremities. Hematologic/Lymphatic: No ecchymosis, no lymphadenopathy. Course Vital Signs Vital signs: Vital Signs Temperature 38.3 C H 01/02/25 11:40 Pulse 96 H 01/02/25 11:40 Respiratory Rate 32 H 01/02/25 11:40 Blood Pressure 147/67 H 01/02/25 11:40 Pulse Oximetry 79 L 01/02/25 11:40 Temperature 37.8 C H 01/02/25 12:01 Temperature Source Oral 01/02/25 12:01 Pulse 123 H 01/02/25 12:01 Respiratory Rate 44 H 01/02/25 12:01 Respiratory Effort Short of Breath, Accessory Muscle Use 01/02/25 12:01 Respiratory Depth Normal 01/02/25 12:01 Respiratory Pattern Tachypnea 01/02/25 12:01 Blood Pressure 166/64 H 01/02/25 12:01 Blood Pressure Position Supine 01/02/25 12:01 Pulse Oximetry 90 L 01/02/25 12:01 Oxygen Delivery Method Nasal Cannula 01/02/25 12:01 Oxygen Flow Rate 4 01/02/25 12:01 End Tidal Co2 5 01/02/25 11:40 Pain Level 5 01/02/25 12:01 Comment LLQ 01/02/25 12:01 Lab/Test Results Lab/Test Results: 01/02/25 12:03 Blood Blood Culture - Pending 01/02/25 12:03 Blood Blood Culture - Pending Laboratory Tests Range/Units 01/02/25 12:00 VBG Lactate (<or=2.0) mmol/L 2.2 H* Medical Decision Making 74-year-old male with past medical history of atrial fibrillation COPD, type 2 diabetes, hypertension hyperlipidemia obstructive sleep apnea presents to the ER with a chief complaint of shortness of breath, confusion, fever which began yesterday. reports nausea. He is febrile, tachypneic tachycardic upon arrival. Satting 79% on room air. Patient slightly confused, increased work of breathing. Differential diagnosis includes but not limited to sepsis, pneumonia, CAD, viral illness, CHF, PE. White blood cell count of 16.52, neutrophils 14.69, D-dimer is elevated at 2991, lactate 2.2 sodium 137 potassium 4.0 glucose 158 mag is low at 1.4, initial troponin is 32, proBNP is 1906 negative COVID flu RSV. Chest x-ray shows new interstitial prominence which is edema versus pneumonia diffusely. At bedside for bedside cardiac POCUS with Dr. Gotti. Please see his procedure note. No pericardial effusion, positive B-lines bilaterally. Will give 20 mg of furosemide IV as patient is not taking any diuretic, also cover for possible pneumonia with Rocephin and doxycycline pending blood cultures. CT chest rule out PE ordered for elevated D-dimer. Discussed patient with Dr. Rice who verbalized understanding. Dr. Rice accepts patient for admission. At this time pending bed placement and transfer up to the floor. This text was generated using [employer] system, please disregard any oddities of phrase or misspellings. CT chest shows no PE, concern for large infiltrate on the left upper and lower lobes slight on the right. Patient is admitted and is awaiting bed placement at this time. This text was generated using Nuance dictation system, please disregard any oddities of phrase or misspellings. Medical Records Medical records reviewed: Yes I reviewed the patient's medical records. Medical records narrative: Admitted in October for pneumonia BNP at that time 1220 approximately. Imaging Data Radiologic Study: Imaging: X-Ray Radiologist's impression: PROCEDURE INFORMATION: Exam: XR Chest Exam date and time: 01/02/2025 12:29 PM Age: 74 years old Clinical indication: Pain; Shortness of breath; Other: Chest TECHNIQUE: Imaging protocol: Radiologic exam of the chest. Views: 1 view. COMPARISON: CR XR CHEST 2V PA LATERAL 10/25/2024 6:04 PM FINDINGS: Lungs: There has been interval development of diffuse prominence of the interstitial pattern since the study of October 25, 2024. This likely represents interstitial edema and/or interstitial infiltrate. There is increased density in the left perihilar region which may represent developing pneumonia. Pleural spaces: No effusions or pneumothoraces. Heart/Mediastinum: The heart is not enlarged. The superior mediastinum is unremarkable. Bones/joints: No acute bony change of the ribs. IMPRESSION: New interstitial prominence which may represent edema and interstitial pneumonia. Thank you for allowing us to participate in the care of your patient. Dictated and Authenticated by: Rex Murray MD Radiologic Study #2: Imaging: CT Scan Radiologist's impression: MPRESSION: 1. No pulmonary emboli. 2. The main pulmonary artery is borderline dilated which may reflect pulmonary arterial hypertension. 3. No thoracic aneurysm or dissection. 4. Extensive airspace infiltrate throughout the superior segment of the left lower lobe and to a lesser degree in the posterior segment of the left lower lobe and a small focus in the apicoposterior segment of the left upper lobe. 5. Diffuse ground-glass infiltrates throughout the right lung. 6. Small left effusion and trace right effusion. Thank you for allowing us to participate in the care of your patient. Dictated and Authenticated by: Rex Murray MD Lab Data Lab results reviewed: Yes I reviewed the patient's lab results. Labs: 01/02/25 12:30 Blood Blood Culture - Pending 01/02/25 12:15 Blood Blood Culture - Pending Laboratory Tests Range/Units 01/02/25 01/02/25 12:00 12:06 WBC (4.4-10.8) 10^3/uL 16.52 H RBC (4.36-5.78) 10^6/uL 4.68 Hgb (13.5-17.5) g/dL 15.5 Hct (40.0-50.0) % 45.9 MCV (80-95) fL 98 H MCH (27.0-33.0) pg 33.1 H MCHC (32.0-36.0) % 33.8 RDW (11.8-14.1) % 13.8 Plt Count (130-400) 10^3/uL 256 MPV (8.0-11.0) fL 9.7 Immature Gran % % 0.8 Neutrophils % % 88.9 Lymphocytes % % 4.8 Monocytes % % 4.7 Eosinophils % % 0.4 Basophils % % 0.4 Nucleated RBC % (0.0-0.3) % 0.0 Absolute Neutrophils (1.2-6.7) 10^3/uL 14.69 H Absolute Lymphocytes (1.2-3.4) 10^3/uL 0.79 L Absolute Monocytes (0.1-0.8) 10^3/uL 0.78 Absolute Eosinophils (0.0-0.7) 10^3/uL 0.07 Absolute Basophils (0.0-0.2) 10^3/uL 0.07 PT (9.1-11.1) sec 12.0 H INR (0.9-1.1) 1.2 H APTT (20.6-30.2) sec 25.4 D-Dimer (<500) ng/mlFEU 2991 H VBG Lactate (<or=2.0) mmol/L 2.2 H* Sodium (136-145) mmol/L 137 Potassium (3.5-5.1) mmol/L 4.0 Chloride (98-107) mmol/L 100 Carbon Dioxide (21.0-32.0) mmol/L 27.4 Anion Gap (3-11) mmol/L 9.6 BUN (7-18) mg/dL 18 Creatinine (0.70-1.30) mg/dL 1.1 Est GFR (CKD-EPI 2020) (mL/min/1.73m2) 69.57 Glucose (74-106) mg/dL 158 H Calcium (8.5-10.1) mg/dL 9.3 Magnesium (1.8-2.4) mg/dL 1.4 L Total Bilirubin (0.2-1.0) mg/dL 0.9 AST (15-37) U/L 24 ALT (16-63) U/L 24 Alkaline Phosphatase (46-116) U/L 60 Troponin I (<or=76) ng/L 32 NT-Pro-B Natriuret Pep (<300) pg/mL 1906 H Total Protein (6.4-8.2) g/dL 8.0 Albumin (3.4-5.0) g/dL 3.6 COVID-19 Source Nasopharynx SARS-CoV-2 (PCR) (Negative) Negative Influenza Type A (PCR) (Negative) Negative Influenza Type B (PCR) (Negative) Negative RSV (PCR) (Negative) Negative Quality:SDOH Health Related Social Needs: No Data to Display PFSH All Active Problems (Updated 01/02/25 @ 14:29 by Daina Bagley NP) Hypomagnesemia (Acute) CAP (community acquired pneumonia) (Acute) Sepsis without septic shock (Acute) Acute hypoxic respiratory failure (Acute) D-dimer, elevated (Acute) Pneumonia (Acute) Sepsis (Acute) Influenza A (Acute) Enlarged prostate (Acute) benign GERD (gastroesophageal reflux disease) (Chronic) Pneumonia (Acute) Near syncope (Acute) Post-operative complication (Acute) Leukocytosis, unspecified (Acute) Hyperglycemia (Acute) Essential hypertension (Acute) Acute coronary syndrome (Acute) Medical History HESHAM (obstructive sleep apnea) Hypercholesteremia Diabetes mellitus COPD (chronic obstructive pulmonary disease) patient follows w/ Dr. 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 History of posttraumatic stress disorder (PTSD) Former smoker quit in 1994,90 pack year Basal cell carcinoma of skin right cheek [place] [facility] [place]ic heart disease s/p stent x1 Jul 2018 [facility] [place]. Sudhir Ceballos. -after progressive SEPULVEDA, then chest pain. 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 Surgical History H/O melanoma excision H/O colonoscopy H/O nasal septoplasty Family History Father History of non-ST elevation myocardial infarction (NSTEMI) Prostate cancer metastatic to multiple sites Mother COPD (chronic obstructive pulmonary disease) Sister Breast cancer Sister Ovarian cancer Brother Lung cancer Social History Smoking/Tobacco Use Status: Former Tobacco Use Quit Date: 09/02/89 Tobacco: How many years used: 37 Smoking risk assessment performed?: Yes Alcohol Intake: current Alcohol Intake frequency: 0-2 drinks per day Alcohol type: hard liquor Drug use: Never Substance use type: does not use Housing: house 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 Pets and animals: Yes (4 cats) Pets and animals: cat(s) What is your relationship status?: Panel score (0-1 are the most socially isolated patients): 1 Do you feel safe at home: Yes Do you feel safe in your relationship?: Yes Additional Social history: Former smoker , quit in 1994,90 pack yrs.
[2025-01-02 12:21] LABS: Absolute Basophil Count 0.07 10^3/uL (0.0-0.2); Absolute Eosinophil Count 0.07 10^3/uL (0.0-0.7); Absolute Monocyte Count 0.78 10^3/uL (0.1-0.8); Absolute Neutrophil Count 14.69 10^3/uL (1.2-6.7)
[2025-01-02 12:27] LABS: INR 1.2 (0.9-1.1); PTT Activated 25.4 sec (20.6-30.2)
--- NOTE | 2025-01-02 12:30 | DI.RAD_ITS ---
Exam(s) XR PORTABLE CHEST AP EXAM: XR PORTABLE CHEST AP CLINICAL HISTORY: SOb, CP TECHNIQUE: 2D digital imaging was performed. COMPARISON: CR,XR XR CHEST 2V PA LATERAL from 10/25/2024 FINDINGS: LUNGS: Pulmonary artery prominence. Increased bilateral pulmonary opacities could represent bilatera l infiltrates versus pulmonary edema. No pleural abnormality seen. HEART: Normal size. AORTA: Normal diameter. BONES: Unremarkable for age. Soft tissues: Unremarkable. IMPRESSION: Question pulmonary edema versus bilateral infiltrates. DATA REPOSITORY: RADIATION DOSE DELIVERED:
[2025-01-02] MEDS: Normal Saline 500 ML IV (12:32)
[2025-01-02] MEDS: Albuterol/Ipratropium 3 ML UPD VIAL UPD (12:32)
[2025-01-02] MEDS: methylPREDNISolone SUCC 125 MG VIAL IVP (12:32)
[2025-01-02] MEDS: ACETAMINOPHEN 1,000 MG/100 ML BTL 1000 MG (12:33)
[2025-01-02 12:45] LABS: ALT 24 U/L (16-63); AST 24 U/L (15-37); Albumin 3.6 g/dL (3.4-5.0); Alkaline Phosphatase 60 U/L (46-116); Anion Gap 9.6 mmol/L (3-11); BUN 18 mg/dL (7-18); Bilirubin, Total 0.9 mg/dL (0.2-1.0); CO2 27.4 mmol/L (21.0-32.0); CREATININE 1.1 mg/dL (0.70-1.30); Calcium 9.3 mg/dL (8.5-10.1); Chloride 100 mmol/L (98-107); Estimated GFR 69.57 (mL/min/1.73m2); Glucose 158 mg/dL (74-106); Magnesium 1.4 mg/dL (1.8-2.4); NT-proBNP 1906 pg/mL (<300); Sodium 137 mmol/L (136-145); Troponin I 32 ng/L (<or=76)
[2025-01-02 12:48] LABS: D-Dimer 2991 ng/mlFEU (<500)
[2025-01-02 13:03] LABS: COVID-19 PCR Negative (Negative); Influenza A PCR Negative (Negative); Influenza B PCR Negative (Negative); RSV PCR Negative (Negative)
[2025-01-02 13:08] LABS: Source Nasopharynx
--- NOTE | 2025-01-02 13:13 | DI.VRAD_ITS ---
PROCEDURE INFORMATION: Exam: XR Chest Exam date and time: 01/02/2025 12:29 PM Age: 74 years old Clinical indication: Pain; Shortness of breath; Other: Chest TECHNIQUE: Imaging protocol: Radiologic exam of the chest. Views: 1 view. COMPARISON: CR XR CHEST 2V PA LATERAL 10/25/2024 6:04 PM FINDINGS: Lungs: There has been interval development of diffuse prominence of the interstitial pattern since the study of October 25, 2024. This likely represents interstitial edema and/or interstitial infiltrate. There is increased density in the left perihilar region which may represent developing pneumonia. Pleural spaces: No effusions or pneumothoraces. Heart/Mediastinum: The heart is not enlarged. The superior mediastinum is unremarkable. Bones/joints: No acute bony change of the ribs. IMPRESSION: New interstitial prominence which may represent edema and interstitial pneumonia. Dictated and Authenticated by: Rex Murray MD. Orderin Tanner Calle MD
--- NOTE | 2025-01-02 13:30 | ED.PROG_ITS ---
Date of service: 01/02/25 Time of Service: 13:30 Medical Decision Making This is 74-year-old male with history of coronary artery disease s/p stent at [facility] [place] right emergency department in setting of shortness of breath and chest pain. Patient has a history of COPD and does note some mildly increased sputum and increased cough. I completed a bedside ultrasound which showed preserved EF. Bilateral B-lines. Patient was covered for sepsis and will be hospitalized. Please see patient's advanced practitioner's note for details. Quality:SDOH Health Related Social Needs: No Data to Display Discharge Plan Disposition Patient Disposition: Admit to [facility] Condition: Stable Discharge Details Clinical Impression: Sepsis, Pneumonia, D-dimer, elevated Admit Date/Time: 01/02/25 14:14 Admit Provider: Camron Rice Attending Provider: Camron Rice Primary Care Provider: Regla Cordoba ED Provider: Alva Hart POCUS Exam (ED) Limited Cardiac Exam DATE OF EXAM: 01/02/25 TIME OF EXAM: 02:00 PROVIDER THAT PERFORMED THE STUDY: Cosmo Gotti IS THIS A REPEAT EXAM DURING THIS ENCOUNTER: no REASON FOR EXAM: Chest pain and Dyspnea VISUALIZED STRUCTURES: Four Chambers, Left ventricle, LVOT and Other structure: Lungs bilaterally VIEW OBTAINED: Apical 4-Chamber, Parasternal long-axis and Subxiphoid PERTINENT FINDINGS/IMPRESSION: No pericardial effusion and No RV dilation DIFFERENTIAL DIAGNOSES: Aortic outflow track less than 4 cm, good squeeze, RV less than LV, no significant pericardial effusion. Bilateral B-lines. Exam complete
--- NOTE | 2025-01-02 13:30 | DI.CT_ITS ---
Exam(s) CT CHEST PE CTA EXAM: CT CHEST PE CTA CLINICAL HISTORY: Elevated Dimer, SOB, cough. TECHNIQUE: Imaging Protocol: Axial CT angiography was performed with multi-slice acquisition and mu lti-planar reconstructions as well as axial, coronal and sagittal MIP reconstructions. Computer aided detection (CAD) was utilized. CONTRAST MATERIAL: Intravenous: Omnipaque 350 Contrast volume:100 ml COMPARISON: CT CT CHEST/ABD/PEL WO from 10/15/2024 CR,XR XR PORTABLE CHEST AP from 01/02/2025 FINDINGS: Pulmonary Arteries: No evidence of filling defect to suggest pulmonary emboli. dilated main pulmonar y artery may indicate pulmonary hypertension. Mediastinum and [place]: Enlarged right paratracheal and subcarinal lymph nodes. Mildly enlarged left h ilar lymph nodes. The findings have increased from the prior exam and likely reactive. Pulmonary parenchyma: Evaluation is limited due to expiratory PE protocol. Areas of dense consolidation in the superior and inferior aspects of the left lower lobe. Areas of g round-glass infiltration in the right upper, middle and lower lobes. Mild upper lobe emphysematous changes. Prior left upper lobe surgery. Pleura: Small left and trace right pleural effusions. No pneumothorax. Heart: The heart is mildly dilated. coronary artery calcifications/stents are seen. Aorta: Thoracic aorta non-dilated. No dissection. Upper abdomen: No acute findings. Bones: Unremarkable for age. Tubes, Catheters, and Lines: None Soft tissues: Unremarkable. IMPRESSION: Left lower lobe pneumonia. Ground-glass infiltrates are seen on the in the right lung. Small bilate ral pleural effusions. No evidence of pulmonary emboli. RADIATION DOSE DELIVERED: Total DLP DATA REPOSITORY: All CT scans at this facility are submitted to the National Radiology Data Registry (NRDR) Dose Index Registry (DIR) with the [employer] (A[employer]). RADIATION OPTIMIZATION: All CT scans at this facility use at least one of these dose optimization te chniques: automated exposure control; mA and/or kV adjustment per patient size (includes targeted exa ms where dose is matched to clinical indication); or iterative reconstruction.
[2025-01-02 13:37] LABS: Troponin I 46 ng/L (<or=76)
[2025-01-02] MEDS: Furosemide 20 MG/2 ML VIAL IVP (13:48)
[2025-01-02] MEDS: cefTRIAXone 1 GM/50 ML BAG IVPB ×2 (13:49→15:38)
[2025-01-02] MEDS: DOXYCYCLINE 100 MG in Normal Saline 100 ML IVPB (14:00)
[2025-01-02] MEDS: MAGNESIUM SULFATE 1 GM/100 ML BAG IV_INF (14:02)
--- NOTE | 2025-01-02 14:17 | HPE_ITS ---
Date of service: 01/02/25 Time of Service: 14:17 Assessment and Plan Assessment and plan (1) Acute hypoxic respiratory failure: Status: Acute Assessment and plan: Multifactorial secondary to community-acquired pneumonia and acute exacerbation of COPD Wean oxygen as able Continue antibiotics and steroids Pulmonary toileting Scheduled DuoNebs with albuterol as needed (2) Sepsis without septic shock: Status: Acute Assessment and plan: Meets criteria for severe sepsis without septic shock with lactic acid greater than 2. Repeat lactic acid 1.7 on recheck hemodynamically stable Blood cultures pending (3) CAP (community acquired pneumonia): Status: Acute Assessment and plan: Continue ceftriaxone and doxycycline day 1 of 5 Mucinex 600 mg twice daily Acapella and incentive spirometry for sputum mobilization sputum cultures (4) COPD (chronic obstructive pulmonary disease): Status: Chronic Assessment and plan: With acute exacerbation secondary to pneumonia Will continue prednisone 40 mg daily for 5-day burst Scheduled DuoNebs with albuterol as needed (5) Essential hypertension: Status: Acute Assessment and plan: Continue routine monitoring of blood pressure Consider holding antihypertensives if needed (6) Elevated troponin: Status: Acute Assessment and plan: In the setting of severe sepsis with a history of ischemic heart disease. Will continue to trend troponin to peak Continue aspirin beta-blockers statin EKG (7) Ischemic heart disease: Status: Acute Assessment and plan: Reports of chest pain but it is reproducible and pleuritic occurring with cough only Troponins initially negative with no acute ischemic EKG changes Continue aspirin beta-danielle statin (8) Hypomagnesemia: Status: Acute Assessment and plan: Replete and follow (9) HESHAM (obstructive sleep apnea): Status: Chronic Assessment and plan: Continue home CPAP discussed with DR Rice History of Present Illness Narrative: This is a 74-year-old male patient with past medical history significant for hypertension, coronary artery disease, gout, dyslipidemia, BPH who presents to the emergency department with a 1 day history of shortness of breath and chest pain. In his evaluation noted to meet sepsis criteria with a fever of 38.3 tachycardia with a pulse rate greater than 90 tachypneic with respiratory rate greater than 24 hypoxic into the 70s on room air. He was found to have an elevated white count at 16 and elevated lactic acid at 2.2. He did not receive an IV fluid bolus as there was concern for heart failure. He received Lasix 20 mg IV push. He was also started on ceftriaxone and doxycycline to cover for a community-acquired pneumonia. He was also given 125 mg of Solu-Medrol and received a DuoNeb updraft. Hospitalist services was contacted to admit to the hospital for sepsis without septic shock, acute hypoxic respiratory failure secondary to community-acquired pneumonia. Review of Systems All systems reviewed & are unremarkable except as noted in HPI and below PFSH All Active Problems (Updated 01/02/25 @ 16:40 by Daina Bagley, MARA) Ischemic heart disease (Acute) s/p stent x1 Jul 2018 [facility] [place] - Dr. Sudhir Ceballos. -after progressive SEPULVEDA, then chest pain. COPD (chronic obstructive pulmonary disease) (Chronic) patient follows abdulkadir/ Dr. 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 HESHAM (obstructive sleep apnea) (Chronic) Elevated troponin (Acute) Hypomagnesemia (Acute) CAP (community acquired pneumonia) (Acute) Sepsis without septic shock (Acute) Acute hypoxic respiratory failure (Acute) D-dimer, elevated (Acute) Pneumonia (Acute) Sepsis (Acute) Influenza A (Acute) Enlarged prostate (Acute) benign GERD (gastroesophageal reflux disease) (Chronic) Pneumonia (Acute) Near syncope (Acute) Post-operative complication (Acute) Leukocytosis, unspecified (Acute) Hyperglycemia (Acute) Essential hypertension (Acute) Acute coronary syndrome (Acute) Medical History HESHAM (obstructive sleep apnea) Hypercholesteremia Diabetes mellitus COPD (chronic obstructive pulmonary disease) patient follows abdulkadir/ Dr. 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 History of posttraumatic stress disorder (PTSD) Former smoker quit in 1994,90 pack year Basal cell carcinoma of skin right cheek 2011 [facility] [place] Ischemic heart disease s/p stent x1 Jul 2018 [facility] [place] - Dr. Sudhir Ceballos. -after progressive SEPULVEDA, then chest pain. Adenocarcinoma segmentectomy WROX 06/09/2021 Melanoma Colon polyps HTN (hypertension) patient follows abdulkadir/ Dr. 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 Surgical History H/O melanoma excision H/O colonoscopy H/O nasal septoplasty Family History Father History of non-ST elevation myocardial infarction (NSTEMI) Prostate cancer metastatic to multiple sites Mother COPD (chronic obstructive pulmonary disease) Sister Breast cancer Sister Ovarian cancer Brother Lung cancer Social History Smoking/Tobacco Use Status: Former Tobacco Use Quit Date: 09/02/89 Tobacco: How many years used: 37 Smoking risk assessment performed?: Yes Alcohol Intake: current Alcohol Intake frequency: 0-2 drinks per day Alcohol type: hard liquor Drug use: Never Substance use type: does not use Housing: house current occupation: formerly worked as a [employer] in [employer] before that. Pets and animals: Yes (4 cats) Pets and animals: cat(s) What is your relationship status?: Panel score (0-1 are the most socially isolated patients): 1 Do you feel safe at home: Yes Do you feel safe in your relationship?: Yes Additional Social history: Former smoker , quit in 1994,90 pack yrs. Meds Allergies and Home Medications Allergies Allergy/AdvReac Type Severity Reaction Status Date / Time shellfish derived Allergy Severe Anaphylaxis Verified 01/02/25 15:24 meperidine Allergy Unknown Other (See Verified 01/02/25 15:24 Comment) morphine Allergy Unknown Nausea Verified 01/02/25 15:24 demerol hydrochloride Allergy Unknown Nausea Uncoded 01/02/25 15:24 Home Medications ?Medication ?Instructions ?Recorded ?Confirmed ?Type aspirin 81 mg chewable tablet 81 mg PO DAILY 07/19/18 01/02/25 History nitroglycerin 0.4 mg sublingual 0.4 mg sublingual Q5 MIN PRN X3 07/19/18 01/02/25 Rx tablet (Nitrostat) PRN #1 tab omeprazole magnesium 20 mg 20 mg PO DAILY 07/19/18 01/02/25 History tablet,delayed release (Prilosec OTC) albuterol 90 mcg/actuation aerosol 90 mcg inhalation Q4H PRN PRN 04/19/21 01/02/25 History inhaler allopurinol 300 mg tablet 300 mg PO DAILY 04/19/21 01/02/25 History duloxetine 30 mg capsule,delayed 30 mg PO DAILY 04/19/21 01/02/25 History release tamsulosin 0.4 mg capsule 0.4 mg PO DAILY 04/19/21 01/02/25 History acetaminophen 325 mg tablet 650 mg PO Q6H PRN PRN 06/18/21 01/02/25 History ipratropium 0.5 mg-albuterol 3 mg 3 ml inhalation QID PRN 06/18/21 01/02/25 History (2.5 mg base)/3 mL nebulization soln metoprolol succinate 200 mg 200 mg PO DAILY 06/18/21 01/02/25 History tablet,extended release 24 hr niacinamide 500 mg tablet 500 mg PO BID 06/18/21 01/02/25 History amlodipine 5 mg tablet 5 mg PO DAILY 04/24/23 01/02/25 History multivitamin (Daily Multi-Vitamin 1 tab PO DAILY 09/27/23 01/02/25 History tablet) rosuvastatin 20 mg tablet 10 mg PO DAILY 09/27/23 01/02/25 History semaglutide 0.25 mg or 0.5 mg (2 0.5 mg subcut QWEEK 09/27/23 01/02/25 History mg/3 mL) subcutaneous pen injector (Ozempic) Exam Narrative Exam Narrative: Elderly male of stated age in no acute distress head is atraumatic eyes nonicteric noninjected oral mucosa is dry neck full range of motion no JVD cardiovascular regular rate and rhythm respirations even and unlabored he has coarse breath sounds scattered throughout no Rales appreciated no wheezing. Abdomen round soft nontender moves all extremities equally he has no peripheral edema he is well-perfused neurologic he is awake alert oriented no focal deficits psychiatric appropriate mood and affect Results Labs 01/02/25 12:00 01/02/25 12:00 Labs: Laboratory Results - last 24 hr 01/02/25 01/02/25 01/02/25 12:00 12:06 13:05 WBC 16.52 H RBC 4.68 Hgb 15.5 Hct 45.9 MCV 98 H MCH 33.1 H MCHC 33.8 RDW 13.8 Plt Count 256 MPV 9.7 Immature Gran % 0.8 Neutrophils % 88.9 Lymphocytes % 4.8 Monocytes % 4.7 Eosinophils % 0.4 Basophils % 0.4 Nucleated RBC % 0.0 Absolute Neutrophils 14.69 H Absolute Lymphocytes 0.79 L Absolute Monocytes 0.78 Absolute Eosinophils 0.07 Absolute Basophils 0.07 PT 12.0 H INR 1.2 H APTT 25.4 D-Dimer 2991 H VBG Lactate 2.2 H* Sodium 137 Potassium 4.0 Chloride 100 Carbon Dioxide 27.4 Anion Gap 9.6 BUN 18 Creatinine 1.1 Est GFR (CKD-EPI 2020) 69.57 Glucose 158 H Calcium 9.3 Magnesium 1.4 L Total Bilirubin 0.9 AST 24 ALT 24 Alkaline Phosphatase 60 Troponin I 32 46 NT-Pro-B Natriuret Pep 1906 H Total Protein 8.0 Albumin 3.6 COVID-19 Source Nasopharynx SARS-CoV-2 (PCR) Negative Influenza Type A (PCR) Negative Influenza Type B (PCR) Negative RSV (PCR) Negative Last Vital Signs Temp 37.8 C H 01/02/25 12:16 Pulse 121 H 01/02/25 12:16 Resp 36 H 01/02/25 12:16 BP 154/65 H 01/02/25 12:16 Pulse Ox 94 01/02/25 12:16 Time Spent Time spent with Patient: 55-74 minutes Time was spent: preparing to see the patient(eg.review tests), obtaining and/or reviewing separately otained hiistory, ordering medications,tests, procedures, referring, communicating with other health customer care specialist, indepentently interpreting results and counseling the patient
[2025-01-02 14:25] LABS: Lab Add On Test DONE
[2025-01-02 14:30] LABS: BE (Venous) 2 mmol/L (-2-3); HCO3 (Venous) 26 mmol/L (23-28); O2 Sat (Venous) 93 %; TCO2 (Venous) 22 mmol/L (24-29); pCO2 (Venous) 35 mmHg (41-51); pH (Venous) 7.47 (7.31-7.41); pO2 (Venous) 69 mmHg
[2025-01-02 14:37] LABS: Bilirubin Negative (Negative); Blood Negative (Negative); Clarity Clear (Clear); Glucose Negative (Negative); Ketones Negative (Negative); Leukocyte Esterase Negative (Negative); Nitrite Negative (Negative); Urobilinogen 0.2 mg/dL (Up to 0.2); pH 5.5 (5-8)
[2025-01-02 14:39] LABS: Lactate 1.7 mmol/L (<or=2.0)
[2025-01-02] MEDS: Normal Saline - Diluent 50 ML VIAL IJ (14:49)
[2025-01-02] MEDS: Omnipaque 350 MG/ML 100 ML BTL IJ (14:49)
[2025-01-02 14:50] LABS: Procalcitonin 0.31 ng/mL
--- NOTE | 2025-01-02 15:31 | DI.VRAD_ITS ---
PROCEDURE INFORMATION: Exam: CTA Chest With Contrast Exam date and time: 01/02/2025 2:50 PM Age: 74 years old Clinical indication: Cough and shortness of breath; Elevated ddimer, SOB, cough TECHNIQUE: Imaging protocol: Computed tomographic angiography of the chest with contrast. Exam focused on the arteries. 3D rendering (Not supervised by radiologist): MIP and/or 3D reconstructed images were created by the technologist. COMPARISON: CT CHEST PE CTA 01/28/2023 10:38 AM FINDINGS: Pulmonary arteries: No filling defects within the pulmonary arteries identified. There are no pulmonary emboli. The main pulmonary artery measures 3.1 cm. This is mildly enlarged. This may reflect pulmonary arterial hypertension. Aorta: The ascending thoracic aorta measures 3.4 cm. The descending thoracic aorta measures 2.6 cm. No focal aneurysm or dissection. Lungs: There is centrilobular emphysema principally in the upper lobes. There is extensive acute airspace infiltrate involving the superior segment of the left lower lobe and a portion of the posterior segment of the left lower lobe. There is a small focus of similar airspace infiltrate in the apicoposterior segment of the left upper lobe. There are diffuse ground-glass infiltrates in the right lung involving the upper lobe of the lower lobe in the middle lobe. Ground-glass infiltrates are nonspecific but may represent an inflammatory, infectious or edematous process. Pleural spaces: There is a small left pleural effusion. There is a trace right pleural effusion. Heart: The heart is mildly enlarged. There is coronary artery calcification. Lymph nodes: There is an overall increase in mediastinal nodes. The largest precarinal node measures 14 x 24 mm. There are increased subcarinal nodes as well. Bones/joints: No acute bony change of the thoracic spine. Soft tissues: No abnormal soft tissue lesions of the chest wall. IMPRESSION: 1. No pulmonary emboli. 2. The main pulmonary artery is borderline dilated which may reflect pulmonary arterial hypertension. 3. No thoracic aneurysm or dissection. 4. Extensive airspace infiltrate throughout the superior segment of the left lower lobe and to a lesser degree in the posterior segment of the left lower lobe and a small focus in the apicoposterior segment of the left upper lobe. 5. Diffuse ground-glass infiltrates throughout the right lung. 6. Small left effusion and trace right effusion. Dictated and Authenticated by: Rex Murray MD. Orderin Tanner Calle MD
[2025-01-02 15:57] LABS: Troponin I 80 ng/L (<or=76)
--- NOTE | 2025-01-02 16:16 | INITIAL_ITS ---
Date of service: 01/02/25 Time of Service: 16:16 Care Management Initial Assmt Initial Assessment Reason for Hospitalization: Pneumonia, Sepsis Functional Status/Living Situation Patient Presentation: Cosmo was awake and lying in bed when CM met with him. He is admitted for pneumonia and sespis and being treated with IV ABX. Cosmo is pleasant and easily engages in conversation; he lives in [place], but gets his mail in [place]. He is retired from the [employer] and active and independent at baseline. Town of Residence: [place] Resides with: Spouse (, Nat ) Significant Other/Family: Local Employment Status: Retired ([employer] and from [place]) Instrumental Activities of Daily Living (ADLs): Independent Medications Medication Management: No Issues/Barriers identified Physical Functioning/Mobility Assistive Device: None Advance Directives Advance Directives: Do you have an Advance Directive: Y 06/18/21 09:34 AD On File at [facility]: Y 01/02/25 15:47 Date Asked 01/02/25 01/02/25 15:47 AD Date Reviewed 01/02/25 01/02/25 15:47 COLST On File at [facility] COLST Date Scanned Code Status Resuscitation Status Full Code Portal Pt does not currently have a portal and education provided: Yes Insurance Coverage/Financial Issues Insurance: [place] Financial Issues: None identified Care Team Visit Care Team Role Provider Type Regla Cordoba Primary Care Provider OSTEOPATHIC DOCTOR Alva Hart NP Emergency Provider NURSE PRACTITIONER Camron Rice MD Admit Provider [facility] STAFF PHYSICIAN Attending Provider Discharge Potential Discharge Needs: PCP F/U Appt Anticipated Barriers to Discharge: None Identified Patient/Family Education Needs: Review discharge instructions, discuss Ask Me Three Transportation: Private vehicle Plan: Cosmo is admitted for medical management of pneumonia with Sepsis. Anticipate, Cosmo will discharge home via private vehicle when medically ready for discharge. Follow up appointment with his PCP and discharge plan of care will be needed prior to discharge. CM will continue to follow. Social Determinants of Health Screening Will the Patient Participate in the Screening?: Unable to obtain PFSH All Active Problems (Updated 01/02/25 @ 16:40 by Daina Bagley NP) Ischemic heart disease (Acute) s/[place] x1 [place] [facility] [place] Sudhir Ceball[place]. -after progressive SEPULVEDA, then chest pain. COPD (chronic obstructive pulmonary disease) (Chronic) patient follows w/ Dr. 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 HESHAM (obstructive sleep apnea) (Chronic) Elevated troponin (Acute) Hypomagnesemia (Acute) CAP (community acquired pneumonia) (Acute) Sepsis without septic shock (Acute) Acute hypoxic respiratory failure (Acute) D-dimer, elevated (Acute) Pneumonia (Acute) Sepsis (Acute) Influenza A (Acute) Enlarged prostate (Acute) benign GERD (gastroesophageal reflux disease) (Chronic) Pneumonia (Acute) Near syncope (Acute) Post-operative complication (Acute) Leukocytosis, unspecified (Acute) Hyperglycemia (Acute) Essential hypertension (Acute) Acute coronary syndrome (Acute) Medical History HESHAM (obstructive sleep apnea) Hypercholesteremia Diabetes mellitus COPD (chronic obstructive pulmonary disease) patient follows w/ Dr. 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 History of posttraumatic stress disorder (PTSD) Former smoker quit in 1994,90 pack year Basal cell carcinoma of skin right cheek 2011 [facility] [place]schemic heart disease s/p stent x1 Jul [place] [facility] [place]. Sudhir Ceballos. -after progressive SEPULVEDA, then chest pain. 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 Surgical History H/O melanoma excision H/O colonoscopy H/O nasal septoplasty Family History Father History of non-ST elevation myocardial infarction (NSTEMI) Prostate cancer metastatic to multiple sites Mother COPD (chronic obstructive pulmonary disease) Sister Breast cancer Sister Ovarian cancer Brother Lung cancer Social History Smoking/Tobacco Use Status: Former Tobacco Use Quit Date: 09/02/89 Tobacco: How many years used: 37 Smoking risk assessment performed?: Yes Alcohol Intake: current Alcohol Intake frequency: 0-2 drinks per day Alcohol type: hard liquor Drug use: Never Substance use type: does not use Housing: house 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 Pets and animals: Yes (4 cats) Pets and animals: cat(s) What is your relationship status?: Panel score (0-1 are the most socially isolated patients): 1 Do you feel safe at home: Yes Do you feel safe in your relationship?: Yes Additional Social history: Former smoker , quit in 1994,90 pack yrs.
--- NOTE | 2025-01-02 16:29 | W.PC.ACHO ---
Registration Status: Primary Language: Preferred Language: ED Information & Data Chief Complaint SOB 01/02/25 12:19 Other Complaint Chest Pain 01/02/25 11:40 Triage Note SOB and chest pain since 01/02/25 11:40 yesterday, pt appears SOB hx COPD, AFIB Medical / Surgical History (Last Reviewed 10/26/24 @ 06:35 by Robin Gonzalez MD) HESHAM (obstructive sleep apnea) Hypercholesteremia Diabetes mellitus COPD (chronic obstructive pulmonary disease) History of posttraumatic stress disorder (PTSD) Former smoker Basal cell carcinoma of skin Ischemic heart disease Adenocarcinoma Melanoma Colon polyps HTN (hypertension) (Last Reviewed 10/26/24 @ 06:35 by Robin Gonzalez MD) H/O melanoma excision H/O colonoscopy H/O nasal septoplasty Most Recent Vital Signs Temperature 37.8 C H 01/02/25 12:16 Temperature Source Oral 01/02/25 12:01 Pulse 104 H 01/02/25 15:20 Pulse 105 H 01/02/25 15:20 Respiratory Rate 31 H 01/02/25 15:20 Respiratory Effort Short of Breath, Accessory Muscle Use 01/02/25 12:01 Respiratory Depth Normal 01/02/25 12:01 Respiratory Pattern Tachypnea 01/02/25 12:01 Blood Pressure 132/62 01/02/25 14:46 Blood Pressure Mean 83 01/02/25 14:46 Blood Pressure Position Supine 01/02/25 12:01 Pulse Oximetry 92 01/02/25 15:20 Oxygen Delivery Method Nasal Cannula 01/02/25 12:01 Oxygen Flow Rate 4 01/02/25 12:01 End Tidal Co2 5 01/02/25 11:40 Pain Level 5 01/02/25 12:01 Comment LLQ 01/02/25 12:01 Comment 4l 01/02/25 15:20 Allergies shellfish derived Allergy (Severe, Verified 01/02/25 15:24) Anaphylaxis meperidine Allergy (Unknown, Verified 01/02/25 15:24) Other (See Comment) Pt states I dont even know what this is morphine Allergy (Unknown, Verified 01/02/25 15:24) Nausea demerol hydrochloride Allergy (Unknown, Uncoded 01/02/25 15:24) Nausea Precautions Isolation Standard precaution 01/02/25 12:01 Active Medications Generic Name Dose Route Start Last Admin Trade Name Freq PRN Reason Stop Dose Admin Iohexol 100 ml 01/02/25 15:00 01/02/25 14:49 Omnipaque 350 Mg/Ml 100 Ml Btl IJ 02/01/25 23:59 100 ml DIRECTED YESY Administration Sodium Chloride 50 ml 01/02/25 15:00 01/02/25 14:49 Normal Saline - Diluent 50 Ml Vial IJ 50 ml .FOR DI USE YESY Administration IV IV Catheter Type [Right Peripheral IV Antecubital] IV Catheter Gauge [Right 18 Antecubital] Diet Orders Category Date Time Status Regular/Normal [DIET] Nutrition 01/02/25 Dinner Active Diagnostics 01/02/25 01/02/25 01/02/25 Range/Units 22:00 15:23 14:18 WBC (4.4-10.8) 10^3/uL RBC (4.36-5.78) 10^6/uL Hgb (13.5-17.5) g/dL Hct (40.0-50.0) % MCV (80-95) fL MCH (27.0-33.0) pg MCHC (32.0-36.0) % RDW (11.8-14.1) % Plt Count (130-400) 10^3/uL MPV (8.0-11.0) fL Immature Gran % % Neutrophils % % Lymphocytes % % Monocytes % % Eosinophils % % Basophils % % Nucleated RBC % (0.0-0.3) % Absolute Neutrophils (1.2-6.7) 10^3/uL Absolute Lymphocytes (1.2-3.4) 10^3/uL Absolute Monocytes (0.1-0.8) 10^3/uL Absolute Eosinophils (0.0-0.7) 10^3/uL Absolute Basophils (0.0-0.2) 10^3/uL PT (9.1-11.1) sec INR (0.9-1.1) APTT (20.6-30.2) sec D-Dimer (<500) ng/mlFEU VBG pH (7.31-7.41) VBG pCO2 (41-51) mmHg VBG pO2 mmHg VBG HCO3 (23-28) mmol/L VBG Total CO2 (24-29) mmol/L VBG O2 Saturation % VBG Base Excess (-2-3) mmol/L VBG Lactate (<or=2.0) mmol/L Sodium (136-145) mmol/L Potassium (3.5-5.1) mmol/L Chloride (98-107) mmol/L Carbon Dioxide (21.0-32.0) mmol/L Anion Gap (3-11) mmol/L BUN (7-18) mg/dL Creatinine (0.70-1.30) mg/dL Est GFR (CKD-EPI 2020) (mL/min/1.73m2) Glucose (74-106) mg/dL Calcium (8.5-10.1) mg/dL Magnesium (1.8-2.4) mg/dL Total Bilirubin (0.2-1.0) mg/dL AST (15-37) U/L ALT (16-63) U/L Alkaline Phosphatase (46-116) U/L Troponin I Pending 80 H* (<or=76) ng/L NT-Pro-B Natriuret Pep (<300) pg/mL Total Protein (6.4-8.2) g/dL Albumin (3.4-5.0) g/dL Procalcitonin ng/mL Urine Color Yellow (Yellow) Urine Clarity Clear (Clear) Urine pH 5.5 (5-8) Ur Specific [place] 1.010 (1.005-1.025) Urine Protein Negative (Neg-Trace) mg/dL Urine Ketones Negative (Negative) mg/dL Urine Blood Negative (Negative) Urine Nitrite Negative (Negative) Urine Bilirubin Negative (Negative) Urine Urobilinogen 0.2 (Up to 0.2) mg/dL Ur Leukocyte Esterase Negative (Negative) Urine Glucose Negative (Negative) mg/dL COVID-19 Source SARS-CoV-2 (PCR) (Negative) Influenza Type A (PCR) (Negative) Influenza Type B (PCR) (Negative) RSV (PCR) (Negative) Add-On Test Request 01/02/25 01/02/25 01/02/25 Range/Units 14:15 13:05 12:06 WBC (4.4-10.8) 10^3/uL RBC (4.36-5.78) 10^6/uL Hgb (13.5-17.5) g/dL Hct (40.0-50.0) % MCV (80-95) fL MCH (27.0-33.0) pg MCHC (32.0-36.0) % RDW (11.8-14.1) % Plt Count (130-400) 10^3/uL MPV (8.0-11.0) fL Immature Gran % % Neutrophils % % Lymphocytes % % Monocytes % % Eosinophils % % Basophils % % Nucleated RBC % (0.0-0.3) % Absolute Neutrophils (1.2-6.7) 10^3/uL Absolute Lymphocytes (1.2-3.4) 10^3/uL Absolute Monocytes (0.1-0.8) 10^3/uL Absolute Eosinophils (0.0-0.7) 10^3/uL Absolute Basophils (0.0-0.2) 10^3/uL PT (9.1-11.1) sec INR (0.9-1.1) APTT (20.6-30.2) sec D-Dimer (<500) ng/mlFEU VBG pH 7.47 H (7.31-7.41) VBG pCO2 35 L (41-51) mmHg VBG pO2 69 mmHg VBG HCO3 26 (23-28) mmol/L VBG Total CO2 22 L (24-29) mmol/L VBG O2 Saturation 93 % VBG Base Excess 2 (-2-3) mmol/L VBG Lactate 1.7 (<or=2.0) mmol/L Sodium (136-145) mmol/L Potassium (3.5-5.1) mmol/L Chloride (98-107) mmol/L Carbon Dioxide (21.0-32.0) mmol/L Anion Gap (3-11) mmol/L BUN (7-18) mg/dL Creatinine (0.70-1.30) mg/dL Est GFR (CKD-EPI 2020) (mL/min/1.73m2) Glucose (74-106) mg/dL Calcium (8.5-10.1) mg/dL Magnesium (1.8-2.4) mg/dL Total Bilirubin (0.2-1.0) mg/dL AST (15-37) U/L ALT (16-63) U/L Alkaline Phosphatase (46-116) U/L Troponin I 46 (<or=76) ng/L NT-Pro-B Natriuret Pep (<300) pg/mL Total Protein (6.4-8.2) g/dL Albumin (3.4-5.0) g/dL Procalcitonin ng/mL Urine Color (Yellow) Urine Clarity (Clear) Urine pH (5-8) Ur Specific [place] (1.005-1.025) Urine Protein (Neg-Trace) mg/dL Urine Ketones (Negative) mg/dL Urine Blood (Negative) Urine Nitrite (Negative) Urine Bilirubin (Negative) Urine Urobilinogen (Up to 0.2) mg/dL Ur Leukocyte Esterase (Negative) Urine Glucose (Negative) mg/dL COVID-19 Source Nasopharynx SARS-CoV-2 (PCR) Negative (Negative) Influenza Type A (PCR) Negative (Negative) Influenza Type B (PCR) Negative (Negative) RSV (PCR) Negative (Negative) Add-On Test Request 01/02/25 Range/Units 12:00 WBC 16.52 H (4.4-10.8) 10^3/uL RBC 4.68 (4.36-5.78) 10^6/uL Hgb 15.5 (13.5-17.5) g/dL Hct 45.9 (40.0-50.0) % MCV 98 H (80-95) fL MCH 33.1 H (27.0-33.0) pg MCHC 33.8 (32.0-36.0) % RDW 13.8 (11.8-14.1) % Plt Count 256 (130-400) 10^3/uL MPV 9.7 (8.0-11.0) fL Immature Gran % 0.8 % Neutrophils % 88.9 % Lymphocytes % 4.8 % Monocytes % 4.7 % Eosinophils % 0.4 % Basophils % 0.4 % Nucleated RBC % 0.0 (0.0-0.3) % Absolute Neutrophils 14.69 H (1.2-6.7) 10^3/uL Absolute Lymphocytes 0.79 L (1.2-3.4) 10^3/uL Absolute Monocytes 0.78 (0.1-0.8) 10^3/uL Absolute Eosinophils 0.07 (0.0-0.7) 10^3/uL Absolute Basophils 0.07 (0.0-0.2) 10^3/uL PT 12.0 H (9.1-11.1) sec INR 1.2 H (0.9-1.1) APTT 25.4 (20.6-30.2) sec D-Dimer 2991 H (<500) ng/mlFEU VBG pH (7.31-7.41) VBG pCO2 (41-51) mmHg VBG pO2 mmHg VBG HCO3 (23-28) mmol/L VBG Total CO2 (24-29) mmol/L VBG O2 Saturation % VBG Base Excess (-2-3) mmol/L VBG Lactate 2.2 H* (<or=2.0) mmol/L Sodium 137 (136-145) mmol/L Potassium 4.0 (3.5-5.1) mmol/L Chloride 100 (98-107) mmol/L Carbon Dioxide 27.4 (21.0-32.0) mmol/L Anion Gap 9.6 (3-11) mmol/L BUN 18 (7-18) mg/dL Creatinine 1.1 (0.70-1.30) mg/dL Est GFR (CKD-EPI 2020) 69.57 (mL/min/1.73m2) Glucose 158 H (74-106) mg/dL Calcium 9.3 (8.5-10.1) mg/dL Magnesium 1.4 L (1.8-2.4) mg/dL Total Bilirubin 0.9 (0.2-1.0) mg/dL AST 24 (15-37) U/L ALT 24 (16-63) U/L Alkaline Phosphatase 60 (46-116) U/L Troponin I 32 (<or=76) ng/L NT-Pro-B Natriuret Pep 1906 H (<300) pg/mL Total Protein 8.0 (6.4-8.2) g/dL Albumin 3.6 (3.4-5.0) g/dL Procalcitonin 0.31 ng/mL Urine Color (Yellow) Urine Clarity (Clear) Urine pH (5-8) Ur Specific [place] (1.005-1.025) Urine Protein (Neg-Trace) mg/dL Urine Ketones (Negative) mg/dL Urine Blood (Negative) Urine Nitrite (Negative) Urine Bilirubin (Negative) Urine Urobilinogen (Up to 0.2) mg/dL Ur Leukocyte Esterase (Negative) Urine Glucose (Negative) mg/dL COVID-19 Source SARS-CoV-2 (PCR) (Negative) Influenza Type A (PCR) (Negative) Influenza Type B (PCR) (Negative) RSV (PCR) (Negative) Add-On Test Request DONE 01/02/25 12:30 Blood Culture - Pending Blood 01/02/25 12:15 Blood Culture - Pending Blood Intake and Output - 24 Hour Total 01/02/25 11:38 thru 01/02/25 15:57 Intake Total 750 Output Total 350 Balance 400 Weight 99.79 kg Intake: IV 750 Output: Urine 350 Other: Urine Color Yellow Urine Appearance Clear Urine Odor Normal Falls Risk Assessment History of Falls Previous History 01/02/25 12:01 Contributing Factors Confusion,Unstable, 01/02/25 12:01 Impairments,Incontinence, Medications Ambulatory Aids Uses ambulatory device 01/02/25 12:01 Tubes/Lines None 01/02/25 12:01 Gait Evaluation W/no contributing factors 01/02/25 12:01 Cognition No cognitive impairment 01/02/25 12:01 Fall Total Score 55 01/02/25 12:01 Level of Risk High Risk 01/02/25 12:01 Problems (Last Reviewed 10/26/24 @ 06:35 by Robin Gonzalez MD) Elevated troponin (Acute) Hypomagnesemia (Acute) CAP (community acquired pneumonia) (Acute) Sepsis without septic shock (Acute) Acute hypoxic respiratory failure (Acute) Essential hypertension (Acute) v v v v v v v v v Sending and/or Receiving Nurses: Please use comment section below to note any information pertinent to the patient hand-off not included above. Information / Comments: Pt presented to ED with SOB, tachypnea and general ill feeling. Pt was sating at 90% on 4L O2. Crackles heard throughout bilaterally. Pt uses 2.5 L o2 with cpap at night but no O2 use during the day at baseline. Pt has known dx of COPD. Found to have community acquired pneumonia. Admitted for treatment of PNA. Pt ambulates independently without issues. No bed alarm needed. education provided for safety with ambulation. Skin is intact with no riosk. Pt has Afib. Pt is a/o x 4 and able to make needs known. Poor historians as far as medication home use per ED nurse. Will continue with plan of care Report received from:
[2025-01-02] MEDS: Albuterol/Ipratropium 3 ML UPD VIAL IH ×2 (17:20→20:59)
[2025-01-02] MEDS: Normal Saline 1,000 ML 100 ML IV (17:30)
[2025-01-02] MEDS: Acetaminophen 325 MG TAB 650 MG PO (18:50)
[2025-01-02] MEDS: Doxycycline Hyclate 100 MG CAP PO (20:04)
[2025-01-02] MEDS: Melatonin 3 MG TAB PO (20:04)
[2025-01-02] MEDS: guaiFENesin 600 MG TABCR PO (20:04)
[2025-01-02] MEDS: Normal Saline Flush 10 ML SYR IVP (20:05)
[2025-01-02] MEDS: Enoxaparin 40 MG/0.4 ML SYR SC (20:05)
[2025-01-02 22:21] LABS: Troponin I 39 ng/L (<or=76)
[2025-01-03] VITALS (22 sets, daily range): BP systolic 95–119; BP diastolic 56–72; PULSE 70–115; RESP 5–25; TEMP 36–38.3; O2SAT 90–96
[2025-01-03] MEDS: Albuterol/Ipratropium 3 ML UPD VIAL IH ×5 (05:01→19:55)
[2025-01-03 06:19] LABS: Abs Immature Grans 1.11 10^3/uL (0.0-0.06); HCT 37.6 % (40.0-50.0); MCH 33.1 pg (27.0-33.0); MCHC 34.6 % (32.0-36.0); MCV 96 fL (80-95); MPV 10.1 fL (8.0-11.0); Platelet Count 220 10^3/uL (130-400); RBC 3.93 10^6/uL (4.36-5.78); RDW-SD 49.8 fL
[2025-01-03 06:48] LABS: BUN 22 mg/dL (7-18); Calcium 8.5 mg/dL (8.5-10.1); Chloride 100 mmol/L (98-107); Glucose 191 mg/dL (74-106); Potassium 4.1 mmol/L (3.5-5.1); Sodium 133 mmol/L (136-145); Troponin I 21 ng/L (<or=76)
[2025-01-03 06:51] LABS: WBC 25.04 10^3/uL (4.4-10.8)
[2025-01-03 07:14] LABS: Absolute Basophil Count 0.25 10^3/uL (0.0-0.2); Absolute Eosinophil Count 0.25 10^3/uL (0.0-0.7); Absolute Neutrophil Count 20.53 10^3/uL (1.2-6.7); Bands % 13 %; Diff Comment Manual Differential; Metamyelocytes % 6; RBC Morphology Normal
--- NOTE | 2025-01-03 08:00 | RT.EKG_ITS ---
APPROVED REPORT Exam: Resting ECG Reason for Exam: elevated troponin Patient Location: I HR:113 bpm ECG Measurements Heart Rate 113 AXIS KS 142 P 58 QRSd 117 QRS -57 QT 359 T 109 QTc 493 Conclusion Sinus tachycardia...rate> 99 Incomplete left bundle branch block...QRSd>110mS, terminal axis(-90,-1)
[2025-01-03] MEDS: Doxycycline Hyclate 100 MG CAP PO ×2 (08:50→20:17)
[2025-01-03] MEDS: Allopurinol 300 MG TAB PO (08:50)
[2025-01-03] MEDS: Multivitamin TAB 1 TAB PO (08:50)
[2025-01-03] MEDS: Pantoprazole 40 MG TABCR PO (08:51)
[2025-01-03] MEDS: Rosuvastatin 20 MG TAB 10 MG PO (08:51)
[2025-01-03] MEDS: guaiFENesin 600 MG TABCR PO ×2 (08:51→20:17)
[2025-01-03] MEDS: Aspirin 81 MG CHEW PO (08:53)
[2025-01-03] MEDS: DULoxetine 30 MG CAP PO (08:54)
[2025-01-03] MEDS: Tamsulosin 0.4 MG CAPCR PO (08:54)
[2025-01-03] MEDS: Normal Saline Flush 10 ML SYR IVP ×3 (08:55→20:16)
--- NOTE | 2025-01-03 09:27 | RESPIRATORY ---
Pt's own Auto BiPAP ResMed VAuto Max IPAP: 25 Min EPAP: 6 PS: 5 3L O2 [facility] Pt does not use O2 during the day at baseline. Pt uses Breztri inhaler BID at home. Will sub for Symbicort and Spiriva while admitted to [facility].
[2025-01-03] MEDS: Polyethylene Glycol 3350 17 GM PACKET PO (09:49)
[2025-01-03] MEDS: Metoprolol CR 100 MG TABCR 200 MG PO (12:33)
[2025-01-03] MEDS: Acetaminophen 325 MG TAB 650 MG PO (12:36)
[2025-01-03] MEDS: Ibuprofen 600 MG TAB PO (13:47)
[2025-01-03] MEDS: cefTRIAXone 2 GM/50 ML BAG IVPB (13:48)
--- NOTE | 2025-01-03 14:46 | W.PM.PROGNOT ---
Date of Service Date of service: 01/03/25 Time of Service: 14:46 Assessment and Plan Assessment and plan (1) Acute hypoxic respiratory failure: Status: Acute Assessment and plan: Multifactorial secondary to community-acquired pneumonia and acute exacerbation of COPD Wean oxygen as able Continue antibiotics and steroids Pulmonary toileting Scheduled DuoNebs with albuterol as needed (2) Sepsis without septic shock: Status: Resolved Assessment and plan: Meets criteria for severe sepsis without septic shock with lactic acid greater than 2. Repeat lactic acid 1.7 on recheck \procal elevated at 0.3 hemodynamically stable Blood cultures pending (3) CAP (community acquired pneumonia): Status: Acute Assessment and plan: Continue ceftriaxone and doxycycline day 2 of 5 Mucinex 600 mg twice daily Acapella and incentive spirometry for sputum mobilization sputum cultures (4) COPD (chronic obstructive pulmonary disease): Status: Chronic Assessment and plan: With acute exacerbation secondary to pneumonia Will continue prednisone 40 mg daily for 5-day burst Scheduled DuoNebs with albuterol as needed (5) Essential hypertension: Status: Acute Assessment and plan: Continue routine monitoring of blood pressure Consider holding antihypertensives if needed amlodipine held this am (6) Elevated troponin: Status: Acute Assessment and plan: In the setting of severe sepsis with a history of ischemic heart disease. troponin peaked yesterday at 80, now trending downward Continue aspirin beta-blockers statin EKG with no ischemic changes. no further evaluation or interventions at this time. (7) Ischemic heart disease: Status: Acute Assessment and plan: Reports of chest pain but it is reproducible and pleuritic occurring with cough only Troponins normalized no acute ischemic EKG changes Continue aspirin beta-danielle statin (8) Hypomagnesemia: Status: Acute Assessment and plan: Replete and follow (9) HESHAM (obstructive sleep apnea): Status: Chronic Assessment and plan: Continue home CPAP discussed with DR Rice Subjective Subjective Patient reports: no new complaints, feels better, tolerating liquids well, tolerating a regular diet, voiding w/o difficulty, shortness of breath and fever (max temp 38.3) Interval history since last seen: still requiring oxygen. feeling slightly better, eating and drinking ok productive cough, pleuritic chest pain. Exam Narrative Exam Narrative: Elderly male of stated age in no acute distress head is atraumatic eyes nonicteric noninjected oral mucosa is dry neck full range of motion no JVD cardiovascular regular rate and rhythm respirations even and unlabored he has coarse breath sounds scattered throughout no Rales appreciated no wheezing. Abdomen round soft nontender moves all extremities equally he has no peripheral edema he is well-perfused neurologic he is awake alert oriented no focal deficits psychiatric appropriate mood and affect Objective Last Vital Signs Temp 38.3 C H 01/03/25 13:47 Pulse 115 H 01/03/25 12:33 Resp 18 01/03/25 09:28 BP 119/72 01/03/25 12:33 Pulse Ox 92 01/03/25 13:35 Laboratory Results - last 24 hr 01/02/25 01/02/25 01/02/25 12:00 15:23 22:00 WBC RBC Hgb Hct MCV MCH MCHC RDW Plt Count MPV Immature Gran % Neutrophils % Band Neutrophils % Lymphocytes % Monocytes % Eosinophils % Basophils % Metamyelocytes % Nucleated RBC % Absolute Neutrophils Absolute Lymphocytes Absolute Monocytes Absolute Eosinophils Absolute Basophils RBC Morphology Sodium Potassium Chloride Carbon Dioxide Anion Gap BUN Creatinine Est GFR (CKD-EPI 2020) Glucose Calcium Troponin I 80 H* 39 Procalcitonin 0.31 01/03/25 05:50 WBC 25.04 H* RBC 3.93 L Hgb 13.0 L D Hct 37.6 L MCV 96 H MCH 33.1 H MCHC 34.6 RDW 14.0 Plt Count 220 MPV 10.1 Immature Gran % See Differential Neutrophils % 69.0 Band Neutrophils % 13 Lymphocytes % 4.0 Monocytes % 4.0 Eosinophils % 1.0 Basophils % 1.0 Metamyelocytes % 6 Nucleated RBC % 0.0 Absolute Neutrophils 20.53 H Absolute Lymphocytes 1.00 L Absolute Monocytes 1.00 H Absolute Eosinophils 0.25 Absolute Basophils 0.25 H RBC Morphology Normal Sodium 133 L Potassium 4.1 Chloride 100 Carbon Dioxide 24.0 Anion Gap 9.0 BUN 22 H Creatinine 1.0 Est GFR (CKD-EPI 2020) 78.00 Glucose 191 H Calcium 8.5 Troponin I 21 Procalcitonin Time Spent with Patient Time Spent with Patient: 35-49 minutes Time was spent: preparing to see the patient(eg.review tests), obtaining and/or reviewing separately otained hiistory, ordering medications,tests, procedures, indepentently interpreting results and counseling the patient
[2025-01-03] MEDS: predniSONE 20 MG TAB 40 MG PO (14:58)
[2025-01-03] MEDS: Budesonide/Formoterol 160/4.5 6 GM 60 PUFF INH IH (19:58)
[2025-01-03] MEDS: Enoxaparin 40 MG/0.4 ML SYR SC (20:17)
[2025-01-03] MEDS: Melatonin 3 MG TAB PO (20:18)
[2025-01-04] VITALS (11 sets, daily range): BP systolic 117; BP diastolic 66; PULSE 88–99; RESP 5–25; TEMP 36.9; O2SAT 90–94
[2025-01-04] MEDS: Albuterol/Ipratropium 3 ML UPD VIAL IH ×4 (00:01→11:19)
[2025-01-04 06:27] LABS: Abs Immature Grans 3.01 10^3/uL (0.0-0.06); HCT 36.3 % (40.0-50.0); HGB 12.5 g/dL (13.5-17.5); MCH 33.1 pg (27.0-33.0); MCHC 34.4 % (32.0-36.0); MCV 96 fL (80-95); MPV 10.1 fL (8.0-11.0); Platelet Count 210 10^3/uL (130-400); RBC 3.78 10^6/uL (4.36-5.78); RDW 13.9 % (11.8-14.1); RDW-SD 49.4 fL
[2025-01-04 06:59] LABS: ALT 23 U/L (16-63); AST 21 U/L (15-37); Albumin 2.7 g/dL (3.4-5.0); Alkaline Phosphatase 53 U/L (46-116); BUN 22 mg/dL (7-18); Bilirubin, Total 0.5 mg/dL (0.2-1.0); Chloride 100 mmol/L (98-107); Glucose 163 mg/dL (74-106); Magnesium 1.8 mg/dL (1.8-2.4); Potassium 3.9 mmol/L (3.5-5.1); Sodium 135 mmol/L (136-145); Total Protein 6.9 g/dL (6.4-8.2)
[2025-01-04 07:03] LABS: Absolute Basophil Count 0.23 10^3/uL (0.0-0.2); Absolute Lymphocyte Count 1.64 10^3/uL (1.2-3.4); Absolute Monocyte Count 1.17 10^3/uL (0.1-0.8); Absolute Neutrophil Count 19.19 10^3/uL (1.2-6.7); Bands % 7 %; Diff Comment Manual Differential; Metamyelocytes % 2; RBC Morphology Normal
[2025-01-04] MEDS: Budesonide/Formoterol 160/4.5 6 GM 60 PUFF INH IH (08:06)
[2025-01-04] MEDS: Tiotropium Bromide-Respimat 10 PUFF INH 2 PUFF IH (08:06)
[2025-01-04] MEDS: Acetaminophen 325 MG TAB 650 MG PO (08:19)
[2025-01-04] MEDS: Doxycycline Hyclate 100 MG CAP PO (08:19)
[2025-01-04] MEDS: DULoxetine 30 MG CAP PO (08:19)
[2025-01-04] MEDS: predniSONE 20 MG TAB 40 MG PO (08:20)
[2025-01-04] MEDS: Normal Saline Flush 10 ML SYR IVP (08:20)
[2025-01-04] MEDS: Metoprolol CR 100 MG TABCR 200 MG PO (08:20)
[2025-01-04] MEDS: Rosuvastatin 5 MG TAB 10 MG PO (08:20)
[2025-01-04] MEDS: amLODIPine 5 MG TAB PO (08:20)
[2025-01-04] MEDS: Multivitamin TAB 1 TAB PO (08:20)
[2025-01-04] MEDS: Allopurinol 300 MG TAB PO (08:20)
[2025-01-04] MEDS: Tamsulosin 0.4 MG CAPCR PO (08:20)
[2025-01-04] MEDS: Aspirin 81 MG CHEW PO (08:21)
[2025-01-04] MEDS: guaiFENesin 600 MG TABCR PO (08:21)
[2025-01-04] MEDS: Pantoprazole 40 MG TABCR PO (08:21)
[2025-01-04] MEDS: cefTRIAXone 2 GM/50 ML BAG IVPB (10:42)
--- NOTE | 2025-01-04 11:06 | DSE_ITS ---
Date of service: 01/04/25 Time of Service: 11:06 DS: Diagnosis Discharge Diagnosis (1) Acute hypoxic respiratory failure: Status: Acute (2) Sepsis without septic shock: Status: Resolved (3) CAP (community acquired pneumonia): Status: Acute (4) COPD (chronic obstructive pulmonary disease): Status: Chronic (5) Hypomagnesemia: Status: Acute Discharge Plan Disposition Patient Disposition: Home Condition: Improving Discharge Details Reason For Visit: sepsis without septic shock, pneumonia Admit Date/Time: 01/02/25 14:14 Admit Provider: Camron Rice Attending Provider: Camron Rice Primary Care Provider: Regla Cordoba Hospital Course Hospital Course: Admitting Diagnosis: * Sepsis without septic shock * Acute hypoxic respiratory failure * Community-acquired pneumonia (CAP) Discharge Diagnosis: * Community-acquired pneumonia * Sepsis (resolved) * Acute hypoxic respiratory failure (resolved) * Hypertension (chronic - stable) * Coronary artery disease (chronic - stable) * Gout (chronic - stable) * Dyslipidemia (chronic - stable) * Benign prostatic hyperplasia (chronic - stable) This is a 74-year-old male with a past medical history of hypertension, coronary artery disease, gout, dyslipidemia, and BPH who on 01/02/25 presented to the emergency department with one day of shortness of breath and chest pain. On arrival, he met criteria for sepsis with the following findings: temperature of 38.3?C, tachycardia (>90 bpm), tachypnea (>24 breaths per minute), and hypoxia (oxygen saturation in the 70s on room air). Laboratory evaluation revealed leukocytosis (WBC 16) and elevated lactic acid (2.2 mmol/L). Given concern for fluid overload due to possible heart failure, the patient did not receive an IV fluid bolus. He was instead treated with IV Lasix 20 mg. Empiric antibiotic therapy with ceftriaxone and doxycycline was initiated for presumed community-acquired pneumonia. Additionally, he received Solu-Medrol 125 mg IV and a DuoNeb nebulized treatment. He was admitted by the hospitalist service for management of sepsis without shock and hypoxic respiratory failure. Hospital Course: * Oxygen requirements persisted during admission but gradually improved at at time of discharge oxygen saturations 92 % on room air. * The patient reported improved symptoms over the course of hospitalization, including reduced dyspnea and resolution of fever. * He tolerated oral intake well, maintained adequate hydration, and experienced no urinary difficulties. * Productive cough and pleuritic chest pain persisted but were improving. * Vital signs stabilized, and there were no signs of hemodynamic instability. * Continued treatment included ceftriaxone, doxycycline, and supportive respiratory care. * No complications were noted during hospitalization. Physical Exam on Discharge: * General: Elderly male, no acute distress * HEENT: Atraumatic, nonicteric, noninjected, oral mucosa dry * Neck: Full range of motion, no jugular venous distension * Cardiovascular: Regular rate and rhythm * Respiratory: Even, unlabored respirations; clear breath sounds, no rales or wheezing * Abdomen: Round, soft, non-tender * Extremities: Moves all equally, no edema, well perfused * Neurologic: Alert, oriented, no focal deficits * Psychiatric: Appropriate mood and affect Discharge Condition: * Stable and improving * Tolerating regular diet * Ambulatory Discharge Medications: Continue home medications Doxycycline for 3 days Cefpodoxime for 3 days Prednisone for 4 days Spiriva twice a day Follow-Up Recommendations: * Primary Care Provider: Regla Cordoba * Pulmonology or Infectious Disease follow-up if clinically indicated (per recommendation of PCP) * Return to ED for worsening shortness of breath, chest pain, fever, or other concerning symptoms Home Meds and New Rx's Prescriptions: New prednisone 20 mg Tablet 40 mg PO DAILY Qty: 4 0RF Spiriva Respimat 2.5 mcg/actuation Mist 2 puff inhalation DAILY Qty: 4 0RF guaifenesin [Mucus Relief ER] 600 mg Tablet Extended Release 12hr 600 mg PO BID Qty: 10 0RF cefpodoxime 200 mg tablet 200 mg PO BID Qty: 6 0RF Rx Instructions: must administer with a meal/food doxycycline hyclate 100 mg Capsule 100 mg PO BID Qty: 6 0RF Continued multivitamin [Daily Multi-Vitamin] Tablet 1 tab PO DAILY Ozempic 0.25 mg or 0.5 mg (2 mg/3 mL) pen injector 0.5 mg subcut QWEEK amlodipine 5 mg tablet 5 mg PO DAILY tamsulosin 0.4 mg capsule 0.4 mg PO DAILY allopurinol 300 mg tablet 300 mg PO DAILY albuterol 90 mcg/actuation Aerosol 90 mcg INHALATION Q4H PRN PRN duloxetine 30 mg Capsule,Delayed Release(Dr/Ec) 30 mg PO DAILY rosuvastatin 20 mg tablet 10 mg PO DAILY acetaminophen 325 mg Tablet 650 mg PO Q6H PRN PRN ipratropium-albuterol 0.5 mg-3 mg(2.5 mg base)/3 mL Solution For Nebulization 3 ml INHALATION QID PRN metoprolol succinate 200 mg tablet extended release 24 hr 200 mg PO DAILY niacinamide 500 mg Tablet 500 mg PO BID Breztri Aerosphere 160-9-4.8 mcg/actuation HFA aerosol inhaler 2 inh inhalation BID aspirin 81 mg Tablet,Chewable 81 mg PO DAILY Patient Comments: on hold for surgery omeprazole magnesium [Prilosec OTC] 20 mg Tablet,Delayed Release (Dr/Ec) 20 mg PO DAILY nitroglycerin [Nitrostat] 0.4 mg Tablet, Sublingual 0.4 mg Sublingual Q5 MIN PRN X3 PRNQty: 1 0RF Discharge Instructions Instructions: Pneumonia, Adult (DC), Cefpodoxime, Doxycycline, Prednisone Additional Instructions: Activity: * Take rest as needed; avoid strenuous activity for the next few days. * Gradually increase physical activity as tolerated. Diet: * Resume regular diet as tolerated. * Maintain adequate fluid intake unless on fluid restriction. * Follow any specific dietary instructions related to hypertension, heart disease, or gout (e.g., low-sodium, low-purine diet) provided by your PCP. Medications: Take all medications as prescribed. Your medication list may include: * Antibiotics Doxycycline and cefpodoxime ? complete the full course. * Prednisone ? for four days * Spiriva inhaler * Home medications for blood pressure, cholesterol, gout, etc. ? continue unless told otherwise by PCP. Note: Do not stop or change any medications without consulting your doctor. When to Seek Immediate Medical Attention: * Worsening shortness of breath or difficulty breathing * Chest pain not relieved by rest or medications * Fever above 100.4?F (38?C) that persists or returns * Confusion, dizziness, or fainting * Inability to eat or drink * Swelling in legs or sudden weight gain Follow-Up Appointments: * Primary Care Provider: 01/11/2025 10:00 AM * Instrument [employer] / Infectious Disease Specialist: if referred by PCP Other Instructions: * Use a humidifier to help with cough. * Continue to cough up phlegm ? do not suppress productive cough unless advised, continue Musinex. * Take deep breaths and change positions frequently to help keep lungs clear. * Resume routine health maintenance (vaccines, screenings) when fully recovered. Referrals: Regla Cordoba [Primary Care Provider] - 01/11/25 10:00 am Activity:: Activity as Tolerated Equipment/Supplies:: No Equipment Needed Diet:: As Tolerated Discharge Orders Discharge Orders: Discharge Order (Routine); Ordered 01/04/25 Ordered By: Fabiola Lovell DS: Summary Time Spent with Patient providing and/or coordinating discharge services: Greater than 30 minutes Status at Discharge Functional status at discharge: independent ambulation Overall status at discharge: patient is progressing back to baseline Mental Status: mental status grossly normal Speech and Movement: speech and movement normal Mood: congruent mood Affect: normal affect Quality:SDOH Health Related Social Needs: No Data to Display Exam Const General: cooperative, comfortable and no acute distress Chest Chest: normal inspection of the chest Resp Effort & Inspection: normal respiratory effort Auscultation: no rales and no rhonchi Cardio Jugular venous pressure: no JVD Rate: regular rate Rhythm: regular rhythm Heart Sounds: S1 normal and S2 normal GI Inspection: normal to inspection Palpation: soft and nontender Auscultation: normal bowel sounds Skin General skin exam: no rashes or lesions noted Neuro General: patient alert, patient awake and patient oriented x3 Extrem General: normal to inspection Psych Mental Status: mental status grossly normal Speech and Movement: speech and movement normal Mood: congruent mood Affect: normal affect DS: Data Vitals/I&O Vitals and I&O: Vital Signs Temperature 36.9 C 01/04/25 07:27 Temperature Source Temporal Artery Scan 01/04/25 07:27 Pulse 91 H 01/04/25 08:12 Pulse Rhythm Irregular 01/02/25 16:32 Pulse 105 H 01/02/25 15:20 Respiratory Rate 12 01/04/25 08:00 Respiratory Effort Short of Breath 01/02/25 16:32 Respiratory Depth Retractive 01/02/25 16:32 Respiratory Pattern Tachypnea 01/02/25 16:32 Blood Pressure 117/66 01/04/25 07:27 Blood Pressure Mean 83 01/04/25 07:27 Blood Pressure Position Supine 01/02/25 12:01 Pulse Oximetry 92 01/04/25 10:30 Oxygen Delivery Method Room Air 01/04/25 10:30 Oxygen Flow Rate 0 01/04/25 10:30 End Tidal Co2 5 01/02/25 11:40 Pain Level 1 01/04/25 08:19 Comment RN notified 01/04/25 07:27 Comment 4l 01/02/25 15:20 Intake & Output 01/03/25 01/03/25 01/04/25 11:59 23:59 11:59 Intake Total 2500 / 3500 1000 / 3500 2400 / 2400 Output Total 600 / 1100 500 / 1100 2475 / 2475 Balance 1900 / 2400 500 / 2400 -75 / -75 Weight 103.9 kg Intake: IV 2050 / 3050 1000 / 3050 2000 / 2000 Oral 450 / 450 400 / 400 Output: Urine 600 / 1100 500 / 1100 2475 / 2475 Other: Urine Color Pale Straw Yellow Yellow Straw Urine Appearance Clear Clear Clear Urine Odor Normal None Data Completed and Pending Labs on day of discharge: Labs from last 24 hours 01/04/25 05:42: WBC 23.40 H, RBC 3.78 L, Hgb 12.5 L, Hct 36.3 L, MCV 96 H, MCH 33.1 H, MCHC 34.4, RDW 13.9, Plt Count 210, MPV 10.1, Immature Gran % See Differential, Neutrophils % 75.0, Band Neutrophils % 7, Lymphocytes % 7.0, Monocytes % 5.0, Eosinophils % 3.0, Basophils % 1.0, Metamyelocytes % 2, Nucleated RBC % 0.0, Absolute Neutrophils 19.19 H, Absolute Lymphocytes 1.64, Absolute Monocytes 1.17 H, Absolute Eosinophils 0.70, Absolute Basophils 0.23 H, RBC Morphology Normal, Sodium 135 L, Potassium 3.9, Chloride 100, Carbon Dioxide 26.0, Anion Gap 9.0, BUN 22 H, Creatinine 1.0, Est GFR (CKD-EPI 2020) 78.00, Glucose 163 H, Calcium 9.0, Magnesium 1.8, Total Bilirubin 0.5, AST 21, ALT 23, Alkaline Phosphatase 53, Total Protein 6.9, Albumin 2.7 L Preliminary micro results at discharge 01/02/25 20:05 Sputum Sputum Culture - Preliminary Normal Ro 01/03/25 14:50 Sputum Sputum Culture - Preliminary Normal Ro 01/02/25 12:30 Blood Blood Culture - Preliminary NO GROWTH 24 HOURS 01/02/25 12:15 Blood Blood Culture - Preliminary NO GROWTH 24 HOURS PFSH All Active Problems (Updated 01/04/25 @ 11:37 by Fabiola Lovell NP) Ischemic heart disease (Acute) s/p stent x1 Jul 2018 [facility] [place] - Dr. Sudhir Ceballos. -after progressive SEPULVEDA, then chest pain. COPD (chronic obstructive pulmonary disease) (Chronic) patient follows w/ Dr. Barros, order clerk, [place] HESHAM (obstructive sleep apnea) (Chronic) Elevated troponin (Acute) Hypomagnesemia (Acute) CAP (community acquired pneumonia) (Acute) Acute hypoxic respiratory failure (Acute) D-dimer, elevated (Acute) Pneumonia (Acute) Sepsis (Acute) Influenza A (Acute) Enlarged prostate (Acute) benign GERD (gastroesophageal reflux disease) (Chronic) Pneumonia (Acute) Near syncope (Acute) Post-operative complication (Acute) Leukocytosis, unspecified (Acute) Hyperglycemia (Acute) Essential hypertension (Acute) Acute coronary syndrome (Acute) Medical History HESHAM (obstructive sleep apnea) Hypercholesteremia Diabetes mellitus COPD (chronic obstructive pulmonary disease) patient follows w/ Dr. Barros, order clerk, [place] History of posttraumatic stress disorder (PTSD) Former smoker quit in 1994,90 pack year Basal cell carcinoma of skin right cheek 2011 [facility] Ischemic heart disease s/p stent x1 Jul 2018 [facility] [place] - Dr. Sudhir Ceballos. -after progressive SEPULVEDA, then chest pain. 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 Zheng Peñaloza, unemployment insurance director, [place] Surgical History H/O melanoma excision H/O colonoscopy H/O nasal septoplasty Family History Father History of non-ST elevation myocardial infarction (NSTEMI) Prostate cancer metastatic to multiple sites Mother COPD (chronic obstructive pulmonary disease) Sister Breast cancer Sister Ovarian cancer Brother Lung cancer Social History Smoking/Tobacco Use Status: Former Tobacco Use Quit Date: 09/02/89 Tobacco: How many years used: 37 Smoking risk assessment performed?: Yes Alcohol Intake: current Alcohol Intake frequency: 0-2 drinks per day Alcohol type: hard liquor Drug use: Never Substance use type: does not use Housing: house 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 Pets and animals: Yes (4 cats) Pets and animals: cat(s) What is your relationship status?: Panel score (0-1 are the most socially isolated patients): 1 Do you feel safe at home: Yes Do you feel safe in your relationship?: Yes Additional Social history: Former smoker , quit in 1994,90 pack yrs. Time Spent with Patient Time Spent with Patient: <45 minutes Time was spent: preparing to see the patient(eg.review tests), ordering medications,tests, procedures, referring, communicating with other health care technician, indepentently interpreting results, counseling the patient and care coordination
--- NOTE | 2025-01-04 11:59 | PDOC.CMDIS ---
Date of service: 01/04/25 Time of Service: 11:59 LACE Index Scoring Tool Questions: Length of Stay (in days): 2 Was the patient admitted via the E.D.?: Yes Comorbidities: Chronic Pulmonary Disease E.D. Visits: 4 Answers: Total Score: 11 Risk of Readmission: High Risk Care Management Discharge Plan Reason for Hospitalization: Pneumonia, sepsis Discharge Plan: Cosmo is discharged home via private vehicle with family. He will follow up with community providers and his discharge plan of care as directed. No new services are indicated at the time of his discharge. Patient/Family Education Needs: Review discharge instructions and plan to follow up with community providers. Discuss ask me three. SDOH Health Related Social Needs: No Data to Display
== END 2025-01-04 12:04 | disposition home or self-care (01) | DRG 871 ==
LOC: ER 14:17 → MS 15:45
PROVIDERS: Nurse Practitioner Acute Care; Admitting Provider Hospitalist; Emergency Provider Registered Nurse Emergency; PCP Internal Medicine Geriatric Medicine; Responsible Provider Nurse Practitioner Family; Visit Provider Hospitalist
DX: A41.9 Sepsis, unspecified organism (principal); J18.9 Pneumonia, unspecified organism; J96.01 Acute respiratory failure with hypoxia; J44.0 Chronic obstructive pulmonary disease with (acute) lower respiratory infection; J44.1 Chronic obstructive pulmonary disease with (acute) exacerbation; E87.21 Acute metabolic acidosis; R65.20 Severe sepsis without septic shock; I10 Essential (primary) hypertension; R74.8 Abnormal levels of other serum enzymes; E83.42 Hypomagnesemia; I25.10 Atherosclerotic heart disease of native coronary artery without angina pectoris; G47.33 Obstructive sleep apnea (adult) (pediatric); E78.5 Hyperlipidemia, unspecified; N40.0 Benign prostatic hyperplasia without lower urinary tract symptoms; R79.1 Abnormal coagulation profile; K21.9 Gastro-esophageal reflux disease without esophagitis; Z87.891 Personal history of nicotine dependence; Z79.85 Long-term (current) use of injectable non-insulin antidiabetic drugs
CPT/HCPCS: 00123; 36415; 71275; 80048; 80053; 82805; 84145; 87040; 87637; 93005; 93308; 94640; 94761; 96361; 96365; 96367; 96368; 96375; 96376; 99285; J1650; 71045; 81003; 83605; 83735; 83880; 84484; 85025; 85379; 85610; 85730; 87070; 87205; 93010; 94664; 94667; 94668; 94760; 99223; 99233; 99239; J0131; J0696; J1938; J2919; J3475; J3490; J7512; J7620

== ENCOUNTER 2025-01-05 08:18 | Emergency (ER) | payer OTHER, SELFPAY ==
[2025-01-05] VITALS (37 sets, daily range): BP systolic 97–190; BP diastolic 50–96; PULSE 87–158; RESP 12–47; O2SAT 93–97
--- NOTE | 2025-01-05 08:15 | RT.EKG_ITS ---
APPROVED REPORT Exam: Resting ECG Reason for Exam: respiratory distress Patient Location: E HR:137 bpm ECG Measurements Heart Rate 137 AXIS GA 105 P 0 QRSd 125 QRS -66 QT 312 T 99 QTc 468 Conclusion Sinus tachycardia...rate> 99 Ventricular premature complex...V complex w/ short R-R interval Nonspecific T abnormalities, lateral leads...T <-0.10mV, I aVL V5 V6 ST elevation, consider inferior injury...ST >0.08mV, II III aVF No Occlusion VT
[2025-01-05] MEDS: Aspirin 81 MG CHEW 324 MG CH (08:36)
[2025-01-05] MEDS: methylPREDNISolone SUCC 125 MG VIAL IVP (08:36)
[2025-01-05] MEDS: cefTRIAXone 2 GM/50 ML BAG IVPB (08:37)
[2025-01-05 08:38] LABS: BE (Venous) -1 mmol/L (-2-3); HCO3 (Venous) 26 mmol/L (23-28); O2 Sat (Venous) 97 %; TCO2 (Venous) 23 mmol/L (24-29); pCO2 (Venous) 55 mmHg (41-51); pH (Venous) 7.28 (7.31-7.41); pO2 (Venous) 124 mmHg
[2025-01-05 08:41] LABS: Lactate 1.2 mmol/L (<or=2.0)
--- NOTE | 2025-01-05 08:47 | W.ED.GENAD ---
Discharge Plan Disposition Patient Disposition: Transfer-Acute Inpatient Care Specific Acute Inpt Facility: [facility] Discharge Details Clinical Impression: Hypertensive emergency, Pulmonary edema, Acute HFrEF (heart failure with reduced ejection fraction) Primary Care Provider: Regla Cordoba ED Provider: Cosmo Gotti [place] Meds and New Rx's Prescriptions: No Action multivitamin [Daily Multi-Vitamin] Tablet 1 tab PO DAILY Ozempic 0.25 mg or 0.5 mg (2 mg/3 mL) pen injector 0.5 mg subcut QWEEK amlodipine 5 mg tablet 5 mg PO DAILY tamsulosin 0.4 mg capsule 0.4 mg PO DAILY allopurinol 300 mg tablet 300 mg PO DAILY albuterol 90 mcg/actuation Aerosol 90 mcg INHALATION Q4H PRN PRN duloxetine 30 mg Capsule,Delayed Release(Dr/Ec) 30 mg PO DAILY rosuvastatin 20 mg tablet 10 mg PO DAILY acetaminophen 325 mg Tablet 650 mg PO Q6H PRN PRN ipratropium-albuterol 0.5 mg-3 mg(2.5 mg base)/3 mL Solution For Nebulization 3 ml INHALATION QID PRN metoprolol succinate 200 mg tablet extended release 24 hr 200 mg PO DAILY niacinamide 500 mg Tablet 500 mg PO BID Breztri Aerosphere 160-9-4.8 mcg/actuation HFA aerosol inhaler 2 inh inhalation BID prednisone 20 mg Tablet 40 mg PO DAILY Qty: 4 0RF Spiriva Respimat 2.5 mcg/actuation Mist 2 puff inhalation DAILY Qty: 4 0RF guaifenesin [Mucus Relief ER] 600 mg Tablet Extended Release 12hr 600 mg PO BID Qty: 10 0RF cefpodoxime 200 mg tablet 200 mg PO BID Qty: 6 0RF Rx Instructions: must administer with a meal/food doxycycline hyclate 100 mg Capsule 100 mg PO BID Qty: 6 0RF aspirin 81 mg Tablet,Chewable 81 mg PO DAILY Patient Comments: on hold for surgery omeprazole magnesium [Prilosec OTC] 20 mg Tablet,Delayed Release (Dr/Ec) 20 mg PO DAILY nitroglycerin [Nitrostat] 0.4 mg Tablet, Sublingual 0.4 mg Sublingual Q5 MIN PRN X3 PRNQty: 1 0RF tadalafil [Cialis] 5 mg tablet 5 mg PO DAILY HPI General Date/Time Provider Initiated Documentation: 01/05/25 08:25. HPI Narrative: MDM This is a tachycardic markedly hypertensive 74-year-old male with bilateral B-lines and signs of symptomatic crashing pulmonary edema for which patient is on nitroglycerin drip at 100 mcg/min following a 400 mcg bolus. Given recent pneumonia will cover for sepsis with ceftriaxone and vancomycin. Venous gas showed mild acidemia and mild hypercarbia for which patient was placed on rescue BiPAP. His ECG is nonischemic however he does have what appears to be a slightly reduced ejection fraction concerning for acute heart failure with reduced ejection fraction. Will obtain labs and consider furosemide IV. Anticipate cardiology at transfer to [facility]. Will await for troponin to assess for NSTEMI though will treat with 325 mg of aspirin. 10:[address] Greer from [facility] she did not feel the patient required cardiology transfer. She agreed with treatment for sepsis and acute heart failure. I ordered a formal echocardiogram. Repeat ultrasound with improving rates no evolving changes no ischemia. 10:56 AM I spoke to Dr. Casey Gomes from [facility] who graciously accepted patient for transfer. I give the patient doxycycline and methylprednisolone in the event that there is a component of COPD. [facility] will call when bed is ready. Will send patient via medic. Chronic conditions affecting the care of the patient: Acute heart failure History obtained from an outside historian: Paramedics External record review: [facility] Diagnostic interpretations performed by me: Per my independent interpretation chest x-ray shows: Volume overloaded Per my independent interpretation EKG shows: Sinus tachycardia no ischemia. ]Medications: Nitro drips Social determinants of health affecting disposition: N/A Management discussed with: ICU [facility] Treatment/interventions considered: N/A Response to therapies provided: Patient diuresed 1.5 L HPI Patient discharged yesterday evening from hospital in setting of pneumonia. EMS found patient on home CPAP with sats in the 70s. Blood pressure was 180/200. He had chest pain last night. Unable to obtain additional history secondary to the acuity of the patient's presentation. Exam General: Diaphoretic-appearing in significant acute distress speaking in 1-2 word sentences. Head: Normocephalic, atraumatic. Eye: Extraocular eye movements intact. Bilateral mild conjunctival injection. No scleral icterus. Ear, nose, mouth, throat: Grossly normal inspection. Normal voice, handling secretions normally. Neck: Trachea midline. Cardiovascular: Well-perfused distal extremities. Rapid regular rate Respiratory: Nonlabored respiration. Decreased breath sounds bilateral bases. Abdominal retractions. Gastrointestinal: Nondistended abdomen. Musculoskeletal: Bilateral mild lower extremity nonpitting edema. Moving all 4 extremities spontaneously. Skin: Normal for age and race, grossly normal temperature and turgor. No acute rash. Neurologic: Alert and appropriate, no apparent acute deficits. Related Data Home Medications ?Medication ?Instructions ?Recorded ?Confirmed aspirin 81 mg chewable tablet 81 mg PO DAILY 07/19/18 01/05/25 nitroglycerin 0.4 mg sublingual 0.4 mg sublingual Q5 MIN PRN X3 07/19/18 01/05/25 tablet (Nitrostat) PRN #1 tab omeprazole magnesium 20 mg 20 mg PO DAILY 07/19/18 01/05/25 tablet,delayed release (Prilosec OTC) albuterol 90 mcg/actuation aerosol 90 mcg inhalation Q4H PRN PRN 04/19/21 01/05/25 inhaler allopurinol 300 mg tablet 300 mg PO DAILY 04/19/21 01/05/25 duloxetine 30 mg capsule,delayed 30 mg PO DAILY 04/19/21 01/05/25 release tamsulosin 0.4 mg capsule 0.4 mg PO DAILY 04/19/21 01/05/25 acetaminophen 325 mg tablet 650 mg PO Q6H PRN PRN 06/18/21 01/05/25 ipratropium 0.5 mg-albuterol 3 mg 3 ml inhalation QID PRN 06/18/21 01/05/25 (2.5 mg base)/3 mL nebulization soln metoprolol succinate 200 mg 200 mg PO DAILY 06/18/21 01/05/25 tablet,extended release 24 hr niacinamide 500 mg tablet 500 mg PO BID 06/18/21 01/05/25 amlodipine 5 mg tablet 5 mg PO DAILY 04/24/23 01/05/25 multivitamin (Daily Multi-Vitamin 1 tab PO DAILY 09/27/23 01/05/25 tablet) rosuvastatin 20 mg tablet 10 mg PO DAILY 09/27/23 01/05/25 semaglutide 0.25 mg or 0.5 mg (2 0.5 mg subcut QWEEK 09/27/23 01/05/25 mg/3 mL) subcutaneous pen injector (Ozempic) budesonide 160 mcg-glycopyr 9 2 inh inhalation BID 01/03/25 01/05/25 mcg-formot 4.8 mcg/actuation HFA inhaler (Breztri Aerosphere) cefpodoxime 200 mg tablet 200 mg PO BID #6 tabs 01/04/25 01/05/25 doxycycline hyclate 100 mg capsule 100 mg PO BID #6 caps 01/04/25 01/05/25 guaifenesin 600 mg tablet, 600 mg PO BID #10 tabs 01/04/25 01/05/25 extended release 12 hr (Mucus Relief ER) prednisone 20 mg tablet 40 mg (2 x 20 mg) PO DAILY #4 tabs 01/04/25 01/05/25 tiotropium bromide 2.5 2 puff inhalation DAILY #4 grams 01/04/25 01/05/25 mcg/actuation mist for inhalation (Spiriva Respimat) tadalafil 5 mg tablet (Cialis) 5 mg PO DAILY 01/05/25 01/05/25 Previous Rx's ?Medication ?Instructions ?Recorded nitroglycerin 0.4 mg sublingual 0.4 mg sublingual Q5 MIN PRN X3 07/19/18 tablet (Nitrostat) PRN #1 tab cefpodoxime 200 mg tablet 200 mg PO BID #6 tabs 01/04/25 doxycycline hyclate 100 mg capsule 100 mg PO BID #6 caps 01/04/25 guaifenesin 600 mg tablet, 600 mg PO BID #10 tabs 01/04/25 extended release 12 hr (Mucus Relief ER) prednisone 20 mg tablet 40 mg (2 x 20 mg) PO DAILY #4 tabs 01/04/25 tiotropium bromide 2.5 2 puff inhalation DAILY #4 grams 01/04/25 mcg/actuation mist for inhalation (Spiriva Respimat) Allergies Allergy/AdvReac Type Severity Reaction Status Date / Time shellfish derived Allergy Severe Anaphylaxis Verified 01/05/25 09:06 meperidine Allergy Unknown Other (See Verified 01/05/25 09:06 Comment) morphine Allergy Unknown Nausea Verified 01/05/25 09:06 demerol hydrochloride Allergy Unknown Nausea Uncoded 01/05/25 09:06 General Stated Complaint: RespSymp ELI: 2 Course Vital Signs Vital signs: Vital Signs Pulse 158 H 01/05/25 08:22 Respiratory Rate 28 H 01/05/25 08:22 Blood Pressure 190/96 H 01/05/25 08:22 Pulse Oximetry 96 01/05/25 08:22 Pulse 152 H 01/05/25 08:27 Respiratory Rate 31 H 01/05/25 08:27 Blood Pressure 190/96 H 01/05/25 08:22 Blood Pressure Position Supine 01/05/25 08:22 Pulse Oximetry 96 01/05/25 08:27 Oxygen Delivery Method Cpap 01/05/25 08:22 Oxygen Flow Rate 0 01/05/25 08:22 Fraction of Inspired Oxygen (FIO2) 55 01/05/25 08:27 Lab/Test Results Lab/Test Results: 01/05/25 08:25 Blood Blood Culture - Pending 01/05/25 08:25 Blood Blood Culture - Pending Laboratory Tests Range/Units 01/05/25 08:30 VBG pH (7.31-7.41) 7.28 L VBG pCO2 (41-51) mmHg 55 H VBG pO2 mmHg 124 VBG HCO3 (23-28) mmol/L 26 VBG Total CO2 (24-29) mmol/L 23 L VBG O2 Saturation % 97 VBG Base Excess (-2-3) mmol/L -1 VBG Lactate (<or=2.0) mmol/L 1.2 Medical Decision Making Quality:SDOH Health Related Social Needs: No Data to Display Critical Care Time Critical Care Time Critical Care Time: Yes Total Critical Care Time: 60 Attestation: Acute respiratory failure hypoxia hypercarbia in the setting of symptomatic transient pulmonary edema complicated by hypertensive emergency. PFSH All Active Problems (Updated 01/05/25 @ 11:00 by Cosmo Gotti MD) Acute HFrEF (heart failure with reduced ejection fraction) (Acute) Pulmonary edema (Acute) Hypertensive emergency (Acute) CAP (community acquired pneumonia) (Acute) D-dimer, elevated (Acute) Pneumonia (Acute) Sepsis (Acute) Influenza A (Acute) Enlarged prostate (Acute) benign GERD (gastroesophageal reflux disease) (Chronic) Pneumonia (Acute) Near syncope (Acute) Post-operative complication (Acute) Leukocytosis, unspecified (Acute) Hyperglycemia (Acute) Acute coronary syndrome (Acute) Medical History HESHAM (obstructive sleep apnea) Hypercholesteremia Diabetes mellitus COPD (chronic obstructive pulmonary disease) patient follows w/ Dr. Barros, corporate account executive, [employer] [place] History of posttraumatic stress disorder (PTSD) Former smoker quit in 1994,90 pack year Basal cell carcinoma of skin right cheek 2011 [facility] Ischemic heart disease s/p stent x1 Jul 2018 [facility] - Dr. Sudhir Ceballos. -after progressive SEPULVEDA, then chest pain. 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 Zheng Peñaloza, consumer credit counselor, [place], [place] Surgical History H/O melanoma excision H/O colonoscopy H/O nasal septoplasty Family History Father History of non-ST elevation myocardial infarction (NSTEMI) Prostate cancer metastatic to multiple sites Mother COPD (chronic obstructive pulmonary disease) Sister Breast cancer Sister Ovarian cancer Brother Lung cancer Social History Smoking/Tobacco Use Status: Former Tobacco Use Quit Date: 09/02/89 Tobacco: How many years used: 37 Smoking risk assessment performed?: Yes Alcohol Intake: current Alcohol Intake frequency: 0-2 drinks per day Alcohol type: hard liquor Drug use: Never Substance use type: does not use Housing: house 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 Pets and animals: Yes (4 cats) Pets and animals: cat(s) What is your relationship status?: Panel score (0-1 are the most socially isolated patients): 1 Do you feel safe at home: Yes Do you feel safe in your relationship?: Yes Additional Social history: Former smoker , quit in 1994,90 pack yrs. POCUS Exam (ED) Limited Cardiac Exam DATE OF EXAM: 01/05/25 TIME OF EXAM: 08:25 PROVIDER THAT PERFORMED THE STUDY: Cosmo Gotti IS THIS A REPEAT EXAM DURING THIS ENCOUNTER: no REASON FOR EXAM: Chest pain and Dyspnea VISUALIZED STRUCTURES: Four Chambers, Left ventricle, LVOT and Other structure: Lungs bilaterally VIEW OBTAINED: Apical 4-Chamber, Parasternal long-axis and Subxiphoid PERTINENT FINDINGS/IMPRESSION: No pericardial effusion and No RV dilation DIFFERENTIAL DIAGNOSES: moderate squeeze, RV approximately equal to LV, no significant pericardial effusion.Bilateral B-lines. Aortic outflow tract not measured Exam complete
[2025-01-05 08:50] LABS: Abs Immature Grans 0.55 10^3/uL (0.0-0.06); Absolute Lymphocyte Count 3.02 10^3/uL (1.2-3.4); Basophils % 0.1 %; Eosinophils % 0.2 %; HCT 42.3 % (40.0-50.0); HGB 14.1 g/dL (13.5-17.5); Immature Grans % 1.5 %; MCH 33.2 pg (27.0-33.0); MCHC 33.3 % (32.0-36.0); MCV 100 fL (80-95); MPV 9.8 fL (8.0-11.0); Monocytes % 5.5 %; Neutrophils % 84.7 %; Nucleated RBC 0.1 % (0.0-0.3); Platelet Count 332 10^3/uL (130-400); RBC 4.25 10^6/uL (4.36-5.78); RDW-SD 51.7 fL
[2025-01-05] MEDS: nitroGLYcerin in D5W 50 MG/250 ML BTL 30 MG IV (08:55)
--- NOTE | 2025-01-05 08:55 | DI.RAD_ITS ---
Exam(s) XR PORTABLE CHEST AP EXAM: XR PORTABLE CHEST AP CLINICAL HISTORY: sob. TECHNIQUE: 2D digital imaging was performed. COMPARISON: CR,XR XR CHEST 2V PA LATERAL from 10/25/2024 CR,XR XR PORTABLE CHEST AP from 01/02/2025 FINDINGS: Single AP portable view. Heart size is upper normal. The mediastinum is not widened. There are again noted extensive interstitial infiltrates throughout both lung davidson and some ground- glass density in left upper lobe. No proved when compared to 01/02/2025. No obvious pleural effusio ns. No pneumothorax. No fractures. IMPRESSION: No radiographic improvement in the extensive bilateral interstitial infiltrates. There appear to be Franklin B lines in the lateral right lung base. Main considerations are for pulmonary edema although infectious etiology is also be considered. Chest x-ray was normal on October 25, 2024 DATA REPOSITORY: RADIATION DOSE DELIVERED:
[2025-01-05 09:06] LABS: Troponin I 34 ng/L (<or=76)
[2025-01-05 09:10] LABS: ALT 119 U/L (16-63); AST 121 U/L (15-37); Alkaline Phosphatase 104 U/L (46-116); Anion Gap 7.8 mmol/L (3-11); BUN 24 mg/dL (7-18); Bilirubin, Total 0.8 mg/dL (0.2-1.0); CO2 28.2 mmol/L (21.0-32.0); Chloride 102 mmol/L (98-107); Glucose 235 mg/dL (74-106); Magnesium 1.9 mg/dL (1.8-2.4); NT-proBNP 9036 pg/mL (<300); Potassium 3.9 mmol/L (3.5-5.1); Sodium 138 mmol/L (136-145)
[2025-01-05 09:11] LABS: Absolute Basophil Count 0.04 10^3/uL (0.0-0.2); Absolute Eosinophil Count 0.08 10^3/uL (0.0-0.7); Absolute Monocyte Count 2.08 10^3/uL (0.1-0.8); Absolute Neutrophil Count 32.01 10^3/uL (1.2-6.7)
[2025-01-05 09:24] LABS: Diff Comment Agrees w/ Instrument; RBC Morphology Normal; WBC 37.79 10^3/uL (4.4-10.8)
[2025-01-05] MEDS: amLODIPine 5 MG TAB PO (09:28)
[2025-01-05] MEDS: Furosemide 100 MG/10 ML VIAL 80 MG IVP (09:28)
[2025-01-05] MEDS: VANCOMYCIN/WATER (PEG) 2 GM/400 ML BAG IVPB (09:29)
[2025-01-05] MEDS: Metoprolol CR 50 MG TABCR 200 MG PO (09:29)
--- NOTE | 2025-01-05 09:30 | RT.EKG_ITS ---
APPROVED REPORT Exam: Resting ECG Reason for Exam: CP Patient Location: E HR:111 bpm ECG Measurements Heart Rate 111 AXIS TN 152 P 91 QRSd 126 QRS -61 QT 366 T 89 QTc 500 Conclusion Sinus tachycardia...rate> 99 Ventricular premature complex...V complex w/ short R-R interval Nonspecific T abnormalities, lateral leads...T <-0.10mV, I aVL V5 V6 No Occlusion SD
[2025-01-05 09:35] LABS: COVID-19 PCR Negative (Negative); Influenza A PCR Negative (Negative); Influenza B PCR Negative (Negative); RSV PCR Negative (Negative); Source Nasopharynx
[2025-01-05 10:07] LABS: Troponin I 72 ng/L (<or=76)
[2025-01-05] MEDS: Doxycycline Hyclate 100 MG CAP PO (11:17)
[2025-01-05 12:26] LABS: Troponin I 114 ng/L (<or=76)
== END 2025-01-05 14:04 | disposition short-term general hospital (02) ==
PROVIDERS: Emergency Provider Emergency Medicine; PCP Internal Medicine Geriatric Medicine
DX: I16.0 Hypertensive urgency (principal); I11.0 Hypertensive heart disease with heart failure; I50.22 Chronic systolic (congestive) heart failure; J44.9 Chronic obstructive pulmonary disease, unspecified; E78.00 Pure hypercholesterolemia, unspecified; E11.9 Type 2 diabetes mellitus without complications; Z79.85 Long-term (current) use of injectable non-insulin antidiabetic drugs; Z79.82 Long term (current) use of aspirin; Z79.899 Other long term (current) drug therapy
CPT/HCPCS: 80053; 82805; 87040; 87637; 93005; 93308; 96365; 96366; 96367; 96375; 99284; 71045; 83605; 83735; 83880; 84484; 85025; 93010; J0696; J1938; J2305; J2919; J3372

== ENCOUNTER 2025-01-19 14:32 | Observation (INO) | payer OTHER, SELFPAY ==
[2025-01-19] VITALS (23 sets, daily range): BP systolic 100–128; BP diastolic 56–80; PULSE 85–98; RESP 11–23; TEMP 36.8–37.7; O2SAT 91–99
--- NOTE | 2025-01-19 15:00 | RT.EKG_ITS ---
APPROVED REPORT Exam: Resting ECG Reason for Exam: Fever, cough Patient Location: E HR:90 bpm ECG Measurements Heart Rate 90 AXIS MO 153 P 87 QRSd 125 QRS -61 QT 362 T 117 QTc 444 Conclusion Sinus rhythm, rate 90 IVCD T wave inversion V5, V6 new from priors No STEMI
--- NOTE | 2025-01-19 15:31 | W.ED.GENAD ---
Discharge Plan Disposition Patient Disposition: Admit to [facility] Condition: Stable Discharge Details Clinical Impression: Pneumonia Primary Care Provider: Regla Cordoba ED Provider: Adriane Catalan Home Meds and New Rx's Prescriptions: No Action multivitamin [Daily Multi-Vitamin] Tablet 1 tab PO DAILY Ozempic 0.25 mg or 0.5 mg (2 mg/3 mL) pen injector 0.5 mg subcut QWEEK tamsulosin 0.4 mg capsule 0.4 mg PO DAILY allopurinol 300 mg tablet 300 mg PO DAILY albuterol 90 mcg/actuation Aerosol 90 mcg INHALATION Q4H PRN PRN duloxetine 30 mg Capsule,Delayed Release(Dr/Ec) 30 mg PO DAILY rosuvastatin 20 mg tablet 10 mg PO DAILY acetaminophen 325 mg Tablet 650 mg PO Q6H PRN PRN ipratropium-albuterol 0.5 mg-3 mg(2.5 mg base)/3 mL Solution For Nebulization 3 ml INHALATION QID PRN niacinamide 500 mg Tablet 500 mg PO BID Breztri Aerosphere 160-9-4.8 mcg/actuation HFA aerosol inhaler 2 inh inhalation BID Spiriva Respimat 2.5 mcg/actuation Mist 2 puff inhalation DAILY Qty: 4 0RF guaifenesin [Mucus Relief ER] 600 mg Tablet Extended Release 12hr 600 mg PO BID Qty: 10 0RF aspirin 81 mg Tablet,Chewable 81 mg PO DAILY Patient Comments: on hold for surgery omeprazole magnesium [Prilosec OTC] 20 mg Tablet,Delayed Release (Dr/Ec) 20 mg PO DAILY nitroglycerin [Nitrostat] 0.4 mg Tablet, Sublingual 0.4 mg Sublingual Q5 MIN PRN X3 PRNQty: 1 0RF tadalafil [Cialis] 5 mg tablet 5 mg PO DAILY furosemide 40 mg tablet 40 mg PO DAILY Patient Comments: TAKE ONE TABLET BY MOUTH EVERY DAY metoprolol succinate 50 mg tablet extended release 24 hr 50 mg PO BID Patient Comments: TAKE ONE TABLET BY MOUTH TWICE A DAY HPI General Mode of arrival: ambulatory. Date/Time Provider Initiated Documentation: 01/19/25 14:41. Limitations to Documentation: no limitations. Information obtained by: patient, family and old records reviewed. HPI Narrative: This is a 74-year-old male patient with a past medical history most notable for recent admission for acute heart failure exacerbation with pulmonary edema requiring BiPAP, sepsis due to community-acquired pneumonia, and recent NSTEMI. He was discharged on 01/09/2025, and since that time has had excessive fatigue that seems to be worsening instead of improving. Yesterday and the day before he noted a temperature to a Tmax of 100.8, which he took ibuprofen for. He reports that he completed his course of antibiotics for his pneumonia 5 days ago, but has noted an ongoing occasionally productive cough with blood-tinged sputum, which has been present for the duration of his pneumonia. He has been experiencing a bandlike mild headache, and did have an episode of shaking chills last night. He reports no chest pain, does have a history of postprandial abdominal pain that has been present for several months, has had imaging and workup for this condition as recently as October. He has not had any urinary symptoms such as dysuria, increasing frequency. He has been taking his medications as prescribed. He has not noted any significant extremity swelling or tenderness. Related Data Home Medications ?Medication ?Instructions ?Recorded ?Confirmed aspirin 81 mg chewable tablet 81 mg PO DAILY 07/19/18 01/19/25 nitroglycerin 0.4 mg sublingual 0.4 mg sublingual Q5 MIN PRN X3 07/19/18 01/19/25 tablet (Nitrostat) PRN #1 tab omeprazole magnesium 20 mg 20 mg PO DAILY 07/19/18 01/19/25 tablet,delayed release (Prilosec OTC) albuterol 90 mcg/actuation aerosol 90 mcg inhalation Q4H PRN PRN 04/19/21 01/19/25 inhaler allopurinol 300 mg tablet 300 mg PO DAILY 04/19/21 01/19/25 duloxetine 30 mg capsule,delayed 30 mg PO DAILY 04/19/21 01/19/25 release tamsulosin 0.4 mg capsule 0.4 mg PO DAILY 04/19/21 01/19/25 acetaminophen 325 mg tablet 650 mg PO Q6H PRN PRN 06/18/21 01/19/25 ipratropium 0.5 mg-albuterol 3 mg 3 ml inhalation QID PRN 06/18/21 01/19/25 (2.5 mg base)/3 mL nebulization soln niacinamide 500 mg tablet 500 mg PO BID 06/18/21 01/19/25 multivitamin (Daily Multi-Vitamin 1 tab PO DAILY 09/27/23 01/19/25 tablet) rosuvastatin 20 mg tablet 10 mg PO DAILY 09/27/23 01/19/25 semaglutide 0.25 mg or 0.5 mg (2 0.5 mg subcut QWEEK 09/27/23 01/19/25 mg/3 mL) subcutaneous pen injector (QPSoftware) budesonide 160 mcg-glycopyr 9 2 inh inhalation BID 01/03/25 01/19/25 mcg-formot 4.8 mcg/actuation HFA inhaler (Breztri Mandaephere) guaifenesin 600 mg tablet, 600 mg PO BID #10 tabs 01/04/25 01/19/25 extended release 12 hr (Mucus Relief ER) tiotropium bromide 2.5 2 puff inhalation DAILY #4 grams 01/04/25 01/19/25 mcg/actuation mist for inhalation (Spiriva Respimat) tadalafil 5 mg tablet (Cialis) 5 mg PO DAILY 01/05/25 01/19/25 furosemide 40 mg tablet 40 mg PO DAILY 01/19/25 01/19/25 metoprolol succinate 50 mg 50 mg PO BID 01/19/25 01/19/25 tablet,extended release 24 hr Previous Rx's ?Medication ?Instructions ?Recorded nitroglycerin 0.4 mg sublingual 0.4 mg sublingual Q5 MIN PRN X3 07/19/18 tablet (Nitrostat) PRN #1 tab guaifenesin 600 mg tablet, 600 mg PO BID #10 tabs 01/04/25 extended release 12 hr (Mucus Relief ER) tiotropium bromide 2.5 2 puff inhalation DAILY #4 grams 01/04/25 mcg/actuation mist for inhalation (Spiriva Respimat) Allergies Allergy/AdvReac Type Severity Reaction Status Date / Time shellfish derived Allergy Severe Anaphylaxis Verified 01/19/25 14:42 meperidine Allergy Unknown Other (See Verified 01/19/25 14:42 Comment) morphine Allergy Unknown Nausea Verified 01/19/25 14:42 demerol hydrochloride Allergy Unknown Nausea Uncoded 01/19/25 14:42 General Stated Complaint: GenMedical ELI: 3 Exam Narrative Exam Narrative: Gen: awake and alert, in no apparent distress. Appears well nourished. HEENT: PERRL, EOMs full and without nystagmus. External ears and nose normal, mucous membranes moist. Neck: Supple, full range of motion, no observable masses Lungs: No increased work of breathing, lung sounds clear and equal bilaterally with the exception of the left lower lobe which does have some coarse crackles CV: Heart with regular rate and rhythm, no murmurs auscultated. Strong and symmetrical radial pulses. Abdomen: Soft, nondistended, non-tender to palpation. No rigidity, rebound tenderness, or guarding. MSK: No joint swelling, no redness. Full ROM without limitation, no external traumatic findings. No peripheral edema, no unilateral calf swelling or tenderness Skin: No rashes or lesions to visualized skin. Normal color, warm, and dry. Neuro: Cranial nerves II-XII intact and symmetrical bilaterally. 5/5 strength in all muscle groups x4 extremities. No sensory deficits. Ambulates with steady gait. Psych: Appropriate for situation. Course Vital Signs Vital signs: Vital Signs Temperature 37.0 C 01/19/25 14:36 Pulse 94 H 01/19/25 14:36 Respiratory Rate 16 01/19/25 14:36 Blood Pressure 119/64 01/19/25 14:36 Pulse Oximetry 98 01/19/25 14:36 Temperature 37.0 C 01/19/25 14:42 Pulse 94 H 01/19/25 14:42 Respiratory Rate 16 01/19/25 14:42 Blood Pressure 119/64 01/19/25 14:42 Pulse Oximetry 98 01/19/25 14:42 Pain Level 0 01/19/25 14:42 Lab/Test Results Lab/Test Results: 01/19/25 15:14 Blood Blood Culture - Pending 01/19/25 15:14 Blood Blood Culture - Pending Medical Decision Making This is a 74-year-old male patient presenting for evaluation of fatigue, fevers and chills, and cough after recent admission for sepsis due to a pulmonary source. Reassuringly, the patient is at this time afebrile, without tachycardia or hypotension nor new hypoxia. My differential includes but is not limited to infectious pathologies including pneumonia, bronchitis, bacteremia, did consider sepsis though the patient does not meet criteria at this time. The patient's abdominal examination is benign, and have a lower concern for severe abdominal etiologies of his symptoms today. Considered urinary tract infection, no evidence on my exam for skin or soft tissue infection. The patient is mentating appropriately and has full range of motion of his neck without meningismus, making meningitis and encephalitis less likely. Considered heart failure exacerbation, ACS (patient did have a cath with no identified lesions requiring stenting during his last admission), arrhythmia, anemia, metabolic electrolyte derangement, dehydration. We obtained an EKG, which shows a sinus rhythm with an intraventricular conduction delay that is unchanged from priors. He does have new T wave inversion in leads V5 and V6 compared to priors. We will obtain laboratory studies to include CBC, CMP, magnesium, troponin, BNP, and blood cultures. I will obtain a chest x-ray and obtain a urinalysis. - CBC notable for an improving leukocytosis, 14 now down from 27, with no severe anemia or thrombocytopenia. Chemistry panel reveals no significant electrolyte derangements, evidence of kidney dysfunction or liver disease. BNP is 600, now downtrending, and troponin is not elevated on initial check. I reviewed the patient's x-ray which shows a persistent pneumonia/consolidation in the upper aspect of the left lower lobe, which has been present on prior imaging studies but has not resolved with the before noted antibiosis. Given the patient's ongoing fevers and rigors, I do feel that it is appropriate to expand his antibiosis, and I have provided him with cefepime and azithromycin IV. Though the patient is hemodynamically well, his rigors and persistent illness are concerning enough I think he would benefit from an observation admission to this hospital, and may even require eventual pulmonology consult/bronchoscopy for this persistent opacity. I discussed the patient's case with the hospitalist, who did request a viral swab which was obtained. They will also follow-up on the delta troponin and urinalysis. Patient was transferred to the hospitalist care without incident. Remained hemodynamically appropriate while under my care. Adriane Catalan MD Quality:SDOH Health Related Social Needs: No Data to Display PFSH All Active Problems (Updated 01/19/25 @ 16:46 by Adriane Catalan MD) Acute HFrEF (heart failure with reduced ejection fraction) (Acute) Pulmonary edema (Acute) Hypertensive emergency (Acute) CAP (community acquired pneumonia) (Acute) D-dimer, elevated (Acute) Pneumonia (Acute) Sepsis (Acute) Influenza A (Acute) Enlarged prostate (Acute) benign GERD (gastroesophageal reflux disease) (Chronic) Pneumonia (Acute) Near syncope (Acute) Post-operative complication (Acute) Leukocytosis, unspecified (Acute) Hyperglycemia (Acute) Acute coronary syndrome (Acute) Medical History HESHAM (obstructive sleep apnea) Hypercholesteremia Diabetes mellitus COPD (chronic obstructive pulmonary disease) patient follows w/ Dr. Barros, compliance assistant, [place], [place] History of posttraumatic stress disorder (PTSD) Former smoker quit in 1994,90 pack year Basal cell carcinoma of skin right cheek 2011 [facility] [place] Ischemic heart disease s/p stent x1 Jul 2018 [facility] [place] - Dr. Sudhir Ceballos. -after progressive SEPULVEDA, then chest pain. 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 Zheng Peñaloza, skein bleacher, [place] Surgical History H/O melanoma excision H/O colonoscopy H/O nasal septoplasty Family History Father History of non-ST elevation myocardial infarction (NSTEMI) Prostate cancer metastatic to multiple sites Mother COPD (chronic obstructive pulmonary disease) Sister Breast cancer Sister Ovarian cancer Brother Lung cancer Social History Smoking/Tobacco Use Status: Former Tobacco Use Quit Date: 09/02/89 Tobacco: How many years used: 37 Smoking risk assessment performed?: Yes Alcohol Intake: current Alcohol Intake frequency: 0-2 drinks per day Alcohol type: hard liquor Drug use: Never Substance use type: does not use Housing: house 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 Pets and animals: Yes (4 cats) Pets and animals: cat(s) What is your relationship status?: Panel score (0-1 are the most socially isolated patients): 1 Do you feel safe at home: Yes Do you feel safe in your relationship?: Yes Additional Social history: Former smoker , quit in 1994,90 pack yrs.
[2025-01-19 15:46] LABS: Abs Immature Grans 0.06 10^3/uL (0.0-0.06); Absolute Basophil Count 0.03 10^3/uL (0.0-0.2); Absolute Lymphocyte Count 1.52 10^3/uL (1.2-3.4); Absolute Monocyte Count 1.24 10^3/uL (0.1-0.8); Basophils % 0.2 %; Eosinophils % 1.3 %; HCT 36.2 % (40.0-50.0); HGB 12.3 g/dL (13.5-17.5); Immature Grans % 0.4 %; Lymphocytes % 10.7 %; MCH 32.5 pg (27.0-33.0); MCV 96 fL (80-95); MPV 9.5 fL (8.0-11.0); Monocytes % 8.7 %; Neutrophils % 78.7 %; Platelet Count 410 10^3/uL (130-400); RBC 3.79 10^6/uL (4.36-5.78); RDW 13.6 % (11.8-14.1); RDW-SD 48.2 fL
[2025-01-19 15:53] LABS: Absolute Eosinophil Count 0.18 10^3/uL (0.0-0.7); Absolute Neutrophil Count 11.18 10^3/uL (1.2-6.7)
--- NOTE | 2025-01-19 16:06 | DI.RAD_ITS ---
Exam(s) XR CHEST 2V PA LATERAL EXAM: XR CHEST 2V PA LATERAL CLINICAL HISTORY: Recent PNA, ongoing fever TECHNIQUE: 2D digital imaging was performed of the chest. Two images were obtained. PA and lateral views were obtained. COMPARISON: CT CT CHEST PE CTA from 01/02/2025 CR,XR XR PORTABLE CHEST AP from 01/02/2025 CR XR PORTABLE CHEST AP from 01/05/2025 FINDINGS: MEDIASTINUM: Normal. HEART: Normal. PULMONARY VASCULATURE: Normal. LUNGS: There is a persistent infiltrate in the left lung predominantly involving the superior segment of the left lower lobe. Since the prior examination from 01/05/2025, there does appear to be some imp rovement in the left lower lobe. The infiltrate in the right lung shows significant improvement with near complete resolution.. PLEURAL SPACE: No pleural effusion or pneumothorax. BONE:Within normal limits for the patient's age. OTHER FINDINGS:Normal. IMPRESSION: Findings against consistent with pneumonia. Overall, there does appear to be some improvement, parti cularly in the lung bases, right greater than left. DATA REPOSITORY: RADIATION DOSE DELIVERED:
[2025-01-19 16:13] LABS: ALT 25 U/L (16-63); AST 16 U/L (15-37); Albumin 2.7 g/dL (3.4-5.0); Alkaline Phosphatase 47 U/L (46-116); Anion Gap 8.8 mmol/L (3-11); BUN 23 mg/dL (7-18); Bilirubin, Total 0.6 mg/dL (0.2-1.0); CO2 27.2 mmol/L (21.0-32.0); CREATININE 0.9 mg/dL (0.70-1.30); Calcium 9.1 mg/dL (8.5-10.1); Chloride 99 mmol/L (98-107); Estimated GFR 88.51 (mL/min/1.73m2); Glucose 117 mg/dL (74-106); Magnesium 1.8 mg/dL (1.8-2.4); NT-proBNP 654 pg/mL (<300); Potassium 3.9 mmol/L (3.5-5.1); Sodium 135 mmol/L (136-145); Troponin I 7 ng/L (<or=76)
[2025-01-19] MEDS: CEFEPIME 1 GM in Normal Saline 50 ML IVPB (16:43)
[2025-01-19 16:50] LABS: Lab Add On Test DONE
--- NOTE | 2025-01-19 17:22 | W.PM.HP.N ---
Date of service: 01/19/25 Time of Service: 17:22 Assessment and Plan Assessment and plan (1) CAP (community acquired pneumonia): Status: Acute Assessment and plan: As mentioned in the HPI the patient does appear to have been treated appropriately for pneumonia but continues to have shortness of breath as well as images that were consistent with pneumonia. At this time I am going to widen that adding HIV panel, Legionella panel, mycoplasma panel, sputum cultures, MRSA swab, Monospot test, extended viral panel, and Lyme's panel. These are fairly low yield but considering the fact that the patient continues to have pneumonias related to a while. At some point I believe he will need to go down to [facility] to be seen by a electrical/instrument technician. I did look at his old CT scan and it did look like it said pretty significant left-sided pneumonia couple weeks ago. (2) Acute coronary syndrome: Status: Acute Assessment and plan: Patient did have 1 stent placed in a bleed 2017. In my chart review I do not see an echocardiogram as this could be contributing to his shortness of breath and he did have an elevated BNP in the past not so much today I will order an echocardiogram. (3) Acute HFrEF (heart failure with reduced ejection fraction): Status: Acute Assessment and plan: As above (4) Enlarged prostate: Status: Acute Assessment and plan: Will order PSA (5) HESHAM (obstructive sleep apnea): Assessment and plan: Continue with CPAP History of Present Illness History of Present Illness Chief Complaint: sob Narrative: This is a 72-year-old gentleman with a recent admission on 01/02/35-01/04/25 for pneumonia as well as an admission in October for pneumonia presents to the ED with worsening shortness of breath and concerns for recurrent pneumonia. While in the ED the patient was given cefepime and azithromycin. Chest x-ray did show pneumonia and what look like the left upper lobe and this is consistent with past images. Blood cultures were ordered but does not look like a sputum cultures or MRSA swab was ordered. The patient denies any history of blood transfusions denies any exposure to animals denies any significant outdoor activity. He would appear that the patient had been treated appropriately in the past but still remains weak and short of breath. Entirely possible that this x-ray finding is just scar from his last bout with pneumonia. Patient currently denies any chest pain. He does have a history of COPD, HESHAM, CAD, recent pneumonia, diabetes, hypertension and BPH. Patient does endorse significant polyuria which he attributes to his prostate. Review of Systems All systems reviewed & are unremarkable except as noted in HPI and below PFSH All Active Problems (Updated 01/19/25 @ 16:46 by Adriane Catalan MD) Acute HFrEF (heart failure with reduced ejection fraction) (Acute) Pulmonary edema (Acute) Hypertensive emergency (Acute) CAP (community acquired pneumonia) (Acute) D-dimer, elevated (Acute) Pneumonia (Acute) Sepsis (Acute) Influenza A (Acute) Enlarged prostate (Acute) benign GERD (gastroesophageal reflux disease) (Chronic) Pneumonia (Acute) Near syncope (Acute) Post-operative complication (Acute) Leukocytosis, unspecified (Acute) Hyperglycemia (Acute) Acute coronary syndrome (Acute) Medical History HESHAM (obstructive sleep apnea) Hypercholesteremia Diabetes mellitus COPD (chronic obstructive pulmonary disease) patient follows w/ Dr. Barros, electrical/instrument technician, [place] History of posttraumatic stress disorder (PTSD) Former smoker quit in 1994,90 pack year Basal cell carcinoma of skin right cheek 2011 [facility] [place] Ischemic heart disease s/p stent x1 Jul 2018 [facility] [place] - Dr. Sudhir Ceballos. -after progressive SEPULVEDA, then chest pain. 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 Zheng Peñaloza, examination supervisor, [place]. Surgical History H/O melanoma excision H/O colonoscopy H/O nasal septoplasty Family History Father History of non-ST elevation myocardial infarction (NSTEMI) Prostate cancer metastatic to multiple sites Mother COPD (chronic obstructive pulmonary disease) Sister Breast cancer Sister Ovarian cancer Brother Lung cancer Social History Smoking/Tobacco Use Status: Former Tobacco Use Quit Date: 09/02/89 Tobacco: How many years used: 37 Smoking risk assessment performed?: Yes Alcohol Intake: current Alcohol Intake frequency: 0-2 drinks per day Alcohol type: hard liquor Drug use: Never Substance use type: does not use Housing: house 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 Pets and animals: Yes (4 cats) Pets and animals: cat(s) What is your relationship status?: Panel score (0-1 are the most socially isolated patients): 1 Do you feel safe at home: Yes Do you feel safe in your relationship?: Yes Additional Social history: Former smoker , quit in 1994,90 pack yrs. Meds Allergies and Home Medications Allergies Allergy/AdvReac Type Severity Reaction Status Date / Time shellfish derived Allergy Severe Anaphylaxis Verified 01/19/25 14:42 meperidine Allergy Unknown Other (See Verified 01/19/25 14:42 Comment) morphine Allergy Unknown Nausea Verified 01/19/25 14:42 demerol hydrochloride Allergy Unknown Nausea Uncoded 01/19/25 14:42 Home Medications ?Medication ?Instructions ?Recorded ?Confirmed ?Type aspirin 81 mg chewable tablet 81 mg PO DAILY 07/19/18 01/19/25 History nitroglycerin 0.4 mg sublingual 0.4 mg sublingual Q5 MIN PRN X3 07/19/18 01/19/25 Rx tablet (Nitrostat) PRN #1 tab omeprazole magnesium 20 mg 20 mg PO DAILY 07/19/18 01/19/25 History tablet,delayed release (Prilosec OTC) albuterol 90 mcg/actuation aerosol 90 mcg inhalation Q4H PRN PRN 04/19/21 01/19/25 History inhaler allopurinol 300 mg tablet 300 mg PO DAILY 04/19/21 01/19/25 History duloxetine 30 mg capsule,delayed 30 mg PO DAILY 04/19/21 01/19/25 History release tamsulosin 0.4 mg capsule 0.4 mg PO DAILY 04/19/21 01/19/25 History acetaminophen 325 mg tablet 650 mg PO Q6H PRN PRN 06/18/21 01/19/25 History ipratropium 0.5 mg-albuterol 3 mg 3 ml inhalation QID PRN 06/18/21 01/19/25 History (2.5 mg base)/3 mL nebulization soln niacinamide 500 mg tablet 500 mg PO BID 06/18/21 01/19/25 History multivitamin (Daily Multi-Vitamin 1 tab PO DAILY 09/27/23 01/19/25 History tablet) rosuvastatin 20 mg tablet 10 mg PO DAILY 09/27/23 01/19/25 History semaglutide 0.25 mg or 0.5 mg (2 0.5 mg subcut QWEEK 09/27/23 01/19/25 History mg/3 mL) subcutaneous pen injector (Ozempic) budesonide 160 mcg-glycopyr 9 2 inh inhalation BID 01/03/25 01/19/25 History mcg-formot 4.8 mcg/actuation HFA inhaler (Breztri Aerosphere) guaifenesin 600 mg tablet, 600 mg PO BID #10 tabs 01/04/25 01/19/25 Rx extended release 12 hr (Mucus Relief ER) tiotropium bromide 2.5 2 puff inhalation DAILY #4 grams 01/04/25 01/19/25 Rx mcg/actuation mist for inhalation (Spiriva Respimat) tadalafil 5 mg tablet (Cialis) 5 mg PO DAILY 01/05/25 01/19/25 History furosemide 40 mg tablet 40 mg PO DAILY 01/19/25 01/19/25 History metoprolol succinate 50 mg 50 mg PO BID 01/19/25 01/19/25 History tablet,extended release 24 hr Exam Narrative Exam Narrative: HEENT: Normocephalic atraumatic mucous membranes moist oropharynx clear extract motions are intact Neck: No lymphadenopathy no JVD no thyromegaly Cardiovascular: Regular rate and rhythm no murmur rubs or gallops Pulm: Upper lobe crackles in the left apices no accessory muscle use speaking in complete sentences Abdomen: Bowel sounds active Extremities: No sinus clubbing or edema bilaterally Neurologic: Cranial nerves II through XII intact as tested reflexes normal extremity normal as tested Psych: Alert and oriented x 3 no apparent distress Constitutional: 74-year-old gentleman appears stated age no apparent distress Results Labs 01/19/25 15:33 01/19/25 15:33 Labs: Laboratory Results - last 24 hr 01/19/25 01/19/25 15:33 16:49 WBC 14.20 H RBC 3.79 L Hgb 12.3 L Hct 36.2 L MCV 96 H MCH 32.5 MCHC 34.0 RDW 13.6 Plt Count 410 H MPV 9.5 Immature Gran % 0.4 Neutrophils % 78.7 Lymphocytes % 10.7 Monocytes % 8.7 Eosinophils % 1.3 Basophils % 0.2 Nucleated RBC % 0.0 Absolute Neutrophils 11.18 H Absolute Lymphocytes 1.52 Absolute Monocytes 1.24 H Absolute Eosinophils 0.18 Absolute Basophils 0.03 VBG Lactate 1.0 Sodium 135 L Potassium 3.9 Chloride 99 Carbon Dioxide 27.2 Anion Gap 8.8 BUN 23 H Creatinine 0.9 Est GFR (CKD-EPI 2020) 88.51 Glucose 117 H Calcium 9.1 Magnesium 1.8 Total Bilirubin 0.6 AST 16 ALT 25 Alkaline Phosphatase 47 Troponin I 7 NT-Pro-B Natriuret Pep 654 H Total Protein 7.0 Albumin 2.7 L Add-On Test Request DONE Last Vital Signs Temp 37.0 C 01/19/25 14:42 Pulse 89 01/19/25 16:10 Resp 15 01/19/25 16:10 BP 119/64 01/19/25 14:42 Pulse Ox 96 01/19/25 16:10 Time Spent Time spent with Patient: 40-54 minutes Time was spent: preparing to see the patient(eg.review tests), obtaining and/or reviewing separately otained hiistory, ordering medications,tests, procedures, referring, communicating with other health infant caregiver, indepentently interpreting results, counseling the patient and care coordination
[2025-01-19 17:29] LABS: Procalcitonin < 0.10 ng/mL
[2025-01-19] MEDS: AZITHROMYCIN 500 MG in Normal Saline 250 ML 250 MG IVPB (17:29)
[2025-01-19 17:41] LABS: COVID-19 PCR Negative (Negative); Influenza A PCR Negative (Negative); Influenza B PCR Negative (Negative); RSV PCR Negative (Negative)
[2025-01-19 17:44] LABS: Source Nasopharynx
--- NOTE | 2025-01-19 17:49 | W.PC.ACHO ---
Registration Status: Primary Language: Preferred Language: ED Information & Data Chief Complaint GenMedical 01/19/25 17:41 Chief Complaint GenMedical 01/19/25 15:31 Triage Note since last Saturday ( he was 01/19/25 14:36 discharged) had pneumonia and a heart attack. he was in [facility] admitted. temp was ~ 100. no chest pain, no dizziness. no SOB. main symptoms are fever and fatigue. was taking ibu for ever, not APAp Medical / Surgical History (Last Reviewed 10/26/24 @ 06:35 by Robin Gonzalez MD) HESHAM (obstructive sleep apnea) Ischemic heart disease Essential hypertension COPD (chronic obstructive pulmonary disease) Hypercholesteremia Diabetes mellitus History of posttraumatic stress disorder (PTSD) Former smoker Basal cell carcinoma of skin Adenocarcinoma Melanoma Colon polyps HTN (hypertension) (Last Reviewed 10/26/24 @ 06:35 by Robin Gonzalez MD) H/O melanoma excision H/O colonoscopy H/O nasal septoplasty Most Recent Vital Signs Temperature 36.8 C 01/19/25 17:44 Pulse 90 01/19/25 17:44 Pulse 93 H 01/19/25 17:30 Respiratory Rate 20 01/19/25 17:44 Respiratory Effort Normal, Non-Labored 01/19/25 15:40 Respiratory Depth Normal 01/19/25 15:40 Respiratory Pattern Normal 01/19/25 15:40 Blood Pressure 128/80 01/19/25 17:44 Pulse Oximetry 99 01/19/25 17:44 Pain Level 0 01/19/25 14:42 Allergies shellfish derived Allergy (Severe, Verified 01/19/25 14:42) Anaphylaxis meperidine Allergy (Unknown, Verified 01/19/25 14:42) Other (See Comment) Pt states I dont even know what this is morphine Allergy (Unknown, Verified 01/19/25 14:42) Nausea demerol hydrochloride Allergy (Unknown, Uncoded 01/19/25 14:42) Nausea IV IV Catheter Type [Left Peripheral IV Antecubital] IV Catheter Gauge [Left 20 Antecubital] Diet Orders Category Date Time Status Regular/Normal [DIET] Nutrition 01/19/25 Dinner Active Diagnostics 01/19/25 01/19/25 01/19/25 Range/Units Unknown 18:14 17:08 WBC (4.4-10.8) 10^3/uL RBC (4.36-5.78) 10^6/uL Hgb (13.5-17.5) g/dL Hct (40.0-50.0) % MCV (80-95) fL MCH (27.0-33.0) pg MCHC (32.0-36.0) % RDW (11.8-14.1) % Plt Count (130-400) 10^3/uL MPV (8.0-11.0) fL Immature Gran % % Neutrophils % % Lymphocytes % % Monocytes % % Eosinophils % % Basophils % % Nucleated RBC % (0.0-0.3) % Absolute Neutrophils (1.2-6.7) 10^3/uL Absolute Lymphocytes (1.2-3.4) 10^3/uL Absolute Monocytes (0.1-0.8) 10^3/uL Absolute Eosinophils (0.0-0.7) 10^3/uL Absolute Basophils (0.0-0.2) 10^3/uL VBG Lactate (<or=2.0) mmol/L Sodium (136-145) mmol/L Potassium (3.5-5.1) mmol/L Chloride (98-107) mmol/L Carbon Dioxide (21.0-32.0) mmol/L Anion Gap (3-11) mmol/L BUN (7-18) mg/dL Creatinine (0.70-1.30) mg/dL Est GFR (CKD-EPI 2020) (mL/min/1.73m2) Glucose (74-106) mg/dL Calcium (8.5-10.1) mg/dL Magnesium (1.8-2.4) mg/dL Total Bilirubin (0.2-1.0) mg/dL AST (15-37) U/L ALT (16-63) U/L Alkaline Phosphatase (46-116) U/L Troponin I Pending (<or=76) ng/L NT-Pro-B Natriuret Pep (<300) pg/mL Total Protein (6.4-8.2) g/dL Albumin (3.4-5.0) g/dL Procalcitonin ng/mL B. divergens/MO-1 PCR Pending Babesia duncani (PCR) Pending Babesia microti DNA PCR Pending Lyme Disease Antibody Pending COVID-19 Source SARS-CoV-2 (PCR) (Negative) E.chaffeensis DNA (PCR) Pending E.ewingii/canis DNA PCR Pending E.muris eauclairensis (PCR) Pending EBV IgG Ab Pending EBV IgM Ab Pending EBV Nuclear Antigen Ab Pending EBV Antibody Interp Pending EBV PCR Qual, Other Pending EBV DNA (PCR) Pending HIV 1&2 Ag/Ab, 4th Gen Pending Influenza Type A (PCR) (Negative) Influenza Type B (PCR) (Negative) RSV (PCR) (Negative) A. phagocytophilum (PCR) Pending Blood B. miyamotoi (PCR) Pending Add-On Test Request 01/19/25 01/19/25 01/19/25 Range/Units 16:55 16:49 16:29 WBC (4.4-10.8) 10^3/uL RBC (4.36-5.78) 10^6/uL Hgb (13.5-17.5) g/dL Hct (40.0-50.0) % MCV (80-95) fL MCH (27.0-33.0) pg MCHC (32.0-36.0) % RDW (11.8-14.1) % Plt Count (130-400) 10^3/uL MPV (8.0-11.0) fL Immature Gran % % Neutrophils % % Lymphocytes % % Monocytes % % Eosinophils % % Basophils % % Nucleated RBC % (0.0-0.3) % Absolute Neutrophils (1.2-6.7) 10^3/uL Absolute Lymphocytes (1.2-3.4) 10^3/uL Absolute Monocytes (0.1-0.8) 10^3/uL Absolute Eosinophils (0.0-0.7) 10^3/uL Absolute Basophils (0.0-0.2) 10^3/uL VBG Lactate (<or=2.0) mmol/L Sodium (136-145) mmol/L Potassium (3.5-5.1) mmol/L Chloride (98-107) mmol/L Carbon Dioxide (21.0-32.0) mmol/L Anion Gap (3-11) mmol/L BUN (7-18) mg/dL Creatinine (0.70-1.30) mg/dL Est GFR (CKD-EPI 2020) (mL/min/1.73m2) Glucose (74-106) mg/dL Calcium (8.5-10.1) mg/dL Magnesium (1.8-2.4) mg/dL Total Bilirubin (0.2-1.0) mg/dL AST (15-37) U/L ALT (16-63) U/L Alkaline Phosphatase (46-116) U/L Troponin I Pending (<or=76) ng/L NT-Pro-B Natriuret Pep (<300) pg/mL Total Protein (6.4-8.2) g/dL Albumin (3.4-5.0) g/dL Procalcitonin < 0.10 ng/mL B. divergens/MO-1 PCR Babesia duncani (PCR) Babesia microti DNA PCR Lyme Disease Antibody COVID-19 Source Nasopharynx SARS-CoV-2 (PCR) Negative (Negative) E.chaffeensis DNA (PCR) E.ewingii/canis DNA PCR E.muris eauclairensis (PCR) EBV IgG Ab EBV IgM Ab EBV Nuclear Antigen Ab EBV Antibody Interp EBV PCR Qual, Other EBV DNA (PCR) HIV 1&2 Ag/Ab, 4th Gen Influenza Type A (PCR) Negative (Negative) Influenza Type B (PCR) Negative (Negative) RSV (PCR) Negative (Negative) A. phagocytophilum (PCR) Blood B. miyamotoi (PCR) Add-On Test Request DONE 01/19/25 Range/Units 15:33 WBC 14.20 H (4.4-10.8) 10^3/uL RBC 3.79 L (4.36-5.78) 10^6/uL Hgb 12.3 L (13.5-17.5) g/dL Hct 36.2 L (40.0-50.0) % MCV 96 H (80-95) fL MCH 32.5 (27.0-33.0) pg MCHC 34.0 (32.0-36.0) % RDW 13.6 (11.8-14.1) % Plt Count 410 H (130-400) 10^3/uL MPV 9.5 (8.0-11.0) fL Immature Gran % 0.4 % Neutrophils % 78.7 % Lymphocytes % 10.7 % Monocytes % 8.7 % Eosinophils % 1.3 % Basophils % 0.2 % Nucleated RBC % 0.0 (0.0-0.3) % Absolute Neutrophils 11.18 H (1.2-6.7) 10^3/uL Absolute Lymphocytes 1.52 (1.2-3.4) 10^3/uL Absolute Monocytes 1.24 H (0.1-0.8) 10^3/uL Absolute Eosinophils 0.18 (0.0-0.7) 10^3/uL Absolute Basophils 0.03 (0.0-0.2) 10^3/uL VBG Lactate 1.0 (<or=2.0) mmol/L Sodium 135 L (136-145) mmol/L Potassium 3.9 (3.5-5.1) mmol/L Chloride 99 (98-107) mmol/L Carbon Dioxide 27.2 (21.0-32.0) mmol/L Anion Gap 8.8 (3-11) mmol/L BUN 23 H (7-18) mg/dL Creatinine 0.9 (0.70-1.30) mg/dL Est GFR (CKD-EPI 2020) 88.51 (mL/min/1.73m2) Glucose 117 H (74-106) mg/dL Calcium 9.1 (8.5-10.1) mg/dL Magnesium 1.8 (1.8-2.4) mg/dL Total Bilirubin 0.6 (0.2-1.0) mg/dL AST 16 (15-37) U/L ALT 25 (16-63) U/L Alkaline Phosphatase 47 (46-116) U/L Troponin I 7 (<or=76) ng/L NT-Pro-B Natriuret Pep 654 H (<300) pg/mL Total Protein 7.0 (6.4-8.2) g/dL Albumin 2.7 L (3.4-5.0) g/dL Procalcitonin ng/mL B. divergens/MO-1 PCR Babesia duncani (PCR) Babesia microti DNA PCR Lyme Disease Antibody COVID-19 Source SARS-CoV-2 (PCR) (Negative) E.chaffeensis DNA (PCR) E.ewingii/canis DNA PCR E.muris eauclairensis (PCR) EBV IgG Ab EBV IgM Ab EBV Nuclear Antigen Ab EBV Antibody Interp EBV PCR Qual, Other EBV DNA (PCR) HIV 1&2 Ag/Ab, 4th Gen Influenza Type A (PCR) (Negative) Influenza Type B (PCR) (Negative) RSV (PCR) (Negative) A. phagocytophilum (PCR) Blood B. miyamotoi (PCR) Add-On Test Request 01/19/25 15:00 Blood Culture - Pending Blood 01/19/25 15:33 Blood Culture - Pending Blood Intake and Output - 24 Hour Total 01/19/25 14:32 thru 01/19/25 17:30 Intake Total 50 Balance 50 Weight 99.79 kg Intake: IV 50 Falls Risk Assessment History of Falls No History 01/19/25 15:40 Contributing Factors No Factors 01/19/25 15:40 Ambulatory Aids Independent 01/19/25 15:40 Tubes/Lines None 01/19/25 15:40 Gait Evaluation No gait disturbance 01/19/25 15:40 Cognition No cognitive impairment 01/19/25 15:40 Fall Total Score 0 01/19/25 15:40 Level of Risk Standard/Low Risk 01/19/25 15:40 Problems (Last Reviewed 10/26/24 @ 06:35 by Robin Gonzalez MD) Acute HFrEF (heart failure with reduced ejection fraction) (Acute) CAP (community acquired pneumonia) (Acute) Enlarged prostate (Acute) Acute coronary syndrome (Acute) v v v v v v v v v Sending and/or Receiving Nurses: Please use comment section below to note any information pertinent to the patient hand-off not included above. Information / Comments: Paged at [phone], report called at [phone]. Report received from: Natacha Salazar ED RN
[2025-01-19 18:40] LABS: Troponin I 7 ng/L (<or=76)
[2025-01-19] MEDS: Normal Saline Flush 10 ML SYR IVP ×3 (18:40→22:40)
[2025-01-19] MEDS: Enoxaparin 40 MG/0.4 ML SYR SC (18:46)
[2025-01-19 19:05] LABS: Bilirubin Negative (Negative); Blood Negative (Negative); Clarity Clear (Clear); Glucose Negative (Negative); Ketones Negative (Negative); Leukocyte Esterase Negative (Negative); Nitrite Negative (Negative); Specific Gravity <= 1.005 (1.005-1.025); Urobilinogen 0.2 mg/dL (Up to 0.2); pH 5.5 (5-8)
[2025-01-19] MEDS: Niacin 500 MG TAB PO (20:33)
[2025-01-19] MEDS: Metoprolol CR 50 MG TABCR PO (20:33)
[2025-01-19] MEDS: guaiFENesin 600 MG TABCR PO (20:33)
[2025-01-19 22:24] LABS: MRSA PCR Negative (Negative)
[2025-01-19] MEDS: CEFEPIME 2 GM in Normal Saline 100 ML IVPB (22:40)
--- NOTE | 2025-01-20 | DI.CT_ITS ---
Exam(s) CT CHEST WO EXAM: CT CHEST WO CLINICAL HISTORY: recurrent PNA. TECHNIQUE: Imaging protocol: Axial computed tomography images were obtained and coronal and sagittal reformatted images were created and reviewed. Lung Computer Aided Detection (CAD) was utilized. COMPARISON: CT CT CHEST PE CTA from 01/02/2025 CR XR CHEST 2V PA LATERAL from 01/19/2025 FINDINGS: Tracheobronchial tree: Patent where visualized. No bronchiectasis is present. Pulmonary parenchyma: Mild emphysematous changes are present in the lungs. The right lung infiltrate has resolved. There is a small ground-glass opacity in the right upper lobe (series 2, image 42) wh ich persists. The right lung is otherwise clear. The left upper lobe infiltrate has significantly i mproved. There is now dense consolidation seen in the superior segment of the left lower lobe. The infiltrate in the basilar segments of the left lower lobe has significantly improved. Mediastinum and Sharon: There are enlarged lymph nodes seen in the mediastinum which are likely reactiv e. The esophagus is unremarkable. Thyroid gland: Unremarkable. Pleura: The left pleural effusion has decreased in size. There is no right pleural effusion. No pne umothorax. Heart: The heart is not dilated. Three vessel coronary artery calcification is present. There is a t iny pericardial effusion. Aorta: Thoracic aorta non-dilated. Atherosclerotic calcification is present. Upper abdomen: Unremarkable. Lymph nodes: No significant axillary or supraclavicular adenopathy. Soft tissues: Unremarkable. Bones:Within normal limits for the patient's age. IMPRESSION: 1. Overall, there has been a significant improvement in the pneumonia compared to the prior examinati on. There has been resolution of the right-sided pneumonia. There is also been improvement in the i nfiltrate in the basilar segment of the left lower lobe. 2. Increased consolidation is seen, however, in the superior segment of the left lower lobe. Continu ed follow-up is recommended. If this does not improve, the possibility of a obstructing lesion shoul d be considered. 3. Interval decrease in size of the left pleural effusion. No right pleural effusion. 4. Enlarged lymph nodes in the mediastinum which are likely reactive. RADIATION DOSE DELIVERED: 330.82mGy.cm Total DLP 330.82mGy.cm Total DLP DATA REPOSITORY: All CT scans at this facility are submitted to the National Radiology Data Registry (NRDR) Dose Index Registry (DIR) with the [employer] (ACR). RADIATION OPTIMIZATION: All CT scans at this facility use at least one of these dose optimization te chniques: automated exposure control; mA and/or kV adjustment per patient size (includes targeted exa ms where dose is matched to clinical indication); or iterative reconstruction.
[2025-01-20 06:05] VITALS: BP 105/57; PULSE 81; RESP 19; TEMP 36.8; O2SAT 91
[2025-01-20] MEDS: CEFEPIME 2 GM in Normal Saline 100 ML IVPB ×3 (06:18→22:01)
[2025-01-20] MEDS: Omeprazole 20 MG CAPCR PO (06:47)
[2025-01-20 06:57] LABS: Abs Immature Grans 0.04 10^3/uL (0.0-0.06); Absolute Basophil Count 0.05 10^3/uL (0.0-0.2); Absolute Eosinophil Count 0.18 10^3/uL (0.0-0.7); Absolute Monocyte Count 1.19 10^3/uL (0.1-0.8); Basophils % 0.4 %; Eosinophils % 1.6 %; HCT 34.9 % (40.0-50.0); HGB 11.8 g/dL (13.5-17.5); Immature Grans % 0.4 %; Lymphocytes % 16.7 %; MCH 32.1 pg (27.0-33.0); MCHC 33.8 % (32.0-36.0); MCV 95 fL (80-95); MPV 9.7 fL (8.0-11.0); Monocytes % 10.5 %; Neutrophils % 70.4 %; Platelet Count 373 10^3/uL (130-400); RBC 3.68 10^6/uL (4.36-5.78); RDW 13.5 % (11.8-14.1); RDW-SD 47.2 fL; WBC 11.37 10^3/uL (4.4-10.8)
[2025-01-20 07:14] LABS: Iron 36 ug/dL (65-175); Total Iron Binding Capacity 206 ug/dL (250-450)
[2025-01-20 07:15] LABS: Transferrin Sat 17 % (20-55)
[2025-01-20 07:27] LABS: ALT 26 U/L (16-63); AST 17 U/L (15-37); Albumin 2.4 g/dL (3.4-5.0); Alkaline Phosphatase 48 U/L (46-116); Anion Gap 7.2 mmol/L (3-11); BUN 14 mg/dL (7-18); Bilirubin, Total 0.5 mg/dL (0.2-1.0); CO2 26.8 mmol/L (21.0-32.0); CREATININE 0.9 mg/dL (0.70-1.30); Calcium 8.6 mg/dL (8.5-10.1); Chloride 101 mmol/L (98-107); Estimated GFR 88.51 (mL/min/1.73m2); Glucose 118 mg/dL (74-106); Potassium 3.7 mmol/L (3.5-5.1); Sodium 135 mmol/L (136-145); TSH (W/Ref FT4) 1.03 uIU/mL (0.36-3.74); Total Protein 6.7 g/dL (6.4-8.2)
[2025-01-20 07:40] LABS: Folate 19.7 ng/mL (8.6-20.0); Vitamin B12 455 pg/mL (193-986)
[2025-01-20] MEDS: Tiotropium Bromide-Respimat 10 PUFF INH 2 PUFF IH (08:28)
[2025-01-20] MEDS: Budesonide/Formoterol 160/4.5 6 GM 60 PUFF INH IH ×2 (08:28→20:09)
[2025-01-20 08:30] VITALS: O2SAT 92
--- NOTE | 2025-01-20 09:50 | PDOC.CMIN ---
Date of service: 01/20/25 Time of Service: 09:50 Care Management Initial Assmt Initial Assessment Reason for Hospitalization: pneumonia Functional Status/Living Situation Patient Presentation: Cosmo presented to the ED yesterday morning with excessive fatigue. He was discharged from a tertiary facility on 01/09. He had been treated for acute heart failure, pneumonia and NSTEMI. He stated that he completed his antibiotic course, but continues to have a cough and fatigue. Cosmo was admitted for testing - echo needed, and IV abx. Cosmo was in the bedside chair, visiting with , Nat, when met with them this afternoon. Both were very pleasant. Cosmo stated that he is feeling better than yesterday. He is waiting for his echocardiogram to be read at [facility], and is hoping to go home very soon. Savanah are independent in the community and deny any needs. They have children and grandchildren that live nearby and are close with. Town of Residence: [place] (but gets his mail in [place]) Resides with: Spouse (Nat) Significant Other/Family: Local (children and grandchildren in [place]) Natural Supports: family Employment Status: Retired (worked for the [employer]) Instrumental Activities of Daily Living (ADLs): Independent Advance Directives Advance Directives: Do you have an Advance Directive: Y 06/18/21 09:34 AD On File at [facility]: Y 01/02/25 15:47 Date Asked 01/02/25 01/02/25 15:47 AD Date Reviewed 01/05/25 01/05/25 08:23 COLST On File at [facility] COLST Date Scanned Code Status Resuscitation Status Full Code Insurance Coverage/Financial Issues Insurance: VA Care Team Visit Care Team Role Provider Type Carlos Ruff MD MD [facility] STAFF PHYSICIAN Regla Cordoba Primary Care Provider OSTEOPATHIC DOCTOR Jenna Jeffery, FLAT IRONER Other Providers SPEECH LANGUAGE PATHOLOGIST Kathie Church Other Providers HOT SAW HELPER Clarissa Gonsales, FLAT IRONER Other Providers SPEECH LANGUAGE PATHOLOGIST Eleonora Manning Other Providers HOT SAW HELPER Michelle Bains Other Providers SPEECH LANGUAGE PATHOLOGIST Bethany Arenas, FLAT IRONER Other Providers SPEECH LANGUAGE PATHOLOGIST Fartun Mckeon Other Providers HOT SAW HELPER Claudette Navarro, FLAT IRONER Other Providers SPEECH LANGUAGE PATHOLOGIST Galen Wheeler Other Providers OTHER Rani Ventura RN Other Providers HOT SAW HELPER Neva Rice Other Providers HOT SAW HELPER Adriane Catalan MD Emergency Provider [facility] STAFF PHYSICIAN Camron Rice MD Admit Provider [facility] STAFF PHYSICIAN Attending Provider Discharge Potential Discharge Needs: PCP F/U Appt Anticipated Barriers to Discharge: None Identified Patient/Family Education Needs: Review discharge instructions, discuss Ask Me Three Transportation: Private vehicle Plan: Cosmo will discharge home once medically stable, with no new services. He will f/u with his PCP and continue per his plan of care. CM will continue to follow. Social Determinants of Health Screening Social Determinants of health last assessed in clinic: 01/20/25 Will the Patient Participate in the Screening?: Yes Do you worry about having a steady place to live?: no Problems where you live: no known problems In the past 12 months, have you had to go without electric, gas, oil or water in your home?: no 1. Within the past 12 months, we worried whether our food would run out before we got money to buy more.: Never true 2. Within the past 12 months, the food we bought just didn't last and we didn't have money to get more.: Never true Has lack of transportation kept you from medical appointments or from doing things needed for daily living?: no Has anyone in your life made you feel unsafe or unsupported?: no How hard is it for you to pay for the very basics like food, housing, medical care, and heating? Would you say it is:: Not hard at all Do you want help finding or keeping work or a job?: I do not need or want help If for any reason you need help with day-to-day activities such as bathing, preparing meals, shopping, managing finances, etc., do you get the help you need?: I don?t need any help How often do you feel lonely or isolated from those around you?: Never Do you speak a language other than Maltese at home?: No Does the patient want assistance with any of the above?: No PFSH All Active Problems (Updated 01/19/25 @ 16:46 by Adriane Catalan MD) Acute HFrEF (heart failure with reduced ejection fraction) (Acute) Pulmonary edema (Acute) Hypertensive emergency (Acute) CAP (community acquired pneumonia) (Acute) D-dimer, elevated (Acute) Pneumonia (Acute) Sepsis (Acute) Influenza A (Acute) Enlarged prostate (Acute) benign GERD (gastroesophageal reflux disease) (Chronic) Pneumonia (Acute) Near syncope (Acute) Post-operative complication (Acute) Leukocytosis, unspecified (Acute) Hyperglycemia (Acute) Acute coronary syndrome (Acute) Medical History HESHAM (obstructive sleep apnea) Hypercholesteremia Diabetes mellitus COPD (chronic obstructive pulmonary disease) patient follows w/ Dr. Barros, chemical engineering teacher, [place] History of posttraumatic stress disorder (PTSD) Former smoker quit in 1994,90 pack year Basal cell carcinoma of skin right cheek 2011 [facility] Ischemic heart disease s/p stent x1 Jul 2018 [facility] - Dr. Sudhir Ceballos. -after progressive SEPULVEDA, then chest pain. 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 Zheng Peñaloza, landscaping and groundskeeping laborer, [place] Surgical History H/O melanoma excision H/O colonoscopy H/O nasal septoplasty Family History Father History of non-ST elevation myocardial infarction (NSTEMI) Prostate cancer metastatic to multiple sites Mother COPD (chronic obstructive pulmonary disease) Sister Breast cancer Sister Ovarian cancer Brother Lung cancer Social History Smoking/Tobacco Use Status: Former Tobacco Use Quit Date: 09/02/89 Tobacco: How many years used: 37 Smoking risk assessment performed?: Yes Alcohol Intake: current Alcohol Intake frequency: 0-2 drinks per day Alcohol type: hard liquor Drug use: Never Substance use type: does not use Housing: house 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 Pets and animals: Yes (4 cats) Pets and animals: cat(s) What is your relationship status?: Panel score (0-1 are the most socially isolated patients): 1 Do you feel safe at home: Yes Do you feel safe in your relationship?: Yes Additional Social history: Former smoker , quit in 1994,90 pack yrs.
[2025-01-20] MEDS: Niacin 500 MG TAB PO ×2 (10:07→20:01)
[2025-01-20] MEDS: Allopurinol 300 MG TAB PO (10:07)
[2025-01-20] MEDS: Normal Saline Flush 10 ML SYR IVP ×3 (10:07→20:01)
[2025-01-20] MEDS: Tamsulosin 0.4 MG CAPCR PO (10:07)
[2025-01-20] MEDS: Multivitamin TAB 1 TAB PO (10:07)
[2025-01-20] MEDS: guaiFENesin 600 MG TABCR PO ×2 (10:07→20:02)
[2025-01-20] MEDS: Rosuvastatin 20 MG TAB 10 MG PO (10:07)
[2025-01-20] MEDS: DULoxetine 30 MG CAP PO (10:08)
[2025-01-20] MEDS: Metoprolol CR 50 MG TABCR PO ×2 (10:08→20:02)
[2025-01-20] MEDS: Aspirin 81 MG CHEW PO (10:08)
[2025-01-20] MEDS: Furosemide 40 MG TAB PO (10:08)
--- NOTE | 2025-01-20 11:46 | IN_ITS ---
PT Notes Visit Reasons: pneumonia Physical Therapy Inpatient Initial Evaluation Date: 01/20/2025 Referring Doctor: Dr Rice PT Orders: PT CONSULT: PT Evaluation and treatment Precautions: standard Patient Profile/Admitting Diagnosis: Pt is a 74 yo male presented t ED with increased SOB. Pt with recent inpatient admission for PNA 01/02-01/04/25.. Per imaging, resolution of Rsided infiltrate and residual RAMO not resolved. Pt treated with IV antibiotics and admitted for further medical management and work up. PMHX: Acute HFrEF (heart failure with reduced ejection fraction) (Acute) Pulmonary edema (Acute) Hypertensive emergency (Acute) CAP (community acquired pneumonia) (Acute) D-dimer, elevated (Acute) Pneumonia (Acute) Sepsis (Acute) Influenza A (Acute) Enlarged prostate (Acute) benignGERD (gastroesophageal reflux disease) (Chronic) Pneumonia (Acute) Near syncope (Acute) Post-operative complication (Acute) Leukocytosis, unspecified (Acute) Hyperglycemia (Acute) Acute coronary syndrome (Acute) Medical History HESHAM (obstructive sleep apnea) Hypercholesteremia Diabetes mellitus COPD (chronic obstructive pulmonary disease) patient follows w/ Dr. Barros, reeling operator, [place]History of posttraumatic stress disorder (PTSD) Former smoker quit in 1994,90 pack yearBasal cell carcinoma of skin right cheek [facility] [place] x[facility] Jul 2018 [facility] [place] [place]. Sudhir Ceballos. -after progressive SEPULVEDA, then chest pain.Adenocarcinoma segmentectomy WROX 06/09/2021Melanoma Colon polyps HTN (hypertension) patient follows w/ Dr. Zheng Peñaloza, sap mobility architect, [place] Surgical History H/O melanoma excision H/O colonoscopy H/O nasal septoplasty Social History/Home Situation: Pt resides with spouse in multilevel home with 13 steps to enter through garage in basement and 13 steps with right rail to bed room . Pt independent without device for ambulation, ADL, finances, meal prep, medication management, driving, shopping. Equipment Owned/DME: CPAP Subjective: Pt reports he is feeling much better today. He states when he went home after last hospitalization all he wanted to do and did was sleep. He also notes he has neuropathy in his feet so he has some trouble feeling things under his feet. Objective: [] General Observation: awake alert male supine in bed, in no apparent distress. Mental Status: A+Ox4, pleasant, cooperative, motivated to go for a walk and participate in evaluation Vitals: Saturation on RA: pre 93%, throughout ambulation and stairs 91-95%; post : 93% Pain: denies ROM: [] BUE: WNL BLE: WNL Strength: [] BUE: 5/5 BLE 5/5 Sensation: intact to BLE ankle then diminished B feet. impaired propriocetion/kinesthetic awareness B toes and ankle Bed Mobility/Transfers: [] Supine to sit Independent (I) Sit to stand Independent Stand to sit Independent Bed to chair Independent Gait:ambulated 500 feet without AD independently maintaining saturation 91-95% on RA. Pt was provided with verbal cue for pacing with use of stand rest against a walk if he were to feel SOB/SEPULVEDA. Stairs : FOS with rail reciprocal pattern Supervision cues for taking stand rest if SEPULVEDA/SOB or to utilize step to pattern Balance: [] Static Sitting: Normal Dynamic Sitting: Normal Static Standing: Normal Dynamic Standing: Good Special Tests: 4 STAGE BALANCE TEST: Feet together 30 seconds 1/2 Stance 12 seconds Tandem stance 10 seconds Single leg stance left 9 seconds, right 11seconds Mobility Limitations Standardized Measure [] [facility] AM-PAC 6 clicks Basic Mobility Inpatient Short Form: [] Raw Score:24 CMS Score: 0% Informed Consent/Education: Patient instructed in purpose of PT consult. Assessment: Patient is a 74 yo male who presents with impaired sensation B feet d/t neuropathy , impaired single limb and tandem stance balance reactions despite thes impairments pt is able to perfrom all functional mobility on level surfaces and stairs without LOB. Pt able to maintain saturations >91% during all functional tasks. He is at low risk for falls d/t neuropathy Skilled PT services are not indicated as pt is independent without AD for ambulation >500 feet and stairs with 1 rail. He is independently able to ambulate on the unit for the remainder of his inpatient stay.Nurse Violeta notified. Patient is assessed as a low complexity based on the following: History: 74-year-old male with impairment level findings, functional limitations, and past medical history as indicated above Examination: Demonstrable impairment in strength, balance, and mobility level with underlying impairments and functional limitations as documented above Presentation: stable Decision Making: low Goals: N/A. PT evaluation and 1-2 treatment sessions only for functional mobility training using recommended AD and for HEP instruction. Plan of Care/Treatment Plan: N/A. PT evaluation and 1-2 treatment session only for functional mobility training using recommended AD and for HEP instruction. DISCHARGE RECOMMENDATIONS: No PT services indicated as inpatient. anticipate discharge to home with no services TREATMENT CODE/TIME: 08741/ [id number] Thank you for the opportunity to participate in the care of this patient. Dolly Carlos PT [facility]
[2025-01-20 12:57] VITALS: BP 122/75; PULSE 77; RESP 16; TEMP 35.8; O2SAT 93
--- NOTE | 2025-01-20 14:22 | PGE_ITS ---
Date of Service Date of service: 01/20/25 Time of Service: 14:22 Assessment and Plan Assessment and plan (1) CAP (community acquired pneumonia): Status: Acute Assessment and plan: -question of recurrent PNA given initial CXR though patient without fever and only with mild leukocytosis with WBC 14 -WBC improved AM 01/20 down to 11.3 -given similar appearance in CXR to previous PNA a few weeks ago, chest CT was obtained which showed significant overall improvement in PNA as compared to previous with resolution of right sided PNA and improvement in the infiltrate in the basilar segment of the LLL. -however, CT also showed increased consolidation in superior segment of LLL with recomendation of f/u imaging and concern for obstructing lesion if it does resolve -will continue cefepime and azithro at this time, and if patient continues to improve will plan for DC tomorrow 01/21 with PO augmentin and azithro (patient was DCed with CTX and doxy at previous admission) -f/u tick panel, EBV, HIV, urine leionella (2) Acute coronary syndrome: Status: Acute Assessment and plan: -s/p PCI 1 stent placed in 2018. -f/u TTE as CHF may be contributing factor in complaints of SOB (3) Acute HFrEF (heart failure with reduced ejection fraction): Status: Acute Assessment and plan: As above (4) HESHAM (obstructive sleep apnea): Assessment and plan: Continue with CPAP Subjective Subjective Interval history since last seen: Patient states that he is feeling better as compared to admission. He understands that we will obtain a chest CT and echocradiogram to further evaluate his ongoing SOB. Exam Narrative Exam Narrative: well appearing older gentleman sitting up in the chair in no acute distress, AOx4, heart RRR, lungs CTAB, abdomen soft, non-tender, non-distended Objective Last Vital Signs Temp 96.4 F L 01/20/25 12:57 Pulse 77 01/20/25 12:57 Resp 16 01/20/25 12:57 BP 122/75 01/20/25 12:57 Pulse Ox 93 01/20/25 12:57 Laboratory Results - last 24 hr 01/19/25 01/19/25 01/19/25 15:33 16:29 16:49 WBC 14.20 H RBC 3.79 L Hgb 12.3 L Hct 36.2 L MCV 96 H MCH 32.5 MCHC 34.0 RDW 13.6 Plt Count 410 H MPV 9.5 Immature Gran % 0.4 Neutrophils % 78.7 Lymphocytes % 10.7 Monocytes % 8.7 Eosinophils % 1.3 Basophils % 0.2 Nucleated RBC % 0.0 Absolute Neutrophils 11.18 H Absolute Lymphocytes 1.52 Absolute Monocytes 1.24 H Absolute Eosinophils 0.18 Absolute Basophils 0.03 VBG Lactate 1.0 Sodium 135 L Potassium 3.9 Chloride 99 Carbon Dioxide 27.2 Anion Gap 8.8 BUN 23 H Creatinine 0.9 Est GFR (CKD-EPI 2020) 88.51 Glucose 117 H Calcium 9.1 Magnesium 1.8 Iron TIBC Transferrin % Sat Total Bilirubin 0.6 AST 16 ALT 25 Alkaline Phosphatase 47 Troponin I 7 7 NT-Pro-B Natriuret Pep 654 H Total Protein 7.0 Albumin 2.7 L Vitamin B12 Folate Procalcitonin < 0.10 TSH Urine Color Urine Clarity Urine pH Ur Specific [place] Urine Protein Urine Ketones Urine Blood Urine Nitrite Urine Bilirubin Urine Urobilinogen Ur Leukocyte Esterase Urine Glucose COVID-19 Source SARS-CoV-2 (PCR) EBV PCR Qual, Other EBV DNA (PCR) Influenza Type A (PCR) Influenza Type B (PCR) Mycoplasma hominis Cult RSV (PCR) MRSA (TEM-PCR) Ureaplasma Culture Add-On Test Request DONE 01/19/25 01/19/25 01/19/25 16:55 17:08 18:10 WBC RBC Hgb Hct MCV MCH MCHC RDW Plt Count MPV Immature Gran % Neutrophils % Lymphocytes % Monocytes % Eosinophils % Basophils % Nucleated RBC % Absolute Neutrophils Absolute Lymphocytes Absolute Monocytes Absolute Eosinophils Absolute Basophils VBG Lactate Sodium Potassium Chloride Carbon Dioxide Anion Gap BUN Creatinine Est GFR (CKD-EPI 2020) Glucose Calcium Magnesium Iron TIBC Transferrin % Sat Total Bilirubin AST ALT Alkaline Phosphatase Troponin I NT-Pro-B Natriuret Pep Total Protein Albumin Vitamin B12 Folate Procalcitonin TSH Urine Color Yellow Urine Clarity Clear Urine pH 5.5 Ur Specific [place] <= 1.005 Urine Protein Negative Urine Ketones Negative Urine Blood Negative Urine Nitrite Negative Urine Bilirubin Negative Urine Urobilinogen 0.2 Ur Leukocyte Esterase Negative Urine Glucose Negative COVID-19 Source Nasopharynx SARS-CoV-2 (PCR) Negative EBV PCR Qual, Other Cancelled EBV DNA (PCR) Cancelled Influenza Type A (PCR) Negative Influenza Type B (PCR) Negative Mycoplasma hominis Cult RSV (PCR) Negative MRSA (TEM-PCR) Negative Ureaplasma Culture Add-On Test Request 01/19/25 01/20/25 01/20/25 18:14 06:15 08:30 WBC 11.37 H RBC 3.68 L Hgb 11.8 L Hct 34.9 L MCV 95 MCH 32.1 MCHC 33.8 RDW 13.5 Plt Count 373 MPV 9.7 Immature Gran % 0.4 Neutrophils % 70.4 Lymphocytes % 16.7 Monocytes % 10.5 Eosinophils % 1.6 Basophils % 0.4 Nucleated RBC % 0.0 Absolute Neutrophils 8.00 H Absolute Lymphocytes 1.90 Absolute Monocytes 1.19 H Absolute Eosinophils 0.18 Absolute Basophils 0.05 VBG Lactate Sodium 135 L Potassium 3.7 Chloride 101 Carbon Dioxide 26.8 Anion Gap 7.2 BUN 14 Creatinine 0.9 Est GFR (CKD-EPI 2020) 88.51 Glucose 118 H Calcium 8.6 Magnesium Iron 36 L TIBC 206 L Transferrin % Sat 17 L Total Bilirubin 0.5 AST 17 ALT 26 Alkaline Phosphatase 48 Troponin I Cancelled NT-Pro-B Natriuret Pep Total Protein 6.7 Albumin 2.4 L Vitamin B12 455 Folate 19.7 Procalcitonin TSH 1.03 Urine Color Urine Clarity Urine pH Ur Specific [place] Urine Protein Urine Ketones Urine Blood Urine Nitrite Urine Bilirubin Urine Urobilinogen Ur Leukocyte Esterase Urine Glucose COVID-19 Source SARS-CoV-2 (PCR) EBV PCR Qual, Other EBV DNA (PCR) Influenza Type A (PCR) Influenza Type B (PCR) Mycoplasma hominis Cult Cancelled RSV (PCR) MRSA (TEM-PCR) Ureaplasma Culture Cancelled Add-On Test Request Time Spent with Patient Time Spent with Patient: >50 minutes Time was spent: preparing to see the patient(eg.review tests), obtaining and/or reviewing separately otained hiistory, ordering medications,tests, procedures, referring, communicating with other health residential child care counselor, indepentently interpreting results, counseling the patient and care coordination
--- NOTE | 2025-01-20 14:28 | CHAPLAIN ---
Cosmo was on the phone with his doctor when I walked in. I spoke with his , Nat Gonsales. She is an [facility] Corporator we we've met before. I explained my role and will try to visit again when Cosmo is available.
[2025-01-20] MEDS: AZITHROMYCIN 500 MG in Normal Saline 250 ML 250 MG IVPB (16:55)
[2025-01-20] MEDS: Enoxaparin 40 MG/0.4 ML SYR SC (18:26)
[2025-01-20 21:05] VITALS: BP 99/60; PULSE 83; RESP 18; TEMP 37; O2SAT 95
[2025-01-20 23:13] VITALS: BP 111/58; PULSE 75; RESP 18; TEMP 36.9; O2SAT 93
[2025-01-21 02:00] LABS: Adenovirus DNA Result Negative (Negative); Metapneumovirus RNA Result Negative (Negative); Parainfluenza Type1 RNA Result Negative (Negative); Parainfluenza Type2 RNA Result Negative (Negative); Parainfluenza Type3 RNA Result Negative (Negative); Parainfluenza Type4 RNA Result Negative (Negative); Rhinovirus RNA Result Negative (Negative)
[2025-01-21] MEDS: CEFEPIME 2 GM in Normal Saline 100 ML IVPB (05:58)
[2025-01-21 06:54] LABS: HCT 34.8 % (40.0-50.0); HGB 11.6 g/dL (13.5-17.5); MCH 31.8 pg (27.0-33.0); MCHC 33.3 % (32.0-36.0); MCV 95 fL (80-95); MPV 9.3 fL (8.0-11.0); Platelet Count 354 10^3/uL (130-400); RBC 3.65 10^6/uL (4.36-5.78); RDW 13.2 % (11.8-14.1); RDW-SD 46.5 fL; WBC 10.66 10^3/uL (4.4-10.8)
[2025-01-21] MEDS: Omeprazole 20 MG CAPCR PO (07:39)
[2025-01-21] MEDS: Metoprolol CR 50 MG TABCR PO (07:39)
[2025-01-21] MEDS: Rosuvastatin 20 MG TAB 10 MG PO (07:40)
[2025-01-21] MEDS: Niacin 500 MG TAB PO (07:40)
[2025-01-21] MEDS: Multivitamin TAB 1 TAB PO (07:41)
[2025-01-21] MEDS: DULoxetine 30 MG CAP PO (07:41)
[2025-01-21] MEDS: Allopurinol 300 MG TAB PO (07:41)
[2025-01-21] MEDS: guaiFENesin 600 MG TABCR PO (07:41)
[2025-01-21] MEDS: Aspirin 81 MG CHEW PO (07:42)
[2025-01-21] MEDS: Tamsulosin 0.4 MG CAPCR PO (07:42)
[2025-01-21] MEDS: Furosemide 40 MG TAB PO (07:42)
[2025-01-21 07:44] VITALS: BP 105/59; PULSE 76; RESP 16; TEMP 36.8; O2SAT 92
[2025-01-21] MEDS: Normal Saline Flush 10 ML SYR IVP (08:33)
--- NOTE | 2025-01-21 09:04 | DSE_ITS ---
Date of service: 01/21/25 Time of Service: 09:04 DS: Diagnosis Discharge Diagnosis (1) CAP (community acquired pneumonia): Status: Acute (2) Acute coronary syndrome: Status: Acute (3) Acute HFrEF (heart failure with reduced ejection fraction): Status: Acute (4) HESHAM (obstructive sleep apnea): Discharge Plan Disposition Patient Disposition: Home Condition: Good Discharge Details Reason For Visit: pneumonia Admit Date/Time: 01/19/25 17:03 Admit Provider: Camron Rice Attending Provider: Camron Rice Primary Care Provider: Regla Cordoba Hospital Course Hospital Course: Patient presented with recurring shortness of breath and what appeared to be recurrence of a community-acquired pneumonia despite recent infection and hospitalization roughly 2 weeks ago. Given recurrence of similar location chest CT was performed which showed overall significant improvement of pneumonia compared to the prior exam with resolution of the right side and improvement in the basilar segment of the left lower lobe. However, did show increased consolidation in the superior segment of the left lobe and recommended follow-up imaging. During hospitalization patient had significant improvement while on azithromycin and cefepime, and given that during previous hospitalization he was discharged with cefpodoxime and doxycycline he will be sent home this time with Augmentin and azithromycin. Additionally, should patient's pneumonia recur, it would be recommended that he be transferred to facility that could perform bronchoscopy. Additionally, it is also recommended that patient should have a chest CT in 1 month to follow-up on aforementioned superior segment of left lower lobe. Home Meds and New Rx's Prescriptions: Continued multivitamin [Daily Multi-Vitamin] Tablet 1 tab PO DAILY Ozempic 0.25 mg or 0.5 mg (2 mg/3 mL) pen injector 0.5 mg subcut QWEEK tamsulosin 0.4 mg capsule 0.4 mg PO DAILY allopurinol 300 mg tablet 300 mg PO DAILY albuterol 90 mcg/actuation Aerosol 90 mcg INHALATION Q4H PRN PRN duloxetine 30 mg Capsule,Delayed Release(Dr/Ec) 30 mg PO DAILY rosuvastatin 20 mg tablet 10 mg PO DAILY acetaminophen 325 mg Tablet 650 mg PO Q6H PRN PRN ipratropium-albuterol 0.5 mg-3 mg(2.5 mg base)/3 mL Solution For Nebulization 3 ml INHALATION QID PRN niacinamide 500 mg Tablet 500 mg PO BID Breztri Aerosphere 160-9-4.8 mcg/actuation HFA aerosol inhaler 2 inh inhalation BID Spiriva Respimat 2.5 mcg/actuation Mist 2 puff inhalation DAILY Qty: 4 0RF guaifenesin [Mucus Relief ER] 600 mg Tablet Extended Release 12hr 600 mg PO BID Qty: 10 0RF aspirin 81 mg Tablet,Chewable 81 mg PO DAILY Patient Comments: on hold for surgery omeprazole magnesium [Prilosec OTC] 20 mg Tablet,Delayed Release (Dr/Ec) 20 mg PO DAILY nitroglycerin [Nitrostat] 0.4 mg Tablet, Sublingual 0.4 mg Sublingual Q5 MIN PRN X3 PRNQty: 1 0RF tadalafil [Cialis] 5 mg tablet 5 mg PO DAILY furosemide 40 mg tablet 40 mg PO DAILY Patient Comments: TAKE ONE TABLET BY MOUTH EVERY DAY metoprolol succinate 50 mg tablet extended release 24 hr 50 mg PO BID Patient Comments: TAKE ONE TABLET BY MOUTH TWICE A DAY Discharge Instructions Activity:: Activity as Tolerated Equipment/Supplies:: No Equipment Needed Diet:: As Tolerated Discharge Orders Discharge Orders: Discharge Order (Routine); Ordered 01/21/25 Ordered By: Carlos Ruff DS: Summary Time Spent with Patient providing and/or coordinating discharge services: Greater than 30 minutes Status at Discharge Functional status at discharge: independent ambulation Overall status at discharge: patient is back to baseline Mental Status: mental status grossly normal Speech and Movement: speech and movement normal Mood: congruent mood Affect: normal affect Quality:SDOH Health Related Social Needs: No Data to Display Exam Narrative Exam Narrative: well appearing older gentleman sitting up in the chair in no acute distress, AOx4, heart RRR, lungs CTAB, abdomen soft, non-tender, non-distended Psych Mental Status: mental status grossly normal Speech and Movement: speech and movement normal Mood: congruent mood Affect: normal affect DS: Data Vitals/I&O Vitals and I&O: Vital Signs Temperature 98.2 F 01/21/25 07:44 Temperature Source Temporal Artery Scan 01/21/25 07:44 Pulse 76 01/21/25 07:44 Pulse Rhythm Regular 01/19/25 18:12 Pulse 93 H 01/19/25 17:30 Respiratory Rate 16 01/21/25 07:44 Respiratory Effort Short of Breath 01/19/25 18:12 Respiratory Depth Normal 01/19/25 18:12 Respiratory Pattern Normal 01/19/25 18:12 Blood Pressure 105/59 L 01/21/25 07:44 Blood Pressure Mean 74 01/21/25 07:44 Pulse Oximetry 92 01/21/25 07:44 Oxygen Delivery Method Room Air 01/21/25 07:44 Oxygen Flow Rate 0 01/21/25 07:44 Pain Level 3 01/21/25 07:44 Comment RN was notified of bp 01/21/25 07:44 Intake & Output 01/20/25 01/21/25 01/21/25 17:59 05:59 17:59 Intake Total 200 / 200 400 / 600 Output Total 400 / 400 300 / 300 Balance -200 / -200 400 / 200 -300 / -300 Weight 212 lb 11.937 oz Intake: IV 200 / 200 400 / 600 Output: Urine 400 / 400 300 / 300 Other: Urine Color Yellow Yellow Urine Appearance Clear Clear Urine Odor Normal Stool Size Small Stool Characteristics Hard Data Completed and Pending Labs on day of discharge: Labs from last 24 hours 01/21/25 06:35: WBC 10.66, RBC 3.65 L, Hgb 11.6 L, Hct 34.8 L, MCV 95, MCH 31.8, MCHC 33.3, RDW 13.2, Plt Count 354, MPV 9.3 01/20/25 16:42: Urine Legionella Ag Pending 01/20/25 15:40: Adenovirus DNA Negative, Human Metapneumovir RNA Negative, Parainfluenza 1 (PCR) Negative, Parainfluenza 2 (PCR) Negative, Parainfluenza 3 (PCR) Negative, Parainfluenza 4 (PCR) Negative, Resp Viral Spec Desc Not Applicable, Rhinovirus (PCR) Negative 01/20/25 08:30: Mycoplasma hominis Cult Cancelled, Ureaplasma Culture Cancelled 01/20/25 02:00 Sputum Sputum Culture - Pending Preliminary micro results at discharge 01/19/25 15:00 Blood Blood Culture - Preliminary NO GROWTH 24 HOURS 01/19/25 15:33 Blood Blood Culture - Preliminary NO GROWTH 24 HOURS 01/20/25 02:00 Sputum Sputum Culture - Pending [facility] All Active Problems (Updated 01/19/25 @ 16:46 by Adriane Catalan MD) Acute HFrEF (heart failure with reduced ejection fraction) (Acute) Pulmonary edema (Acute) Hypertensive emergency (Acute) CAP (community acquired pneumonia) (Acute) D-dimer, elevated (Acute) Pneumonia (Acute) Sepsis (Acute) Influenza A (Acute) Enlarged prostate (Acute) benign GERD (gastroesophageal reflux disease) (Chronic) Pneumonia (Acute) Near syncope (Acute) Post-operative complication (Acute) Leukocytosis, unspecified (Acute) Hyperglycemia (Acute) Acute coronary syndrome (Acute) Medical History HESHAM (obstructive sleep apnea) Hypercholesteremia Diabetes mellitus COPD (chronic obstructive pulmonary disease) patient follows w/ Dr. Barros, chemical engineering technician, [place] History of posttraumatic stress disorder (PTSD) Former smoker quit in 1994,90 pack year Basal cell carcinoma of skin right cheek 2011 [facility] [place] Ischemic heart disease s/p stent x1 Jul 2018 [facility] [place] - Dr. Sudhir Ceballos. -after progressive SEPULVEDA, then chest pain. 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 Zheng Peñaloza, threat monitoring analyst, [place] Surgical History H/O melanoma excision H/O colonoscopy H/O nasal septoplasty Family History Father History of non-ST elevation myocardial infarction (NSTEMI) Prostate cancer metastatic to multiple sites Mother COPD (chronic obstructive pulmonary disease) Sister Breast cancer Sister Ovarian cancer Brother Lung cancer Social History Smoking/Tobacco Use Status: Former Tobacco Use Quit Date: 09/02/89 Tobacco: How many years used: 37 Smoking risk assessment performed?: Yes Alcohol Intake: current Alcohol Intake frequency: 0-2 drinks per day Alcohol type: hard liquor Drug use: Never Substance use type: does not use Housing: house 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 Pets and animals: Yes (4 cats) Pets and animals: cat(s) What is your relationship status?: Panel score (0-1 are the most socially isolated patients): 1 Do you feel safe at home: Yes Do you feel safe in your relationship?: Yes Additional Social history: Former smoker , quit in 1994,90 pack yrs. Time Spent with Patient Time Spent with Patient: <45 minutes Time was spent: preparing to see the patient(eg.review tests), obtaining and/or reviewing separately otained hiistory, ordering medications,tests, procedures, referring, communicating with other health career development facilitator, indepentently interpreting results, counseling the patient and care coordination
--- NOTE | 2025-01-21 09:15 | PDOC.CMDIS ---
Date of service: 01/21/25 Time of Service: 09:16 LACE Index Scoring Tool Questions: Length of Stay (in days): 2 Was the patient admitted via the E.D.?: Yes Comorbidities: Diabetes w/o Complication, Congestive Heart Failure, Chronic Pulmonary Disease and Any Tumor E.D. Visits: 6 Answers: Total Score: 14 Risk of Readmission: High Risk Care Management Discharge Plan Reason for Hospitalization: pneumonia Discharge Plan: Cosmo is being discharged today with no new services. He will f/u with his PCP, transport home with his , and continue per his plan of care. Patient/Family Education Needs: Review of discharge instructions, activity, limitations and discuss Ask me 3. SDOH Health Related Social Needs: No Data to Display
[2025-01-21] MEDS: Budesonide/Formoterol 160/4.5 6 GM 60 PUFF INH IH (09:39)
[2025-01-21] MEDS: Tiotropium Bromide-Respimat 10 PUFF INH 2 PUFF IH (09:40)
[2025-01-21 09:43] VITALS: O2SAT 93
[2025-01-21 11:10] LABS: Lyme Ab w Rflx to Lyme Confirm Negative (Negative)
[2025-01-21 11:13] VITALS: PULSE 85; RESP 6; O2SAT 93
[2025-01-21] MEDS: Albuterol/Ipratropium 3 ML UPD VIAL IH (11:13)
[2025-01-21 11:21] VITALS: PULSE 88
[2025-01-21 11:28] LABS: HIV-1/2 Ag & Ab Screen Negative (Negative)
[2025-01-21 17:44] LABS: Legionella Ag Detection Urine Negative (Negative)
[2025-01-22 10:44] LABS: EBNA IgG Positive (Negative); EBV Interpretation (See Note); VCA IgG Positive (Negative); VCA IgM Negative (Negative)
[2025-01-23 00:53] LABS: Anaplasma phagocytophilum Negative (Negative); B. miyamotoi PCR Negative (Negative); Babesia divergens/MO-1 Negative (Negative); Babesia duncani Negative (Negative); Babesia microti Negative (Negative); Ehrlichia chaffeensis Negative (Negative); Ehrlichia ewingii/canis Negative (Negative); Ehrlichia muris eauclairensis Negative (Negative)
== END 2025-01-21 11:29 | disposition home or self-care (01) | DRG 193 ==
LOC: ER 16:46 → MS 21:41
PROVIDERS: Admitting Provider Hospitalist; Emergency Provider Emergency Medicine; PCP Internal Medicine Geriatric Medicine; Responsible Provider Family Medicine; Visit Provider Hospitalist
DX: J18.9 Pneumonia, unspecified organism (principal); I50.21 Acute systolic (congestive) heart failure; I24.9 Acute ischemic heart disease, unspecified; J44.0 Chronic obstructive pulmonary disease with (acute) lower respiratory infection; G47.33 Obstructive sleep apnea (adult) (pediatric); Z95.5 Presence of coronary angioplasty implant and graft; I25.10 Atherosclerotic heart disease of native coronary artery without angina pectoris; E11.9 Type 2 diabetes mellitus without complications; I11.0 Hypertensive heart disease with heart failure; R35.89 Other polyuria; N40.1 Benign prostatic hyperplasia with lower urinary tract symptoms; R79.1 Abnormal coagulation profile; K21.9 Gastro-esophageal reflux disease without esophagitis; D72.829 Elevated white blood cell count, unspecified; E78.00 Pure hypercholesterolemia, unspecified; F43.10 Post-traumatic stress disorder, unspecified; Z87.891 Personal history of nicotine dependence; Z79.85 Long-term (current) use of injectable non-insulin antidiabetic drugs; Z79.899 Other long term (current) drug therapy; Z90.2 Acquired absence of lung [part of]; Z85.118 Personal history of other malignant neoplasm of bronchus and lung
CPT/HCPCS: 00123; 36415; 71250; 80053; 84145; 85027; 87040; 87109; 87389; 87449; 87632; 87637; 87641; 87798; 93005; 94640; 96365; 96366; 96367; 96372; 97161; 99285; J1650; 71046; 81003; 82607; 82746; 83540; 83550; 83605; 83735; 83880; 84443; 84484; 85025; 86618; 86664; 86665; 87070; 87205; 93010; 93306; 99222; 99233; 99239; G0378; J0456; J0692; J7620

== ENCOUNTER 2025-06-11 20:04 | Inpatient (IN) | payer OTHER, SELFPAY ==
[2025-06-11] VITALS (71 sets, daily range): BP systolic 131–166; BP diastolic 28–65; PULSE 92–114; RESP 15–31; TEMP 38.1–38.8; O2SAT 88–98
--- NOTE | 2025-06-11 20:00 | RT.EKG_ITS ---
APPROVED REPORT Exam: Resting ECG Reason for Exam: chest pain Patient Location: E HR:100 bpm ECG Measurements Heart Rate 100 AXIS GA 189 P 85 QRSd 119 QRS -64 QT 353 T 88 QTc 456 Conclusion Sinus tachycardia...rate> 99 Ventricular premature complex...V complex w/ short R-R interval Left anterior fascicular block...axis(240,-40), init forces inf ST elevation, consider inferior injury...ST >0.08mV, II III aVF
--- NOTE | 2025-06-11 20:15 | DI.RAD_ITS ---
Exam(s) XR PORTABLE CHEST AP EXAM: XR PORTABLE CHEST AP CLINICAL HISTORY: fever, cough TECHNIQUE: 2D digital imaging was performed of the chest. One image was obtained. An AP view was obtained. COMPARISON: CR,XR XR CHEST 2V PA LATERAL from 04/19/2021 CR,XR XR PORTABLE CHEST AP from 06/18/2021 CR XR CHEST 2V PA LATERAL from 11/27/2023 CR,XR XR CHEST 2V PA LATERAL from 10/25/2024 CR XR PORTABLE CHEST AP from 01/05/2025 CR XR CHEST 2V PA LATERAL from 01/19/[address] CHEST WO from 01/20/2025 FINDINGS: MEDIASTINUM: Normal. HEART: Normal. PULMONARY VASCULATURE: Normal. LUNGS: There has been interval clearing of the opacity in the superior segment of the left lower lobe. There are increased lung markings in the bases bilaterally. There are no focal consolidating infiltrate seen. The lungs are hyperinflated suggesting underlying COPD. PLEURAL SPACE: No pleural effusion or pneumothorax. BONE:Within normal limits for the patient's age. OTHER FINDINGS:Normal. IMPRESSION: 1. Increased lung markings in the bases bilaterally. This may represent a developing pneumonia. 2. Normal clearing of the opacity in the superior segment of the left lower lobe. 3. If there is continued concern for a left hilar mass, a CT scan may be considered for further evaluation. DATA REPOSITORY: RADIATION DOSE DELIVERED:
--- NOTE | 2025-06-11 20:19 | W.ED.GENAD ---
Discharge Plan Disposition Patient Disposition: Admit to [facility] Condition: Stable Discharge Details Clinical Impression: Sepsis Primary Care Provider: Regla Cordoba ED Provider: Kenan Hardwick Home Meds and New Rx's Prescriptions: No Action multivitamin [Daily Multi-Vitamin] Tablet 1 tab PO DAILY tamsulosin 0.4 mg capsule 0.4 mg PO DAILY allopurinol 300 mg tablet 300 mg PO DAILY albuterol 90 mcg/actuation Aerosol 90 mcg INHALATION Q4H PRN PRN rosuvastatin 20 mg tablet 10 mg PO DAILY acetaminophen 325 mg Tablet 650 mg PO Q6H PRN PRN niacinamide 500 mg Tablet 500 mg PO BID Breztri Aerosphere 160-9-4.8 mcg/actuation HFA aerosol inhaler 2 inh inhalation BID Spiriva Respimat 2.5 mcg/actuation Mist 2 puff inhalation DAILY Qty: 4 0RF guaifenesin [Mucus Relief ER] 600 mg Tablet Extended Release 12hr 600 mg PO BID Qty: 10 0RF aspirin 81 mg Tablet,Chewable 81 mg PO DAILY Patient Comments: on hold for surgery omeprazole magnesium [Prilosec OTC] 20 mg Tablet,Delayed Release (Dr/Ec) 20 mg PO DAILY nitroglycerin [Nitrostat] 0.4 mg Tablet, Sublingual 0.4 mg Sublingual Q5 MIN PRN X3 PRNQty: 1 0RF tadalafil [Cialis] 5 mg tablet 5 mg PO DAILY metoprolol succinate 50 mg tablet extended release 24 hr 50 mg PO DAILY Patient Comments: TAKE ONE TABLET BY MOUTH TWICE A DAY HPI General Mode of arrival: ambulatory. Date/Time Provider Initiated Documentation: 06/11/25 20:06. Limitations to Documentation: no limitations. Information obtained by: patient. History of Present Illness 74 year old M presents to the emergency department with the chief complaint of chills, cough, fever, described as moderate, Patient started experiencing this hour(s) (2) and it has been constant. No relieving factors improve symptom(s), No exacerbating factors reported . Patient notes chest pain, fever/chills and shortness of breath; denies nausea/vomiting. Related Data Home Medications ?Medication ?Instructions ?Recorded ?Confirmed aspirin 81 mg chewable tablet 81 mg PO DAILY 07/19/18 06/11/25 nitroglycerin 0.4 mg sublingual 0.4 mg sublingual Q5 MIN PRN X3 07/19/18 06/11/25 tablet (Nitrostat) PRN #1 tab omeprazole magnesium 20 mg 20 mg PO DAILY 07/19/18 06/11/25 tablet,delayed release (Prilosec OTC) albuterol 90 mcg/actuation aerosol 90 mcg inhalation Q4H PRN PRN 04/19/21 06/11/25 inhaler allopurinol 300 mg tablet 300 mg PO DAILY 04/19/21 06/11/25 tamsulosin 0.4 mg capsule 0.4 mg PO DAILY 04/19/21 06/11/25 acetaminophen 325 mg tablet 650 mg PO Q6H PRN PRN 06/18/21 06/11/25 niacinamide 500 mg tablet 500 mg PO BID 06/18/21 06/11/25 multivitamin (Daily Multi-Vitamin 1 tab PO DAILY 09/27/23 06/11/25 tablet) rosuvastatin 20 mg tablet 10 mg PO DAILY 09/27/23 06/11/25 budesonide 160 mcg-glycopyr 9 2 inh inhalation BID 01/03/25 06/11/25 mcg-formot 4.8 mcg/actuation HFA inhaler (Breztri Aerosphere) guaifenesin 600 mg tablet, 600 mg PO BID #10 tabs 01/04/25 06/11/25 extended release 12 hr (Mucus Relief ER) tiotropium bromide 2.5 2 puff inhalation DAILY #4 grams 01/04/25 06/11/25 mcg/actuation mist for inhalation (Spiriva Respimat) tadalafil 5 mg tablet (Cialis) 5 mg PO DAILY 01/05/25 06/11/25 metoprolol succinate 50 mg 50 mg PO DAILY 01/19/25 06/11/25 tablet,extended release 24 hr Previous Rx's ?Medication ?Instructions ?Recorded nitroglycerin 0.4 mg sublingual 0.4 mg sublingual Q5 MIN PRN X3 07/19/18 tablet (Nitrostat) PRN #1 tab guaifenesin 600 mg tablet, 600 mg PO BID #10 tabs 01/04/25 extended release 12 hr (Mucus Relief ER) tiotropium bromide 2.5 2 puff inhalation DAILY #4 grams 01/04/25 mcg/actuation mist for inhalation (Spiriva Respimat) Allergies Allergy/AdvReac Type Severity Reaction Status Date / Time shellfish derived Allergy Severe Anaphylaxis Verified 06/11/25 20:12 meperidine Allergy Unknown Other (See Verified 06/11/25 20:12 Comment) morphine Allergy Unknown Nausea Verified 06/11/25 20:12 demerol hydrochloride Allergy Unknown Nausea Uncoded 06/11/25 20:12 General Stated Complaint: Chest Pain ELI: 3 Review of Systems All systems reviewed & are unremarkable except as noted in HPI and below Constitutional Constitutional: Reports chills, Reports fever(s) and Denies weakness Cardiovascular Cardiovascular: Reports chest pain and Reports dyspnea Respiratory Respiratory: Reports cough and Reports dyspnea Gastrointestinal Gastrointestinal: Denies abdominal pain, Denies nausea and Denies vomiting Neurologic Neurologic: Denies weakness Exam Const General: no acute distress Orientation: alert HENMT Head: normal to inspection Ears: external ears normal General nose exam: external nose normal Mouth: moist mucous membranes Eyes General: appearance normal, both eyes and all related structures Neck Neck: normal visual inspection Resp Effort & Inspection: normal respiratory effort and able to speak in complete sentences Auscultation: rhonchi and wheezes Cardio Rate: regular rate Skin General skin exam: no rashes or lesions noted Neuro General: patient alert and patient oriented x3 Extrem General: normal to inspection Psych Mental Status: mental status grossly normal Course Vital Signs Vital signs: Vital Signs Temperature 38.8 C H 06/11/25 20:08 Pulse 106 H 06/11/25 20:08 Respiratory Rate 20 06/11/25 20:08 Blood Pressure 166/65 H 06/11/25 20:08 Pulse Oximetry 92 06/11/25 20:08 Temperature 38.8 C H 06/11/25 20:08 Pulse 106 H 06/11/25 20:08 Respiratory Rate 20 06/11/25 20:08 Blood Pressure 166/65 H 06/11/25 20:08 Pulse Oximetry 92 06/11/25 20:08 Pain Level 4 06/11/25 20:08 Lab/Test Results Lab/Test Results: 06/11/25 20:17 Blood Blood Culture - Pending 06/11/25 20:17 Blood Blood Culture - Pending Medical Decision Making 74-year-old male with a history of COPD, former smoker, hypertension, ischemic cardiomyopathy who comes in with acute onset of chills, fevers and states has been coughin. He was hospitalized in December for pneumonia and feels this is similar. He denies any recent travel internationally. He is speaking full sentences on exam. He has wheezing at the apices bilaterally and rhonchi at the bases bilaterally. He says when he coughs he has anterior chest pain. He has not had any rashes. I suspect respiratory infection and he is febrile here to 38.8. Will check blood cultures, CBC, CMP, troponins, lactate, procalcitonin, chest x-ray given his lung exam findings and history treat with DuoNeb and Solu-Medrol and also give a dose of ceftriaxone as I suspect COPD exacerbation and likely pneumonia. Labs show white count of 17, mild TERRELL of 1.4 and his normal renal function is 0.9. Lactate 2.9. I did give him dose of ceftriaxone and azithromycin on my read of the x-ray appears to have a right lower lobe infiltrate. He is hemodynamically stable, will discuss with hospitalist about admission. Differential Diagnosis Differential Diagnosis: Pneumonia, COPD Medical Records Medical records reviewed: Yes I reviewed the patient's medical records. Lab Data Lab results reviewed: Yes I reviewed the patient's lab results. [facility] All Active Problems (Updated 06/11/25 @ 21:29 by Kenan Hardwick MD) Sepsis (Acute) Pulmonary edema (Acute) Hypertensive emergency (Acute) D-dimer, elevated (Acute) Sepsis (Acute) Influenza A (Acute) Enlarged prostate (Acute) benign GERD (gastroesophageal reflux disease) (Chronic) Pneumonia (Acute) Near syncope (Acute) Post-operative complication (Acute) Leukocytosis, unspecified (Acute) Hyperglycemia (Acute) Acute coronary syndrome (Acute) Medical History Pneumonia HESHAM (obstructive sleep apnea) Ischemic heart disease s/p stent x1 Jul 2018 [facility] [place], [place] - Dr. Sudhir Ceballos. -after progressive SEPULVEDA, then chest pain. 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 Hypercholesteremia Diabetes mellitus History of posttraumatic stress disorder (PTSD) Former smoker quit in 1994,90 pack year Basal cell carcinoma of skin right cheek 2011 [facility] [place], [place] Adenocarcinoma segmentectomy WROX 06/09/2021 Melanoma Colon polyps HTN (hypertension) patient follows w/ Dr. Zheng Peñaloza, document management analyst, [place] Surgical History H/O melanoma excision H/O colonoscopy H/O nasal septoplasty Family History Father History of non-ST elevation myocardial infarction (NSTEMI) Prostate cancer metastatic to multiple sites Mother COPD (chronic obstructive pulmonary disease) Sister Breast cancer Sister Ovarian cancer Brother Lung cancer Social History Smoking/Tobacco Use Status: Former Tobacco Use Quit Date: 09/02/89 Tobacco: How many years used: 37 Smoking risk assessment performed?: Yes Alcohol Intake: current Alcohol Intake frequency: 0-2 drinks per day Alcohol type: hard liquor Drug use: Never Substance use type: does not use Housing: house 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 Pets and animals: Yes (4 cats) Pets and animals: cat(s) What is your relationship status?: Panel score (0-1 are the most socially isolated patients): 1 Do you feel safe at home: Yes Do you feel safe in your relationship?: Yes Additional Social history: Former smoker , quit in 1994,90 pack yrs.
[2025-06-11 20:24] LABS: BE (Venous) 0 mmol/L (-2-3); HCO3 (Venous) 26 mmol/L (23-28); O2 Sat (Venous) 64 %; TCO2 (Venous) 24 mmol/L (24-29); pCO2 (Venous) 48 mmHg (41-51); pO2 (Venous) 37 mmHg
[2025-06-11 20:25] LABS: Abs Immature Grans 0.08 10^3/uL (0.0-0.06); HCT 38.9 % (40.0-50.0); HGB 13.3 g/dL (13.5-17.5); Immature Grans % 0.5 %; MCH 32.7 pg (27.0-33.0); MCHC 34.2 % (32.0-36.0); MCV 96 fL (80-95); MPV 10.1 fL (8.0-11.0); Platelet Count 206 10^3/uL (130-400); RBC 4.07 10^6/uL (4.36-5.78); RDW 13.7 % (11.8-14.1); RDW-SD 48.0 fL; WBC 17.50 10^3/uL (4.4-10.8)
[2025-06-11 20:39] LABS: INR 1.2 (0.9-1.1); PTT Activated 23.9 sec (20.6-30.2); Prothrombin Time 11.6 sec (9.1-11.1)
[2025-06-11] MEDS: Normal Saline Flush 10 ML SYR IVP (20:40)
[2025-06-11 20:44] LABS: ALT 26 U/L (16-63); AST 19 U/L (15-37); Albumin 4.0 g/dL (3.4-5.0); Alkaline Phosphatase 62 U/L (46-116); Anion Gap 10.9 mmol/L (3-11); BUN 23 mg/dL (7-18); Bilirubin, Total 0.5 mg/dL (0.2-1.0); CO2 27.1 mmol/L (21.0-32.0); Calcium 8.9 mg/dL (8.5-10.1); Chloride 102 mmol/L (98-107); Estimated GFR 52.09 (mL/min/1.73m2); Glucose 239 mg/dL (74-106); Magnesium 1.7 mg/dL (1.8-2.4); Potassium 3.8 mmol/L (3.5-5.1); Sodium 140 mmol/L (136-145); Total Protein 7.8 g/dL (6.4-8.2); Troponin I 12 ng/L (<or=76)
[2025-06-11] MEDS: Normal Saline 1,000 ML 1000 ML IV (20:57)
[2025-06-11] MEDS: methylPREDNISolone SUCC 125 MG VIAL IVP (20:58)
[2025-06-11] MEDS: Albuterol/Ipratropium 3 ML UPD VIAL UPD ×2 (21:03→23:47)
[2025-06-11] MEDS: ACETAMINOPHEN 1,000 MG/100 ML BAG 400 MG IVPB (21:08)
[2025-06-11 21:15] LABS: Procalcitonin < 0.10 ng/mL
[2025-06-11] MEDS: cefTRIAXone 2 GM/50 ML BAG IVPB (21:16)
--- NOTE | 2025-06-11 21:17 | W.PM.HP.N ---
Date of service: 06/11/25 Time of Service: 21:18 Assessment and Plan Assessment and plan (1) Sepsis: Start date: 06/11/25 Status: Acute Assessment and plan: This is a 74-year-old gentleman who had sudden onset of respiratory symptoms with fever and rigors presented to the ED with sepsis without shock. The procalcitonin was negative which is reassuring. He appears slightly dry and imaging did reveal possible left lower lobe infiltrate though this was not severe. He has had a previous surgery on his left lung and some this may be chronic but imaging indicates some acuity. He was initiated on IV Rocephin and Zithromax which will be continued. Because of his exposure to the outside and sudden onset of symptoms though he has had recent exposure to [facility] [place] as presentation: Tickborne disease need to be considered and tick panel was performed. Blood culture was also performed and urinalysis was negative with no culture initiated. Patient will continue on these IV antibiotic therapies considering switching to doxycycline if tick panel is positive. Follow-up on imaging as needed. Respiratory support with frequent nebulizer treatments and pulmonary toilet, he also should wear CPAP at night for sleep apnea. Adjust fluid treatment to his ischemic cardiomyopathy with decreased ejection fraction and hold Lasix temporarily. He is having significant wheezing and steroids will be avoided for now. The patient is a full code. (2) Hypomagnesemia: Start date: 06/11/25 Status: Acute Assessment and plan: IV repletion and follow-up lab in the morning with continued IV repletion if needed. He is chronically on diuretics and may be chronically hypomagnesemic which at least is recurrent. (3) COPD (chronic obstructive pulmonary disease): Assessment and plan: Aggressive nebulizer treatments and continue inhaled steroid with LABA treatment. Encouraged hydration orally with clearing his secretions with cough. (4) Ischemic heart disease: Assessment and plan: Last echocardiogram in December 2024 revealed decreased left ventricular ejection fraction at about 35% which is stable. Avoid IV fluids if possible though the patient is slightly dehydrated and needs to rehydrate orally and with gentle IV hydration as needed. Hold diuretic for now but consider reinitiating if he stabilizes. (5) Diabetes mellitus: Assessment and plan: Glucometer measurements before meals and at bedtime with moderate dosing sliding scale coverage. (6) Essential hypertension: Assessment and plan: Continue outpatient medical therapy adjusting as needed. (7) GERD (gastroesophageal reflux disease): Status: Chronic Assessment and plan: Continue PPI. (8) HESHAM (obstructive sleep apnea): Assessment and plan: Patient will bring his home CPAP machine for use in the hospital. History of Present Illness History of Present Illness Chief Complaint: Cough with sudden onset fever and rigors. Narrative: This is a 74-year-old male patient who presented to the ED with sudden onset of rigors with cough. He does have COPD with probable emphysematous changes status post left partial lobectomy for this disease. He felt well the morning of admission taking his [place] [facility] [place] cholecystectomy as a day surgery. He was on his way home with his when he suddenly had rigors and cough. After taking care of his , he did come to the ED for evaluation and was found to his meet septic criteria though his procalcitonin was normal. He had an elevated WBC along with fever and tachycardia with a probable source being the left lungs by chest x-ray and interpretation by the radiologist. When I saw the patient he more comfortable with less cough and had no other focalizing complaints. He did have blood cultures in the ED with urinalysis normal and no other source of infection obvious other than his lungs. He did have some IV fluid resuscitation for his mild dehydration with his elevated creatinine from his baseline. He was tolerating his fluids well but does have ischemic cardiomyopathy with fluids being given cautiously. His ejection fraction was last measured in December at 35%. He does work outside in the garden and felt this fever and no obvious source with infiltrate possibly be an old scar tissue in the lung from his previous partial lobectomy, tick panel was performed and patient was covered with Zithromax could be switched to doxycycline if this became more of a concern. He was initiated on Rocephin as well for his pneumonia. The patient does take furosemide daily and was on a second diuretic which may have been spironolactone which was recently discontinued. Because of his mild dehydration his furosemide will be held for now and I would not continue IV fluids unless necessary. He is slightly hypoxic. He is not on oxygen at home but does wear CPAP at home for HESHAM. Patient will be hospitalized for treatment of his sepsis with probable pneumonia and follow-up on cultures. Anticipated stay should be less than 96 hours. The patient is a full code. Review of Systems Narrative: 13 point review of system otherwise unrevealing or stable. The patient has had no recent peripheral edema. PFSH All Active Problems (Updated 06/11/25 @ 21:36 by Milan Cowan) Hypomagnesemia (Acute) Sepsis (Acute) Pulmonary edema (Acute) Hypertensive emergency (Acute) D-dimer, elevated (Acute) Sepsis (Acute) Influenza A (Acute) Enlarged prostate (Acute) benign GERD (gastroesophageal reflux disease) (Chronic) Pneumonia (Acute) Near syncope (Acute) Post-operative complication (Acute) Leukocytosis, unspecified (Acute) Hyperglycemia (Acute) Acute coronary syndrome (Acute) Medical History Pneumonia HESHAM (obstructive sleep apnea) Ischemic heart disease s/p stent x1 Jul 2018 [facility] [place] Dr. Sudhir Ceballos. -after progressive SEPULVEDA, then chest pain. 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 Hypercholesteremia Diabetes mellitus History of posttraumatic stress disorder (PTSD) Former smoker quit in 1994,90 pack year Basal cell carcinoma of skin right cheek 2011 [facility] [place] Adenocarcinoma segmentectomy WROX 06/09/2021 Melanoma Colon polyps HTN (hypertension) patient follows w/ Dr. 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 Surgical History H/O melanoma excision H/O colonoscopy H/O nasal septoplasty Family History Father History of non-ST elevation myocardial infarction (NSTEMI) Prostate cancer metastatic to multiple sites Mother COPD (chronic obstructive pulmonary disease) Sister Breast cancer Sister Ovarian cancer Brother Lung cancer Social History Smoking/Tobacco Use Status: Former Tobacco Use Quit Date: 09/02/89 Tobacco: How many years used: 37 Smoking risk assessment performed?: Yes Alcohol Intake: current Alcohol Intake frequency: 0-2 drinks per day Alcohol type: hard liquor Drug use: Never Substance use type: does not use Housing: house 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 Pets and animals: Yes (4 cats) Pets and animals: cat(s) What is your relationship status?: Panel score (0-1 are the most socially isolated patients): 1 Do you feel safe at home: Yes Do you feel safe in your relationship?: Yes Additional Social history: Former smoker , quit in 1994,90 pack yrs. Meds Allergies and Home Medications Allergies Allergy/AdvReac Type Severity Reaction Status Date / Time shellfish derived Allergy Severe Anaphylaxis Verified 06/11/25 20:12 meperidine Allergy Unknown Other (See Verified 06/11/25 20:12 Comment) morphine Allergy Unknown Nausea Verified 06/11/25 20:12 demerol hydrochloride Allergy Unknown Nausea Uncoded 06/11/25 20:12 Home Medications ?Medication ?Instructions ?Recorded ?Confirmed ?Type aspirin 81 mg chewable tablet 81 mg PO DAILY 07/19/18 06/11/25 History nitroglycerin 0.4 mg sublingual 0.4 mg sublingual Q5 MIN PRN X3 07/19/18 06/11/25 Rx tablet (Nitrostat) PRN #1 tab omeprazole magnesium 20 mg 20 mg PO DAILY 07/19/18 06/11/25 History tablet,delayed release (Prilosec OTC) albuterol 90 mcg/actuation aerosol 90 mcg inhalation Q4H PRN PRN 04/19/21 06/11/25 History inhaler allopurinol 300 mg tablet 300 mg PO DAILY 04/19/21 06/11/25 History tamsulosin 0.4 mg capsule 0.4 mg PO DAILY 04/19/21 06/11/25 History acetaminophen 325 mg tablet 650 mg PO Q6H PRN PRN 06/18/21 06/11/25 History niacinamide 500 mg tablet 500 mg PO BID 06/18/21 06/11/25 History multivitamin (Daily Multi-Vitamin 1 tab PO DAILY 09/27/23 06/11/25 History tablet) rosuvastatin 20 mg tablet 10 mg PO DAILY 09/27/23 06/11/25 History budesonide 160 mcg-glycopyr 9 2 inh inhalation BID 01/03/25 06/11/25 History mcg-formot 4.8 mcg/actuation HFA inhaler (Breztri Aerosphere) guaifenesin 600 mg tablet, 600 mg PO BID #10 tabs 01/04/25 06/11/25 Rx extended release 12 hr (Mucus Relief ER) tiotropium bromide 2.5 2 puff inhalation DAILY #4 grams 01/04/25 06/11/25 Rx mcg/actuation mist for inhalation (Spiriva Respimat) tadalafil 5 mg tablet (Cialis) 5 mg PO DAILY 01/05/25 06/11/25 History metoprolol succinate 50 mg 50 mg PO DAILY 01/19/25 06/11/25 History tablet,extended release 24 hr Exam Narrative Exam Narrative: General: Patient is appropriate for age, moderately obese especially over his abdomen, alert and oriented x 3 and in no acute distress. HEENT: Normocephalic, eyes with pupils equal and react to light symmetrically, extraocular movement intact and sclera anicteric. Or mucosas slightly dry. Neck: Supple without JVD. Back: Stooped posture without CVA tenderness. Lungs: Coarse expiratory crackles diffusely of the left lower lung davidson with less on the right lung davidson, bronchovesicular breath sounds diffusely with fair aeration. No increased expiratory phase or expiratory wheeze. Heart: Regular rate and rhythm with no appreciable murmur or gallop. Abdomen: Obese contour with pannus, soft to palpation with no palpable hepatosplenomegaly. No guarding or rebound. Bowel sounds positive all quadrants. Genitalia/rectal: Exam deferred. Extremities: Nonpitting edema both lower extremities with skin changes over ankles with loss of hair and slight atrophy. No hyperpigmentation or ulcers noted. Fair capillary refill. No clubbing or cyanosis. Skin: Normal color, warm and dry with chronic changes over legs as mentioned. Actinic changes over sun exposed areas. Neuro: Cranial nerves II through XII gross intact, no focal motor deficits or tremor. Psych: Normal affect and mood. No abnormal thought processes. Remote and recent memory intact. Results Imaging Imaging Studies: Exam: XR Chest Exam date and time: 06/11/2025 8:49 PM Age: 74 years old Clinical indication: Cough and fever; Fever, cough TECHNIQUE: Imaging protocol: Radiologic exam of the chest. Views: 1 view. COMPARISON: CT CHEST WO 01/20/2025 7:45 AM FINDINGS: Lungs: Subtle linear radiopacities are present at the left lung base. The lungs are otherwise clear. No findings suspicious for a spiculated left hilar mass. This is likely similar to the comparison CT dated 01/20/2025. Pleural spaces: No pleural effusion or pneumothorax. Heart/Mediastinum: The heart is normal size. Bones/joints: Unremarkable. IMPRESSION: 1. Left hilar mass likely similar to the CT from 01/20/2025. If further characterization is warranted, CT of the chest with contrast could be used. 2. Subtle left basilar radiopacities suspicious for aspiration/infection. Short interval follow-up is recommended to exclude underlying pulmonary pathology. Labs 06/12/25 05:30 06/12/25 05:30 Labs: Laboratory Results - last 24 hr 06/11/25 06/11/25 20:08 20:16 WBC 17.50 H RBC 4.07 L Hgb 13.3 L Hct 38.9 L MCV 96 H MCH 32.7 MCHC 34.2 RDW 13.7 Plt Count 206 MPV 10.1 Immature Gran % 0.5 Neutrophils % 83.8 Lymphocytes % 10.4 Monocytes % 4.4 Eosinophils % 0.7 Basophils % 0.2 Nucleated RBC % 0.0 Absolute Neutrophils 14.67 H Absolute Lymphocytes 1.82 Absolute Monocytes 0.77 Absolute Eosinophils 0.12 Absolute Basophils 0.04 PT 11.6 H INR 1.2 H APTT 23.9 VBG pH Cancelled 7.34 VBG pCO2 Cancelled 48 VBG pO2 Cancelled 37 VBG HCO3 Cancelled 26 VBG Total CO2 Cancelled 24 VBG O2 Saturation Cancelled 64 VBG Base Excess Cancelled 0 VBG Lactate 2.9 H* Sodium 140 Potassium 3.8 Chloride 102 Carbon Dioxide 27.1 Anion Gap 10.9 BUN 23 H Creatinine 1.4 H Est GFR (CKD-EPI 2020) 52.09 Glucose 239 H Calcium 8.9 Magnesium 1.7 L Total Bilirubin 0.5 AST 19 ALT 26 Alkaline Phosphatase 62 Troponin I 12 Total Protein 7.8 Albumin 4.0 Procalcitonin < 0.10 Last Vital Signs Temp 38.8 C H 06/11/25 20:08 Pulse 106 H 06/11/25 20:08 Resp 20 06/11/25 20:08 BP 166/65 H 06/11/25 20:08 Pulse Ox 92 06/11/25 20:08 PAWSS Have you Been Recently Intoxicated or Drunk Within the Last 30 days?: No Have you Ever Experienced Previous Episodes of Alcohol Withdrawal?: No Have you ever Experienced Withdrawal Seizures?: No Have you ever Experienced Delirium Tremens(DT)s?: No Have you ever undergone Alcohol Rehabilitation Treatment (i.e, inpt ot outpatient treatment programs)?: No Have you ever Experienced Blackouts?: No Have you ever Combined Alcohol with other Downers within the last 90 days?: No Have you ever Combined Alcohol with any other Substance of Abuse during the last 90 days?: No Positive Blood Alcohol level on Presentation? [PCS.BAL]: No Evidence of Increased Autonomic Activity (i.e. HR>120, tremor, sweating, agitation, nausea)?: Yes Result: 1 Time Spent Time spent with Patient: >75 minutes Time was spent: preparing to see the patient(eg.review tests), obtaining and/or reviewing separately otained hiistory, ordering medications,tests, procedures, indepentently interpreting results and care coordination
[2025-06-11 21:22] LABS: COVID-19 PCR Negative (Negative); RSV PCR Negative (Negative)
[2025-06-11] MEDS: MAGNESIUM SULFATE 1 GM/100 ML BAG IV_INF (21:52)
[2025-06-11] MEDS: AZITHROMYCIN 500 MG in Normal Saline 250 ML 250 MG IVPB (21:52)
--- NOTE | 2025-06-11 21:53 | DI.VRAD_ITS ---
PROCEDURE INFORMATION: Exam: XR Chest Exam date and time: 06/11/2025 8:49 PM Age: 74 years old Clinical indication: Cough and fever; Fever, cough TECHNIQUE: Imaging protocol: Radiologic exam of the chest. Views: 1 view. COMPARISON: CT CHEST WO 01/20/2025 7:45 AM FINDINGS: Lungs: Subtle linear radiopacities are present at the left lung base. The lungs are otherwise clear. No findings suspicious for a spiculated left hilar mass. This is likely similar to the comparison CT dated 01/20/2025. Pleural spaces: No pleural effusion or pneumothorax. Heart/Mediastinum: The heart is normal size. Bones/joints: Unremarkable. IMPRESSION: 1. Left hilar mass likely similar to the CT from 01/20/2025. If further characterization is warranted, CT of the chest with contrast could be used. 2. Subtle left basilar radiopacities suspicious for aspiration/infection. Short interval follow-up is recommended to exclude underlying pulmonary pathology. Dictated and Authenticated by: Kristyn Quiroz MD. Orderin Ronen Grayson MD
[2025-06-11 22:12] LABS: Troponin I 12 ng/L (<or=76)
--- NOTE | 2025-06-11 22:46 | W.PC.ACHO ---
Registration Status: REG ER Primary Language: Preferred Language: ED Information & Data Chief Complaint Chest Pain 06/11/25 20:47 Chief Complaint Chest Pain 06/11/25 20:21 Triage Note cp for a few hours, pt 06/11/25 20:08 reported feeling chills then chest pain, SOB. pain also in center of back. hx of heart attack and heart failure. pt been coughing lately. Medical / Surgical History (Last Reviewed 06/11/25 @ 21:23 by Milan Cowan) Pneumonia HESHAM (obstructive sleep apnea) Ischemic heart disease Essential hypertension COPD (chronic obstructive pulmonary disease) Hypercholesteremia Diabetes mellitus History of posttraumatic stress disorder (PTSD) Former smoker Basal cell carcinoma of skin Adenocarcinoma Melanoma Colon polyps HTN (hypertension) (Last Reviewed 06/11/25 @ 21:23 by Milan Cowan) H/O melanoma excision H/O colonoscopy H/O nasal septoplasty Most Recent Vital Signs Temperature 38.1 C H 06/11/25 22:02 Temperature Source Tympanic 06/11/25 22:02 Pulse 108 H 06/11/25 22:03 Pulse 102 H 06/11/25 21:31 Respiratory Rate 25 H 06/11/25 22:03 Respiratory Effort Short of Breath, Accessory Muscle Use 06/11/25 20:20 Blood Pressure 147/41 H 06/11/25 22:00 Blood Pressure Mean 81 06/11/25 22:00 Pulse Oximetry 90 L 06/11/25 22:03 Pain Level 4 06/11/25 20:08 Allergies shellfish derived Allergy (Severe, Verified 06/11/25 20:12) Anaphylaxis meperidine Allergy (Unknown, Verified 06/11/25 20:12) Other (See Comment) Pt states I dont even know what this is morphine Allergy (Unknown, Verified 06/11/25 20:12) Nausea demerol hydrochloride Allergy (Unknown, Uncoded 06/11/25 20:12) Nausea Active Medications Generic Name Dose Route Start Last Admin Trade Name Freq PRN Reason Stop Dose Admin Sodium Chloride 0 ml 06/11/25 20:08 06/11/25 20:40 Normal Saline Flush 10 Ml Syr IVP 10 ml PRN PRN Administration IV IV Catheter Type [Left Saline Lock Antecubital] IV Catheter Gauge [Left 18 Antecubital] Diagnostics 10/10/25 10/10/25 10/10/25 Range/Units 23:08 21:48 20:23 WBC (4.4-10.8) 10^3/uL RBC (4.36-5.78) 10^6/uL Hgb (13.5-17.5) g/dL Hct (40.0-50.0) % MCV (80-95) fL MCH (27.0-33.0) pg MCHC (32.0-36.0) % RDW (11.8-14.1) % Plt Count (130-400) 10^3/uL MPV (8.0-11.0) fL Immature Gran % % Neutrophils % % Lymphocytes % % Monocytes % % Eosinophils % % Basophils % % Nucleated RBC % (0.0-0.3) % Absolute Neutrophils (1.2-6.7) 10^3/uL Absolute Lymphocytes (1.2-3.4) 10^3/uL Absolute Monocytes (0.1-0.8) 10^3/uL Absolute Eosinophils (0.0-0.7) 10^3/uL Absolute Basophils (0.0-0.2) 10^3/uL PT (9.1-11.1) sec INR (0.9-1.1) APTT (20.6-30.2) sec VBG pH VBG pCO2 VBG pO2 VBG HCO3 VBG Total CO2 VBG O2 Saturation VBG Base Excess VBG Lactate (<or=2.0) mmol/L Sodium (136-145) mmol/L Potassium (3.5-5.1) mmol/L Chloride (98-107) mmol/L Carbon Dioxide (21.0-32.0) mmol/L Anion Gap (3-11) mmol/L BUN (7-18) mg/dL Creatinine (0.70-1.30) mg/dL Est GFR (CKD-EPI 2020) (mL/min/1.73m2) Glucose (74-106) mg/dL Calcium (8.5-10.1) mg/dL Magnesium (1.8-2.4) mg/dL Total Bilirubin (0.2-1.0) mg/dL AST (15-37) U/L ALT (16-63) U/L Alkaline Phosphatase (46-116) U/L Troponin I Pending 12 (<or=76) ng/L Total Protein (6.4-8.2) g/dL Albumin (3.4-5.0) g/dL Procalcitonin ng/mL COVID-19 Source Nasopharynx SARS-CoV-2 (PCR) Negative (Negative) Influenza Type A (PCR) Negative (Negative) Influenza Type B (PCR) Negative (Negative) RSV (PCR) Negative (Negative) 06/11/25 06/11/25 Range/Units 20:16 20:08 WBC 17.50 H (4.4-10.8) 10^3/uL RBC 4.07 L (4.36-5.78) 10^6/uL Hgb 13.3 L (13.5-17.5) g/dL Hct 38.9 L (40.0-50.0) % MCV 96 H (80-95) fL MCH 32.7 (27.0-33.0) pg MCHC 34.2 (32.0-36.0) % RDW 13.7 (11.8-14.1) % Plt Count 206 (130-400) 10^3/uL MPV 10.1 (8.0-11.0) fL Immature Gran % 0.5 % Neutrophils % 83.8 % Lymphocytes % 10.4 % Monocytes % 4.4 % Eosinophils % 0.7 % Basophils % 0.2 % Nucleated RBC % 0.0 (0.0-0.3) % Absolute Neutrophils 14.67 H (1.2-6.7) 10^3/uL Absolute Lymphocytes 1.82 (1.2-3.4) 10^3/uL Absolute Monocytes 0.77 (0.1-0.8) 10^3/uL Absolute Eosinophils 0.12 (0.0-0.7) 10^3/uL Absolute Basophils 0.04 (0.0-0.2) 10^3/uL PT 11.6 H (9.1-11.1) sec INR 1.2 H (0.9-1.1) APTT 23.9 (20.6-30.2) sec VBG pH 7.34 Cancelled VBG pCO2 48 Cancelled VBG pO2 37 Cancelled VBG HCO3 26 Cancelled VBG Total CO2 24 Cancelled VBG O2 Saturation 64 Cancelled VBG Base Excess 0 Cancelled VBG Lactate 2.9 H* (<or=2.0) mmol/L Sodium 140 (136-145) mmol/L Potassium 3.8 (3.5-5.1) mmol/L Chloride 102 (98-107) mmol/L Carbon Dioxide 27.1 (21.0-32.0) mmol/L Anion Gap 10.9 (3-11) mmol/L BUN 23 H (7-18) mg/dL Creatinine 1.4 H (0.70-1.30) mg/dL Est GFR (CKD-EPI 2020) 52.09 (mL/min/1.73m2) Glucose 239 H (74-106) mg/dL Calcium 8.9 (8.5-10.1) mg/dL Magnesium 1.7 L (1.8-2.4) mg/dL Total Bilirubin 0.5 (0.2-1.0) mg/dL AST 19 (15-37) U/L ALT 26 (16-63) U/L Alkaline Phosphatase 62 (46-116) U/L Troponin I 12 (<or=76) ng/L Total Protein 7.8 (6.4-8.2) g/dL Albumin 4.0 (3.4-5.0) g/dL Procalcitonin < 0.10 ng/mL COVID-19 Source SARS-CoV-2 (PCR) (Negative) Influenza Type A (PCR) (Negative) Influenza Type B (PCR) (Negative) RSV (PCR) (Negative) 06/11/25 20:38 Blood Culture - Pending Blood 06/11/25 20:32 Blood Culture - Pending Blood Intake and Output - 24 Hour Total 06/11/25 20:04 thru 06/11/25 21:46 Intake Total 150 Balance 150 Weight 106 kg Intake: IV 150 Falls Risk Assessment History of Falls No History 06/11/25 20:30 Contributing Factors Medications 06/11/25 20:30 Ambulatory Aids Independent 06/11/25 20:30 Tubes/Lines With any additional score 06/11/25 20:30 Gait Evaluation No gait disturbance 06/11/25 20:30 Cognition No cognitive impairment 06/11/25 20:30 Fall Total Score 23 06/11/25 20:30 Level of Risk Standard/Low Risk 06/11/25 20:30 Problems (Last Reviewed 10/10/25 @ 21:23 by Milan Cowan) Hypomagnesemia (Acute) Sepsis (Acute) GERD (gastroesophageal reflux disease) (Chronic) v v v v v v v v v Sending and/or Receiving Nurses: Please use comment section below to note any information pertinent to the patient hand-off not included above. Information / Comments:Hx of CHF and Resp. failure, admit throught the ED, to med/surg rm 226. Pt reports back pain, SOB, and fever and chills. Received 1 L fluid in ED. 2g Ceftriaxone and azithromycin and mg. Uses CPAP at home but does not have it with him. Report received from:called [id number], Chi Lew, [employer].
[2025-06-11] MEDS: Pantoprazole 40 MG TABCR PO (23:48)
[2025-06-12] VITALS (12 sets, daily range): BP systolic 122–132; BP diastolic 54–61; PULSE 68–80; RESP 16–20; TEMP 36.3–37.2; O2SAT 93–97
[2025-06-12 00:06] LABS: Troponin I 15 ng/L (<or=76)
[2025-06-12 00:34] LABS: Glucose Negative (Negative)
[2025-06-12] MEDS: Insulin Aspart 300 UNITS/3 ML PEN SC ×4 (00:59→22:15)
[2025-06-12] MEDS: Albuterol/Ipratropium 3 ML UPD VIAL UPD ×4 (04:49→22:12)
[2025-06-12 05:38] LABS: HCT 38.1 % (40.0-50.0); HGB 13.0 g/dL (13.5-17.5); MCH 32.3 pg (27.0-33.0); MCHC 34.1 % (32.0-36.0); MCV 95 fL (80-95); MPV 10.3 fL (8.0-11.0); Platelet Count 193 10^3/uL (130-400); RBC 4.03 10^6/uL (4.36-5.78); RDW 13.6 % (11.8-14.1); RDW-SD 47.3 fL; WBC 21.85 10^3/uL (4.4-10.8)
[2025-06-12 05:58] LABS: ALT 20 U/L (16-63); AST 14 U/L (15-37); Albumin 3.5 g/dL (3.4-5.0); Alkaline Phosphatase 52 U/L (46-116); Anion Gap 9.4 mmol/L (3-11); BUN 20 mg/dL (7-18); Bilirubin, Total 0.5 mg/dL (0.2-1.0); CO2 24.6 mmol/L (21.0-32.0); Calcium 8.6 mg/dL (8.5-10.1); Chloride 105 mmol/L (98-107); Estimated GFR 69.57 (mL/min/1.73m2); Glucose 181 mg/dL (74-106); Magnesium 2.1 mg/dL (1.8-2.4); Potassium 4.2 mmol/L (3.5-5.1); Sodium 139 mmol/L (136-145); Total Protein 7.3 g/dL (6.4-8.2)
[2025-06-12] MEDS: Enoxaparin 40 MG/0.4 ML SYR SC (08:06)
[2025-06-12] MEDS: guaiFENesin 600 MG TABCR PO ×2 (08:07→20:16)
[2025-06-12] MEDS: Pantoprazole 40 MG TABCR PO (08:07)
[2025-06-12] MEDS: Rosuvastatin 20 MG TAB 10 MG PO (08:07)
[2025-06-12] MEDS: Allopurinol 300 MG TAB PO (08:07)
[2025-06-12] MEDS: Aspirin 81 MG CHEW PO (08:07)
[2025-06-12] MEDS: Multivitamin TAB 1 TAB PO (08:07)
[2025-06-12] MEDS: Tamsulosin 0.4 MG CAPCR PO (08:07)
[2025-06-12] MEDS: Metoprolol CR 50 MG TABCR PO (08:07)
[2025-06-12] MEDS: Normal Saline Flush 10 ML SYR IVP ×2 (08:19→20:17)
[2025-06-12] MEDS: AZITHROMYCIN 500 MG in Normal Saline 250 ML 250 MG IVPB (08:19)
--- NOTE | 2025-06-12 10:20 | PDOC.CMIN ---
Date of service: 06/12/25 Time of Service: 10:20 Care Management Initial Assmt Initial Assessment Reason for Hospitalization: Sepsis, COPD with emphysema Functional Status/Living Situation Patient Presentation: Cosmo was sitting up in bed eating his lunch when CM met with him. He stated that he is feeling much better today, and is looking forward to discharge. He stated that he lives in [place] with his , Nat. He is a , and is retired from working for [employer]. He reported that he is very independent at baseline, and receives care, including primary care, at the [facility]. He does not anticipate the need for services or support upon discharge. CM will continue to follow. Town of Residence: [place] Resides with: Spouse (, Nat) Significant Other/Family: Local Natural Supports: , Nat Employment Status: Retired ([employer]) Instrumental Activities of Daily Living (ADLs): Independent Medications Medication Management: No Issues/Barriers identified Physical Functioning/Mobility Assistive Device: CPAP Advance Directives Advance Directives: Do you have an Advance Directive: Y 06/18/21, 09:34 AD On File at [facility]: Y 01/02/25, 15:47 Date Asked 01/02/25 06/11/25, 20:04 AD Date Reviewed 01/05/25 01/05/25, 08:23 COLST On File at [facility] COLST Date Scanned Code Status Resuscitation Status Full Code Insurance Coverage/Financial Issues Insurance: [facility] Care Team Visit Care Team Role Provider Type Louis Delgado MD MD [facility] STAFF PHYSICIAN Regla Cordoba Primary Care Provider OSTEOPATHIC DOCTOR Aline Varela RDN, [facility] Other Providers PUTTYING AND CALKING SUPERVISOR Omar Hernandez RDN Other Providers PUTTYING AND CALKING SUPERVISOR Kenan Hardwick MD Emergency Provider [facility] STAFF PHYSICIAN Milan Cowan Admit Provider NON-[facility] STAFF PHYSICIAN Attending Provider Discharge Potential Discharge Needs: PCP F/U Appt Anticipated Barriers to Discharge: None Identified Patient/Family Education Needs: Review discharge instructions, discuss Ask Me Three Transportation: Private vehicle Plan: Anticipate Cosmo will return home when medically cleared. His will drive him home via private vehicle. He will follow up with his PCP and discharge plan of care. CM will continue to follow. Social Determinants of Health Screening Social Determinants of health last assessed in clinic: 06/12/25 Will the Patient Participate in the Screening?: Yes Do you worry about having a steady place to live?: no Problems where you live: no known problems In the past 12 months, have you had to go without electric, gas, oil or water in your home?: no 1. Within the past 12 months, we worried whether our food would run out before we got money to buy more.: Never true 2. Within the past 12 months, the food we bought just didn't last and we didn't have money to get more.: Never true Has lack of transportation kept you from medical appointments or from doing things needed for daily living?: no Has anyone in your life made you feel unsafe or unsupported?: no How hard is it for you to pay for the very basics like food, housing, medical care, and heating? Would you say it is:: Not hard at all Do you want help finding or keeping work or a job?: I do not need or want help If for any reason you need help with day-to-day activities such as bathing, preparing meals, shopping, managing finances, etc., do you get the help you need?: I don?t need any help How often do you feel lonely or isolated from those around you?: Sometimes Do you speak a language other than Turkmen at home?: No Does the patient want assistance with any of the above?: No Health Related Social Needs Health related social needs: feeling lonely/isolated (Z60.8) Health related social needs details: Pt has had COVID x5 and has felt isolated during these times. PFSH All Active Problems (Updated 06/11/25 @ 21:36 by Milan Cowan) Hypomagnesemia (Acute) Sepsis (Acute) Pulmonary edema (Acute) Hypertensive emergency (Acute) D-dimer, elevated (Acute) Sepsis (Acute) Influenza A (Acute) Enlarged prostate (Acute) benign GERD (gastroesophageal reflux disease) (Chronic) Pneumonia (Acute) Near syncope (Acute) Post-operative complication (Acute) Leukocytosis, unspecified (Acute) Hyperglycemia (Acute) Acute coronary syndrome (Acute) Medical History Pneumonia HESHAM (obstructive sleep apnea) Ischemic heart disease s/p stent x1 Jul [place] [facility] [place]. Sudhir Ceballos. -after progressive SEPULVEDA, then chest pain. Essential hypertension COPD (chronic obstructive pulmonary disease) patient follows w/ Dr. 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 Hypercholesteremia Diabetes mellitus History of posttraumatic stress disorder (PTSD) Former smoker quit in 1994,90 pack year Basal cell carcinoma of skin right cheek 2011 [facility] [place] Adenocarcinoma segmentectomy WROX 06/09/2021 Melanoma Colon polyps HTN (hypertension) patient follows w/ Dr. Zheng Peñaloza, communications equipment installer, [place] Surgical History H/O melanoma excision H/O colonoscopy H/O nasal septoplasty Family History Father History of non-ST elevation myocardial infarction (NSTEMI) Prostate cancer metastatic to multiple sites Mother COPD (chronic obstructive pulmonary disease) Sister Breast cancer Sister Ovarian cancer Brother Lung cancer Social History Smoking/Tobacco Use Status: Former Tobacco Use Quit Date: 09/02/89 Tobacco: How many years used: 37 Smoking risk assessment performed?: Yes Alcohol Intake: current Alcohol Intake frequency: 0-2 drinks per day Alcohol type: hard liquor Drug use: Never Substance use type: does not use Housing: house 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 Pets and animals: Yes (4 cats) Pets and animals: cat(s) What is your relationship status?: Panel score (0-1 are the most socially isolated patients): 1 Do you feel safe at home: Yes Do you feel safe in your relationship?: Yes Additional Social history: Former smoker , quit in 1994,90 pack yrs.
[2025-06-12] MEDS: Polyethylene Glycol 3350 17 GM PACKET PO (15:04)
--- NOTE | 2025-06-12 16:25 | W.PM.PROGNOT ---
Date of Service Date of service: 06/12/25 Time of Service: 11:00 Assessment and Plan Assessment and plan (1) Sepsis: Start date: 06/11/25 Status: Resolved Assessment and plan: This is a 74-year-old gentleman who had sudden onset of respiratory symptoms with fever and rigors presented to the ED with sepsis without shock. The procalcitonin was negative which is reassuring. He appears slightly dry and imaging did reveal possible left lower lobe infiltrate though this was not severe. He has had a previous surgery on his left lung and some this may be chronic but imaging indicates some acuity. He was initiated on IV Rocephin and Zithromax which will be continued. Because of his exposure to the outside and sudden onset of symptoms though he has had recent exposure to [facility] the same day as presentation: Tickborne disease need to be considered and tick panel was performed. Blood culture was also performed and urinalysis was negative with no culture initiated. Patient will continue on these IV antibiotic therapies considering switching to doxycycline if tick panel is positive. Follow-up on imaging as needed. Respiratory support with frequent nebulizer treatments and pulmonary toilet, he also should wear CPAP at night for sleep apnea. Adjust fluid treatment to his ischemic cardiomyopathy with decreased ejection fraction and hold Lasix temporarily. He is having significant wheezing and steroids will be avoided for now. The patient is a full code. Jun 12: Sepsis is resolved. Continue treatment for CAP. WBC increased, afebrile. (2) Hypomagnesemia: Start date: 06/11/25 Status: Acute Assessment and plan: IV repletion and follow-up lab in the morning with continued IV repletion if needed. He is chronically on diuretics and may be chronically hypomagnesemic which at least is recurrent. (3) COPD (chronic obstructive pulmonary disease): Assessment and plan: Aggressive nebulizer treatments and continue inhaled steroid with LABA treatment. Encouraged hydration orally with clearing his secretions with cough. (4) Ischemic heart disease: Assessment and plan: Last echocardiogram in December 2024 revealed decreased left ventricular ejection fraction at about 35% which is stable. Avoid IV fluids if possible though the patient is slightly dehydrated and needs to rehydrate orally and with gentle IV hydration as needed. Hold diuretic for now but consider reinitiating if he stabilizes. (5) Diabetes mellitus: Assessment and plan: Glucometer measurements before meals and at bedtime with moderate dosing sliding scale coverage. (6) Essential hypertension: Assessment and plan: Continue outpatient medical therapy adjusting as needed. (7) GERD (gastroesophageal reflux disease): Status: Chronic Assessment and plan: Continue PPI. (8) HESHAM (obstructive sleep apnea): Assessment and plan: Patient will bring his home CPAP machine for use in the hospital. Subjective Subjective Interval history since last seen: Mr Burrell is comfortable in bed. He is in normal sinus rhythm. He continues to have fevers and flu-like symptoms. Exam Narrative Exam Narrative: General: This is a pleasant man in no distress HEENT: Normocephalic, atraumatic CV: RRR Resp: CTAB Abd: soft, NTND MSK: voluntary motion x4 Neuro: awake, alert, no focal deficits Objective Last Vital Signs Temp 36.7 C 06/12/25 15:07 Pulse 68 06/12/25 15:07 Resp 17 06/12/25 15:07 BP 123/54 L 06/12/25 15:07 Pulse Ox 93 06/12/25 15:07 Laboratory Results - last 24 hr 06/11/25 06/11/25 06/11/25 20:08 20:16 20:23 WBC 17.50 H RBC 4.07 L Hgb 13.3 L Hct 38.9 L MCV 96 H MCH 32.7 MCHC 34.2 RDW 13.7 Plt Count 206 MPV 10.1 Immature Gran % 0.5 Neutrophils % 83.8 Lymphocytes % 10.4 Monocytes % 4.4 Eosinophils % 0.7 Basophils % 0.2 Nucleated RBC % 0.0 Absolute Neutrophils 14.67 H Absolute Lymphocytes 1.82 Absolute Monocytes 0.77 Absolute Eosinophils 0.12 Absolute Basophils 0.04 PT 11.6 H INR 1.2 H APTT 23.9 VBG pH Cancelled 7.34 VBG pCO2 Cancelled 48 VBG pO2 Cancelled 37 VBG HCO3 Cancelled 26 VBG Total CO2 Cancelled 24 VBG O2 Saturation Cancelled 64 VBG Base Excess Cancelled 0 VBG Lactate 2.9 H* Sodium 140 Potassium 3.8 Chloride 102 Carbon Dioxide 27.1 Anion Gap 10.9 BUN 23 H Creatinine 1.4 H Est GFR (CKD-EPI 2020) 52.09 Glucose 239 H Calcium 8.9 Magnesium 1.7 L Total Bilirubin 0.5 AST 19 ALT 26 Alkaline Phosphatase 62 Troponin I 12 Total Protein 7.8 Albumin 4.0 Procalcitonin < 0.10 Urine Color Urine Clarity Urine pH Ur Specific [employer] Urine Protein Urine Ketones Urine Blood Urine Nitrite Urine Bilirubin Urine Urobilinogen Ur Leukocyte Esterase Urine Glucose B. divergens/MO-1 PCR Babesia duncani (PCR) Babesia microti DNA PCR COVID-19 Source Nasopharynx SARS-CoV-2 (PCR) Negative E.chaffeensis DNA (PCR) E.ewingii/canis DNA PCR E.muris eauclairensis (PCR) Influenza Type A (PCR) Negative Influenza Type B (PCR) Negative RSV (PCR) Negative A. phagocytophilum (PCR) Blood B. miyamotoi (PCR) 06/11/25 06/11/25 06/12/25 21:48 23:16 00:14 WBC RBC Hgb Hct MCV MCH MCHC RDW Plt Count MPV Immature Gran % Neutrophils % Lymphocytes % Monocytes % Eosinophils % Basophils % Nucleated RBC % Absolute Neutrophils Absolute Lymphocytes Absolute Monocytes Absolute Eosinophils Absolute Basophils PT INR APTT VBG pH VBG pCO2 VBG pO2 VBG HCO3 VBG Total CO2 VBG O2 Saturation VBG Base Excess VBG Lactate Sodium Potassium Chloride Carbon Dioxide Anion Gap BUN Creatinine Est GFR (CKD-EPI 2020) Glucose Calcium Magnesium Total Bilirubin AST ALT Alkaline Phosphatase Troponin I 12 15 Total Protein Albumin Procalcitonin Urine Color Yellow Urine Clarity Clear Urine pH 5.5 Ur Specific [employer] 1.020 Urine Protein Negative Urine Ketones Negative Urine Blood Negative Urine Nitrite Negative Urine Bilirubin Negative Urine Urobilinogen 0.2 Ur Leukocyte Esterase Negative Urine Glucose Negative B. divergens/MO-1 PCR Babesia duncani (PCR) Babesia microti DNA PCR COVID-19 Source SARS-CoV-2 (PCR) E.chaffeensis DNA (PCR) E.ewingii/canis DNA PCR E.muris eauclairensis (PCR) Influenza Type A (PCR) Influenza Type B (PCR) RSV (PCR) A. phagocytophilum (PCR) Blood B. miyamotoi (PCR) 06/12/25 06/12/25 00:19 05:30 WBC 21.85 H RBC 4.03 L Hgb 13.0 L Hct 38.1 L MCV 95 MCH 32.3 MCHC 34.1 RDW 13.6 Plt Count 193 MPV 10.3 Immature Gran % Neutrophils % Lymphocytes % Monocytes % Eosinophils % Basophils % Nucleated RBC % Absolute Neutrophils Absolute Lymphocytes Absolute Monocytes Absolute Eosinophils Absolute Basophils PT INR APTT VBG pH VBG pCO2 VBG pO2 VBG HCO3 VBG Total CO2 VBG O2 Saturation VBG Base Excess VBG Lactate 2.2 H* Sodium Cancelled 139 Potassium Cancelled 4.2 Chloride Cancelled 105 Carbon Dioxide Cancelled 24.6 Anion Gap Cancelled 9.4 BUN Cancelled 20 H Creatinine Cancelled 1.1 Est GFR (CKD-EPI 2020) Cancelled 69.57 Glucose Cancelled 181 H Calcium Cancelled 8.6 Magnesium 2.1 Total Bilirubin 0.5 AST 14 L ALT 20 Alkaline Phosphatase 52 Troponin I Total Protein 7.3 Albumin 3.5 Procalcitonin Urine Color Urine Clarity Urine pH Ur Specific [employer] Urine Protein Urine Ketones Urine Blood Urine Nitrite Urine Bilirubin Urine Urobilinogen Ur Leukocyte Esterase Urine Glucose B. divergens/MO-1 PCR Cancelled Babesia duncani (PCR) Cancelled Babesia microti DNA PCR Cancelled COVID-19 Source SARS-CoV-2 (PCR) E.chaffeensis DNA (PCR) Cancelled E.ewingii/canis DNA PCR Cancelled E.muris eauclairensis (PCR) Cancelled Influenza Type A (PCR) Influenza Type B (PCR) RSV (PCR) A. phagocytophilum (PCR) Cancelled Blood B. miyamotoi (PCR) Cancelled PAWSS Have you Been Recently Intoxicated or Drunk Within the Last 30 days?: No Have you Ever Experienced Previous Episodes of Alcohol Withdrawal?: No Have you ever Experienced Withdrawal Seizures?: No Have you ever Experienced Delirium Tremens(DT)s?: No Have you ever undergone Alcohol Rehabilitation Treatment (i.e, inpt ot outpatient treatment programs)?: No Have you ever Experienced Blackouts?: No Have you ever Combined Alcohol with other Downers within the last 90 days?: No Have you ever Combined Alcohol with any other Substance of Abuse during the last 90 days?: No Positive Blood Alcohol level on Presentation? [PCS.BAL]: No Evidence of Increased Autonomic Activity (i.e. HR>120, tremor, sweating, agitation, nausea)?: No Result: 0 Time Spent with Patient Time Spent with Patient: 25-34 minutes Time was spent: preparing to see the patient(eg.review tests), obtaining and[facility]or [facility], ordering medications,tests, procedures, referring, communicating with other health director of healthcare systems, indepentently interpreting results, counseling the patient and care coordination
[2025-06-12] MEDS: cefTRIAXone 1 GM/50 ML BAG IVPB (20:17)
[2025-06-12] MEDS: Budesonide/Formoterol 160/4.5 6 GM 60 PUFF INH IH (20:54)
[2025-06-13 03:03] VITALS: BP 143/68; PULSE 71; TEMP 36.2; O2SAT 97
[2025-06-13] MEDS: Albuterol/Ipratropium 3 ML UPD VIAL UPD ×2 (05:19→11:40)
[2025-06-13 06:34] LABS: HCT 37.6 % (40.0-50.0); HGB 12.9 g/dL (13.5-17.5); MCH 33.2 pg (27.0-33.0); MCHC 34.3 % (32.0-36.0); MCV 97 fL (80-95); MPV 10.5 fL (8.0-11.0); Platelet Count 184 10^3/uL (130-400); RBC 3.89 10^6/uL (4.36-5.78); RDW 14.2 % (11.8-14.1); RDW-SD 50.0 fL; WBC 20.09 10^3/uL (4.4-10.8)
[2025-06-13 06:59] LABS: ALT 21 U/L (16-63); AST 16 U/L (15-37); Albumin 3.4 g/dL (3.4-5.0); Alkaline Phosphatase 47 U/L (46-116); Anion Gap 7.5 mmol/L (3-11); BUN 23 mg/dL (7-18); Bilirubin, Total 0.4 mg/dL (0.2-1.0); CO2 27.5 mmol/L (21.0-32.0); Calcium 8.7 mg/dL (8.5-10.1); Chloride 105 mmol/L (98-107); Estimated GFR 78.00 (mL/min/1.73m2); Glucose 131 mg/dL (74-106); Magnesium 2.3 mg/dL (1.8-2.4); Potassium 4.2 mmol/L (3.5-5.1); Sodium 140 mmol/L (136-145); Total Protein 7.0 g/dL (6.4-8.2)
[2025-06-13 07:39] VITALS: BP 140/65; PULSE 96; RESP 16; TEMP 36.7; O2SAT 96
[2025-06-13] MEDS: Tiotropium Bromide-Respimat 10 PUFF INH 2 PUFF IH (08:21)
[2025-06-13 08:22] VITALS: O2SAT 94
[2025-06-13] MEDS: Budesonide/Formoterol 160/4.5 6 GM 60 PUFF INH IH (08:22)
[2025-06-13] MEDS: Aspirin 81 MG CHEW PO (08:43)
[2025-06-13] MEDS: Enoxaparin 40 MG/0.4 ML SYR SC (08:43)
[2025-06-13] MEDS: guaiFENesin 600 MG TABCR PO (08:43)
[2025-06-13] MEDS: Normal Saline Flush 10 ML SYR IVP (08:43)
[2025-06-13] MEDS: Rosuvastatin 20 MG TAB 10 MG PO (08:43)
[2025-06-13] MEDS: Pantoprazole 40 MG TABCR PO (08:43)
[2025-06-13] MEDS: Multivitamin TAB 1 TAB PO (08:44)
[2025-06-13] MEDS: Allopurinol 300 MG TAB PO (08:44)
[2025-06-13] MEDS: Metoprolol CR 50 MG TABCR PO (08:44)
[2025-06-13] MEDS: Tamsulosin 0.4 MG CAPCR PO (08:44)
[2025-06-13] MEDS: AZITHROMYCIN 500 MG in Normal Saline 250 ML 250 MG IVPB (08:44)
[2025-06-13 11:00] VITALS: BP 141/70; PULSE 68; RESP 17; TEMP 37; O2SAT 95
[2025-06-13 11:40] VITALS: PULSE 79; RESP 18; O2SAT 93
[2025-06-13 11:41] VITALS: O2SAT 95
--- NOTE | 2025-06-13 11:41 | DSE_ITS ---
Date of service: 06/13/25 Time of Service: 11:30 DS: Diagnosis Discharge Diagnosis (1) Sepsis: Status: Resolved Asessment and Plan: This is a 74-year-old gentleman who had sudden onset of respiratory symptoms with fever and rigors presented to the ED with sepsis without shock. The procalcitonin was negative which is reassuring. He appears slightly dry and imaging did reveal possible left lower lobe infiltrate though this was not severe. He has had a previous surgery on his left lung and some this may be chronic but imaging indicates some acuity. He was initiated on IV Rocephin and Zithromax which will be continued. Because of his exposure to the outside and sudden onset of symptoms though he has had recent exposure [place] [facility] presentation: Tickborne disease need to be considered and tick panel was performed. Blood culture was also performed and urinalysis was negative with no culture initiated. Patient will continue on these IV antibiotic therapies considering switching to doxycycline if tick panel is positive. Follow-up on imaging as needed. Respiratory support with frequent nebulizer treatments and pulmonary toilet, he also should wear CPAP at night for sleep apnea. Adjust fluid treatment to his ischemic cardiomyopathy with decreased ejection fraction and hold Lasix temporarily. He is having significant wheezing and steroids will be avoided for now. The patient is a full code. Jun 12: Sepsis is resolved. Continue treatment for CAP. WBC increased, afebrile. (2) Hypomagnesemia: Status: Resolved Asessment and Plan: IV repletion and follow-up lab in the morning with continued IV repletion if needed. He is chronically on diuretics and may be chronically hypomagnesemic which at least is recurrent. (3) COPD (chronic obstructive pulmonary disease): Asessment and Plan: Aggressive nebulizer treatments and continue inhaled steroid with LABA treatment. Encouraged hydration orally with clearing his secretions with cough. (4) Ischemic heart disease: Asessment and Plan: Last echocardiogram in December 2024 revealed decreased left ventricular ejection fraction at about 35% which is stable. Avoid IV fluids if possible though the patient is slightly dehydrated and needs to rehydrate orally and with gentle IV hydration as needed. Hold diuretic for now but consider reinitiating if he stabilizes. (5) Diabetes mellitus: Asessment and Plan: Glucometer measurements before meals and at bedtime with moderate dosing sliding scale coverage. (6) Essential hypertension: Asessment and Plan: Continue outpatient medical therapy adjusting as needed. (7) GERD (gastroesophageal reflux disease): Status: Chronic Asessment and Plan: Continue PPI. (8) HESHAM (obstructive sleep apnea): Asessment and Plan: Continue home CPAP Discharge Plan Disposition Patient Disposition: Home Condition: Improving Discharge Details Reason For Visit: Sepsis,COPD with Emphysema,Ischemic Cardiomyopathy Admit Date/Time: 06/11/25 21:35 Admit Provider: Milan Cowan Attending Provider: Milan Cowan Primary Care Provider: Regla Cordoba Hospital Course Hospital Course: Cosmo Burrell is a 74 year old man presenting June 11 with sudden shortness of breath, with fever and chills. Patient has history of partial lung lobectomy. He was admitted for sepsis without shock and improved quickly with oxygen support and CAP antibiotics. He is now comfortable on room air and is safe to discharge home with PCP followup. Home Meds and New Rx's Prescriptions: New amoxicillin-pot clavulanate 875-125 mg tablet 1 tab PO Q12H Qty: 10 0RF Continued multivitamin [Daily Multi-Vitamin] Tablet 1 tab PO DAILY tamsulosin 0.4 mg capsule 0.4 mg PO DAILY allopurinol 300 mg tablet 300 mg PO DAILY albuterol 90 mcg/actuation Aerosol 90 mcg INHALATION Q4H PRN PRN rosuvastatin 20 mg tablet 10 mg PO DAILY acetaminophen 325 mg Tablet 650 mg PO Q6H PRN PRN niacinamide 500 mg Tablet 500 mg PO BID Breztri Aerosphere 160-9-4.8 mcg/actuation HFA aerosol inhaler 2 inh inhalation BID Spiriva Respimat 2.5 mcg/actuation Mist 2 puff inhalation DAILY Qty: 4 0RF guaifenesin [Mucus Relief ER] 600 mg Tablet Extended Release 12hr 600 mg PO BID Qty: 10 0RF aspirin 81 mg Tablet,Chewable 81 mg PO DAILY Patient Comments: on hold for surgery omeprazole magnesium [Prilosec OTC] 20 mg Tablet,Delayed Release (Dr/Ec) 20 mg PO DAILY nitroglycerin [Nitrostat] 0.4 mg Tablet, Sublingual 0.4 mg Sublingual Q5 MIN PRN X3 PRNQty: 1 0RF tadalafil [Cialis] 5 mg tablet 5 mg PO DAILY metoprolol succinate 50 mg tablet extended release 24 hr 50 mg PO DAILY Patient Comments: TAKE ONE TABLET BY MOUTH TWICE A DAY Discharge Instructions Stand Alone Forms: Nursing Discharge Form Referrals: Regla Cordoba [Primary Care Provider, Medicine] Referral Note: Your PCP office will give you a call to make a follow up appointment, if you do not hear from your PCP please give them a call. Activity:: Activity as Tolerated Equipment/Supplies:: No Equipment Needed Diet:: As Tolerated Discharge Orders Discharge Orders: Discharge Order (Routine); Ordered 06/13/25 Ordered By: Louis Delgado Discharge Data Discharge Date/Time-TO BE ENTERED AT DEPARTURE: 06/13/25 13:10 DS: Summary Time Spent with Patient providing and/or coordinating discharge services: Less than 30 minutes Status at Discharge Functional status at discharge: independent ambulation Overall status at discharge: patient is progressing back to baseline Mental Status: mental status grossly normal Speech and Movement: speech and movement normal Mood: congruent mood Affect: normal affect Quality:SDOH Health Related Social Needs: Health related social needs lonely/isolated Health related social needs details Pt has had COVID x 5 and has felt isolated during these times. Health related social needs details: Pt has had COVID x5 and has felt isolated during these times. Exam Narrative Exam Narrative: General: This is a pleasant man in no distress HEENT: Normocephalic, atraumatic CV: RRR Resp: CTAB Abd: soft, NTND MSK: voluntary motion x4 Neuro: awake, alert, no focal deficits Psych Mental Status: mental status grossly normal Speech and Movement: speech and movement normal Mood: congruent mood Affect: normal affect DS: Data Vitals/I&O Vitals and I&O: Vital Signs Temperature 37.0 C 06/13/25 11:00 Temperature Source Temporal Artery Scan 06/13/25 11:00 Pulse 79 06/13/25 11:40 Pulse Rhythm Regular 06/11/25 23:02 Pulse 102 H 06/11/25 21:31 Respiratory Rate 18 06/13/25 11:40 Respiratory Effort Short of Breath 06/11/25 23:02 Respiratory Depth Normal 06/11/25 23:02 Respiratory Pattern Normal 06/11/25 23:02 Blood Pressure 141/70 H 06/13/25 11:00 Blood Pressure Mean 93 06/13/25 11:00 Pulse Oximetry 95 06/13/25 11:41 Oxygen Delivery Method Room Air 06/13/25 11:40 Oxygen Flow Rate 0 06/13/25 11:40 Pain Level 0 06/13/25 07:21 Comment rn notified 06/13/25 11:00 Intake & Output 06/12/25 06/12/25 06/13/25 11:59 23:59 11:59 Intake Total 760 / 1010 250 / 1010 760 / 760 Output Total 1475 / 2675 1200 / 2675 1250 / 1250 Balance -715 / -1665 -950 / -1665 -490 / -490 Weight 110.54 kg 102.6 kg Intake: IV 260 / 510 250 / 510 300 / 300 Oral 500 / 500 460 / 460 Output: Urine 1475 / 2675 1200 / 2675 1250 / 1250 Other: Urine Color Yellow Yellow Yellow Urine Appearance Clear Clear Clear Urine Odor Normal Normal Normal Data Completed and Pending Labs on day of discharge: Labs from last 24 hours 06/13/25 05:40 WBC 20.09 H RBC 3.89 L Hgb 12.9 L Hct 37.6 L MCV 97 H MCH 33.2 H MCHC 34.3 RDW 14.2 H Plt Count 184 MPV 10.5 Sodium 140 Potassium 4.2 Chloride 105 Carbon Dioxide 27.5 Anion Gap 7.5 BUN 23 H Creatinine 1.0 Est GFR (CKD-EPI 2020) 78.00 Glucose 131 H Calcium 8.7 Magnesium 2.3 Total Bilirubin 0.4 AST 16 ALT 21 Alkaline Phosphatase 47 Total Protein 7.0 Albumin 3.4 Preliminary micro results at discharge 06/11/25 20:38 Blood Blood Culture - Preliminary NO GROWTH 24 HOURS 06/11/25 20:32 Blood Blood Culture - Preliminary NO GROWTH 24 HOURS PFSH All Active Problems (Updated 06/14/25 @ 00:04 by JACOB STAPLETON) Sepsis (Acute) Pulmonary edema (Acute) Hypertensive emergency (Acute) D-dimer, elevated (Acute) Influenza A (Acute) Enlarged prostate (Acute) benign GERD (gastroesophageal reflux disease) (Chronic) Pneumonia (Acute) Near syncope (Acute) Post-operative complication (Acute) Leukocytosis, unspecified (Acute) Hyperglycemia (Acute) Acute coronary syndrome (Acute) Medical History Pneumonia HESHAM (obstructive sleep apnea) Ischemic heart disease s/p stent x1 Jul [place] [facility] [place] Sudhir Ceballos. -after progressive SEPULVEDA, then chest pain. 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 Hypercholesteremia Diabetes mellitus History of posttraumatic stress disorder (PTSD) Former smoker quit in 1994,90 pack year Basal cell carcinoma of skin right cheek [place] [facility]enocarcinoma segmentectomy [facility] 06/09/2021 Melanoma Colon polyps HTN (hypertension) patient follows w/ Dr. 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 Surgical History H/O melanoma excision H/O colonoscopy H/O nasal septoplasty Family History Father History of non-ST elevation myocardial infarction (NSTEMI) Prostate cancer metastatic to multiple sites Mother COPD (chronic obstructive pulmonary disease) Sister Breast cancer Sister Ovarian cancer Brother Lung cancer Social History Smoking/Tobacco Use Status: Former Tobacco Use Quit Date: 09/02/89 Tobacco: How many years used: 37 Smoking risk assessment performed?: Yes Alcohol Intake: current Alcohol Intake frequency: 0-2 drinks per day Alcohol type: hard liquor Drug use: Never Substance use type: does not use Housing: house 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 Pets and animals: Yes (4 cats) Pets and animals: cat(s) What is your relationship status?: Panel score (0-1 are the most socially isolated patients): 1 Do you feel safe at home: Yes Do you feel safe in your relationship?: Yes Additional Social history: Former smoker , quit in 1994,90 pack yrs. Time Spent with Patient Time Spent with Patient: <45 minutes Time was spent: preparing to see the patient(eg.review tests), obtaining and/or reviewing separately otained hiistory, ordering medications,tests, procedures, referring, communicating with other health respiratory care faculty, indepentently interpreting results, counseling the patient and care coordination
--- NOTE | 2025-06-13 16:45 | CMDISCH_ITS ---
Date of service: 06/13/25 Time of Service: 16:45 LACE Index Scoring Tool Questions: Length of Stay (in days): 2 Was the patient admitted via the E.D.?: Yes E.D. Visits: 3 Answers: Total Score: 8 Risk of Readmission: Low Risk Care Management Discharge Plan Reason for Hospitalization: Sepsis, COPD with Emphysema Discharge Plan: Cosmo returned home today with no new services. He was driven home via private vehicle by family. He will follow up with his PCP and discharge plan of care. He was happy to be going home. Patient/Family Education Needs: Review discharge instructions and limitations, discussion of self care needs including ask me three. SDOH Health Related Social Needs: Health related social needs lonely/isolated Health related social needs details Pt has had COVID x 5 and has felt isolated during these times. Health related social needs details: Pt has had COVID x5 and has felt isolated during these times.
[2025-06-21 12:12] LABS: Lyme Ab w Rflx to Lyme Confirm Negative (Negative)
[2025-06-21 12:13] LABS: B. miyamotoi PCR Negative (Negative); Babesia divergens/MO-1 Negative (Negative)
[2025-06-21 12:14] LABS: Ehrlichia muris eauclairensis Negative (Negative)
== END 2025-06-13 13:10 | disposition home or self-care (01) | DRG 871 ==
LOC: ER 21:29 → MS 22:52
PROVIDERS: Admitting Provider Family Medicine; Emergency Provider Emergency Medicine; PCP Internal Medicine Geriatric Medicine; Responsible Provider Family Medicine; Visit Provider Family Medicine
DX: A41.9 Sepsis, unspecified organism (principal); J18.9 Pneumonia, unspecified organism; J44.0 Chronic obstructive pulmonary disease with (acute) lower respiratory infection; Z87.891 Personal history of nicotine dependence; I10 Essential (primary) hypertension; I25.5 Ischemic cardiomyopathy; N40.0 Benign prostatic hyperplasia without lower urinary tract symptoms; K21.9 Gastro-esophageal reflux disease without esophagitis; G47.33 Obstructive sleep apnea (adult) (pediatric); E78.00 Pure hypercholesterolemia, unspecified; E11.9 Type 2 diabetes mellitus without complications; E86.0 Dehydration; Z90.2 Acquired absence of lung [part of]; Z95.5 Presence of coronary angioplasty implant and graft; F43.10 Post-traumatic stress disorder, unspecified; Z85.118 Personal history of other malignant neoplasm of bronchus and lung; R45.89 Other symptoms and signs involving emotional state
CPT/HCPCS: 00123; 36415; 80048; 80053; 82805; 84145; 85027; 87040; 87637; 87798; 93005; 94640; 94761; 96365; 96367; 96368; 96375; 99285; J1650; 71045; 81003; 83605; 83735; 84484; 85025; 85610; 85730; 86618; 93010; 94664; 94667; 94668; 94760; 99223; 99231; 99238; J0131; J0456; J0696; J1815; J2919; J3475; J7620

== ENCOUNTER 2025-08-30 11:59 | Emergency (ER) | payer OTHER, SELFPAY ==
[2025-08-30] VITALS (20 sets, daily range): BP systolic 155–188; BP diastolic 70–93; PULSE 77–100; RESP 17–21; TEMP 36.6–36.7; O2SAT 91–99
--- NOTE | 2025-08-30 12:00 | RT.EKG_ITS ---
APPROVED REPORT Exam: Resting ECG Reason for Exam: chest pain Patient Location: E HR:94 bpm ECG Measurements Heart Rate 94 AXIS TN 162 P 85 QRSd 118 QRS -46 QT 372 T 71 QTc 465 Conclusion Sinus rhythm, rate 94 Incomplete left bundle branch block, otherwise no interval abnormalities No STEMI No significant changes from priors
--- NOTE | 2025-08-30 12:14 | W.ED.GENAD ---
Discharge Plan Disposition Patient Disposition: Home Condition: Stable Discharge Details Clinical Impression: Pneumonia Primary Care Provider: Regla Cordoba ED Provider: Alva Hart Home Meds and New Rx's Prescriptions: New doxycycline hyclate 100 mg capsule 100 mg PO BID 10 Days Qty: 20 0RF Rx Instructions: Take 1 tablet by mouth twice daily for the next 10 days prednisone 50 mg tablet 50 mg PO DAILY 5 Days Qty: 5 0RF Rx Instructions: Take 1 tablet daily for the next 5 days No Action multivitamin [Daily Multi-Vitamin] Tablet 1 tab PO DAILY tamsulosin 0.4 mg capsule 0.4 mg PO DAILY allopurinol 300 mg tablet 300 mg PO DAILY albuterol 90 mcg/actuation Aerosol 90 mcg INHALATION Q4H PRN PRN rosuvastatin 20 mg tablet 10 mg PO DAILY acetaminophen 325 mg Tablet 650 mg PO Q6H PRN PRN niacinamide 500 mg Tablet 500 mg PO BID Breztri Aerosphere 160-9-4.8 mcg/actuation HFA aerosol inhaler 2 inh inhalation BID Spiriva Respimat 2.5 mcg/actuation Mist 2 puff inhalation DAILY Qty: 4 0RF guaifenesin [Mucus Relief ER] 600 mg Tablet Extended Release 12hr 600 mg PO BID Qty: 10 0RF aspirin 81 mg Tablet,Chewable 81 mg PO DAILY Patient Comments: on hold for surgery omeprazole magnesium [Prilosec OTC] 20 mg Tablet,Delayed Release (Dr/Ec) 20 mg PO DAILY nitroglycerin [Nitrostat] 0.4 mg Tablet, Sublingual 0.4 mg Sublingual Q5 MIN PRN X3 PRNQty: 1 0RF tadalafil [Cialis] 5 mg tablet 5 mg PO DAILY metoprolol succinate 50 mg tablet extended release 24 hr 50 mg PO DAILY Patient Comments: TAKE ONE TABLET BY MOUTH TWICE A DAY amoxicillin-pot clavulanate 875-125 mg tablet 1 tab PO Q12H Qty: 10 0RF Discharge Instructions Instructions: Pneumonia, Adult ED Additional Instructions: At this time chest x-ray does show some questionable infiltrates bilaterally which is a concern for pneumonia. I do suspect that this is what is causing her chest pain. No evidence for cardiac injury or heart attack. COVID flu and RSV are all negative. Please take the antibiotics twice daily with yogurt or a probiotic as directed. Please take the prednisone once daily as directed. Follow up with primary care provider in 3-5 days. Return to ED sooner if any worsening chest pain, shortness of breath, fever over 100.8 or concerns. Please take Tylenol or Ibuprofen with food every 4-6 hours as needed for pain and swelling. Stand Alone Forms: Portal Information Referrals: Regla Cordoba [Primary Care Provider, Medicine] - 5 days Referral Note: ER follow-up, call for an appointment Clinical Impression: Pneumonia HPI General Mode of arrival: ambulatory. Date/Time Provider Initiated Documentation: 08/30/25 12:00. Limitations to Documentation: no limitations. Information obtained by: patient, RN notes reviewed and old records reviewed. HPI Narrative: 75-year-old male with a past medical history of CAD, sepsis pulmonary edema, hypertension, COPD diabetes mellitus, former smoker ischemic heart disease presents with left sternal chest pain which is intermittent for the last 3 days. He reports some shortness of breath, denies any cough or productive cough reports nausea on the way over here denies any vomiting or diarrhea. Pain gets worse with ambulation. He did take a baby aspirin this morning. Related Data Home Medications ?Medication ?Instructions ?Recorded ?Confirmed aspirin 81 mg chewable tablet 81 mg PO DAILY 07/19/18 08/30/25 nitroglycerin 0.4 mg sublingual 0.4 mg sublingual Q5 MIN PRN X3 07/19/18 08/30/25 tablet (Nitrostat) PRN #1 tab omeprazole magnesium 20 mg 20 mg PO DAILY 07/19/18 08/30/25 tablet,delayed release (Prilosec OTC) albuterol 90 mcg/actuation aerosol 90 mcg inhalation Q4H PRN PRN 04/19/21 08/30/25 inhaler allopurinol 300 mg tablet 300 mg PO DAILY 04/19/21 08/30/25 tamsulosin 0.4 mg capsule 0.4 mg PO DAILY 04/19/21 08/30/25 acetaminophen 325 mg tablet 650 mg PO Q6H PRN PRN 06/18/21 08/30/25 niacinamide 500 mg tablet 500 mg PO BID 06/18/21 08/30/25 multivitamin (Daily Multi-Vitamin 1 tab PO DAILY 09/27/23 08/30/25 tablet) rosuvastatin 20 mg tablet 10 mg PO DAILY 09/27/23 08/30/25 budesonide 160 mcg-glycopyr 9 2 inh inhalation BID 01/03/25 08/30/25 mcg-formot 4.8 mcg/actuation HFA inhaler (Breztri Aerosphere) guaifenesin 600 mg tablet, 600 mg PO BID #10 tabs 01/04/25 08/30/25 extended release 12 hr (Mucus Relief ER) tiotropium bromide 2.5 2 puff inhalation DAILY #4 grams 01/04/25 08/30/25 mcg/actuation mist for inhalation (Spiriva Respimat) tadalafil 5 mg tablet (Cialis) 5 mg PO DAILY 01/05/25 08/30/25 metoprolol succinate 50 mg 50 mg PO DAILY 01/19/25 08/30/25 tablet,extended release 24 hr amoxicillin 875 mg-potassium 1 tab PO Q12H #10 tabs 06/13/25 08/30/25 clavulanate 125 mg tablet doxycycline hyclate 100 mg capsule 100 mg PO BID Pneumonia 10 days 08/30/25 #20 caps prednisone 50 mg tablet 50 mg PO DAILY Inflammation 5 days 08/30/25 #5 tabs Previous Rx's ?Medication ?Instructions ?Recorded nitroglycerin 0.4 mg sublingual 0.4 mg sublingual Q5 MIN PRN X3 07/19/18 tablet (Nitrostat) PRN #1 tab guaifenesin 600 mg tablet, 600 mg PO BID #10 tabs 01/04/25 extended release 12 hr (Mucus Relief ER) tiotropium bromide 2.5 2 puff inhalation DAILY #4 grams 01/04/25 mcg/actuation mist for inhalation (Spiriva Respimat) amoxicillin 875 mg-potassium 1 tab PO Q12H #10 tabs 06/13/25 clavulanate 125 mg tablet doxycycline hyclate 100 mg capsule 100 mg PO BID Pneumonia 10 days 08/30/25 #20 caps prednisone 50 mg tablet 50 mg PO DAILY Inflammation 5 days 08/30/25 #5 tabs Allergies Allergy/AdvReac Type Severity Reaction Status Date / Time shellfish derived Allergy Severe Anaphylaxis Verified 08/30/25 12:04 meperidine Allergy Unknown Other (See Verified 08/30/25 12:04 Comment) morphine Allergy Unknown Nausea Verified 08/30/25 12:04 demerol hydrochloride Allergy Unknown Nausea Uncoded 08/30/25 12:04 General Stated Complaint: Chest Pain ELI: 3 Review of Systems All systems reviewed & are unremarkable except as noted in HPI and below Cardiovascular Cardiovascular: Reports as per HPI, Reports chest pain, Reports radiating jaw, neck or arm pain, Reports dyspnea and Reports dyspnea on exertion Respiratory Respiratory: Reports dyspnea and Reports dyspnea on exertion Exam Narrative Exam Narrative: Constitutional: Alert and oriented x3. Appears stated age. Normal body habitus. Head: Normocephalic, no trauma. Eyes: Pupils PERRL, Red reflex noted, EOM's intact. Eyelids symmetrical without lesions, discharge, or swelling. ENT: Bilateral TM's WNL, External ear normal to inspection, no mastoid TTP, swelling, or erythema, Nasal turbinates WNL, no nasal discharge. Normal dentition, Posterior pharynx WNL, no exudate. Chest: RRR, Normal S1, S2, distal pulses intact. Resp: Lungs clear to auscultation bilaterally, no wheezes, rales, or rhonchi. Abdomen: Soft, non-distended, Normoactive bowel sounds all 4 quads. Musculoskeletal: Normal gait, Moves all 4 extremities without difficulty. Skin: No suspicious rashes or lesions. Capillary refill less than 2 sec. Neurologic: Cranial nerves II-XII intact. Alert and oriented x 3. Motor: No deficits noted. Sensory: Intact bilaterally all 4 extremities. Hematologic/Lymphatic: No ecchymosis, no lymphadenopathy. Course Vital Signs Vital signs: Vital Signs Temperature 36.7 C 08/30/25 12:00 Pulse 98 H 08/30/25 12:00 Respiratory Rate 18 08/30/25 12:00 Blood Pressure 185/84 H 08/30/25 12:00 Pulse Oximetry 95 08/30/25 12:00 Temperature 36.7 C 08/30/25 12:00 Temperature Source Oral 08/30/25 12:00 Pulse 98 H 08/30/25 12:00 Respiratory Rate 18 08/30/25 12:00 Blood Pressure 185/84 H 08/30/25 12:00 Pulse Oximetry 95 08/30/25 12:00 Medical Decision Making 75-year-old male with a past medical history of CAD, sepsis pulmonary edema, hypertension, COPD diabetes mellitus, former smoker ischemic heart disease presents with left sternal chest pain which is intermittent for the last 3 days. He reports some shortness of breath, denies any cough or productive cough reports nausea on the way over here denies any vomiting or diarrhea. Pain gets worse with ambulation. He did take a baby aspirin this morning. EKG was reviewed by Dr. Catalan and myself ER attending, old EKG available for review, please see official report. No significant ST elevation or ischemic changes noted. Cardiac workup ordered including serial troponins, CBC CMP PT PTT, BNP and chest x-ray. Will give 243 mg chewable baby aspirin. Patient does state that his chest pain radiates into his back will consider CT imaging to rule out aneurysm, other differential includes VA, NSTEMI, STEMI, COPD exacerbation, musculoskeletal strain, PE. CBC within normal limits, CMP also within normal limits, initial troponin is 16 which is within normal limits, proBNP 391 added on COVID flu and RSV. Awaiting chest x-ray result and serial troponin. Serial troponin within normal limits, COVID flu RSV negative. Chest x-ray does show some mild bilateral infiltrates. Will treat for pneumonia. I did discuss results with patient who verbalized understanding. He does have a junky cough. Will also place patient on 5 days of 50 mg of prednisone once daily. Patient discharged in hemodynamically stable condition. Instructed on strict return instructions. Verbalized understanding. Medical Records Medical records reviewed: Yes I reviewed the patient's medical records. Lab Data Lab results reviewed: Yes I reviewed the patient's lab results. Labs: Laboratory Tests Range/Units 08/30/25 08/30/25 08/30/25 12:20 12:55 13:18 WBC (4.4-10.8) 10^3/uL 9.15 RBC (4.36-5.78) 10^6/uL 4.44 Hgb (13.5-17.5) g/dL 14.4 Hct (40.0-50.0) % 42.2 MCV (80-95) fL 95 MCH (27.0-33.0) pg 32.4 MCHC (32.0-36.0) % 34.1 RDW (11.8-14.1) % 13.1 Plt Count (130-400) 10^3/uL 196 MPV (8.0-11.0) fL 9.9 Immature Gran % % 0.3 Neutrophils % % 56.0 Lymphocytes % % 32.2 Monocytes % % 8.0 Eosinophils % % 3.2 Basophils % % 0.3 Nucleated RBC % (0.0-0.3) % 0.0 Absolute Neutrophils (1.2-6.7) 10^3/uL 5.12 Absolute Lymphocytes (1.2-3.4) 10^3/uL 2.95 Absolute Monocytes (0.1-0.8) 10^3/uL 0.73 Absolute Eosinophils (0.0-0.7) 10^3/uL 0.29 Absolute Basophils (0.0-0.2) 10^3/uL 0.03 PT (9.1-11.1) sec 10.9 INR (0.9-1.1) 1.1 APTT (20.6-30.2) sec 25.4 Sodium (136-145) mmol/L 140 Potassium (3.5-5.1) mmol/L 4.4 Chloride (98-107) mmol/L 105 Carbon Dioxide (20.0-31.0) mmol/L 25.2 Anion Gap (3-11) mmol/L 9.8 BUN (9-23) mg/dL 17 Creatinine (0.73-1.18) mg/dL 0.97 Est GFR (CKD-EPI 2020) (mL/min/1.73m2) 75.04 Glucose (74-106) mg/dL 105 Calcium (8.3-10.6) mg/dL 8.9 Magnesium (1.6-2.6) mg/dL 1.7 Total Bilirubin (0.2-1.2) mg/dL 0.4 AST (<34) U/L 32 ALT (10-49) U/L 33 Alkaline Phosphatase (46-116) U/L 58 Troponin I (<54) ng/L 16 19 NT-Pro-B Natriuret Pep (<300) pg/mL 391 H Total Protein (5.7-8.2) g/dL 7.6 Albumin (3.2-5.0) g/dL 4.6 COVID-19 Source Nasopharynx SARS-CoV-2 (PCR) (Negative) Negative Influenza Type A (PCR) (Negative) Negative Influenza Type B (PCR) (Negative) Negative RSV (PCR) (Negative) Negative Range/Units 12/29/25 15:09 WBC (4.4-10.8) 10^3/uL RBC (4.36-5.78) 10^6/uL Hgb (13.5-17.5) g/dL Hct (40.0-50.0) % MCV (80-95) fL MCH (27.0-33.0) pg MCHC (32.0-36.0) % RDW (11.8-14.1) % Plt Count (130-400) 10^3/uL MPV (8.0-11.0) fL Immature Gran % % Neutrophils % % Lymphocytes % % Monocytes % % Eosinophils % % Basophils % % Nucleated RBC % (0.0-0.3) % Absolute Neutrophils (1.2-6.7) 10^3/uL Absolute Lymphocytes (1.2-3.4) 10^3/uL Absolute Monocytes (0.1-0.8) 10^3/uL Absolute Eosinophils (0.0-0.7) 10^3/uL Absolute Basophils (0.0-0.2) 10^3/uL PT (9.1-11.1) sec INR (0.9-1.1) APTT (20.6-30.2) sec Sodium (136-145) mmol/L Potassium (3.5-5.1) mmol/L Chloride (98-107) mmol/L Carbon Dioxide (20.0-31.0) mmol/L Anion Gap (3-11) mmol/L BUN (9-23) mg/dL Creatinine (0.73-1.18) mg/dL Est GFR (CKD-EPI 2020) (mL/min/1.73m2) Glucose (74-106) mg/dL Calcium (8.3-10.6) mg/dL Magnesium (1.6-2.6) mg/dL Total Bilirubin (0.2-1.2) mg/dL AST (<34) U/L ALT (10-49) U/L Alkaline Phosphatase (46-116) U/L Troponin I (<54) ng/L Cancelled NT-Pro-B Natriuret Pep (<300) pg/mL Total Protein (5.7-8.2) g/dL Albumin (3.2-5.0) g/dL COVID-19 Source SARS-CoV-2 (PCR) (Negative) Influenza Type A (PCR) (Negative) Influenza Type B (PCR) (Negative) RSV (PCR) (Negative) Quality:SDOH Health Related Social Needs: Health related social needs lonely/isolated Health related social needs details Pt has had COVID x5 and has felt isolated during these times. PFSH All Active Problems (Updated 08/30/25 @ 13:45 by Alva Hart NP) Pneumonia (Acute) Sepsis (Acute) Pulmonary edema (Acute) Hypertensive emergency (Acute) D-dimer, elevated (Acute) Influenza A (Acute) Enlarged prostate (Acute) benign GERD (gastroesophageal reflux disease) (Chronic) Pneumonia (Acute) Near syncope (Acute) Post-operative complication (Acute) Leukocytosis, unspecified (Acute) Hyperglycemia (Acute) Acute coronary syndrome (Acute) Medical History Pneumonia HESHAM (obstructive sleep apnea) Ischemic heart disease s/p stent x1 Jul 2018 [facility] [place]. Sudhir Ceballos. -after progressive SEPULVEDA, then chest pain. Essential hypertension COPD (chronic obstructive pulmonary disease) patient follows w/ Dr. Barros, director international, [place] Hypercholesteremia Diabetes mellitus History of posttraumatic stress disorder (PTSD) Former smoker quit in 1994,90 pack year Basal cell carcinoma of skin right cheek 2011 [facility] [place]enocarcinoma segmentectomy WROX 06/09/2021 Melanoma Colon polyps HTN (hypertension) patient follows w/ Dr. Zheng Peñaloza, video tape transferrer, [place] Surgical History H/O melanoma excision H/O colonoscopy H/O nasal septoplasty Family History Father History of non-ST elevation myocardial infarction (NSTEMI) Prostate cancer metastatic to multiple sites Mother COPD (chronic obstructive pulmonary disease) Sister Breast cancer Sister Ovarian cancer Brother Lung cancer Social History Smoking/Tobacco Use Status: Former Tobacco Use Quit Date: 09/02/89 Tobacco: How many years used: 37 Smoking risk assessment performed?: Yes Alcohol Intake: current Alcohol Intake frequency: 0-2 drinks per day Alcohol type: hard liquor Drug use: Never Substance use type: does not use Housing: house 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 Pets and animals: Yes (4 cats) Pets and animals: cat(s) What is your relationship status?: Panel score (0-1 are the most socially isolated patients): 1 Do you feel safe at home: Yes Do you feel safe in your relationship?: Yes Additional Social history: Former smoker , quit in 1994,90 pack yrs.
[2025-08-30 12:28] LABS: Abs Immature Grans 0.03 10^3/uL (0.0-0.06); HCT 42.2 % (40.0-50.0); HGB 14.4 g/dL (13.5-17.5); Immature Grans % 0.3 %; MCH 32.4 pg (27.0-33.0); MCHC 34.1 % (32.0-36.0); MCV 95 fL (80-95); MPV 9.9 fL (8.0-11.0); Platelet Count 196 10^3/uL (130-400); RBC 4.44 10^6/uL (4.36-5.78); RDW 13.1 % (11.8-14.1); RDW-SD 45.8 fL; WBC 9.15 10^3/uL (4.4-10.8)
[2025-08-30] MEDS: Aspirin 81 MG CHEW 243 MG CH (12:28)
[2025-08-30 12:50] LABS: Troponin I 16 ng/L (<54)
--- NOTE | 2025-08-30 12:51 | DI.RAD_ITS ---
Exam(s) XR CHEST 2V PA LATERAL EXAM: XR CHEST 2V PA LATERAL CLINICAL HISTORY: Chest pain. TECHNIQUE: 2D digital imaging was performed. COMPARISON: CR,XR XR PORTABLE CHEST AP from 06/11/2025 FINDINGS: 2 views: Heart size is normal. The mediastinum is not widened. Slightly increased markings noted in the lingular segment of the left lung and right middle lobe, suspicious for mild infiltrates. Mild blunting of the costophrenic angles may indicate small amount of pleural fluid bilaterally. IMPRESSION: Subtle probable infiltrates in the lingular segment of the left lung and right middle lobe. Probable small pleural effusions DATA REPOSITORY: RADIATION DOSE DELIVERED:
[2025-08-30 12:52] LABS: ALT 33 U/L (10-49); AST 32 U/L (<34); Albumin 4.6 g/dL (3.2-5.0); Alkaline Phosphatase 58 U/L (46-116); Anion Gap 9.8 mmol/L (3-11); BUN 17 mg/dL (9-23); Bilirubin, Total 0.4 mg/dL (0.2-1.2); CO2 25.2 mmol/L (20.0-31.0); Calcium 8.9 mg/dL (8.3-10.6); Chloride 105 mmol/L (98-107); Glucose 105 mg/dL (74-106); Magnesium 1.7 mg/dL (1.6-2.6); Potassium 4.4 mmol/L (3.5-5.1); Sodium 140 mmol/L (136-145); Total Protein 7.6 g/dL (5.7-8.2)
[2025-08-30 12:59] LABS: INR 1.1 (0.9-1.1); PTT Activated 25.4 sec (20.6-30.2); Prothrombin Time 10.9 sec (9.1-11.1)
[2025-08-30 13:41] LABS: Troponin I 19 ng/L (<54)
[2025-08-30 13:48] LABS: COVID-19 PCR Negative (Negative); RSV PCR Negative (Negative)
[2025-08-30] MEDS: predniSONE 20 MG TAB 40 MG PO (14:17)
[2025-08-30] MEDS: Doxycycline Hyclate 100 MG CAP PO (14:17)
== END 2025-08-30 14:30 | disposition home or self-care (01) ==
PROVIDERS: Emergency Provider Registered Nurse Emergency; PCP Internal Medicine Geriatric Medicine
DX: J18.9 Pneumonia, unspecified organism (principal)
CPT/HCPCS: 99284; 99285; 80053; 87637; 93005; 71046; 83735; 83880; 84484; 85025; 85610; 85730; 93010; J7512